=== PATIENT | male | born 1935 | race Caucasian/White ===

== ENCOUNTER → 2017-11-28 | Outpatient (CLI) | payer BC ==
[~2017-11-28] MED LIST: CYAN500T PO; GLC500 PO; ZFRODT4 SL
--- NOTE | 2017-11-28 10:01 | DIAGNOSTIC IMAGING REPORT ---
R HIP UNILATERAL 2 VIEWS CLINICAL HISTORY: 82 years-old Male presenting with PAIN IN R HIP. TECHNIQUE: Frontal and frog-leg lateral views of the right hip were obtained. COMPARISON: None. FINDINGS: Significant degenerative change of the right hip with severe joint space loss, subchondral sclerosis, and osteophytosis. Joint space loss is most pronounced superiorly. No acute fracture or acute malalignment. Brachytherapy seeds noted in the prostate. Osteopenia suspected. IMPRESSION: Advanced degenerative changes of the right hip. No acute osseous injury. Electronically signed by: Mark Merino M.D. 11/28/2017 10:00 AM Dictated Date/Time: 11/28/2017 9:59 AM
--- NOTE | 2017-11-28 10:03 | DIAGNOSTIC IMAGING REPORT ---
L HIP UNILATERAL 2 VIEWS CLINICAL HISTORY: 82 years-old Male presenting with PAIN IN R HIP. TECHNIQUE: Frontal and frog-leg lateral views of the left hip were obtained. COMPARISON: None. FINDINGS: Advanced degenerative changes with joint space loss most pronounced superiorly. Subchondral sclerosis and cystic change as well as osteophytosis evident. No acute fracture. Upper convexity of the superior aspect of the femoral neck could suggest chronic acetabular impingement. Osteopenia suspected. Brachytherapy seeds noted in the prostate. 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 Electronically signed by: Mark Merino M.D. 11/28/2017 10:01 AM Dictated Date/Time: 11/28/2017 10:00 AM
== END | disposition home or self-care (01) ==
LOC: C.RAD1850 09:40
PROVIDERS: ATTEND Family Medicine
DX: M25.551 Pain in right hip (principal); M16.0 Bilateral primary osteoarthritis of hip

== ENCOUNTER 2018-11-10 05:54 | Inpatient (IN) ==
--- NOTE | 2018-10-10 11:17 | Anesthesiology Consultation ---
Date of Service October 10, 2018 Assessment & Plan (1) Encounter for pre-operative examination: Plan: Patient had ROCKY 02/2018, tolerated well. General anesthesia per record, but no indication as to why a spinal was not done. Patient is unsure as well, but recalls good experience and was pleased with anesthetic care. Chart Review Chart Review: Acceptable Risk for Surgery and Patient seen in Pre Admission Testing Teaching & Discussion Instructed NPO after midnight before surgery, except medications with 15 cc of water. Medication instructions provided according to the PAT guidelines. History Surgery Operation Date: 11/10/18 07:00 Proposed Procedures p Right Total Hip Arthroplasty - Librado Soni MD Height/Weight Height: 6 ft 1 in Weight: 111.1 kg Allergies Allergy/AdvReac Type Severity Reaction Status Date / Time metformin Allergy Unknown MUSCLE Verified 10/04/18 10:08 ACHES Ajowyyx-Wki-Goh Reductase Allergy Unknown MUSCLE Verified 10/04/18 10:08 Inhibitor ACHES Unclassified Drugs Allergy Unknown RED YEAST Uncoded 03/23/18 11:17 RICE-MUSCLE ACHES Medications Home Medications Medication Instructions Recorded Confirmed Last Taken aspirin [Aspir-81] 81 mg PO HS 10/04/18 10/04/18 Unknown canagliflozin [Invokana] 100 mg PO QAM 10/04/18 10/04/18 Unknown cyanocobalamin (vitamin B-12) 1,000 mcg PO QAM 10/04/18 10/04/18 Unknown [Vitamin B-12] docusate sodium [Stool Softener] 50 mg PO BID 10/04/18 10/04/18 Unknown losartan 25 mg PO BID 10/04/18 10/04/18 Unknown sitagliptin [Januvia] 100 mg PO QAM 10/04/18 10/04/18 Unknown Past Medical History Medical History Bradycardia ASYMPTOMATIC Diabetes mellitus, type 2 History of cardiac arrhythmia PT HAD HOLTER SHOWING NSR WITH INTERMITTENT EPISODES OF ATRIAL TACHYCARDIA. History of prostate cancer S/P BRACHYTHERAPY Hypertension Osteoarthritis Past Surgical History Surgical History History of brachytherapy History of cataract extraction with lens replacement History of cystoscopy History of open reduction and internal fixation (ORIF) procedure ARM History of total hip arthroplasty LEFT Past Anesthesia History No Hx of Anesthesia Complications and No Family Hx of Anesthesia Complications PT HAD GENERAL ANESTHESIA FOR ROCKY 02/2018. RECORD DOES NOT INDICATE WHY GA WAS USED, AND DOES NOT APPEAR SPINAL WAS ATTEMPTED. PT WAS VERY PLEASED WITH ANESTHESIA LAST TIME AND WOULD NOT MIND HAVING GA AGAIN IF THE NEED ARISES. History of PONV No Motion Sickness Screening History of Motion Sickness: No Social History Smoking Status: Former smoker tobacco type: cigarettes Smoking cigarettes per day: H/O 1PPD x 20yrs Do You Dip or Chew Tobacco: No Smoking End Date: QUIT 35 YEARS AGO. Hx Alcohol Use: Yes alcohol intake frequency: holidays/special occasions only Alcohol Intake Frequency Comment: VERY RARE Hx Substance Use: No substance use type: does not use Exercise / Class Metabolic Activity II 4-5 Yardwork/Stairs/Walk up hill (Denies CP and SOB with 1 flight of stairs) Review of Systems Pt denies any recent chest pain, shortness of breath, palpitations, cough, fever or URI. Physical Exam Vital Signs BP: 115/68 P: 52bpm SPO2: 95% RA T: R: 16 ENMT Mouth: + dentures and + edentulous Thyromental Distance: > or= 3.5 Finger Breadths (4) Mallampati Class: I tonsils surgically absent Neck normal visual inspection; neck extension not limited Respiratory normal respiratory effort Auscultation: lungs clear to auscultation bilaterally Cardiovascular Rate/Rhythm: regular rate and regular rhythm Heart Sounds: no murmur Vessels: no carotid bruit Extremities: no edema Testing Electrocardiogram Date: 02/17/18 Sinus rhythm with 2nd degree AV block, likely Mobitz I. PVCs. Possible inferior infarct (cited on or before 08/11/04). Chest X-Ray Date: 02/17/18 Findings could suggest underlying chronic lung disease. No convincing evidence of acute cardiopulmonary disease. Echocardiogram Date: 03/06/18 EF: 60% Dilated right ventricle. Mild concentric LVH. Severely dilated left atrium. Grade 1 diastolic dysfunction. No regional wall motion abnormalities. No significant valvular disease. Other Testing Holter monitor 02/28/2018 Predominantly normal sinus rhythm with second-degree AV block type I. Rare 2:1 block, frequent PACs. Frequent episodes of atrial tachycardia up to 10 beats in duration, up to 128 bpm. Laboratory Results 10/10/18 11:40 10/10/18 11:40 Blood Type O Positive 10/10/18 11:40 Antibody Screen NEGATIVE 10/10/18 11:40 PT 10.8 Seconds (9.0-12.0) 10/10/18 11:40 INR 1.1 (0.9-1.1) 10/10/18 11:40 APTT 25.7 Seconds (21.0-31.0) 10/10/18 11:40 Hemoglobin A1c 6.6 % (4.5-5.6) H 10/10/18 11:40
--- NOTE | 2018-10-10 11:36 | PAT Medication Instructions ---
Medication Instructions Date of Service October 10, 2018 Home Medications aspirin [Aspir-81] 81 mg PO HS canagliflozin [Invokana] 100 mg PO QAM cyanocobalamin (vitamin B-12) 1,000 mcg PO QAM docusate sodium [Stool Softener] 50 mg PO BID losartan 25 mg PO BID sitagliptin [Januvia] 100 mg PO QAM DO NOT take the morning of surgery canagliflozin [Invokana] 100 mg PO QAM cyanocobalamin (vitamin B-12) 1,000 mcg PO QAM docusate sodium [Stool Softener] 50 mg PO BID losartan 25 mg PO BID sitagliptin [Januvia] 100 mg PO QAM Take evening before surgery aspirin [Aspir-81] 81 mg PO HS docusate sodium [Stool Softener] 50 mg PO BID losartan 25 mg PO BID Other Notes If you have any questions please call us at [phone] or [phone] or [phone] or [phone]
[2018-10-10 12:10] LABS: Basophils # (auto) 0.04 K/uL (0-0.2); Basophils % (auto) 0.6 %; Eosinophils # (auto) 0.13 K/uL (0-0.5); Eosinophils % (auto) 2.1 %; Hemoglobin 13.2 g/dL (14.0-18.0); Immature Granulocytes # (auto) 0.01 K/uL (0.00-0.02); Immature Granulocytes % (auto) 0.2 %; Lymphocytes % (auto) 29.1 %; Mean Corpuscular Hgb Conc 32.2 g/dL (32-36); Mean Corpuscular Volume 83.8 fL (80-100); Mean Platelet Volume 11.3 fL (7.4-10.4); Monocytes # (auto) 0.52 K/uL (0.11-0.59); Monocytes % (auto) 8.4 %; Neutrophils # (auto) 3.69 K/uL (1.4-6.5); Neutrophils % (auto) 59.6 %; Platelet Count 220 K/uL (130-400); RDW Coefficient of Variation 15.6 % (11.5-14.5); RDW Standard Deviation 47.9 fL (36.4-46.3); Red Blood Count 4.89 M/uL (4.7-6.1); White Blood Count 6.19 K/uL (4.8-10.8)
[2018-10-10 12:26] LABS: INR 1.1 (0.9-1.1); Partial Thromboplastin Time 25.7 Seconds (21.0-31.0); Prothrombin Time 10.8 Seconds (9.0-12.0)
[2018-10-10 12:52] LABS: Estimated Average Glucose 143 mg/dl
[2018-10-10 13:12] LABS: BUN Creatinine Ratio 18.1 (10-20); Calcium 9.2 mg/dl (8.5-10.1); Creatinine Clr Calc Pharmacy 64.7 ml/min; Est GFR (African American) 69.3; Est GFR (Non-African American) 59.8; Potassium 4.4 mmol/L (3.5-5.1)
[2018-10-10 13:13] LABS: C Reactive Protein 0.41 mg/dl (0-0.29)
--- NOTE | 2018-11-04 12:47 | History and Physical Report ---
DATE OF ADMISSION: 11/10/2018 CHIEF COMPLAINT: Persistent right hip pain and discomfort, stiffness. HISTORY OF PRESENT ILLNESS: An 83-year-old gentleman who is now about 8 months out from a left hip replacement who presents now for surgical treatment of his right hip. He has done great on his left side. He has got a long history of bilateral hip pain and discomfort. He has become more active since his hip surgery and actually been able to lose some weight. He continues to be bothered and limited by his right hip pain. He describes groin pain, thigh pain. It has gradually just gotten worse over the past 10 years. He continues to use a cane in order to get around due to his right hip. He would like to proceed with surgical treatment. PAST MEDICAL HISTORY: 1. Diabetes x8 years with an A1c of 6.6. 2. Hypertension. 3. Obesity with recent weight loss. 4. Prostate cancer. 5. Bradycardia. PAST SURGICAL HISTORY: Previous surgeries include: 1. Arm surgery for fracture. 2. Left hip replacement done on 03/23/2018. ALLERGIES: None. CURRENT MEDICINES: Include: 1. Januvia once a day for diabetes. 2. Invokana once a day for diabetes. 3. Vitamin B12. 4. Unspecified blood pressure medicine 25 mg twice a day. 5. Ibuprofen for arthritis. SOCIAL HISTORY: An 83-year-old male. He is . Lives by himself. Pretty good family support network locally. FAMILY HISTORY: Noncontributory. REVIEW OF SYSTEMS: Significant for well-controlled diabetes. Denies any chest pain or shortness of breath. No history of DVT or PE. PHYSICAL EXAMINATION: GENERAL: Shows a healthy-appearing elderly male. HEENT: Benign. NECK: Supple. No lymphadenopathy. LUNGS: Clear to auscultation. HEART: Regular rate and rhythm. ABDOMEN: Soft, nontender, nondistended. EXTREMITIES: Grossly neurovascularly intact except as follows: Examination of the right hip and leg reveals the patient walks using a cane. He limps on the right side. He is about 0.5 cm short on the right side compared to the left. Very stiff hip with minimal motion. Any type of motion causes pain. Examination of the left hip reveals well-healed incision. He has got pain with hip motion. He is neurologically intact. X-RAYS: X-rays of the right hip reveal advanced right hip DJD. He has got complete loss of his joint space. He has got osteophytes around his hip diffusely both from the acetabular and femoral head. Diffuse osteopenia. Left hip replacement looks to be in good position. ASSESSMENT: An 83-year-old gentleman now 6 months out from a left hip replacement with advanced right hip degenerative joint disease. He is now limited by his right hip arthritis. PLAN: We will take him to the operating room and do a right total hip replacement. The risks and benefits of this procedure were explained to the patient including but not limited to DVT, PE, , infection, neurological injury, vascular injury, bleeding problem, pain, limited range of motion, stiffness, failure to relieve symptoms, incomplete relief of symptoms, need for further surgery in future, fracture, leg length inequality, nerve palsy, dislocation, etc. The patient understands and desires to proceed. Informed consent was obtained. As far as discharge plans, he is planning to be discharged to home using the home health program. He has got family around which can help with his care.
[2018-11-10] MEDS ORDERED: GABAPENTIN 300 MG PO SCH (06:00)
[2018-11-10] MEDS ORDERED: TRANEXAMIC ACID 1,000 MG **IV Pre-op IV SCH (06:00)
[2018-11-10] MEDS ORDERED: ACETAMINOPHEN 500 MG TAB PO SCH (06:00)
[2018-11-10] MEDS ORDERED: LR 500ML BOLUS, THEN 15ML/HR IV SCH (06:00)
[2018-11-10] MEDS ORDERED: LR 60ML/HR IV SCH (06:00)
[2018-11-10] MEDS ORDERED: METOCLOPRAMIDE HCL 10 MG TABLET PO SCH (06:00)
[2018-11-10] MEDS ORDERED: CEFAZOLIN 2000MG 2,000 MG/15 ML SYR IV SCH (06:00)
[2018-11-10] MEDS ORDERED: FAMOTIDINE 20 MG TAB PO SCH (06:00)
[2018-11-10] MEDS ORDERED: BUPIVACAINE 0.5 % 5 MG/1 ML PF 10ML VIAL ONE (06:19)
[2018-11-10] MEDS ORDERED: TRANEXAMIC ACID 1,000 MG **IV Intra-op IV SCH (06:30)
--- NOTE | 2018-11-10 06:53 | History & Physical Bridge Note ---
Date of Service November 10, 2018 History & Physical Bridge Note I have examined the patient, reviewed the History & Physical and in the interval since the performance of the History & Physical I have noted the following changes of clinical significance: no changes noted
[2018-11-10] MEDS ORDERED: HYDROmorphone INJ 2 MG/ML SYR/VIAL ONE (08:15)
[2018-11-10] MEDS ORDERED: fentaNYL citrate 100 MCG/2 ML VIAL ONE ×2 (08:15→10:34)
[2018-11-10] MEDS ORDERED: PROMETHAZINE HCL 6.25 MG in SODIUM CHLORIDE 0.9% 50 ML IV PRN (08:18)
[2018-11-10] MEDS ORDERED: ePHEDrine sulfate 50 MG/ML AMP IV PRN (08:18)
[2018-11-10] MEDS ORDERED: fentaNYL citrate 100 MCG/2 ML VIAL IV PRN (08:18)
[2018-11-10] MEDS ORDERED: ATROPINE SULFATE 0.1 MG/ML 10ML SYR IV PRN (08:18)
[2018-11-10] MEDS ORDERED: ONDANSETRON INJ 2 MG/ML 2 ML VIAL IV PRN ×2 (08:18→11:57)
[2018-11-10] MEDS ORDERED: BACITRACIN INJ 50,000 UNIT VIAL ONE (08:36)
[2018-11-10] MEDS ORDERED: BUPIVACAINE/EPINEPHRINE 0.5% MPF 1:200,000 30 ML VIAL ONE (08:36)
[2018-11-10] MEDS ORDERED: NEOSTIGMINE METHYLSULFATE 5 MG/5 ML SYR ONE (09:21)
[2018-11-10] MEDS ORDERED: GLYCOPYRROLATE 0.2 MG/ML VIAL ONE (09:21)
[2018-11-10] MEDS ORDERED: ROCURONIUM BROMIDE 10 MG/ML 5 ML VIAL ONE (09:21)
[2018-11-10] MEDS ORDERED: LIDOCAINE HCL 2% 2 ML VIAL/AMP(20MG/ML) INFIL ONE (09:21)
[2018-11-10] MEDS ORDERED: PROPOFOL IV EMULSION 10 MG/ML 20 ML VIAL IV ONE (09:21)
[2018-11-10] MEDS ORDERED: ONDANSETRON INJ 2 MG/ML 2 ML VIAL ONE (09:21)
[2018-11-10] MEDS ORDERED: PHENYLEPHRINE 100MCG/ML 5ML SYR ONE (10:18)
--- NOTE | 2018-11-10 10:46 | Post Operative Brief Note ---
Immediate Post Op Note v1 Date of Surgery November 10, 2018 Pre & Post Diagnosis Operation Date: 11/10/18 08:50 Pre-Op Diagnosis: Right Hip Degenertive Joint Disease Post-Op Diagnosis: Right Hip Degenertive Joint Disease Procedure Operation Date: 11/10/18 08:50 Actual Procedures p Right Total Hip Arthroplasty, Uncemented(Right) - Librado Soni MD Surgeon Librado Soni MD Ribbon Cutter [place], PAC Estimated Blood Loss 300 Findings Consistent with Post-Op Diagnosis Fluids 600 cc Specimens Right Femoral Head Anesthesia Type Spinal MAC Complications none Disposition Accompanied Patient To Recovery: Yes Disposition: Recovery Room
[2018-11-10] MEDS: LR 500ML BOLUS, THEN 15ML/HR IV SCH ×2 (11:05→12:16)
--- NOTE | 2018-11-10 11:37 | Anesthesiology Progress Note ---
Date of Service November 10, 2018 Anesthesia Post Procedure Vital Signs Vital Signs: Temp Pulse Pulse Resp BP BP Pulse Ox 11/10/18 11:27 36.5 C 45 L 17 134/59 L 100 11/10/18 11:25 47 L 16 99 11/10/18 11:21 48 L 14 133/61 96 11/10/18 11:20 51 L 18 11/10/18 11:16 46 L 12 132/56 L 98 11/10/18 11:15 45 L 10 L 99 11/10/18 11:11 46 L 17 126/59 L 96 11/10/18 11:10 45 L 13 96 11/10/18 11:06 45 L 12 139/62 97 11/10/18 11:05 45 L 14 98 11/10/18 11:01 46 L 8 L 132/55 L 100 11/10/18 11:00 46 L 10 L 96 11/10/18 10:56 51 L 10 L 142/63 H 98 11/10/18 10:55 15 98 11/10/18 10:51 58 L 12 132/68 100 11/10/18 10:50 59 L 15 100 11/10/18 10:47 50 L 8 L 138/67 99 11/10/18 10:46 36.3 C L 51 L 16 138/67 98 11/10/18 07:31 36.5 C 62 20 121/67 99 Notes Mental Status: alert / awake / arousable Patient Amnestic to Procedure: Yes Nausea / Vomiting: adequately controlled Pain: adequately controlled Airway Patency, RR, SpO2: stable & adequate BP & HR: stable & adequate Hydration State: stable & adequate Anesthetic Complications: no major complications apparent
--- NOTE | 2018-11-10 11:43 | XRay Report ---
XR hip 1V RT w pelvis CLINICAL HISTORY: IN PACU - A/P PELVIS and LATERAL HIP COMPARISON: 03/23/2018 DISCUSSION: Interval total right hip arthroplasty. Good contact between prosthetic and underlying bon e. Pre-existing total left hip arthroplasty. Multiple radioactive prosthetic seeds are identified. Ex pected postoperative soft tissue change. IMPRESSION: Total right hip arthroplasty good position. The above report was generated using voice recognition software. It may contain grammatical, syntax or spelling errors. Electronically signed by: Oc Espinosa M.D. 11/10/2018 11:42 AM
[2018-11-10] MEDS ORDERED: NALOXONE HCL 0.4 MG/1 ML VIAL/CARP IV PRN (11:57)
[2018-11-10] MEDS ORDERED: METOCLOPRAMIDE HCL INJ 5 MG/ML 2 ML VIAL IV PRN (11:57)
[2018-11-10] MEDS ORDERED: TRAMADOL HCL 50 MG TABLET PO PRN (11:57)
[2018-11-10] MEDS ORDERED: BISACODYL 10 MG SUPP PR PRN (11:57)
[2018-11-10] MEDS ORDERED: MAGNESIUM HYDROXIDE SUSP 30 ML UDC PO PRN (11:57)
[2018-11-10] MEDS ORDERED: HYDROmorphone INJ 0.5 MG/0.5 ML SYR IV PRN (11:57)
[2018-11-10] MEDS ORDERED: ALUMINUM/MAGNESIUM SUSP 30 ML UDC PO PRN (11:57)
[2018-11-10] MEDS ORDERED: TAMSULOSIN HCL 0.4 MG CAP PO PRN (11:57)
[2018-11-10] MEDS: KETOROLAC TROMETHAMINE 15 MG/ML VIAL IV SCH ×3 (14:15→20:18)
[2018-11-10] MEDS: ACETAMINOPHEN 500 MG TAB PO SCH ×2 (14:15→18:18)
[2018-11-10] MEDS: SODIUM CHLORIDE 0.9% 1000ML 1,000 ML IV SCH ×2 (14:17→21:09)
[2018-11-10] MEDS: CEFAZOLIN 2000MG 2,000 MG/15 ML SYR IV SCH ×2 (15:42→23:40)
[2018-11-10] MEDS ORDERED: TRANEXAMIC ACID 1,000 MG in 0.9 % SODIUM CHLORIDE 100 ML IV SCH (16:47)
[2018-11-10] MEDS: ASCORBIC ACID 500 MG TAB PO SCH (18:17)
[2018-11-10] MEDS: FERROUS GLUCONATE 324 MG TAB PO SCH (18:17)
[2018-11-10] MEDS: SENNA 8.6 MG TAB PO SCH (20:09)
[2018-11-10] MEDS: ASPIRIN 81 MG ECTAB PO SCH (20:10)
[2018-11-10] MEDS: DOCUSATE SODIUM 100 MG CAP PO SCH (20:11)
[2018-11-10] MEDS: LOSARTAN POTASSIUM 25 MG TAB PO SCH (20:14)
[2018-11-10] MEDS ORDERED: NON-FORMULARY MEDICATION (Docusate Sodium [Stool Softener] 50 MG) PO SCH (21:00)
--- NOTE | 2018-11-10 22:28 | Operative Report ---
DATE OF OPERATION: 11/10/2018 SURGEON: Librado Soni MD RABBIT BREEDER: TATO Peres PREOPERATIVE DIAGNOSIS: Right hip degenerative joint disease. POSTOPERATIVE DIAGNOSIS: Same. PROCEDURE PERFORMED: Right uncemented ceramic on highly cross-linked polyethylene total hip arthroplasty. COMPLICATIONS: None. ESTIMATED BLOOD LOSS: 300 mL. FLUID REPLACEMENT: 600 mL crystalloid fluid replacement. ANESTHESIA: General. SPECIMENS: Right femoral head sent for pathology. OPERATIVE INDICATIONS: The patient is an 83-year-old fairly active gentleman who has had a long history of bilateral hip pain and discomfort. He describes it has gotten worse over the past 10 years. He underwent a left hip replacement 8 months ago and has done remarkably well. He continued to be limited by right hip pain. He elected to proceed with total hip arthroplasty. OPERATIVE FINDINGS: Operative findings were advanced right hip DJD. Extensive grade 4 changes of the femoral head and acetabulum. He had large osteophytes around the acetabulum and a very stiff hip. OPERATIVE IMPLANTS: Operative implants consisted of, 1. Biomet G7 size 60 mm acetabular shell. 2. A 6.5 cancellous acetabular screws, one at 35 mm length and one at 20 mm length. 3. An apex hole eliminator. 4. A highly cross-linked polyethylene liner with a 60 mm outer diameter and 36 mm inner diameter. 5. DePuy Corail size 18 standard femoral stem. 6. A +5/36 mm ceramic articular ball. OPERATIVE PROCEDURE: The patient was taken to the operating room, identified, and placed on the operative table in supine position. All contact areas were appropriately padded. IV antibiotics were provided by anesthesia team. A general anesthetic was implemented by anesthesia team due to the patient's request. The patient was then placed in the left lateral decubitus position. An axillary roll was placed. [facility] hip positioner was used for positioning. The right hip and leg were then prepped and draped in the usual sterile fashion. A posterolateral approach to the right hip was then performed through a curvilinear incision centered over the greater trochanter. Sharp dissection was carried through the subcutaneous tissue down to the level of the IT band and gluteal fascia. The IT band and gluteal fascia were incised longitudinally in line with the skin incision. The underlying greater trochanteric bursa was excised. The piriformis and external rotators were tagged and taken off the posterior aspect of the hip joint capsule. Great care was taken throughout the procedure to protect the sciatic nerve at all times. A posterior capsulotomy was then performed leaving a large flap for later repair. Hip was internally rotated and dislocated. Femoral neck osteotomy cut was made with final cut about 12 mm above the lesser trochanter. Femoral head was removed and sent for pathology. The femur was retracted anteriorly. The acetabulum labrum was mostly ossified, but was present was then removed. The pulvinar fat was excised. Attention was then drawn to the acetabulum. The acetabulum was then reamed beginning with a size 53 reamer and progressing up to 59. I did use the 60 reamer just to enter the acetabulum as it was narrower at the entrance. A 60 mm Biomet G7 acetabular shell was then placed in about 40 degrees of lateral opening and 20 degrees of anteversion. It was fixed with two 6.5 cancellous acetabular screws. The large anterior osteophytes and inferior osteophytes were removed. A trial liner was placed. Attention was then drawn to the femur. The proximal femur was entered with a cookie cutter followed by a canal finder. I then broached beginning with a size 8 and progressing up to a 16. This did countersink quite a bit, so we broached it to an 18 and it was quite a tight fit. We had to place it down several times to get it to the calcar cut. We did this very meticulously taking great care to protect his bone. A calcar reamer was used to smoothen off the calcar. I then trialed the hip and the +5 articular ball provided full stability, full extension and external rotation and flexion to 90 degrees, internal rotation to 60+ degrees. We elected to place these implants. All trial implants were removed. An apex hole eliminator was placed. Highly cross-linked polyethylene liner was placed. A Corail size 18 standard offset femoral stem was impacted in position. There was a little defect medially and we did put some bone graft around the collar in order to fill this defect. A +5/36 mm ceramic articular ball was placed and hip was located. Once again found to be stable. Attention was then drawn toward closing. The wound was irrigated with copious amounts of pulsatile lavage solution. I did inject locally with 60 mL of 0.5% Marcaine with epinephrine. The posterior capsule and external rotators were repaired through drill holes in the posterior trochanter with #2 Ti-Cron suture. The IT band and gluteal fascia were then closed with 1-0 PDS suture in running fashion. The subcutaneous tissue was then closed in 2 layers with the deep layer with #1 Vicryl suture and the subcutaneous tissue with 2-0 Dexon suture in a buried interrupted fashion. The skin was closed with skin xavi. Leg was then cleaned, dried and a sterile dressing of Xeroform, 4 x 4, sterile ABD pad, and foam tape was applied. The patient was then transferred to the recovery room in stable condition. The patient tolerated the procedure well with no complications. All needle and sponge counts were correct at the end of the operation. I attest to the content of the Intraoperative Record and any orders documented therein. Any exception s are noted below.
[2018-11-11] MEDS: LR 500ML BOLUS, THEN 15ML/HR IV SCH ×5 (01:34→01:38)
[2018-11-11] MEDS: KETOROLAC TROMETHAMINE 15 MG/ML VIAL IV SCH ×4 (02:00→20:35)
[2018-11-11] MEDS: SODIUM CHLORIDE 0.9% 1000ML 1,000 ML IV SCH (05:42)
[2018-11-11] MEDS: ACETAMINOPHEN 500 MG TAB PO SCH ×3 (05:42→21:15)
[2018-11-11 06:17] LABS: Basophils # (auto) 0.02 K/uL (0-0.2); Basophils % (auto) 0.3 %; Eosinophils # (auto) 0.01 K/uL (0-0.5); Eosinophils % (auto) 0.1 %; Hematocrit (blood only) 31.3 % (42-52); Hemoglobin 9.7 g/dL (14.0-18.0); Immature Granulocytes # (auto) 0.02 K/uL (0.00-0.02); Immature Granulocytes % (auto) 0.3 %; Lymphocytes # (auto) 1.43 K/uL (1.2-3.4); Lymphocytes % (auto) 19.2 %; Mean Platelet Volume 12.5 fL (7.4-10.4); Monocytes # (auto) 0.96 K/uL (0.11-0.59); Monocytes % (auto) 12.9 %; Neutrophils # (auto) 5.02 K/uL (1.4-6.5); Neutrophils % (auto) 67.2 %; Platelet Count 157 K/uL (130-400); RDW Coefficient of Variation 15.4 % (11.5-14.5); RDW Standard Deviation 46.5 fL (36.4-46.3); Red Blood Count 3.77 M/uL (4.7-6.1); White Blood Count 7.46 K/uL (4.8-10.8)
[2018-11-11 06:42] LABS: BUN Creatinine Ratio 22.2 (10-20); Calcium 7.5 mg/dl (8.5-10.1); Creatinine Clr Calc Pharmacy 52.3 ml/min; Est GFR (African American) 53.5; Est GFR (Non-African American) 46.1; Potassium 3.8 mmol/L (3.5-5.1)
--- NOTE | 2018-11-11 08:38 | Anesthesiology Progress Note ---
Date of Service November 11, 2018 Anesthesia Post Procedure Vital Signs Vital Signs: Temp Pulse Pulse Pulse Resp BP BP 11/11/18 07:42 37.0 C 69 16 107/49 L 11/11/18 02:58 37.3 C 81 16 92/58 L 11/10/18 23:09 37.2 C 71 16 114/62 11/10/18 20:13 63 103/66 11/10/18 19:08 37 C 66 18 120/76 11/10/18 15:29 36.4 C L 11/10/18 14:55 50 L 18 145/77 H 11/10/18 13:47 36.4 C L 47 L 18 143/72 H 11/10/18 12:48 36.3 C L 41 L 18 144/73 H 11/10/18 12:16 36.3 C L 43 L 18 136/61 11/10/18 11:45 36.6 C 48 L 18 176/83 H 11/10/18 11:27 36.5 C 45 L 17 134/59 L 11/10/18 11:25 47 L 16 11/10/18 11:21 48 L 14 133/61 11/10/18 11:20 51 L 18 11/10/18 11:16 46 L 12 132/56 L 11/10/18 11:15 45 L 10 L 11/10/18 11:11 46 L 17 126/59 L 11/10/18 11:10 45 L 13 11/10/18 11:06 45 L 12 139/62 11/10/18 11:05 45 L 14 11/10/18 11:01 46 L 8 L 132/55 L 11/10/18 11:00 46 L 10 L 11/10/18 10:56 51 L 10 L 142/63 H 11/10/18 10:55 15 11/10/18 10:51 58 L 12 132/68 11/10/18 10:50 59 L 15 11/10/18 10:47 50 L 8 L 138/67 11/10/18 10:46 36.3 C L 51 L 16 138/67 Pulse Ox 11/11/18 07:42 96 11/11/18 02:58 97 11/10/18 23:09 98 11/10/18 20:13 11/10/18 19:08 96 11/10/18 15:29 11/10/18 14:55 100 11/10/18 13:47 100 11/10/18 12:48 100 11/10/18 12:16 100 11/10/18 11:45 100 11/10/18 11:27 100 11/10/18 11:25 99 11/10/18 11:21 96 11/10/18 11:20 11/10/18 11:16 98 11/10/18 11:15 99 11/10/18 11:11 96 11/10/18 11:10 96 11/10/18 11:06 97 11/10/18 11:05 98 11/10/18 11:01 100 11/10/18 11:00 96 11/10/18 10:56 98 11/10/18 10:55 98 11/10/18 10:51 100 11/10/18 10:50 100 11/10/18 10:47 99 11/10/18 10:46 98 Notes Mental Status: alert / awake / arousable Nausea / Vomiting: adequately controlled Pain: adequately controlled Airway Patency, RR, SpO2: stable & adequate BP & HR: stable & adequate Hydration State: stable & adequate Neuraxial Anesthesia: was administered and sensory block resolved Anesthetic Complications: no major complications apparent and Pt Satisfied with anesthetic care
[2018-11-11] MEDS: DOCUSATE SODIUM 100 MG CAP PO SCH ×2 (08:43→20:41)
[2018-11-11] MEDS: CANAGLIFLOZIN SCH (08:43)
[2018-11-11] MEDS: MULTIVITAMIN TAB PO SCH (08:43)
[2018-11-11] MEDS: FERROUS GLUCONATE 324 MG TAB PO SCH ×2 (08:43→16:07)
[2018-11-11] MEDS: ASCORBIC ACID 500 MG TAB PO SCH ×2 (08:44→16:07)
[2018-11-11] MEDS: ASPIRIN 81 MG ECTAB PO SCH ×2 (08:44→20:40)
[2018-11-11] MEDS: SITAGLIPTIN PHOSPHATE 100 MG TAB PO SCH (08:44)
[2018-11-11] MEDS: CYANOCOBALAMIN 500 MCG TABLET (VITAMIN B-12) PO SCH (08:45)
[2018-11-11] MEDS: LOSARTAN POTASSIUM 25 MG TAB PO SCH ×2 (08:45→20:39)
--- NOTE | 2018-11-11 10:00 | Progress Note ---
DATE: 11/11/2018 SUBJECTIVE: An 83-year-old gentleman postop day 1 from right hip replacement. He is doing well. He does not report any pain. He just has a little bit of soreness. No chest pain or shortness of breath. Not feeling dizzy or lightheaded. OBJECTIVE: VITAL SIGNS: Temperature 37.0. Vital signs are stable. PHYSICAL EXAMINATION: GENERAL: Reveals a pleasant elderly male. He is sitting up in his bedside chair and looks quite comfortable. EXTREMITIES: Examination of the right hip reveals the dressing to be clean, dry and intact. Thigh is soft and supple. Hip is located. He is neurologically intact. LABORATORY DATA: Hemoglobin 9.7. Hematocrit 31.3. Electrolytes are stable. ASSESSMENT: An 83-year-old gentleman postoperative day 1 from right hip replacement, doing well. Pain is controlled. Hip is located. He is neurologically intact. PLAN: 1. DVT prophylaxis including thigh-high TEDs, SCDs, and aspirin twice a day. 2. PT/OT. Weight bear as tolerated. Right total hip protocol. 3. Pain control, doing well with current pain regimen. 4. Disposition: Plan to discharge to home with some home health once adequately recovered.
[2018-11-11] MEDS: SENNA 8.6 MG TAB PO SCH (20:41)
[2018-11-12] MEDS: KETOROLAC TROMETHAMINE 15 MG/ML VIAL IV SCH ×2 (02:54→07:54)
[2018-11-12] MEDS: ACETAMINOPHEN 500 MG TAB PO SCH (05:58)
[2018-11-12] MEDS: CANAGLIFLOZIN SCH (07:54)
[2018-11-12] MEDS: ASPIRIN 81 MG ECTAB PO SCH (07:54)
[2018-11-12] MEDS: CYANOCOBALAMIN 500 MCG TABLET (VITAMIN B-12) PO SCH (07:55)
[2018-11-12] MEDS: ASCORBIC ACID 500 MG TAB PO SCH (07:55)
[2018-11-12] MEDS: SITAGLIPTIN PHOSPHATE 100 MG TAB PO SCH (07:55)
[2018-11-12] MEDS: MULTIVITAMIN TAB PO SCH (07:56)
[2018-11-12] MEDS: DOCUSATE SODIUM 100 MG CAP PO SCH (07:56)
[2018-11-12] MEDS: FERROUS GLUCONATE 324 MG TAB PO SCH (07:56)
[2018-11-12] MEDS: LOSARTAN POTASSIUM 25 MG TAB PO SCH (07:56)
--- NOTE | 2018-11-12 08:37 | Progress Note ---
DATE: 11/12/2018 SUBJECTIVE: An 83-year-old gentleman postop day 2 from right hip replacement. He is doing well. Denies any pain. No chest pain or shortness of breath. Not feeling dizzy or lightheaded. Ready to go home. OBJECTIVE: VITAL SIGNS: Temperature 36.7. Vital signs stable. GENERAL: Reveals a pleasant elderly male. He is lying in bed and looks comfortable. He is awake, alert, and oriented. EXTREMITIES: Examination of the right hip reveals the dressing to be clean, dry and intact. Leg lengths were equal. Hip is located. He is neurologically intact. ASSESSMENT: An 83-year-old gentleman postop day 2 from right hip replacement, doing well. His pain is controlled. He has been a bit anemic, but asymptomatic. PLAN: 1. DVT prophylaxis including thigh-high TEDs, SCDs, and aspirin twice a day. 2. PT/OT. Weight bear as tolerated. Right total hip protocol. 3. Pain control. Doing well with current pain regimen. 4. Anemia. Currently asymptomatic. Continue iron supplementation. 5. Disposition: Plan to discharge to home with home health and family's assistance, later today.
--- NOTE | 2018-11-18 03:16 | Discharge Summary ---
ADMITTING PHYSICIAN AND SURGEON: Librado Soni MD ADMITTING DIAGNOSIS: Right hip degenerative joint disease. SURGERY PERFORMED: Right total hip arthroplasty. SECONDARY DIAGNOSES: Diabetes, hypertension, obesity, prostate cancer, bradycardia. CONSULTATIONS: None obtained. HISTORY AND PHYSICAL EXAMINATION: Well documented in the patient's chart. HOSPITAL COURSE: The patient was admitted on 11/10/2018 and underwent total hip arthroplasty. He tolerated the procedure well. There were no complications. He was transferred to the PACU postoperatively and later to the orthopedic floor for further care. He was given Ancef for antibiotic prophylaxis, CM stockings, SCDs and aspirin for DVT prophylaxis. Hemoglobin, hematocrit, and vital signs were monitored during his hospital stay and remained stable. He had some postoperative anemia. Did not require any blood transfusions. There were no complications. By postoperative day 2, he was tolerating a diabetic diet. Pain was controlled with oral pain medicine. He was participating in physical therapy. On postop day 2, he was discharged home, set up with home health services. He was given printed discharge instructions including new prescriptions for extra strength Tylenol, aspirin, iron supplement, and tramadol. He will continue his home medications with the exception of his home dose of aspirin which was changed. Continue physical therapy, weightbearing as tolerated, CM stockings, total hip precautions. Follow up in approximately 2 weeks postoperatively or sooner if there are any problems or concerns.
== END 2018-11-12 10:15 | disposition home health service (06) | DRG 470 ==
LOC: ASU 05:54 → 3E 10:51

== ENCOUNTER 2018-11-14 09:26 | Inpatient (IN) ==
[2018-11-14] MEDS ORDERED: SODIUM CHLORIDE 0.9% 1000ML 500 ML IV ONE (10:18)
[2018-11-14] MEDS ORDERED: PANTOprazole 40 MG in SYRINGE 0 ML IV ONE (10:23)
[2018-11-14 10:27] LABS: Hematocrit (blood only) 39.1 % (42-52); Hemoglobin 12.6 g/dL (14.0-18.0); Mean Corpuscular Hgb Conc 32.2 g/dL (32-36); Mean Corpuscular Volume 82.5 fL (80-100); Mean Platelet Volume 11.6 fL (7.4-10.4); Platelet Count 314 K/uL (130-400); RDW Standard Deviation 47.7 fL (36.4-46.3); Red Blood Count 4.74 M/uL (4.7-6.1); White Blood Count 8.55 K/uL (4.8-10.8)
[2018-11-14] MEDS ORDERED: SODIUM CHLORIDE 0.9% 1000ML 1,000 ML IV SCH (10:30)
[2018-11-14 10:40] LABS: Albumin Level 2.6 gm/dl (3.4-5.0); BUN Creatinine Ratio 32.5 (10-20); Calcium 8.7 mg/dl (8.5-10.1); Creatinine Clr Calc Pharmacy 36.4 ml/min; Est GFR (African American) 34.1; Est GFR (Non-African American) 29.4; Magnesium 2.5 mg/dl (1.8-2.4); Potassium 3.5 mmol/L (3.5-5.1)
[2018-11-14 10:44] LABS: Albumin Globulin Ratio 0.6 (0.9-2); Bilirubin,Total 0.8 mg/dl (0.2-1); Globulin 4.6 gm/dl (2.5-4.0); Total Protein 7.2 gm/dl (6.4-8.2); Troponin I 0.036 ng/ml (0-0.045)
[2018-11-14 10:52] LABS: Dohle Bodies 1+; Immature Granulocytes # (auto) 0.03 K/uL (0.00-0.02); Immature Granulocytes % (auto) 0.4 %; Lymphocytes # (auto) 0.53 K/uL (1.2-3.4); Lymphocytes % (auto) 6.2 %; Monocytes # (auto) 0.92 K/uL (0.11-0.59); Monocytes % (auto) 10.8 %; Neutrophils # (auto) 7.07 K/uL (1.4-6.5); Neutrophils % (auto) 82.6 %; Toxic Granulation 1+
[2018-11-14] MEDS ORDERED: VANCOMYCIN CONSULT ACTIVE ONE (11:47)
[2018-11-14] MEDS ORDERED: VANCOMYCIN CONSULT ACTIVE PRN (11:47)
[2018-11-14] MEDS ORDERED: VANCOMYCIN HCL 2,250 MG in SODIUM CHLORIDE 0.9% 500 ML IV ONE (11:47)
[2018-11-14] MEDS ORDERED: CEFEPIME 1,000 MG in SYRINGE 0 ML IV STA (11:47)
--- NOTE | 2018-11-14 13:00 | CT Scan Report ---
CT SCAN OF THE ABDOMEN AND PELVIS WITHOUT CONTRAST CLINICAL HISTORY: Nausea, vomiting, diarrhea. COMPARISON STUDY: No previous studies for comparison. TECHNIQUE: CT scan of the abdomen and pelvis was performed from the lung bases to the proximal femurs . Images are reviewed in the axial, sagittal, and coronal planes. IV contrast was not administered fo r this examination. A dose lowering technique was utilized adhering to the principles of ALARA. CT DOSE: 1738.06 mGy.cm FINDINGS: Lower chest: The heart is mildly enlarged. There are coronary artery calcifications. There is no edwina cardial effusion. There are no significant pleural effusions. There is basilar interstitial thickenin g with areas of calcification. There is lower lobe mucous plugging. Chronic aspiration cannot be excl uded. There is a small amount of fluid within the esophagus which appears mildly thick-walled. Liver: There is a to small to characterize 1 cm right lobe hepatic hypodensity. Gallbladder: The gallbladder surgically absent. There are rounded densities in the gallbladder bed, l ikely representing dropped gallstones adjacent droplets of gas possibly nitrogen Spleen: Normal in size and attenuation. Pancreas: Unremarkable. Adrenal glands: Unremarkable. Kidneys: The unenhanced kidneys are normal in size without hydronephrosis. There is no contour deform ing renal mass lesion. No renal calculi are identified. Bowel: There is a fluid-filled distended stomach. There are multiple distended fluid-filled colonic l oops. There are no transition zones to indicate a focal bowel obstruction. There is minor rectal sigm oid wall thickening. The findings are most suggestive of a gastroenteritis. Clinical follow-up is adv ocated. Peritoneum: There is no intraperitoneal free air or abdominal ascites. Vasculature: The abdominal aorta is normal in course and caliber. Adenopathy: None. Pelvic viscera: Prostate lesion therapy implant seeds are visualized. There is a partially visualized metallic density on the inferior most image which appears to lie within a small vein in the right in guinal region Skeletal structures: The bones are osteopenic. 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 There are gas droplets surrounding the right hip, likely secondary to recent surgery. IMPRESSION: 1. Distended fluid-filled stomach, and distended fluid-filled colonic bowel loops. No CT evidence of focal bowel obstruction. Given the clinical history of nausea vomiting and diarrhea, the findings are suggestive of a gastroenteritis. There is also evidence for a fluid-filled esophagus which is mildly thick-walled as well as mild bowel wall thickening involving the rectosigmoid 2. Surgically absent gallbladder. Rounded densities within the gallbladder fossa, likely represent dr opped stones. 3. Interstitial thickening lung bases with areas of mucous plugging. In addition there are scattered calcifications. Chronic aspiration cannot be excluded Electronically signed by: Emiliano Hull M.D. 11/14/2018 12:58 PM
--- NOTE | 2018-11-14 13:54 | History & Physical Report ---
Date of Service November 14, 2018 Assessment & Plan (1) Vomiting: Likely viral given CT AP findings Hx of same sx but less extensive s/p prior hip 03/2018--contributed to pain medication at the time but has avoided use with this surgery Monitor on IVF, full liquid Blood cx pending Vanco in the ED, will hold for now given CTAP findings Lactic acid elevated in the setting of post-op status (2) Diarrhea: Likely part of viral GE, however pt with recent hospitalization Cdiff pending collection (3) Acute kidney injury: Cr 1.4 on 11/11 Monitor with IVF (4) Hip joint replacement status: Doing well post-op Takes 81mg aspirin QD for CAD prevention at baseline, has been taking BID for post-op DVT proph Will continue No signs of cellulitis (5) HTN (hypertension): continue home meds (6) DM type 2 (diabetes mellitus, type 2): Holding PO for now Did take AM meds, although unclear how much absorbed prior to emesis SSI PRN A1c 6.6 09/2018, will not reorder (7) Iron deficiency: continue home meds (8) DVT prophylaxis: aspirin 81mg BID as at home SCDs History of Present Illness Primary Care Provider: Darryn Varela MD 83 y/o M c/o n/v/d. Pt was d/c'd on 11/12 s/p R hip with Dr. Soni. He was doing quite well upon d/c, however around 8p that night he developed n/v/d. This has continued without improvement. His last PO intake was Tuesday as he has not been able to hold anything down, including some of his meds. Pt states this happened last March after his L hip replacement and it was felt to be due to pain medications. Because of this, pt has only been using Tylenol post-op. Pt states everything related to his hip has been fine. His pain has been well controlled and doing quite well overall. Pt denies fever, SOB, chest pain, abd pain, LE pain or swelling. No one else at home is sick. He has been having about 4-6 bowel movements throughout the day. He has diarrhea every time he urinates, but no diarrhea outside of this. Pt was given IVF and vanco in the ED. He notes no change in how he feels. No emesis or diarrhea since arrival. Allergies Allergy/AdvReac Type Severity Reaction Status Date / Time metformin Allergy Unknown MUSCLE Verified 11/14/18 10:39 ACHES Oxtyyyu-Qig-Ggp Reductase Allergy Unknown MUSCLE Verified 11/14/18 10:39 Inhibitor ACHES Unclassified Drugs Allergy Unknown RED YEAST Uncoded 11/14/18 10:39 RICE-MUSCLE ACHES Home Medications Home Medications Medication Instructions Recorded Confirmed Type canagliflozin [Invokana] 100 mg PO QAM 10/04/18 11/14/18 History cyanocobalamin (vitamin B-12) 1,000 mcg PO QAM 10/04/18 11/14/18 History [Vitamin B-12] docusate sodium [Stool Softener] 50 mg PO BID 10/04/18 11/14/18 History losartan 25 mg PO BID 10/04/18 11/14/18 History sitagliptin [Januvia] 100 mg PO QAM 10/04/18 11/14/18 History acetaminophen [Pain Reliever] 1,000 mg PO Q8 30 Days #180 tab 11/11/18 11/14/18 Rx aspirin [Ecotrin Low Strength] 81 mg PO BID 45 Days #90 tab 11/11/18 11/14/18 Rx ferrous gluconate 324 mg PO BIDM 30 Days #60 tab 11/11/18 11/14/18 Rx tramadol 50 - 100 mg PO Q4H PRN 15 Days #40 11/11/18 11/14/18 Rx tab Past Med/Surg History Medical History Bradycardia ASYMPTOMATIC Diabetes mellitus, type 2 History of cardiac arrhythmia PT HAD HOLTER SHOWING NSR WITH INTERMITTENT EPISODES OF ATRIAL TACHYCARDIA. History of prostate cancer S/P BRACHYTHERAPY Hypertension Osteoarthritis Surgical History History of brachytherapy History of cataract extraction with lens replacement History of cystoscopy History of open reduction and internal fixation (ORIF) procedure ARM History of total hip arthroplasty LEFT Family History Mother Heart attack Father Heart attack Other Family history non-contributory Social History marital status: / Current Living Situation: Alone Feels Safe at Home: Yes Smoking Status: Former smoker Tobacco Type: cigarettes Cigarettes per Day: H/O 1PPD x 20yrs Number of Years Since Quit: 40 Hx Alcohol Use: Yes Alcohol Intake Frequency: holidays/special occasions only Hx Substance Use: No Beliefs That Will Affect Care: None Preferred Language: Lithuanian Review of Systems Pertinent positives and negatives reviewed in HPI--all others negative Physical Exam 2 Vital Signs (Past 24 Hours): Last Vital Signs Temp 36.6 C 11/14/18 09:41 Pulse 113 H 11/14/18 13:31 Resp 20 11/14/18 13:31 BP 124/68 11/14/18 13:30 Pulse Ox 96 11/14/18 13:31 Constitutional: WD/WN, vitals as above Eyes: normal visual perkins by confrontation and + anicteric sclerae Neck: normal visual inspection and trachea midline Respiratory: normal respiratory effort, lungs clear to auscultation Cardiovascular: Rate/Rhythm: regular rate and regular rhythm Gastrointestinal (Abdomen): Inspection/Auscultation: + abdomen distended Percussion/Palpation: abdomen soft; abdomen nontender Musculoskeletal: Head/Neck/Chest: normocephalic and head atraumatic negative for edema, peripheral pulses intact Skin: no rashes, warm and dry Neurologic: awake; not confused Speech / Cognition: normal speech Psychiatric: A+Ox3, euthymic affect Results & Data Diagnostic Findings CT AP: likely gastroenteritis ECG Additional Comments: Blocked PVCs Code Status & VTE Plan Code Status Full code, although pt states no prolonged mechanical life support, feeding tubes, etc. Family is present and agrees. States pt has AD at home. VTE Prophylaxis Plan VTE Prophylaxis will be ordered: Yes _ (1) Vomiting Nausea presence: unspecified Vomiting Intractability: non-intractable Vomiting type: unspecified Qualified Code(s): R11.10 - Vomiting, unspecified (2) Diarrhea Diarrhea type: unspecified type Qualified Code(s): R19.7 - Diarrhea, unspecified
[2018-11-14 15:10] LABS: iSTAT Creatinine 1.7 mg/dl (0.6-1.3); iSTAT Hemoglobin 11.6 g/dl (14.0-18.0); iSTAT Ionized Calcium 1.04 mmol/l (1.12-1.32); iSTAT Potassium 3.2 mEq/L (3.3-5.0)
[2018-11-14] MEDS ORDERED: GLUCOSE 10 TABS/TUBE PO PRN (16:18)
[2018-11-14] MEDS ORDERED: MAGNESIUM HYDROXIDE SUSP 30 ML UDC PO PRN (16:18)
[2018-11-14] MEDS ORDERED: DEXTROSE 50% 50 ML SYRINGE IV PRN (16:18)
[2018-11-14] MEDS ORDERED: GLUCOSE 40% GEL 15 GM TUBE PO PRN (16:18)
[2018-11-14] MEDS ORDERED: GLUCAGON FOR INJ 1 MG VIAL SQ PRN (16:18)
[2018-11-14] MEDS ORDERED: ACETAMINOPHEN 325 MG TAB PO PRN (16:18)
[2018-11-14] MEDS ORDERED: TRAMADOL HCL 50 MG TABLET PO PRN (16:18)
[2018-11-14] MEDS ORDERED: CARBOHYDRATES FOR HYPOGLYCEMIA PO PRN (16:18)
[2018-11-14] MEDS ORDERED: ONDANSETRON INJ 2 MG/ML 2 ML VIAL IV PRN (16:18)
[2018-11-14] MEDS: NSS + 20MEQ KCL 20 MEQ/1,000 ML BAG IV SCH (17:42)
[2018-11-14] MEDS: FERROUS GLUCONATE 324 MG TAB PO SCH (17:42)
[2018-11-14] MEDS: INSULIN ASPART 100 UNITS/ML 3 ML PEN SC SCH ×2 (17:50→20:26)
[2018-11-14] MEDS: ACETAMINOPHEN 500 MG TAB PO SCH (17:53)
[2018-11-14 18:36] LABS: Cdiff Antigen Positive; Cdiff Toxin A+B Positive (Negative)
--- NOTE | 2018-11-14 19:01 | Emergency Department Note ---
Entered by Anibal Ram acting as a scribe for Ayah Gramajo DO History of Present Illness General Chief complaint: Vomiting Stated complaint: VOMITING,DIARRHEA,DEHYDRATION Time Seen by Provider: 11/14/18 10:01 Source: patient and family History of Present Illness Onset (ago): day(s) 2 Pain Consistency: + intermittent Quality: + other (vomiting and diarrhea) Exacerbated By: + other (attempting to eat) Associated symptoms: + weakness and + other (dark stool) The patient is an 83 year old male who presents to the Emergency Room with complaints of intermittent vomiting beginning two days ago. Family reports that the patient had his hip replaced four days ago by Dr. Soni. He was felt to be stable for discharge and went home two days ago, and that night he started vomiting. She states that the patient has been having both vomiting and diarrhea since that time. He denies current nausea. The patient reports weakness also beginning two days ago and states that he was unable to stand from his chair without assistance today. He notes that he becomes diaphoretic and feels feverish when trying to walk around, but otherwise denies fevers or chills. Family notes that the patient has been drinking some water but has been unable to eat anything since the morning of two days ago. Family also states that the patients diarrhea has been very dark but denies blood in the stool or vomit. The patient denies abdominal pain but notes that he becomes gassy prior to the diarrhea. He states that his heart rate is between 55-60 bpm at baseline. The patient reports that his symptoms currently are very similar to those he experienced after another hip replacement six months ago. Family notes that at that time he was given Tramadol and other pain medication, but he has not received any for this recent surgery. The patient denies a history of any abdominal surgeries or endoscopy, but he notes a history of colonoscopy 6-8 years ago that was unremarkable. He reports a history of hemorrhoids and prostate cancer that was treated with radioactive seed implants. He notes that he takes baby aspirin twice daily. Home Medications Home Medications Medication Instructions Recorded Confirmed Type canagliflozin [Invokana] 100 mg PO QAM 10/04/18 11/14/18 History cyanocobalamin (vitamin B-12) 1,000 mcg PO QAM 10/04/18 11/14/18 History [Vitamin B-12] docusate sodium [Stool Softener] 50 mg PO BID 10/04/18 11/14/18 History losartan 25 mg PO BID 10/04/18 11/14/18 History sitagliptin [Januvia] 100 mg PO QAM 10/04/18 11/14/18 History acetaminophen [Pain Reliever] 1,000 mg PO Q8 30 Days #180 tab 11/11/18 11/14/18 Rx aspirin [Ecotrin Low Strength] 81 mg PO BID 45 Days #90 tab 11/11/18 11/14/18 Rx ferrous gluconate 324 mg PO BIDM 30 Days #60 tab 11/11/18 11/14/18 Rx tramadol 50 - 100 mg PO Q4H PRN 15 Days #40 11/11/18 11/14/18 Rx tab Allergies Allergy/AdvReac Type Severity Reaction Status Date / Time metformin Allergy Unknown MUSCLE Verified 11/14/18 10:39 ACHES Jrczxuv-Yfe-Uem Reductase Allergy Unknown MUSCLE Verified 11/14/18 10:39 Inhibitor ACHES Unclassified Drugs Allergy Unknown RED YEAST Uncoded 11/14/18 10:39 RICE-MUSCLE ACHES Past Med/Surg History Medical History Bradycardia ASYMPTOMATIC Diabetes mellitus, type 2 History of cardiac arrhythmia PT HAD HOLTER SHOWING NSR WITH INTERMITTENT EPISODES OF ATRIAL TACHYCARDIA. History of prostate cancer S/P BRACHYTHERAPY Hypertension Osteoarthritis Surgical History History of brachytherapy History of cataract extraction with lens replacement History of cystoscopy History of open reduction and internal fixation (ORIF) procedure ARM History of total hip arthroplasty LEFT Social History marital status: / Current Living Situation: Alone Feels Safe at Home: Yes Smoking Status: Former smoker Tobacco Type: cigarettes Cigarettes per Day: H/O 1PPD x 20yrs Number of Years Since Quit: 40 Hx Alcohol Use: Yes Alcohol Intake Frequency: holidays/special occasions only Hx Substance Use: No Beliefs That Will Affect Care: None Preferred Language: [place] Review of Systems See HPI for pertinent positives & negatives. and A total of 10 systems reviewed and were otherwise negative Physical Exam Vital Signs Vital Signs - 24 hr 11/14/18 09:41 11/14/18 11:06 11/14/18 12:28 Temperature 36.6 C Temperature Source Oral Sepsis Recent Fever Within 48 Hours No Sepsis Action Taken by Nursing No Action Required Pulse Rate 87 94 H Pulse Rate [Left] 82 Pulse Rate from SpO2 Sensor 96 H Respiratory Rate 18 24 23 Respiratory Effort / Characteristics Non-Labored Spontaneous Non-Labored Spontaneous Respiratory Depth Normal Normal Respiratory Pattern Regular Regular Blood Pressure 111/58 L 149/67 H Blood Pressure [Left Arm] Blood Pressure [Right Arm] Blood Pressure Mean 75 94 Blood Pressure Mean [Left Arm] Blood Pressure Mean [Right Arm] Blood Pressure Position Sitting Blood Pressure Position [Left Arm] Pulse Oximetry 97 95 96 Oxygen Delivery Method Room Air Room Air 11/14/18 12:29 11/14/18 13:28 11/14/18 13:30 Temperature Temperature Source Sepsis Recent Fever Within 48 Hours Sepsis Action Taken by Nursing Pulse Rate 126 H 108 H Pulse Rate [Left] 90 Pulse Rate from SpO2 Sensor 123 H 94 H Respiratory Rate 20 17 22 Respiratory Effort / Characteristics Non-Labored Spontaneous Respiratory Depth Normal Respiratory Pattern Regular Blood Pressure 143/84 H 124/68 Blood Pressure [Left Arm] Blood Pressure [Right Arm] 149/67 H Blood Pressure Mean 103 86 Blood Pressure Mean [Left Arm] Blood Pressure Mean [Right Arm] 94 Blood Pressure Position Blood Pressure Position [Left Arm] Pulse Oximetry 97 100 97 Oxygen Delivery Method Room Air 11/14/18 13:31 11/14/18 14:00 11/14/18 15:01 Temperature Temperature Source Sepsis Recent Fever Within 48 Hours Sepsis Action Taken by Nursing Pulse Rate 113 H 93 H 115 H Pulse Rate [Left] Pulse Rate from SpO2 Sensor 111 H 94 H 108 H Respiratory Rate 20 16 18 Respiratory Effort / Characteristics Respiratory Depth Respiratory Pattern Blood Pressure 142/90 H 168/85 H Blood Pressure [Left Arm] Blood Pressure [Right Arm] Blood Pressure Mean 107 112 Blood Pressure Mean [Left Arm] Blood Pressure Mean [Right Arm] Blood Pressure Position Blood Pressure Position [Left Arm] Pulse Oximetry 96 98 95 Oxygen Delivery Method 11/14/18 15:31 11/14/18 15:47 11/14/18 19:06 Temperature 36.6 C Temperature Source Oral Sepsis Recent Fever Within 48 Hours Sepsis Action Taken by Nursing Pulse Rate 89 108 H Pulse Rate [Left] 116 H Pulse Rate from SpO2 Sensor 90 Respiratory Rate 20 20 20 Respiratory Effort / Characteristics Respiratory Depth Respiratory Pattern Blood Pressure 118/52 L 118/52 L Blood Pressure [Left Arm] 115/64 Blood Pressure [Right Arm] Blood Pressure Mean 74 Blood Pressure Mean [Left Arm] 81 Blood Pressure Mean [Right Arm] Blood Pressure Position Blood Pressure Position [Left Arm] Lying Pulse Oximetry 97 95 95 Oxygen Delivery Method Room Air Room Air GENERAL: alert, well appearing, well nourished, no distress, non-toxic EYE EXAM: normal conjunctiva, PERRL and EOM's grossly intact OROPHARYNX: no exudate, no erythema, lips, buccal mucosa, and tongue normal and mucous membranes are dry. NECK: supple, no nuchal rigidity, no adenopathy, non-tender LUNGS: Clear to auscultation. Normal chest wall mechanics HEART: no murmurs, S1 normal and S2 normal ABDOMEN: abdomen mildly distended, tympanitic to percussion, non-tender, normo- active bowel sounds, no masses, no rebound or guarding. BACK: Back is symmetrical on inspection and there is no deformity, no midline tenderness, no CVA tenderness. SKIN: no rashes and no bruising UPPER EXTREMITIES: upper extremities are grossly normal. LOWER EXTREMITIES: No pitting edema. Incision over right lateral hip noted, xavi intact, no dehiscence, no drainage or bleeding, no surrounding erythema. Compression stockings in place on bilateral lower extremities. NEURO EXAM: Normal sensorium, cranial nerves II-XII grossly intact, normal speech, no gross weakness of arms, no gross weakness of legs. Gross sensation intact. Course 1003: Past medical records reviewed. The patient was evaluated in room B5, and a complete history and physical examination were performed. 1155: The patient states that he is feeling better. His lactic acid and procalcitonin are elevated. Patient tolerating p.o. 1314: I consulted Dr. Jack [facility] Hospitalist. She will reevaluate the patient for hospitalization. 1450: I checked on the patient, who states that he is doing well. 1545: Repeat lactate improved. Consultations Consultation #1: I consulted Dr. Jack [facility] Hospitalist. She will reevaluate the patient for hospitalization. Time: 13:14 Administered Medications Acetaminophen (Tylenol) 1,000 mg PO Q8 [facility] Stop: 12/14/18 17:59 Last Admin: 11/14/18 17:53 Dose: Not Given Ferrous Gluconate (Ferrous Gluconate) 324 mg PO BIDM [facility] Stop: 12/14/18 16:59 Last Admin: 11/14/18 17:42 Dose: 324 mg Potassium Chloride/Sodium Chloride (Normal Saline W/20 Meq Kcl) 20 meq in 1, 000 mls @ 80 mls/hr IV .[id number] [facility] Stop: 12/14/18 16:59 Last Admin: 11/14/18 17:42 Dose: 80 mls/hr Insulin Aspart (Novolog Flexpen) 0 units SC ACHS [facility] Stop: 12/14/18 16:29 Last Admin: 11/14/18 17:50 Dose: 2 units Discontinued Medications Sodium Chloride (Nss 1000ml) 1,000 mls @ 250 mls/hr IV .Q4H [facility] Stop: 11/14/18 14:29 Last Infusion: 11/14/18 14:33 Dose: 0 mls/hr Infusion: 11/14/18 12:56 Dose: 999 mls/hr Admin: 11/14/18 11:11 Dose: 250 mls/hr Sodium Chloride (Nss 1000ml) 500 mls @ 999 mls/hr IV .Q31M ONE Stop: 11/14/18 10:48 Last Infusion: 11/14/18 11:10 Dose: 0 mls/hr Admin: 11/14/18 10:42 Dose: 999 mls/hr Pantoprazole Sodium 40 mg/ (Syringe) 10 mls @ 5 mls/min IV NOW ONE Stop: 11/14/18 10:24 Last Admin: 11/14/18 11:11 Dose: 5 mls/min Cefepime HCl 1,000 mg/ Syringe 11.3 mls @ 5.5 mls/min IV NOW STA Stop: 11/14/18 11:49 Last Admin: 11/14/18 12:45 Dose: 5.5 mls/min Vancomycin HCl 2,250 mg/ (Sodium Chloride) 545 mls @ 200 mls/hr IV NOW ONE Stop: 11/14/18 14:30 Last Infusion: 11/14/18 16:15 Dose: 0 mls/hr Admin: 11/14/18 12:45 Dose: 200 mls/hr Miscellaneous Information (Consult) 1 ea N/A UD ONE Stop: 11/14/18 11:48 Last Admin: 11/14/18 12:56 Dose: 1 ea Medical Decision Making Differential Diagnosis Differential diagnosis: Etiologies such as gastroenteritis, food borne illness, infections, appendicitis , diverticulitis, inflammatory bowel disease, obstruction, GI bleed, biliary pathology, as well as others were entertained. Medical Records Attestation: I reviewed the patient's medical records. Home Medications Current Medication List: was personally reviewed by me Laboratory Data Attestation: I reviewed the patient's lab results. Result diagrams: 11/14/18 10:14 11/14/18 10:14 Lab Results 11/14/18 11/14/18 11/14/18 Range/Units 10:14 10:14 10:14 WBC 8.55 (4.8-10.8) K/uL RBC 4.74 (4.7-6.1) M/uL Hgb 12.6 L (14.0-18.0) g/dL POC Hgb (14.0-18.0) g/dl Hct 39.1 L (42-52) % POC Hct (42-52) % MCV 82.5 (80-100) fL MCH 26.6 (25-34) pg MCHC 32.2 (32-36) g/dL RDW Std Deviation 47.7 H (36.4-46.3) fL RDW Coeff of Akshat 16.0 H (11.5-14.5) % Plt Count 314 (130-400) K/uL MPV 11.6 H (7.4-10.4) fL Immature Gran % (Auto) 0.4 % Neut % (Auto) 82.6 % Lymph % (Auto) 6.2 % Mckinley % (Auto) 10.8 % Eos % (Auto) 0.0 % Baso % (Auto) 0.0 % Immature Gran # (Auto) 0.03 H (0.00-0.02) K/uL Neut # (Auto) 7.07 H (1.4-6.5) K/uL Lymph # (Auto) 0.53 L (1.2-3.4) K/uL Mckinley # (Auto) 0.92 H (0.11-0.59) K/uL Eos # (Auto) 0.00 (0-0.5) K/uL Baso # (Auto) 0.00 (0-0.2) K/uL Toxic Granulation 1+ Dohle Bodies 1+ POC Sodium (135-144) mEq/L Sodium 134 L (136-145) mmol/L POC Potassium (3.3-5.0) mEq/L Potassium 3.5 (3.5-5.1) mmol/L POC Chloride (101-112) mEq/L Chloride 98 (98-107) mmol/L Carbon Dioxide 20 L (21-32) mmol/L POC Total CO2 (24-31) mEq/l Anion Gap 16.0 H (3-11) POC Anion Gap (16-25) mmol/L POC BUN (7-18) mg/dl BUN 66 H (7-18) mg/dl Creatinine 2.03 H (0.6-1.4) mg/dl POC Creatinine (0.6-1.3) mg/dl Est Cr Clr Drug Dosing 36.4 ml/min Est GFR ( Amer) 34.1 Est GFR (Non-Af Amer) 29.4 BUN/Creatinine Ratio 32.5 H (10-20) Glucose 260 H (70-99) mg/dl POC Glucose (other) (70-99) mg/dl POC Lactic Acid Sander (0.90-1.70) mmol/L Calcium 8.7 (8.5-10.1) mg/dl POC Ioniz Calcium Erlin (1.12-1.32) mmol/l Magnesium 2.5 H (1.8-2.4) mg/dl Total Bilirubin 0.8 (0.2-1) mg/dl AST 21 (15-37) U/L ALT 14 (12-78) U/L Alkaline Phosphatase 91 (45-117) U/L Troponin I 0.036 (0-0.045) ng/ml Total Protein 7.2 (6.4-8.2) gm/dl Albumin 2.6 L (3.4-5.0) gm/dl Globulin 4.6 H (2.5-4.0) gm/dl Albumin/Globulin Ratio 0.6 L (0.9-2) Lipase 61 L (73-393) U/L Procalcitonin 2.32 H (0-0.5) ng/ml Stl C. diff Tox B Gene (Neg) Stl C.difficile Tox A&B (Negative) 11/14/18 11/14/18 11/14/18 Range/Units 10:35 14:53 14:57 WBC (4.8-10.8) K/uL RBC (4.7-6.1) M/uL Hgb (14.0-18.0) g/dL POC Hgb 11.6 L (14.0-18.0) g/dl Hct (42-52) % POC Hct 34 L (42-52) % MCV (80-100) fL MCH (25-34) pg MCHC (32-36) g/dL RDW Std Deviation (36.4-46.3) fL RDW Coeff of Akshat (11.5-14.5) % Plt Count (130-400) K/uL MPV (7.4-10.4) fL Immature Gran % (Auto) % Neut % (Auto) % Lymph % (Auto) % Mckinley % (Auto) % Eos % (Auto) % Baso % (Auto) % Immature Gran # (Auto) (0.00-0.02) K/uL Neut # (Auto) (1.4-6.5) K/uL Lymph # (Auto) (1.2-3.4) K/uL Mckinley # (Auto) (0.11-0.59) K/uL Eos # (Auto) (0-0.5) K/uL Baso # (Auto) (0-0.2) K/uL Toxic Granulation Dohle Bodies POC Sodium 137 (135-144) mEq/L Sodium (136-145) mmol/L POC Potassium 3.2 L (3.3-5.0) mEq/L Potassium (3.5-5.1) mmol/L POC Chloride 100 L (101-112) mEq/L Chloride (98-107) mmol/L Carbon Dioxide (21-32) mmol/L POC Total CO2 23 L (24-31) mEq/l Anion Gap (3-11) POC Anion Gap 18.0 (16-25) mmol/L POC BUN 55 H (7-18) mg/dl BUN (7-18) mg/dl Creatinine (0.6-1.4) mg/dl POC Creatinine 1.7 H (0.6-1.3) mg/dl Est Cr Clr Drug Dosing ml/min Est GFR ( Amer) Est GFR (Non-Af Amer) BUN/Creatinine Ratio (10-20) Glucose (70-99) mg/dl POC Glucose (other) 185 H (70-99) mg/dl POC Lactic Acid Sander 5.26 H 2.81 H (0.90-1.70) mmol/L Calcium (8.5-10.1) mg/dl POC Ioniz Calcium Erlin 1.04 L (1.12-1.32) mmol/l Magnesium (1.8-2.4) mg/dl Total Bilirubin (0.2-1) mg/dl AST (15-37) U/L ALT (12-78) U/L Alkaline Phosphatase (45-117) U/L Troponin I (0-0.045) ng/ml Total Protein (6.4-8.2) gm/dl Albumin (3.4-5.0) gm/dl Globulin (2.5-4.0) gm/dl Albumin/Globulin Ratio (0.9-2) Lipase (73-393) U/L Procalcitonin (0-0.5) ng/ml Stl C. diff Tox B Gene (Neg) Stl C.difficile Tox A&B (Negative) 11/14/18 Range/Units 16:45 WBC (4.8-10.8) K/uL RBC (4.7-6.1) M/uL Hgb (14.0-18.0) g/dL POC Hgb (14.0-18.0) g/dl Hct (42-52) % POC Hct (42-52) % MCV (80-100) fL MCH (25-34) pg MCHC (32-36) g/dL RDW Std Deviation (36.4-46.3) fL RDW Coeff of Akshat (11.5-14.5) % Plt Count (130-400) K/uL MPV (7.4-10.4) fL Immature Gran % (Auto) % Neut % (Auto) % Lymph % (Auto) % Mckinley % (Auto) % Eos % (Auto) % Baso % (Auto) % Immature Gran # (Auto) (0.00-0.02) K/uL Neut # (Auto) (1.4-6.5) K/uL Lymph # (Auto) (1.2-3.4) K/uL Mckinley # (Auto) (0.11-0.59) K/uL Eos # (Auto) (0-0.5) K/uL Baso # (Auto) (0-0.2) K/uL Toxic Granulation Dohle Bodies POC Sodium (135-144) mEq/L Sodium (136-145) mmol/L POC Potassium (3.3-5.0) mEq/L Potassium (3.5-5.1) mmol/L POC Chloride (101-112) mEq/L Chloride (98-107) mmol/L Carbon Dioxide (21-32) mmol/L POC Total CO2 (24-31) mEq/l Anion Gap (3-11) POC Anion Gap (16-25) mmol/L POC BUN (7-18) mg/dl BUN (7-18) mg/dl Creatinine (0.6-1.4) mg/dl POC Creatinine (0.6-1.3) mg/dl Est Cr Clr Drug Dosing ml/min Est GFR ( Amer) Est GFR (Non-Af Amer) BUN/Creatinine Ratio (10-20) Glucose (70-99) mg/dl POC Glucose (other) (70-99) mg/dl POC Lactic Acid Sander (0.90-1.70) mmol/L Calcium (8.5-10.1) mg/dl POC Ioniz Calcium Erlin (1.12-1.32) mmol/l Magnesium (1.8-2.4) mg/dl Total Bilirubin (0.2-1) mg/dl AST (15-37) U/L ALT (12-78) U/L Alkaline Phosphatase (45-117) U/L Troponin I (0-0.045) ng/ml Total Protein (6.4-8.2) gm/dl Albumin (3.4-5.0) gm/dl Globulin (2.5-4.0) gm/dl Albumin/Globulin Ratio (0.9-2) Lipase (73-393) U/L Procalcitonin (0-0.5) ng/ml Stl C. diff Tox B Gene Pos C.diff Toxin B A (Neg) Stl C.difficile Tox A&B Positive A* (Negative) Imaging Data Radiologist's Impression: Radiology results as stated below per my review and the radiologist's interpretation: CT SCAN OF THE ABDOMEN AND PELVIS WITHOUT CONTRAST CLINICAL HISTORY: Nausea, vomiting, diarrhea. COMPARISON STUDY: No previous studies for comparison. TECHNIQUE: CT scan of the abdomen and pelvis was performed from the lung bases to the proximal femurs. Images are reviewed in the axial, sagittal, and coronal planes. IV contrast was not administered for this examination. A dose lowering technique was utilized adhering to the principles of ALARA. CT DOSE: 1738.06 mGy.cm FINDINGS: Lower chest: The heart is mildly enlarged. There are coronary artery calcifications. There is no pericardial effusion. There are no significant pleural effusions. There is basilar interstitial thickening with areas of calcification. There is lower lobe mucous plugging. Chronic aspiration cannot be excluded. There is a small amount of fluid within the esophagus which appears mildly thick-walled. Liver: There is a to small to characterize 1 cm right lobe hepatic hypodensity. Gallbladder: The gallbladder surgically absent. There are rounded densities in the gallbladder bed, likely representing dropped gallstones adjacent droplets of gas possibly nitrogen Spleen: Normal in size and attenuation. Pancreas: Unremarkable. Adrenal glands: Unremarkable. Kidneys: The unenhanced kidneys are normal in size without hydronephrosis. There is no contour deforming renal mass lesion. No renal calculi are identified. Bowel: There is a fluid-filled distended stomach. There are multiple distended fluid-filled colonic loops. There are no transition zones to indicate a focal bowel obstruction. There is minor rectal sigmoid wall thickening. The findings are most suggestive of a gastroenteritis. Clinical follow-up is advocated. Peritoneum: There is no intraperitoneal free air or abdominal ascites. Vasculature: The abdominal aorta is normal in course and caliber. Adenopathy: None. Pelvic viscera: Prostate lesion therapy implant seeds are visualized. There is a partially visualized metallic density on the inferior most image which appears to lie within a small vein in the right inguinal region Skeletal structures: The bones are osteopenic. There is an L1 hemangioma. 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 There are gas droplets surrounding the right hip, likely secondary to recent surgery. IMPRESSION: 1. Distended fluid-filled stomach, and distended fluid-filled colonic bowel loops. No CT evidence of focal bowel obstruction. Given the clinical history of nausea vomiting and diarrhea, the findings are suggestive of a gastroenteritis. There is also evidence for a fluid-filled esophagus which is mildly thick- walled as well as mild bowel wall thickening involving the rectosigmoid 2. Surgically absent gallbladder. Rounded densities within the gallbladder fossa , likely represent dropped stones. 3. Interstitial thickening lung bases with areas of mucous plugging. In addition there are scattered calcifications. Chronic aspiration cannot be excluded Electronically signed by: Emiliano Hull M.D. 11/14/2018 12:58 PM ECG Data Attestation: I personally reviewed and interpreted this ECG as follows: Indication: vomiting Rate (beats per minute): 98 Rhythm: sinus rhythm Findings: + other (normal intervals), + PAC, + ST depression (slight in V4 and V5) and + left axis deviation Comparison ECG Date: from (02/07/18) Change: the following changes noted (slight ST depressions are new compared to prior) Blood Pressure Blood Pressure Findings: Elevated blood pressure Blood Pressure Disposition: further management by hospitalist REED Narrative Patient here presenting with concerns for dehydration after 2 days of vomiting and diarrhea. Patient was similar episode previously after surgery thought possibly due to medications or anesthesia. Patient found to have markedly elevated lactic acid and pro-calcitonin despite a normal white blood cell count. Concern for evolving sepsis. Given recent hospitalization and GI symptoms, patient started on antibiotics and sent for CAT scan. Blood cultures drawn and are pending. Patient was carefully hydrated, however was never hypotensive. Patient did have a tachycardia especially in light of his usual bradycardia as reported by both himself as well as family members. Patient was afebrile here, and CT did not have any additional acute pathology other than suspicion for gastroenteritis. After rehydration, patient's lactic acid did show improvement, as well as a repeat check of his renal function which was markedly elevated compared to his baseline. Given concern for recent admission , GI symptoms, abnormal labs, case discussed with hospitalist for additional evaluation and management. Patient had not had any diarrhea while in the emergency department, although at time of my discussion with the hospitalist he states he thought he might need to use the bathroom again. If patient does produce a stool we will send this for culture to rule out additional infectious pathology. Given improvement of lactic acid, I am less suspicious of evolving sepsis, mesenteric ischemia, perforation. Patient does report intermittent black stools, will test any stool specimen for blood also. Impression & Plan Vomiting, Diarrhea, Dehydration, Acute kidney injury Discharge Plan Visit Data *Final* Discharge Date/Time: 11/14/18 15:47 Chief Complaint: Vomiting Stated Complaint: VOMITING,DIARRHEA,DEHYDRATION ED Provider: Ayah Gramajo Discharge Problem: Vomiting, Diarrhea, Dehydration, Acute kidney injury Patient Disposition: Admitted As Inpatient Discharge Instructions Interventions: ED Discharge Assessment Last Done: 11/14/18 15:47 The scribe's documentation has been prepared under my direction and personally reviewed by me in its entirety. I confirm that the note above accurately reflects all work, treatment, procedures, and medical decision making performed by me.
[2018-11-14] MEDS: LOSARTAN POTASSIUM 25 MG TAB PO SCH (20:21)
[2018-11-14] MEDS: ASPIRIN 81 MG ECTAB PO SCH (20:21)
[2018-11-14] MEDS: metroNIDAZOLE 500 MG TAB PO SCH (20:50)
[2018-11-14 21:45] LABS: Appearance Urine Clear (Clear); Bacteria Urine Automated Negative (Negative); Bilirubin Urine Negative (Negative); Blood Urine Trace (Negative); Color Urine Yellow; Glucose Urine UA 3+ (Negative); Ketones Urine Trace (Negative); Leukocyte Esterase Urine Negative (Negative); Nitrite Urine Negative (Negative); Protein Urine Negative (Negative); RBC Urine Automated 0-4 /hpf (0-4); Specific Gravity Urine 1.033 (1.000-1.030); Urobilinogen Urine Negative (Negative)
[2018-11-14] MEDS ORDERED: COUGH DROP (SUGAR FREE) LOZ 24 LOZ/1 BOX BUCCAL PRN (22:30)
[2018-11-15] MEDS: NSS + 20MEQ KCL 20 MEQ/1,000 ML BAG IV SCH ×2 (05:44→18:39)
[2018-11-15] MEDS: ACETAMINOPHEN 500 MG TAB PO SCH ×3 (05:44→21:11)
[2018-11-15 06:07] LABS: Hematocrit (blood only) 30.7 % (42-52); Hemoglobin 9.9 g/dL (14.0-18.0); Mean Corpuscular Hgb Conc 32.2 g/dL (32-36); Mean Corpuscular Volume 81.4 fL (80-100); Platelet Count 220 K/uL (130-400); RDW Coefficient of Variation 15.8 % (11.5-14.5); RDW Standard Deviation 47.1 fL (36.4-46.3); Red Blood Count 3.77 M/uL (4.7-6.1); White Blood Count 7.05 K/uL (4.8-10.8)
[2018-11-15 06:35] LABS: BUN Creatinine Ratio 48.5 (10-20); Basophils # (auto) 0.01 K/uL (0-0.2); Basophils % (auto) 0.1 %; Calcium 7.5 mg/dl (8.5-10.1); Creatinine Clr Calc Pharmacy 61.5 ml/min; Dohle Bodies 1+; Echinocytes 1+; Est GFR (African American) 64.4; Est GFR (Non-African American) 55.6; Giant Platelets 1+; Immature Granulocytes # (auto) 0.06 K/uL (0.00-0.02); Immature Granulocytes % (auto) 0.9 %; Lymphocytes # (auto) 0.55 K/uL (1.2-3.4); Lymphocytes % (auto) 7.8 %; Magnesium 2.3 mg/dl (1.8-2.4); Monocytes # (auto) 0.63 K/uL (0.11-0.59); Monocytes % (auto) 8.9 %; Neutrophils % (auto) 82.3 %; Phosphorus 3.3 mg/dl (2.5-4.9); Polychromasia 1+; Potassium 3.4 mmol/L (3.5-5.1); Toxic Vacuolation 1+
[2018-11-15] MEDS ORDERED: VANCOMYCIN HCL 1,500 MG in SODIUM CHLORIDE 0.9% 500 ML IV SCH (08:00)
--- NOTE | 2018-11-15 08:21 | Hospitalist Progress Note ---
Date of Service November 15, 2018 Assessment & Plan (1) C. difficile colitis: Initially thought to be a gastroenteritis; however, C. diff testing was positive on 11/14. - Initially on Flagyl 500mg PO TID started on 11/14 - Switched to vanc 125 mg PO QID to follow guidelines - Continue IV fluids - Monitor diarrhea - RN noted black/dark brown stools; however, patient was on iron. Will monitor hgb and vitals. Hold on GI consult for now. (2) Vomiting: Possibly viral given CT AP findings, though possibly also due to the C. diff. - See above (3) Acute kidney injury: Baseline Cr is 1.0-1.2; up to 2.0 on admission. - Improved on 11/15 to 1.2 with IV fluids - Monitor (4) Hip joint replacement status: Doing well post-op. Takes 81mg aspirin QD for CAD prevention at baseline, has been taking BID for post-op DVT prophylaxis. - Will continue ASA 81mg BID while inpatient (5) HTN (hypertension): BP inpatient is 130/74. - Continued home losartan (6) DM type 2 (diabetes mellitus, type 2): A1c was 6.6% in 09/2018. Holding PO DM meds for now. - Sliding scale insulin (7) Iron deficiency: Will hold home iron as RN noted black stools, and I would like to monitor without the iron to ensure no GI bleeding. - Hold home iron (8) DVT prophylaxis: Aspirin 81mg BID as at home; SCDs Subjective 83yo F w/ hx of DM and HTN who presented diarrhea, found to have C. diff infection. Today, he is still having loose BMs. Less nausea. Reports no fevers/chills, chest pain, shortness of breath, abdominal pain, nausea, or vomiting. Physical Exam 2 Vital Signs (Past 24 Hours): Last Vital Signs Temp 36.7 C 11/15/18 07:00 Pulse 82 11/15/18 07:00 Resp 18 11/15/18 07:00 BP 129/66 11/15/18 07:00 Pulse Ox 96 11/15/18 07:00 Constitutional: WD/WN, vitals as above Eyes: normal visual perkins by confrontation and + anicteric sclerae Neck: normal visual inspection and trachea midline Respiratory: normal respiratory effort, lungs clear to auscultation Cardiovascular: Rate/Rhythm: regular rate and regular rhythm Gastrointestinal (Abdomen): Inspection/Auscultation: + abdomen distended Percussion/Palpation: abdomen soft; abdomen nontender Musculoskeletal: Head/Neck/Chest: normocephalic and head atraumatic Skin: no rashes, warm and dry Neurologic: awake; not confused Speech / Cognition: normal speech Psychiatric: A+Ox3, euthymic affect _ (1) Vomiting Nausea presence: unspecified Vomiting Intractability: non-intractable Vomiting type: unspecified Qualified Code(s): R11.10 - Vomiting, unspecified
[2018-11-15] MEDS: ASPIRIN 81 MG ECTAB PO SCH ×2 (09:02→21:11)
[2018-11-15] MEDS: CYANOCOBALAMIN 500 MCG TABLET (VITAMIN B-12) PO SCH (09:02)
[2018-11-15] MEDS: LOSARTAN POTASSIUM 25 MG TAB PO SCH ×2 (09:03→21:11)
[2018-11-15] MEDS: FERROUS GLUCONATE 324 MG TAB PO SCH (09:03)
[2018-11-15] MEDS: metroNIDAZOLE 500 MG TAB PO SCH (09:03)
[2018-11-15] MEDS: INSULIN ASPART 100 UNITS/ML 3 ML PEN SC SCH ×4 (09:05→21:11)
[2018-11-15] MEDS: RASPBERRY SYRUP 5 ML UDP PO SCH ×4 (13:34→21:11)
[2018-11-15] MEDS: VANCOMYCIN HCL 125 MG/2.5ML SOLN PO SCH ×4 (13:34→21:11)
[2018-11-15] MEDS ORDERED: CALCIUM GLUCONATE 10% 2,000 MG in SODIUM CHLORIDE 0.9% 50 ML IV STA (16:47)
[2018-11-16] MEDS: ACETAMINOPHEN 500 MG TAB PO SCH (06:10)
[2018-11-16 06:59] LABS: Hematocrit (blood only) 30.2 % (42-52); Hemoglobin 9.6 g/dL (14.0-18.0); Mean Corpuscular Hgb Conc 31.8 g/dL (32-36); Mean Corpuscular Volume 81.6 fL (80-100); Mean Platelet Volume 10.9 fL (7.4-10.4); Platelet Count 209 K/uL (130-400); RDW Coefficient of Variation 15.8 % (11.5-14.5); RDW Standard Deviation 47.2 fL (36.4-46.3); White Blood Count 8.03 K/uL (4.8-10.8)
[2018-11-16] MEDS: NSS + 20MEQ KCL 20 MEQ/1,000 ML BAG IV SCH ×2 (07:20→23:15)
[2018-11-16 07:38] LABS: BUN Creatinine Ratio 46.5 (10-20); Calcium 7.6 mg/dl (8.5-10.1); Creatinine Clr Calc Pharmacy 79.4 ml/min; Est GFR (African American) 87.7; Est GFR (Non-African American) 75.7; Magnesium 2.3 mg/dl (1.8-2.4); Potassium 3.5 mmol/L (3.5-5.1)
[2018-11-16] MEDS: VANCOMYCIN HCL 125 MG/2.5ML SOLN PO SCH ×4 (09:09→21:03)
[2018-11-16] MEDS: RASPBERRY SYRUP 5 ML UDP PO SCH ×4 (09:09→21:03)
[2018-11-16] MEDS: ASPIRIN 81 MG ECTAB PO SCH ×2 (09:10→21:02)
[2018-11-16] MEDS: LOSARTAN POTASSIUM 25 MG TAB PO SCH ×2 (09:10→21:02)
[2018-11-16] MEDS: CYANOCOBALAMIN 500 MCG TABLET (VITAMIN B-12) PO SCH (09:11)
[2018-11-16] MEDS: INSULIN ASPART 100 UNITS/ML 3 ML PEN SC SCH ×4 (09:15→20:32)
--- NOTE | 2018-11-16 13:44 | XRay Report ---
XR KUB CLINICAL HISTORY: Abdominal distention COMPARISON STUDY: CT scan dated 11/14/2018 FINDINGS: 2 supine views are provided for interpretation. There is gaseous distention of the colon wh ich measures 12 cm in maximal diameter. The level of the splenic flexure. No abnormal abdominal calci fications are visualized. No free air is identified on the supine study. Visualized portions of the c hest reveal interstitial thickening. IMPRESSION: Gaseous distention of the colon which measures up to 12 cm. Electronically signed by: Emiliano Hull M.D. 11/16/2018 1:42 PM
[2018-11-16] MEDS: PANTOprazole 40 MG TAB PO SCH (14:46)
--- NOTE | 2018-11-16 16:20 | Surgery Consultation ---
Date of Consultation November 16, 2018 Assessment & Plan (1) C. difficile colitis: 83-year-old male status post hip replacement readmitted with C. difficile colitis. He had some increasing colonic distention on a KUB was performed today. However he has a normal white count, stable vitals without fever, and a nontender abdomen. He is still moving his bowels, and he is asking for some to me. At this point there is no evidence for toxic megacolon, and no need for urgent surgical intervention. No surgical intervention indicated at this time Continue Flagyl, recommend infectious disease consult to consider different treatment select Consult gastroenterology to assist with management, may benefit from colonoscopy to confirm pseudomembranous colitis or other etiology Surgery will continue to follow, call with questions or concerns Plan of care discussed with the patient's family, all questions were answered, the patient expressed understanding agrees the plan of care as stated If no intervention therapies planned by gastroneurology, then may advance to clear liquids as long as the patient tolerates. Present on Admission?: Yes (2) HTN (hypertension): Present on Admission?: Yes (3) DM type 2 (diabetes mellitus, type 2): Present on Admission?: Yes History of Present Illness Reason for Consultation: Colon distention Attending Physician: Per Ambriz MD History of Present Illness 83-year-old male status post hip replacement on 12 November 2018, admitted with C. difficile colitis, surgery consulted for colon distention. The patient did well after surgery, however after being discharged he started having nausea and vomiting that night. He also had some diarrhea. He did have a small amount of abdominal pain. He had similar symptoms after his last hip replacement with nausea, vomiting, and diarrhea, and it went away after 2 days. This time* recommend some to come to the emergency department. He had gastric, small bowel , and colonic distention with no transition point on CT imaging. Stool was positive for C. difficile. He was admitted and started on IV Flagyl. He no longer has any nausea and vomiting. In fact he states that he would like to have something to eat. He is still having diarrhea. He denies any abdominal pain at this time. No fevers or chills. He does feel like his abdomen is slightly distended. Allergies Allergy/AdvReac Type Severity Reaction Status Date / Time metformin Allergy Unknown MUSCLE Verified 11/14/18 10:39 ACHES Jlgunba-Jvy-Qty Reductase Allergy Unknown MUSCLE Verified 11/14/18 10:39 Inhibitor ACHES Unclassified Drugs Allergy Unknown RED YEAST Uncoded 11/14/18 10:39 RICE-MUSCLE ACHES Home Medications Home Medications Medication Instructions Recorded Confirmed Type canagliflozin [Invokana] 100 mg PO QAM 10/04/18 11/14/18 History cyanocobalamin (vitamin B-12) 1,000 mcg PO QAM 10/04/18 11/14/18 History [Vitamin B-12] docusate sodium [Stool Softener] 50 mg PO BID 10/04/18 11/14/18 History losartan 25 mg PO BID 10/04/18 11/14/18 History sitagliptin [Januvia] 100 mg PO QAM 10/04/18 11/14/18 History acetaminophen [Pain Reliever] 1,000 mg PO Q8 30 Days #180 tab 11/11/18 11/14/18 Rx aspirin [Ecotrin Low Strength] 81 mg PO BID 45 Days #90 tab 11/11/18 11/14/18 Rx ferrous gluconate 324 mg PO BIDM 30 Days #60 tab 11/11/18 11/14/18 Rx tramadol 50 - 100 mg PO Q4H PRN 15 Days #40 11/11/18 11/14/18 Rx tab Patient History Medical History Bradycardia ASYMPTOMATIC Diabetes mellitus, type 2 History of cardiac arrhythmia PT HAD HOLTER SHOWING NSR WITH INTERMITTENT EPISODES OF ATRIAL TACHYCARDIA. History of prostate cancer S/P BRACHYTHERAPY Hypertension Osteoarthritis Surgical History History of brachytherapy History of cataract extraction with lens replacement History of cystoscopy History of open reduction and internal fixation (ORIF) procedure ARM History of total hip arthroplasty LEFT Social History marital status: / Current Living Situation: Alone Other Information That Helps Us Care for You: No Feels Safe at Home: Yes Safety Concerns: Feels Safe At This Time Smoking Status: Former smoker Do You Dip or Chew Tobacco: No Second Hand Exposure: No Hx Alcohol Use: Yes Alcohol type: beer Alcohol Intake Frequency: holidays/ special occasions only Hx Substance Use: No Beliefs That Will Affect Care: None Communication Ability: Effective Review of Systems 10 point review of systems negative except as above Physical Exam 2 Vital Signs (Past 24 Hours): Last Vital Signs Temp 36.8 C 11/16/18 08:06 Pulse 82 11/16/18 08:06 Resp 20 11/16/18 08:06 BP 127/75 11/16/18 08:06 Pulse Ox 94 11/16/18 08:06 Constitutional: WD/WN, vitals as above no acute distress and not ill appearing Eyes: PERRL, conjunctivae normal, anicteric sclerae ENMT: external ear and nose normal, oropharynx normal Neck: trachea midline, no thyromegaly Respiratory: normal respiratory effort, lungs clear to auscultation Cardiovascular: RRR, no murmur, no edema Gastrointestinal (Abdomen): Inspection/Auscultation: + abdomen distended and normal bowel sounds Percussion/Palpation: abdomen soft; abdomen nontender No peritonitis Musculoskeletal: no cyanosis or clubbing, extremities motor strength 5/5 Skin: no rashes, warm and dry Neurologic: PERRL, EOMI, accommodation nl, no face palsy, no dysarthria CN' s II-XI intact bilaterally Psychiatric: A+Ox3, euthymic affect Lymphatic: no cervical or axillary lymphadenopathy Results & Data Laboratory Results Laboratory Results - last 24 hr 11/15/18 11/15/18 11/16/18 16:58 20:34 05:55 WBC RBC Hgb Hct MCV MCH MCHC RDW Std Deviation RDW Coeff of Akshat Plt Count MPV Sodium Potassium Chloride Carbon Dioxide Anion Gap BUN Creatinine Est Cr Clr Drug Dosing Est GFR ( Amer) Est GFR (Non-Af Amer) BUN/Creatinine Ratio Glucose POC Glucose 161 H 121 H Calcium Magnesium Stool Occult Bld Scrn Positive H 11/16/18 11/16/18 11/16/18 06:44 06:44 08:04 WBC 8.03 RBC 3.70 L Hgb 9.6 L Hct 30.2 L MCV 81.6 MCH 25.9 MCHC 31.8 L RDW Std Deviation 47.2 H RDW Coeff of Akshat 15.8 H Plt Count 209 MPV 10.9 H Sodium 137 Potassium 3.5 Chloride 106 Carbon Dioxide 20 L Anion Gap 11.0 BUN 43 H Creatinine 0.93 Est Cr Clr Drug Dosing 79.4 Est GFR ( Amer) 87.7 Est GFR (Non-Af Amer) 75.7 BUN/Creatinine Ratio 46.5 H Glucose 138 H POC Glucose 150 H Calcium 7.6 L Magnesium 2.3 Stool Occult Bld Scrn 11/16/18 11:28 WBC RBC Hgb Hct MCV MCH MCHC RDW Std Deviation RDW Coeff of Akshat Plt Count MPV Sodium Potassium Chloride Carbon Dioxide Anion Gap BUN Creatinine Est Cr Clr Drug Dosing Est GFR ( Amer) Est GFR (Non-Af Amer) BUN/Creatinine Ratio Glucose POC Glucose 173 H Calcium Magnesium Stool Occult Bld Scrn Diagnostic Findings CT SCAN OF THE ABDOMEN AND PELVIS WITHOUT CONTRAST CLINICAL HISTORY: Nausea, vomiting, diarrhea. COMPARISON STUDY: No previous studies for comparison. TECHNIQUE: CT scan of the abdomen and pelvis was performed from the lung bases to the proximal femurs. Images are reviewed in the axial, sagittal, and coronal planes. IV contrast was not administered for this examination. A dose lowering technique was utilized adhering to the principles of ALARA. CT DOSE: 1738.06 mGy.cm FINDINGS: Lower chest: The heart is mildly enlarged. There are coronary artery calcifications. There is no pericardial effusion. There are no significant pleural effusions. There is basilar interstitial thickening with areas of calcification. There is lower lobe mucous plugging. Chronic aspiration cannot be excluded. There is a small amount of fluid within the esophagus which appears mildly thick-walled. Liver: There is a to small to characterize 1 cm right lobe hepatic hypodensity. Gallbladder: The gallbladder surgically absent. There are rounded densities in the gallbladder bed, likely representing dropped gallstones adjacent droplets of gas possibly nitrogen Spleen: Normal in size and attenuation. Pancreas: Unremarkable. Adrenal glands: Unremarkable. Kidneys: The unenhanced kidneys are normal in size without hydronephrosis. There is no contour deforming renal mass lesion. No renal calculi are identified. Bowel: There is a fluid-filled distended stomach. There are multiple distended fluid-filled colonic loops. There are no transition zones to indicate a focal bowel obstruction. There is minor rectal sigmoid wall thickening. The findings are most suggestive of a gastroenteritis. Clinical follow-up is advocated. Peritoneum: There is no intraperitoneal free air or abdominal ascites. Vasculature: The abdominal aorta is normal in course and caliber. Adenopathy: None. Pelvic viscera: Prostate lesion therapy implant seeds are visualized. There is a partially visualized metallic density on the inferior most image which appears to lie within a small vein in the right inguinal region Skeletal structures: The bones are osteopenic. There is an L1 hemangioma. 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 There are gas droplets surrounding the right hip, likely secondary to recent surgery. IMPRESSION: 1. Distended fluid-filled stomach, and distended fluid-filled colonic bowel loops. No CT evidence of focal bowel obstruction. Given the clinical history of nausea vomiting and diarrhea, the findings are suggestive of a gastroenteritis. There is also evidence for a fluid-filled esophagus which is mildly thick- walled as well as mild bowel wall thickening involving the rectosigmoid 2. Surgically absent gallbladder. Rounded densities within the gallbladder fossa , likely represent dropped stones. 3. Interstitial thickening lung bases with areas of mucous plugging. In addition there are scattered calcifications. Chronic aspiration cannot be excluded CLINICAL HISTORY: Abdominal distention COMPARISON STUDY: CT scan dated 11/14/2018 FINDINGS: 2 supine views are provided for interpretation. There is gaseous distention of the colon which measures 12 cm in maximal diameter. The level of the splenic flexure. No abnormal abdominal calcifications are visualized. No free air is identified on the supine study. Visualized portions of the chest reveal interstitial thickening. IMPRESSION: Gaseous distention of the colon which measures up to 12 cm.
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
[2018-11-16] MEDS: VANCOMYCIN HCL 500 MG/100 ML ENEMA PR SCH (19:44)
[2018-11-16] MEDS ORDERED: Nursing to Pharmacy Communication ONE (22:06)
[2018-11-17] MEDS: VANCOMYCIN HCL 500 MG/100 ML ENEMA PR SCH ×5 (00:45→23:55)
[2018-11-17] MEDS: INSULIN ASPART 100 UNITS/ML 3 ML PEN SC SCH ×4 (07:31→22:05)
[2018-11-17 07:33] LABS: Hematocrit (blood only) 28.1 % (42-52); Hemoglobin 9.1 g/dL (14.0-18.0); Mean Corpuscular Hgb Conc 32.4 g/dL (32-36); Mean Platelet Volume 10.6 fL (7.4-10.4); Platelet Count 172 K/uL (130-400); RDW Coefficient of Variation 15.5 % (11.5-14.5); RDW Standard Deviation 45.8 fL (36.4-46.3); Red Blood Count 3.47 M/uL (4.7-6.1)
[2018-11-17] MEDS: NSS + 20MEQ KCL 20 MEQ/1,000 ML BAG IV SCH (07:46)
[2018-11-17 08:02] LABS: BUN Creatinine Ratio 40.6 (10-20); Calcium 7.5 mg/dl (8.5-10.1); Creatinine Clr Calc Pharmacy 98.4 ml/min; Est GFR (African American) 98.3; Est GFR (Non-African American) 84.8; Potassium 3.3 mmol/L (3.5-5.1)
--- NOTE | 2018-11-17 08:12 | Progress Note ---
DATE: 11/17/2018 SUBJECTIVE: An 83-year-old gentleman now a week out from a right uncemented total hip replacement for arthritis. He is doing quite well and then was discharged home and then developed a lot of nausea and vomiting. He is readmitted with C. diff colitis. He is doing better since been admitted to hospital. He has not had any nausea or vomiting. He says his belly is feeling a bit better. Has not had much oral intake. Denies any chest pain or shortness of breath. Not having any pain at all in his hip. OBJECTIVE: VITAL SIGNS: Temperature 36.5. Vital signs stable. He is a bit tachycardic. GENERAL: Reveals a pleasant elderly male. He is lying in bed, looks pretty comfortable. EXTREMITIES: Examination of the right leg reveals the dressing to be in place. There is a decent amount of serous drainage on it. It is all serous. His wound incision looks benign. His thigh is mildly swollen. Hip is located. NEUROLOGICAL: He is neurologically intact. LABORATORY DATA: Labs are pending. ASSESSMENT: An 83-year-old gentleman a week out from a total hip replacement complicated by some C. diff colitis. Seems to be doing better. Very poor oral intake and probably low albumin, which accounts for the serous drainage. No signs of infection in his hip. He seems to be clinically improving. PLAN: 1. DVT prophylaxis including thigh-high TEDs, SCDs, and aspirin twice a day. 2. PT/OT. He can weightbear as tolerated to right lower extremity. 3. Medical management as per the Medicine Service. 4. Routine wound care. No treatment other than just dressing changes probably twice a day to the right hip until the serous drainage is gone. 5. Disposition: As per the primary care service. Any orthopedic questions can be directed to me at [phone]. MTDD
--- NOTE | 2018-11-17 08:33 | XRay Report ---
KUB HISTORY: Megacolon COMPARISON: KUB 11/16/2018. FINDINGS: No change in the distended gas-filled loops of large and small bowel. The transverse colon measures up to 12 cm in diameter. The stomach is also mildly distended and gas-filled. No gas within the rectum. Bilateral total hip arthroplasties. No renal calculi. No ureteral calculi. No pneumoperi toneum or pneumatosis. IMPRESSION: No change in the distended gas-filled loops of large and small bowel. The transverse colon continues to measure up to 12 cm in diameter. Electronically signed by: Brad Hensley M.D. 11/17/2018 8:32 AM
[2018-11-17] MEDS: ASPIRIN 81 MG ECTAB PO SCH ×2 (09:21→21:59)
[2018-11-17] MEDS: CYANOCOBALAMIN 500 MCG TABLET (VITAMIN B-12) PO SCH (09:21)
[2018-11-17] MEDS: LOSARTAN POTASSIUM 25 MG TAB PO SCH (09:22)
[2018-11-17] MEDS: RASPBERRY SYRUP 5 ML UDP PO SCH (09:22)
[2018-11-17] MEDS: PANTOprazole 40 MG TAB PO SCH (09:22)
[2018-11-17] MEDS: VANCOMYCIN HCL 125 MG/2.5ML SOLN PO SCH (09:28)
--- NOTE | 2018-11-17 11:00 | Infectious Disease Consult ---
Date of Consultation November 17, 2018 Assessment & Plan (1) C. difficile colitis: will change to dificid. wbc normal. afebrile otherwise clinically stable , surgery following, no plans for OR at this time. History of Present Illness Attending Physician: Per Ambriz MD pt admitted on 11/10 for elective right hip replacement, underwent without difficulty. d/c home on 11/12. had severe n/v/d at home, was re-admitted to hospital. ct abd on 11/14 showed fluid flilled levels c/w enteritis. vomiting resolved but remains with diarrhea. no f/c. no hip pain. states min seeping from wound now, no bleeding. orhto following. c diff + in ER, was initially on martinez, then changed to vanco yesterday. GI following. no plans for OR. no fever, wbc nml. not eating, not hungry. no cp, sob, cough, on IV fluids, states he feels dehydrated. family at bedside. UA negative, blood cultures from 11/14 negative to date. Allergies Allergy/AdvReac Type Severity Reaction Status Date / Time metformin Allergy Unknown MUSCLE Verified 11/14/18 10:39 ACHES Wxpxwrz-Ycf-Anv Reductase Allergy Unknown MUSCLE Verified 11/14/18 10:39 Inhibitor ACHES Unclassified Drugs Allergy Unknown RED YEAST Uncoded 11/14/18 10:39 RICE-MUSCLE ACHES Home Medications Home Medications Medication Instructions Recorded Confirmed Type canagliflozin [Invokana] 100 mg PO QAM 10/04/18 11/14/18 History cyanocobalamin (vitamin B-12) 1,000 mcg PO QAM 10/04/18 11/14/18 History [Vitamin B-12] docusate sodium [Stool Softener] 50 mg PO BID 10/04/18 11/14/18 History losartan 25 mg PO BID 10/04/18 11/14/18 History sitagliptin [Januvia] 100 mg PO QAM 10/04/18 11/14/18 History acetaminophen [Pain Reliever] 1,000 mg PO Q8 30 Days #180 tab 11/11/18 11/14/18 Rx aspirin [Ecotrin Low Strength] 81 mg PO BID 45 Days #90 tab 11/11/18 11/14/18 Rx ferrous gluconate 324 mg PO BIDM 30 Days #60 tab 11/11/18 11/14/18 Rx tramadol 50 - 100 mg PO Q4H PRN 15 Days #40 11/11/18 11/14/18 Rx tab Patient History Medical History Bradycardia ASYMPTOMATIC Diabetes mellitus, type 2 History of cardiac arrhythmia PT HAD HOLTER SHOWING NSR WITH INTERMITTENT EPISODES OF ATRIAL TACHYCARDIA. History of prostate cancer S/P BRACHYTHERAPY Hypertension Osteoarthritis Surgical History History of brachytherapy History of cataract extraction with lens replacement History of cystoscopy History of open reduction and internal fixation (ORIF) procedure ARM History of total hip arthroplasty LEFT Family History Mother Heart attack Father Heart attack Other Family history non-contributory Social History marital status: / Current Living Situation: Alone Other Information That Helps Us Care for You: No Feels Safe at Home: Yes Safety Concerns: Feels Safe At This Time Smoking Status: Former smoker Do You Dip or Chew Tobacco: No Second Hand Exposure: No Hx Alcohol Use: Yes Alcohol type: beer Alcohol Intake Frequency: holidays/ special occasions only Hx Substance Use: No Beliefs That Will Affect Care: None Communication Ability: Effective Review of Systems all remaining ros reviewed and are negative Physical Exam 2 Vital Signs (Past 24 Hours): Last Vital Signs Temp 36.5 C 11/17/18 06:55 Pulse 111 H 11/17/18 06:55 Resp 20 11/17/18 06:55 BP 106/65 11/17/18 06:55 Pulse Ox 97 11/17/18 06:55 Constitutional: WD/WN, vitals as above Eyes: PERRL, conjunctivae normal, anicteric sclerae ENMT: external ear and nose normal, oropharynx normal mmd Neck: normal visual inspection Respiratory: normal respiratory effort, lungs clear to auscultation Cardiovascular: RRR, no murmur, no edema Gastrointestinal (Abdomen): Inspection/Auscultation: + abdomen distended Percussion/Palpation: abdomen soft; abdomen nontender, no guarding and abdomen not rigid Skin: no rashes, warm and dry right hip incision c/d/i, no drainage no bleeding, xavi intact, wound closed. no surrounding warmth, erythema, tenderness Psychiatric: A+Ox3, euthymic affect Results & Data Laboratory Results Microbiology 11/14/18 11:37 Blood Blood Culture - Preliminary No growth to date. 11/14/18 10:57 Blood Blood Culture - Preliminary No growth to date.
--- NOTE | 2018-11-17 11:02 | Surgery Progress Note ---
Date of Service November 17, 2018 Assessment & Plan (1) C. difficile colitis: 83-year-old male status post hip replacement readmitted with C. difficile colitis and colonic distention. However he has a normal white count, stable vitals without fever, and a nontender abdomen. At this point there is no need for urgent surgical intervention. No surgical intervention indicated at this time Appreciate GI and infectious disease recommendations Creatinine from his original surgery will be covering over the weekend, please call with questions or concerns (2) HTN (hypertension): (3) DM type 2 (diabetes mellitus, type 2): Subjective 83-year-old male status post hip replacement, readmitted with C. difficile colitis, surgery consulted for colonic distention. Overall doing well, he had a bowel movement this morning that was liquid. He is now on vancomycin enemas. He denies any abdominal pain, would like something to eat. Seen at bedside with GI. Physical Exam 2 Vital Signs (Past 24 Hours): Last Vital Signs Temp 36.5 C 11/17/18 06:55 Pulse 111 H 11/17/18 06:55 Resp 20 11/17/18 06:55 BP 106/65 11/17/18 06:55 Pulse Ox 97 11/17/18 06:55 Constitutional: WD/WN, vitals as above Gastrointestinal (Abdomen): Inspection/Auscultation: + abdomen distended and normal bowel sounds Percussion/Palpation: abdomen soft; abdomen nontender and no guarding Results & Data Laboratory Results Laboratory Results - last 24 hr 11/16/18 11/16/18 11/16/18 08:04 11:28 17:10 WBC RBC Hgb Hct MCV MCH MCHC RDW Std Deviation RDW Coeff of Akshat Plt Count MPV Sodium Potassium Chloride Carbon Dioxide Anion Gap BUN Creatinine Est Cr Clr Drug Dosing Est GFR ( Amer) Est GFR (Non-Af Amer) BUN/Creatinine Ratio Glucose POC Glucose 150 H 173 H 150 H Calcium 11/16/18 11/17/18 11/17/18 20:04 06:18 07:13 WBC 8.10 RBC 3.47 L Hgb 9.1 L Hct 28.1 L MCV 81.0 MCH 26.2 MCHC 32.4 RDW Std Deviation 45.8 RDW Coeff of Akshat 15.5 H Plt Count 172 MPV 10.6 H Sodium Potassium Chloride Carbon Dioxide Anion Gap BUN Creatinine Est Cr Clr Drug Dosing Est GFR ( Amer) Est GFR (Non-Af Amer) BUN/Creatinine Ratio Glucose POC Glucose 135 H 125 H Calcium 11/17/18 07:13 WBC RBC Hgb Hct MCV MCH MCHC RDW Std Deviation RDW Coeff of Akshat Plt Count MPV Sodium 133 L Potassium 3.3 L Chloride 106 Carbon Dioxide 19 L Anion Gap 8.0 BUN 31 H Creatinine 0.75 Est Cr Clr Drug Dosing 98.4 Est GFR ( Amer) 98.3 Est GFR (Non-Af Amer) 84.8 BUN/Creatinine Ratio 40.6 H Glucose 108 H POC Glucose Calcium 7.5 L Diagnostic Findings HISTORY: Megacolon COMPARISON: KUB 11/16/2018. FINDINGS: No change in the distended gas-filled loops of large and small bowel. The transverse colon measures up to 12 cm in diameter. The stomach is also mildly distended and gas-filled. No gas within the rectum. Bilateral total hip arthroplasties. No renal calculi. No ureteral calculi. No pneumoperitoneum or pneumatosis. IMPRESSION: No change in the distended gas-filled loops of large and small bowel. The transverse colon continues to measure up to 12 cm in diameter.
[2018-11-17] MEDS: POTASSIUM CHLORIDE 40 MEQ in SODIUM CHLORIDE 0.9% 1000ML 1,000 ML IV SCH (11:32)
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
[2018-11-17] MEDS: FIDAXOMICIN 200 MG TAB PO SCH ×2 (12:51→21:59)
[2018-11-17] MEDS ORDERED: metroNIDAZOLE 500 MG TAB PO SCH (14:00)
--- NOTE | 2018-11-17 15:04 | Gastrointestinal Consultation ---
Date of Consultation November 17, 2018 Assessment & Plan (1) C. difficile colitis: Pt is a 83 y/o male w Cdiff diarrhea and suspected toxic megacolon. He doens't appear toxic on presentation and no guarding though abdomen is distended. No prior abd imaging available to compare his baseline colonic distension to see if he has chronic pseudoobstruction or not. - Keep NPO; IVF hydration - Recommend Flagyl 500mg IV TID, Vancomycin 500 mg PO QID, Vancomycin 500mg NV q6hr - Recommend transfer to higher level of care in ICU - KUB in AM - No plans for colonic decompression, this is contraindicated in C.diff. - Surgery following. Supervising Physician Co-Signing Physician Notes I performed a history and physical examination of the patient, including specifically on physical exam - soft, nontender but distended abdomen. I have discussed the patient's management with Cass. Please refer to the nurse practitioner's note for the documented findings and plan of care. 83 male patient admitted with diarrhea and abdominal pain, found to have C.diff , has low albumin, normal Creatining and WBC. Initial CT scan showed a picture of ileus in the entire GI tract. KUB now showed distended colon up to 12 cm. He seems comfortable on exam. Surgery folowing and not planning for resection. His colonic distention is multifactorial due to CDI, Tramadol, and hypokalemia. Recommend: Avoid Opioids. Correct electrolytes. IV Flagyl, PO and Rectal Vancomycin. Monitor Lactic acid, WBC and kidney function. Consider NG/rectal decompression if worsening. If any worsening in vital signs, labs or exam to suggest developing acute abdomen then needs transfer to tertiary care center. History of Present Illness Reason for Consultation: Cdiff colitis, colonic distension Requesting Physician: Dr. Per Ambriz Attending Physician: Dr. Marcela Sevilla History of Present Illness Pt is a 83 y/o M who was admitted 3 days ago for c/o N/V/D. Hx of R hip total arthroplasty 11/12/18. Denies any antibx recently. BM usually once a day w need of using stool softeners. Denies any constipation. BM now up to 4-6x a day, denies any rectal bleeding. Upon evaluation found to have Cdiff positive. Abdominal imaging w CT scan and KUB consistent w distended fluid filled stomach , distended small and large bowel loops. Transverse colon 12cm. On exam his abd is very distended but not tender. High pitched bowel sounds. He is not having any n/v and been on NPO status. He isn't passing much flatus. Is having BMs but small amt w Vancomcyin enema administration. Surgery team has been following pt. Allergies Allergy/AdvReac Type Severity Reaction Status Date / Time metformin Allergy Unknown MUSCLE Verified 11/14/18 10:39 ACHES Yoqpnsk-Zyb-Slm Reductase Allergy Unknown MUSCLE Verified 11/14/18 10:39 Inhibitor ACHES Unclassified Drugs Allergy Unknown RED YEAST Uncoded 11/14/18 10:39 RICE-MUSCLE ACHES Home Medications Home Medications Medication Instructions Recorded Confirmed Type canagliflozin [Invokana] 100 mg PO QAM 10/04/18 11/14/18 History cyanocobalamin (vitamin B-12) 1,000 mcg PO QAM 10/04/18 11/14/18 History [Vitamin B-12] docusate sodium [Stool Softener] 50 mg PO BID 10/04/18 11/14/18 History losartan 25 mg PO BID 10/04/18 11/14/18 History sitagliptin [Januvia] 100 mg PO QAM 10/04/18 11/14/18 History acetaminophen [Pain Reliever] 1,000 mg PO Q8 30 Days #180 tab 11/11/18 11/14/18 Rx aspirin [Ecotrin Low Strength] 81 mg PO BID 45 Days #90 tab 11/11/18 11/14/18 Rx ferrous gluconate 324 mg PO BIDM 30 Days #60 tab 11/11/18 11/14/18 Rx tramadol 50 - 100 mg PO Q4H PRN 15 Days #40 11/11/18 11/14/18 Rx tab Patient History Medical History Bradycardia ASYMPTOMATIC Diabetes mellitus, type 2 History of cardiac arrhythmia PT HAD HOLTER SHOWING NSR WITH INTERMITTENT EPISODES OF ATRIAL TACHYCARDIA. History of prostate cancer S/P BRACHYTHERAPY Hypertension Osteoarthritis Surgical History History of brachytherapy History of cataract extraction with lens replacement History of cystoscopy History of open reduction and internal fixation (ORIF) procedure ARM History of total hip arthroplasty LEFT Family History Mother Heart attack Father Heart attack Other Family history non-contributory Social History marital status: / Current Living Situation: Alone Other Information That Helps Us Care for You: No Feels Safe at Home: Yes Safety Concerns: Feels Safe At This Time Smoking Status: Former smoker Do You Dip or Chew Tobacco: No Second Hand Exposure: No Hx Alcohol Use: Yes Alcohol type: beer Alcohol Intake Frequency: holidays/ special occasions only Hx Substance Use: No Beliefs That Will Affect Care: None Communication Ability: Effective Review of Systems Constitutional: as per Subjective / HPI Respiratory: no cough and no dyspnea Cardiovascular: no chest pain, no lightheadedness and no edema Gastrointestinal: + bloating; no abdominal pain, no nausea and no vomiting Physical Exam 2 Vital Signs (Past 24 Hours): Last Vital Signs Temp 36.3 C L 11/17/18 14:31 Pulse 100 H 11/17/18 14:31 Resp 20 11/17/18 14:31 BP 98/66 L 11/17/18 14:31 Pulse Ox 95 11/17/18 14:31 Constitutional: WD/WN, vitals as above well groomed, cooperative and comfortable Eyes: PERRL, conjunctivae normal, anicteric sclerae ENMT: external ear and nose normal, oropharynx normal Respiratory: normal respiratory effort, lungs clear to auscultation Cardiovascular: RRR, no murmur, no edema Gastrointestinal (Abdomen): Abdomen distended, non tender, high pitched bowel sounds Skin: no rashes, warm and dry no jaundice Neurologic: Motor/Sensory: no asterixis Psychiatric: A+Ox3, euthymic affect Lymphatic: no lymphedema Results & Data Laboratory Results Laboratory Results - last 48 hr 11/15/18 11/15/18 11/16/18 16:58 20:34 05:55 WBC RBC Hgb Hct MCV MCH MCHC RDW Std Deviation RDW Coeff of Akshat Plt Count MPV Sodium Potassium Chloride Carbon Dioxide Anion Gap BUN Creatinine Est Cr Clr Drug Dosing Est GFR ( Amer) Est GFR (Non-Af Amer) BUN/Creatinine Ratio Glucose POC Glucose 161 H 121 H Calcium Magnesium Stool Occult Bld Scrn Positive H 11/16/18 11/16/18 11/16/18 06:44 06:44 08:04 WBC 8.03 RBC 3.70 L Hgb 9.6 L Hct 30.2 L MCV 81.6 MCH 25.9 MCHC 31.8 L RDW Std Deviation 47.2 H RDW Coeff of Akshat 15.8 H Plt Count 209 MPV 10.9 H Sodium 137 Potassium 3.5 Chloride 106 Carbon Dioxide 20 L Anion Gap 11.0 BUN 43 H Creatinine 0.93 Est Cr Clr Drug Dosing 79.4 Est GFR ( Amer) 87.7 Est GFR (Non-Af Amer) 75.7 BUN/Creatinine Ratio 46.5 H Glucose 138 H POC Glucose 150 H Calcium 7.6 L Magnesium 2.3 Stool Occult Bld Scrn 11/16/18 11/16/18 11/16/18 11:28 17:10 20:04 WBC RBC Hgb Hct MCV MCH MCHC RDW Std Deviation RDW Coeff of Akshat Plt Count MPV Sodium Potassium Chloride Carbon Dioxide Anion Gap BUN Creatinine Est Cr Clr Drug Dosing Est GFR ( Amer) Est GFR (Non-Af Amer) BUN/Creatinine Ratio Glucose POC Glucose 173 H 150 H 135 H Calcium Magnesium Stool Occult Bld Scrn 11/17/18 11/17/18 11/17/18 06:18 07:13 07:13 WBC 8.10 RBC 3.47 L Hgb 9.1 L Hct 28.1 L MCV 81.0 MCH 26.2 MCHC 32.4 RDW Std Deviation 45.8 RDW Coeff of Akshat 15.5 H Plt Count 172 MPV 10.6 H Sodium 133 L Potassium 3.3 L Chloride 106 Carbon Dioxide 19 L Anion Gap 8.0 BUN 31 H Creatinine 0.75 Est Cr Clr Drug Dosing 98.4 Est GFR ( Amer) 98.3 Est GFR (Non-Af Amer) 84.8 BUN/Creatinine Ratio 40.6 H Glucose 108 H POC Glucose 125 H Calcium 7.5 L Magnesium Stool Occult Bld Scrn 11/17/18 12:49 WBC RBC Hgb Hct MCV MCH MCHC RDW Std Deviation RDW Coeff of Akshat Plt Count MPV Sodium Potassium Chloride Carbon Dioxide Anion Gap BUN Creatinine Est Cr Clr Drug Dosing Est GFR ( Amer) Est GFR (Non-Af Amer) BUN/Creatinine Ratio Glucose POC Glucose 95 Calcium Magnesium Stool Occult Bld Scrn
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
[2018-11-18] MEDS: VANCOMYCIN HCL 500 MG/100 ML ENEMA PR SCH ×2 (06:06→18:57)
[2018-11-18] MEDS ORDERED: Nursing to Pharmacy Communication ONE ×2 (06:41→15:47)
[2018-11-18] MEDS: POTASSIUM CHLORIDE 40 MEQ in SODIUM CHLORIDE 0.9% 1000ML 1,000 ML IV SCH (07:01)
[2018-11-18 07:54] LABS: Hemoglobin 8.8 g/dL (14.0-18.0); Mean Corpuscular Hgb Conc 31.4 g/dL (32-36); Mean Corpuscular Volume 83.3 fL (80-100); Mean Platelet Volume 11.1 fL (7.4-10.4); Platelet Count 112 K/uL (130-400); RDW Coefficient of Variation 15.8 % (11.5-14.5); RDW Standard Deviation 48.1 fL (36.4-46.3); Red Blood Count 3.36 M/uL (4.7-6.1); White Blood Count 6.94 K/uL (4.8-10.8)
[2018-11-18 08:27] LABS: Albumin Level 1.5 gm/dl (3.4-5.0); BUN Creatinine Ratio 35.3 (10-20); Calcium 7.1 mg/dl (8.5-10.1); Creatinine Clr Calc Pharmacy 117.2 ml/min; Est GFR (African American) 105.6; Est GFR (Non-African American) 91.1; Magnesium 1.9 mg/dl (1.8-2.4); Potassium 3.3 mmol/L (3.5-5.1)
[2018-11-18 08:30] LABS: Albumin Globulin Ratio 0.5 (0.9-2); Bilirubin,Total 0.4 mg/dl (0.2-1); Globulin 3.1 gm/dl (2.5-4.0); Total Protein 4.6 gm/dl (6.4-8.2)
--- NOTE | 2018-11-18 08:35 | XRay Report ---
KUB HISTORY: Follow-up study in a patient with colonic distention Large colon COMPARISON: KUB 11/17/2018 FINDINGS: Persistent colonic distention measuring up to approximately 12.8 cm within the region of th e cecum, unchanged. Air-filled mildly dilated loops of small bowel are also seen measuring up to 3.6 cm transversely. No pneumatosis or pneumoperitoneum. No urolith. Degenerative changes of the spine. B ilateral hip arthroplasties. Brachytherapy seeds noted about the prostate. . IMPRESSION: Persistent colonic distention with mildly dilated air-filled loops of small bowel also noted suggesti ve of ileus. Continued follow-up recommended. Electronically signed by: Hector Hernandez M.D. 11/18/2018 8:33 AM
--- NOTE | 2018-11-18 08:58 | Gastroenterology Progress Note ---
Date of Service November 18, 2018 Supervising Physician Co-Signing Physician Notes Patient with C diff colitis and now colonic distension that could be mild [place]ilvies. No benefit of scoping a patient with active c diff as this increase the risk of perforation. Would opt for medical mgmt at this time, ID is also following the patient, surgery input if peritoneal signs. Subjective no acute complaint this morning no complaints of belly pain Physical Exam 2 Vital Signs (Past 24 Hours): Last Vital Signs Temp 36.7 C 11/18/18 08:02 Pulse 71 11/18/18 08:02 Resp 18 11/18/18 08:02 BP 104/62 11/18/18 08:02 Pulse Ox 94 11/18/18 08:02 Physical Exam: Obese male in nad Constitutional: well developed Respiratory: normal respiratory effort, lungs clear to auscultation Cardiovascular: RRR, no murmur, no edema Gastrointestinal (Abdomen): normal bowel sounds, soft, nontender, no hepatosplenomegaly Belly is soft Results & Data Laboratory Results No wbc count elevation persistent low K Diagnostic Findings KUb essentially unchanged
[2018-11-18] MEDS: ASPIRIN 81 MG ECTAB PO SCH ×2 (09:31→20:46)
[2018-11-18] MEDS: PANTOprazole 40 MG TAB PO SCH (09:44)
[2018-11-18] MEDS: CYANOCOBALAMIN 500 MCG TABLET (VITAMIN B-12) PO SCH (09:44)
[2018-11-18] MEDS: FIDAXOMICIN 200 MG TAB PO SCH ×2 (09:44→20:45)
[2018-11-18] MEDS ORDERED: INSULIN ASPART 100 UNITS/ML 3 ML PEN SC SCH (12:00)
--- NOTE | 2018-11-18 12:06 | Surgery Progress Note ---
Date of Service November 18, 2018 pt is doing better, no abdominal pain, no nausea, Assessment & Plan (1) C. difficile colitis: doing fine, continue treatment, will F/u Physical Exam 2 Vital Signs (Past 24 Hours): Last Vital Signs Temp 36.7 C 11/18/18 08:02 Pulse 71 11/18/18 08:02 Resp 18 11/18/18 08:02 BP 104/62 11/18/18 08:02 Pulse Ox 94 11/18/18 08:02 Constitutional: WD/WN, vitals as above Neck: trachea midline, no thyromegaly Respiratory: normal respiratory effort, lungs clear to auscultation Cardiovascular: RRR, no murmur, no edema Gastrointestinal (Abdomen): Percussion/Palpation: abdomen soft NT, ND Neurologic: awake Psychiatric: Orientation: alert and oriented x 3 Results & Data Laboratory Results Abnormal lab results 11/18/18 11/18/18 Range/Units 07:46 07:46 RBC 3.36 L (4.7-6.1) M/uL Hgb 8.8 L (14.0-18.0) g/dL Hct 28.0 L (42-52) % MCHC 31.4 L (32-36) g/dL RDW Std Deviation 48.1 H (36.4-46.3) fL RDW Coeff of Akshat 15.8 H (11.5-14.5) % Plt Count 112 L (130-400) K/uL MPV 11.1 H (7.4-10.4) fL Sodium 135 L (136-145) mmol/L Potassium 3.3 L (3.5-5.1) mmol/L Carbon Dioxide 17 L (21-32) mmol/L BUN 22 H (7-18) mg/dl BUN/Creatinine Ratio 35.3 H (10-20) Calcium 7.1 L (8.5-10.1) mg/dl Total Protein 4.6 L (6.4-8.2) gm/dl Albumin 1.5 L (3.4-5.0) gm/dl Albumin/Globulin Ratio 0.5 L (0.9-2)
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
[2018-11-18] MEDS: INSULIN ASPART 100 UNITS/ML 3 ML PEN SC SCH ×2 (18:36→20:47)
[2018-11-19] MEDS: POTASSIUM CHLORIDE 40 MEQ in SODIUM CHLORIDE 0.9% 1000ML 1,000 ML IV SCH ×2 (02:03→21:51)
[2018-11-19] MEDS: VANCOMYCIN HCL 500 MG/100 ML ENEMA PR SCH (06:18)
[2018-11-19 06:48] LABS: BUN Creatinine Ratio 23.5 (10-20); Creatinine Clr Calc Pharmacy 117.2 ml/min; Est GFR (African American) 105.6; Est GFR (Non-African American) 91.1; Magnesium 1.9 mg/dl (1.8-2.4); Potassium 3.7 mmol/L (3.5-5.1)
[2018-11-19 07:26] LABS: Hematocrit (blood only) 28.4 % (42-52); Hemoglobin 9.1 g/dL (14.0-18.0); Mean Corpuscular Volume 79.8 fL (80-100); Mean Platelet Volume 10.2 fL (7.4-10.4); Platelet Count 151 K/uL (130-400); RDW Coefficient of Variation 15.6 % (11.5-14.5); RDW Standard Deviation 45.7 fL (36.4-46.3); Red Blood Count 3.56 M/uL (4.7-6.1); White Blood Count 9.26 K/uL (4.8-10.8)
[2018-11-19] MEDS: CYANOCOBALAMIN 500 MCG TABLET (VITAMIN B-12) PO SCH (08:16)
[2018-11-19] MEDS: ASPIRIN 81 MG ECTAB PO SCH (08:16)
[2018-11-19] MEDS: PANTOprazole 40 MG TAB PO SCH (08:16)
[2018-11-19] MEDS: FIDAXOMICIN 200 MG TAB PO SCH ×2 (08:16→22:20)
[2018-11-19] MEDS: INSULIN ASPART 100 UNITS/ML 3 ML PEN SC SCH ×4 (08:48→21:52)
--- NOTE | 2018-11-19 09:46 | Gastroenterology Progress Note ---
Date of Service November 19, 2018 Supervising Physician Co-Signing Physician Notes 83 yo male with a history of htn, type 2 dm, c diff colitis with colonic distensions, on medical antibiotic therapy. Continue current antibiotic therapy. Continue current diet. Subjective No acute complaints Eating this am Still with loose stools but slowly improving Physical Exam 2 Vital Signs (Past 24 Hours): Last Vital Signs Temp 36.8 C 11/19/18 08:00 Pulse 94 H 11/19/18 08:00 Resp 18 11/19/18 08:00 BP 133/67 11/19/18 08:00 Pulse Ox 95 11/19/18 08:00 Physical Exam: No acute distress Respiratory: normal respiratory effort, lungs clear to auscultation Gastrointestinal (Abdomen): normal bowel sounds, soft, nontender, no hepatosplenomegaly Results & Data Laboratory Results Wbc count normal K has improved Diagnostic Findings No new kub
--- NOTE | 2018-11-19 13:15 | Surgery Progress Note ---
Date of Service November 19, 2018 pt is stable, pt passed gas, and 2 BM yesterday, pt denies abdominal pain, no nausea, no vomiting, pt's daughter is at bedside, Assessment & Plan (1) C. difficile colitis: doing fine, Dr. Yoo continue treatment, will F/u 11/19/2018 Dr. Yoo stable continue treatment Physical Exam 2 Vital Signs (Past 24 Hours): Last Vital Signs Temp 36.8 C 11/19/18 08:00 Pulse 94 H 11/19/18 08:00 Resp 18 11/19/18 08:00 BP 133/67 11/19/18 08:00 Pulse Ox 95 11/19/18 08:00 Constitutional: WD/WN, vitals as above Neck: trachea midline, no thyromegaly Respiratory: normal respiratory effort, lungs clear to auscultation Cardiovascular: RRR, no murmur, no edema Gastrointestinal (Abdomen): Percussion/Palpation: abdomen soft Neurologic: awake Psychiatric: Orientation: alert and oriented x 3 Results & Data Laboratory Results Abnormal lab results 11/18/18 11/18/18 11/19/18 Range/Units 17:10 20:43 05:57 RBC (4.7-6.1) M/uL Hgb (14.0-18.0) g/dL Hct (42-52) % MCV (80-100) fL RDW Coeff of Akshat (11.5-14.5) % Sodium 134 L (136-145) mmol/L Carbon Dioxide 16 L (21-32) mmol/L Anion Gap 12.0 H (3-11) BUN/Creatinine Ratio 23.5 H (10-20) Glucose 122 H (70-99) mg/dl POC Glucose 133 H 125 H (70-99) Calcium 7.0 L (8.5-10.1) mg/dl 11/19/18 11/19/18 11/19/18 Range/Units 07:13 07:53 11:51 RBC 3.56 L (4.7-6.1) M/uL Hgb 9.1 L (14.0-18.0) g/dL Hct 28.4 L (42-52) % MCV 79.8 L (80-100) fL RDW Coeff of Akshat 15.6 H (11.5-14.5) % Sodium (136-145) mmol/L Carbon Dioxide (21-32) mmol/L Anion Gap (3-11) BUN/Creatinine Ratio (10-20) Glucose (70-99) mg/dl POC Glucose 119 H 150 H (70-99) Calcium (8.5-10.1) mg/dl Diagnostic Findings KUB 11/18/2018 HISTORY: Follow-up study in a patient with colonic distention Large colon COMPARISON: KUB 11/17/2018 FINDINGS: Persistent colonic distention measuring up to approximately 12.8 cm within the region of the cecum, unchanged. Air-filled mildly dilated loops of small bowel are also seen measuring up to 3.6 cm transversely. No pneumatosis or pneumoperitoneum. No urolith. Degenerative changes of the spine. Bilateral hip arthroplasties. Brachytherapy seeds noted about the prostate. . IMPRESSION: Persistent colonic distention with mildly dilated air-filled loops of small bowel also noted suggestive of ileus. Continued follow-up recommended.
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
--- NOTE | 2018-11-19 21:20 | XRay Report ---
XR KUB CLINICAL HISTORY: 83 years-old Male presenting with Ileus monitoring. TECHNIQUE: Single supine view of the abdomen was obtained. COMPARISON: 11/18/2018. FINDINGS: Gaseous distention of small and large bowel. Apparent colonic diameter of over 12 cm as on prior exam , likely affected by magnification. No gross pneumoperitoneum allowing for supine technique. Brachytherapy seeds in the prostate. No abnormal abdominal pelvic calcifications allowing for body gaona bitus and portable technique. Degenerative changes of the spine. Bilateral total hip arthroplasties. Possible chronic anterior left lower rib fracture. Lung bases clear. IMPRESSION: 1. Persistent gaseous distention of small and large bowel compatible with ileus. Electronically signed by: Mark Merino M.D. 11/19/2018 9:19 PM
[2018-11-20] MEDS: CYANOCOBALAMIN 500 MCG TABLET (VITAMIN B-12) PO SCH (08:17)
[2018-11-20] MEDS: FIDAXOMICIN 200 MG TAB PO SCH ×2 (08:17→21:12)
[2018-11-20] MEDS: INSULIN ASPART 100 UNITS/ML 3 ML PEN SC SCH ×4 (08:33→21:14)
[2018-11-20 09:39] LABS: Albumin Level 1.5 gm/dl (3.4-5.0); Calcium 7.1 mg/dl (8.5-10.1); Creatinine Clr Calc Pharmacy 131.8 ml/min; Est GFR (African American) 110.9; Est GFR (Non-African American) 95.7; Potassium 3.5 mmol/L (3.5-5.1)
[2018-11-20 09:42] LABS: Albumin Globulin Ratio 0.4 (0.9-2); Bilirubin,Total 0.4 mg/dl (0.2-1); Globulin 3.5 gm/dl (2.5-4.0)
--- NOTE | 2018-11-20 10:14 | Infectious Disease Progress Nt ---
Date of Service November 20, 2018 Assessment & Plan (1) C. difficile colitis: continue dificid. wbc normal. afebrile otherwise clinically stable, surgery following, no plans for OR at this time. Subjective pt ambulating with pt. doing well. most recent imaging reveals continued ileus. Blood cultures negative. afebrile. wbc 9.2. tolerating dificid. surgery and GI following no plans for OR. Physical Exam 2 Vital Signs (Past 24 Hours): Last Vital Signs Temp 36.8 C 11/20/18 08:11 Pulse 101 H 11/20/18 08:11 Resp 16 11/20/18 08:11 BP 117/59 L 11/20/18 08:11 Pulse Ox 98 11/20/18 08:11 Results & Data Laboratory Results Microbiology 11/14/18 11:37 Blood Blood Culture - Final No growth 11/14/18 10:57 Blood Blood Culture - Final No growth
--- NOTE | 2018-11-20 14:05 | Surgery Progress Note ---
Date of Service November 20, 2018 Assessment & Plan (1) C. difficile colitis: 11/20/2018 Patient doing well from surgical perspective. Denies abdominal pain. Still having loose BMs, but not as frequently as when he first was admitted. No indication for surgical intervention. Appreciate GI and ID recommendations. General Surgery will sign off at this time. Please call with questions or concerns. 83-year-old male status post hip replacement readmitted with C. difficile colitis and colonic distention. However he has a normal white count, stable vitals without fever, and a nontender abdomen. At this point there is no need for urgent surgical intervention. No surgical intervention indicated at this time Appreciate GI and infectious disease recommendations Creatinine from his original surgery will be covering over the weekend, please call with questions or concerns (2) HTN (hypertension): (3) DM type 2 (diabetes mellitus, type 2): Supervising Physician Co-Signing Physician Notes cdiff colitis/ileus following hip replacement. less diarrhea, abd softer but still distended. no surgical intervention at this time. surgery will follow peripherally, call with questions or concerns. Subjective 83-year-old male status post hip replacement, readmitted with C. difficile colitis, surgery consulted for colonic distention. From surgical perspective doing well- he feels frustrated. Eager to get home He reports that the frequency of his bowel movements have slowed significantly. His BMs are still loose. He denies abdominal pain. Physical Exam 2 Vital Signs (Past 24 Hours): Last Vital Signs Temp 36.8 C 11/20/18 08:11 Pulse 101 H 11/20/18 08:11 Resp 16 11/20/18 08:11 BP 117/59 L 11/20/18 08:11 Pulse Ox 97 11/20/18 11:21 Gastrointestinal (Abdomen): Inspection/Auscultation: + abdomen distended Percussion/Palpation: abdomen soft; abdomen nontender
[2018-11-20] MEDS ORDERED: LACTATED RINGER'S 1,000 ML IV SCH (17:00)
--- NOTE | 2018-11-20 18:16 | Gastroenterology Progress Note ---
Date of Service November 20, 2018 I have seen and examined the patient - agree with plan of as per ASSURANCE SENIOR's A/P. Assessment & Plan (1) C. difficile colitis: Pt is a 83 y/o male w Cdiff diarrhea and dilated colon. Plan: Daily KUB Discussed need to ambulate, move from bed to chair etc, importance of going down to radiology for X-ray but pt and family said that it hurts too much to go to radiology, so X-ray needs to be portable - so ordered portable per pt/family request. Recommend liquid diet but pt said he had been on liquids for many days and needs food. KUB this afternoon. C-diff tx per ID. Will continue to follow. At this time, no plans for endoscopy. Subjective 83 yr old male post hip replacement with ileus, C-diff. Abdomen distended. Pt tells me "softer" than a few days ago, daughter states, "not any bigger, but not smaller than yesterday and still large." Regular consistency diet w/o any increased discomfort or nausea after meals. Constitutional: as per Subjective / HPI Gastrointestinal: + bloating; no abdominal pain, no nausea and no vomiting Physical Exam 2 Vital Signs (Past 24 Hours): Last Vital Signs Temp 36.7 C 11/20/18 16:20 Pulse 94 H 11/20/18 16:20 Resp 20 11/20/18 16:20 BP 101/57 L 11/20/18 16:20 Pulse Ox 97 11/20/18 16:20 Constitutional: WD/WN, vitals as above Eyes: PERRL, conjunctivae normal, anicteric sclerae ENMT: external ear and nose normal, oropharynx normal Neck: trachea midline, no thyromegaly Respiratory: normal respiratory effort, lungs clear to auscultation Cardiovascular: RRR, no murmur, no edema Gastrointestinal (Abdomen): normal active BS, distended but not taunt, no ascites, mild tenderness over entire abdomen. Skin: no rashes, warm and dry no jaundice Neurologic: PERRL, EOMI, accommodation nl, no face palsy, no dysarthria Psychiatric: A+Ox3, euthymic affect Lymphatic: no cervical or axillary lymphadenopathy Results & Data Laboratory Results Na 134, K 3.7, BUN 15, Cr 0.3. Diagnostic Findings KUB 11/20/18: Persistent gaseous distention of small and large bowel compatible with ileus.
--- NOTE | 2018-11-20 18:35 | XRay Report ---
KUB CLINICAL HISTORY: Ileus. FINDINGS: 4 AP supine abdominal radiographs are compared to study dated 11/19/2018 and correlated with abdominal CT dated 11/14/2018. There is unchanged gaseous distention of the small bowel loops and col on. No evidence of intraperitoneal free air is seen on these supine images. No abnormal abdominal kenneth cifications identified. Brachytherapy beads are noted in the pelvis. The skeletal structures are oste openic. Lumbosacral spondylosis is observed. Bilateral hip arthroplasties are in place. IMPRESSION: Gaseous distention of the small bowel loops and colon is similar to previous. Electronically signed by: Pk Verde M.D. 11/20/2018 6:33 PM
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
[2018-11-21] MEDS ORDERED: BENZONATATE 100 MG CAPSULE PO PRN (04:37)
[2018-11-21 07:52] LABS: Hematocrit (blood only) 28.5 % (42-52); Hemoglobin 9.2 g/dL (14.0-18.0); Mean Corpuscular Hgb Conc 32.3 g/dL (32-36); Mean Corpuscular Volume 78.9 fL (80-100); Mean Platelet Volume 11.2 fL (7.4-10.4); Platelet Count 159 K/uL (130-400); RDW Coefficient of Variation 15.6 % (11.5-14.5); RDW Standard Deviation 45.5 fL (36.4-46.3); Red Blood Count 3.61 M/uL (4.7-6.1); White Blood Count 12.08 K/uL (4.8-10.8)
[2018-11-21 08:24] LABS: BUN Creatinine Ratio 20.6 (10-20); Calcium 6.9 mg/dl (8.5-10.1); Creatinine Clr Calc Pharmacy 136.7 ml/min; Est GFR (African American) 112.5; Est GFR (Non-African American) 97.1; Potassium 3.2 mmol/L (3.5-5.1)
[2018-11-21 08:38] LABS: Basophils # (auto) 0.01 K/uL (0-0.2); Basophils % (auto) 0.1 %; Dohle Bodies 1+; Echinocytes 1+; Eosinophils # (auto) 0.17 K/uL (0-0.5); Eosinophils % (auto) 1.4 %; Giant Platelets 1+; Immature Granulocytes # (auto) 0.21 K/uL (0.00-0.02); Immature Granulocytes % (auto) 1.7 %; Lymphocytes # (auto) 0.69 K/uL (1.2-3.4); Lymphocytes % (auto) 5.7 %; Monocytes # (auto) 0.51 K/uL (0.11-0.59); Monocytes % (auto) 4.2 %; Neutrophils # (auto) 10.49 K/uL (1.4-6.5); Neutrophils % (auto) 86.9 %; Toxic Granulation 1+
[2018-11-21] MEDS: CYANOCOBALAMIN 500 MCG TABLET (VITAMIN B-12) PO SCH (08:49)
[2018-11-21] MEDS: INSULIN ASPART 100 UNITS/ML 3 ML PEN SC SCH ×4 (08:49→21:14)
[2018-11-21] MEDS: FIDAXOMICIN 200 MG TAB PO SCH ×2 (08:49→21:19)
--- NOTE | 2018-11-21 11:34 | XRay Report ---
XR KUB CLINICAL HISTORY: 83 years-old Male presenting with abd. distention/ c. diff colitis. TECHNIQUE: Single supine view of the abdomen was obtained. COMPARISON: 11/20/[address] from 11/14/2018. FINDINGS: Gaseous distention predominantly of large bowel. The degree of distention is grossly unchanged. Measu rement by radiograph is likely affected by magnification. No gross pneumoperitoneum allowing for supi ne technique. Allowing for bowel gas and stool, no calcifications to suggest nephrolithiasis. Brachytherapy seeds i n the prostate Degenerative changes of the spine. Bilateral total hip arthroplasties. Reticular opacities at the mele g bases unchanged, possibly atelectasis or scarring. IMPRESSION: 1. Unchanged degree of significant predominantly colonic gaseous distention. Toxic megacolon it is d ifficult to exclude though there is no overwhelming evidence of colonic wall thickening on the curren t radiograph. Electronically signed by: Mark Merino M.D. 11/21/2018 11:32 AM
--- NOTE | 2018-11-21 11:38 | XRay Report ---
XR chest 1V portable CLINICAL HISTORY: cough dyspnea COMPARISON STUDY: 05/26/2010 FINDINGS: Findings of diffuse bilateral parenchymal infiltrative change. Diaphragms are smooth. Sligh t blunting of the lateral costophrenic angles bilaterally. IMPRESSION: Diffuse bilateral parenchymal infiltrative change. The above report was generated using voice recognition software. It may contain grammatical, syntax or spelling errors. Electronically signed by: Oc Espinosa M.D. 11/21/2018 11:37 AM
[2018-11-21] MEDS: POTASSIUM CHLORIDE / WTR 10 MEQ/100 ML PLCT IV SCH ×2 (11:55→13:08)
[2018-11-21] MEDS: metroNIDAZOLE 500 MG/100 ML BAG IV SCH ×2 (14:07→21:43)
--- NOTE | 2018-11-21 15:16 | Infectious Disease Progress Nt ---
Date of Service November 21, 2018 Assessment & Plan (1) C. difficile colitis: continue dificid. afebrile otherwise clinically stable, surgery following , no plans for OR at this time. IV martinez added, will follow response. abd less distended today. incision with min erythema, will continue to follow, especially with increased wbc. will repeat blood cultures. Subjective pt sitting up in bed eating milkshake during my exam. family at bedside. asking for a new chair for patient to sit in. IV flagyl started today due to increased wbc to 12. ambulating in halls but states it is difficult due to lack of energy. no f/c. remains on dificid, tolerating well. ate some lunch today but not much, states appetite is poor, no n/v. states stool is loose but no diarrhea , abd remains distended, family states same today as yesterday. no pain in hip. less weeping from hip. dressing remains on hip. afebrile. no cp, sob, some dry cough, asking for cough suppressant. no gu symptoms. all remaining ros reviewed and are negative. Physical Exam 2 Vital Signs (Past 24 Hours): Last Vital Signs Temp 36.6 C 11/21/18 07:26 Pulse 114 H 11/21/18 07:26 Resp 20 11/21/18 07:26 BP 111/58 L 11/21/18 07:26 Pulse Ox 97 11/21/18 07:26 Constitutional: WD/WN, vitals as above Eyes: PERRL, conjunctivae normal, anicteric sclerae ENMT: external ear and nose normal, oropharynx normal Neck: normal visual inspection Respiratory: normal respiratory effort, lungs clear to auscultation Cardiovascular: RRR, no murmur, no edema Gastrointestinal (Abdomen): Inspection/Auscultation: + abdomen distended Percussion/Palpation: abdomen soft; abdomen nontender, no guarding and abdomen not rigid remains with distention but less today Skin: no rashes, warm and dry hip incision with min erythema, xavi intact, no warmth, non tender, no drainage or bleeding, incision closed. Psychiatric: A+Ox3, euthymic affect Results & Data Laboratory Results Microbiology 11/14/18 11:37 Blood Blood Culture - Final No growth 11/14/18 10:57 Blood Blood Culture - Final No growth
[2018-11-21] MEDS: ALBUTEROL 0.5% NEB SOLN 2.5 MG/0.5 ML VIAL NEB PRN (19:08)
--- NOTE | 2018-11-21 20:32 | Progress Note ---
DATE: 11/21/2018 SUBJECTIVE: An 83-year-old gentleman now about 11 days out from a right total hip replacement complicated by readmission for C. diff colitis. His symptoms have kind of waxed and waned since he has been in the hospital. It seems like it is getting better now. Seems a little bit worse. He denies any real significant pain. He has been nauseated. Still having a decent amount of diarrhea. He is passing gas. Denies any real abdominal pain, despite some distention. There is really no hip pain to speak of. His drainage in the hip is decreasing. OBJECTIVE: VITAL SIGNS: Temperature is 36.8. He is a little tachycardic at 113 beats. The rest of his vital signs are stable. PHYSICAL EXAMINATION: GENERAL: Reveals a pleasant elderly male. He is lying in bed and talking to his family. He looks reasonably comfortable. EXTREMITIES: Examination of the right hip reveals the wound to be well approximated. Still a little bit serous drainage, but decreased significantly from admission. His hip is located. He is neurologically intact. No redness around the xavi, but no signs of infection. Any drainage is just serous. LABORATORY DATA: Hemoglobin is 9.2. Hematocrit 28.5. White cell count is a little bit elevated today at 12.08. ASSESSMENT: An 83-year-old gentleman 11 days out from a right total hip replacement complicated by Clostridium difficile colitis. He is still struggling with this despite medical management. Hip is doing well. His drainage is decreasing and likely somewhat related to probably poor nutrition. PLAN: 1. DVT prophylaxis including thigh-high TEDs, SCDs, and will continue baby aspirin twice a day as long as it is okay from a GI standpoint. 2. PT and OT. Mobilization will be good for him as much as possible. He can weightbear as tolerated. He is to obey hip precautions. 3. Medical management per the medicine service. 4. Disposition: We will keep an eye on him in the hospital. His xavi are expected to be taken out on Tuesday. We will see what his wound looks like then to consider if he is still in the hospital and may be removed in there. He is going to heal this wound a bit slower due to his poor nutritional intake. We will need to take a look at it before we remove the xavi. Any orthopedic questions can be directed to me at [phone].
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
[2018-11-21] MEDS ORDERED: Nursing to Pharmacy Communication ONE (23:50)
[2018-11-22] MEDS: ALBUTEROL 0.5% NEB SOLN 2.5 MG/0.5 ML VIAL NEB PRN (00:45)
[2018-11-22] MEDS: ALBUTEROL 0.083% NEBU SOLN 3 ML VIAL NEB PRN ×2 (01:12→10:24)
[2018-11-22] MEDS: metroNIDAZOLE 500 MG/100 ML BAG IV SCH ×3 (06:17→21:01)
[2018-11-22 06:33] LABS: Basophils # (auto) 0.01 K/uL (0-0.2); Basophils % (auto) 0.1 %; Eosinophils # (auto) 0.18 K/uL (0-0.5); Eosinophils % (auto) 1.3 %; Hematocrit (blood only) 25.8 % (42-52); Hemoglobin 8.5 g/dL (14.0-18.0); Immature Granulocytes # (auto) 0.04 K/uL (0.00-0.02); Immature Granulocytes % (auto) 0.3 %; Lymphocytes # (auto) 0.72 K/uL (1.2-3.4); Lymphocytes % (auto) 5.4 %; Mean Corpuscular Hgb Conc 32.9 g/dL (32-36); Mean Corpuscular Volume 78.2 fL (80-100); Mean Platelet Volume 11.3 fL (7.4-10.4); Monocytes # (auto) 0.67 K/uL (0.11-0.59); Neutrophils # (auto) 11.72 K/uL (1.4-6.5); Neutrophils % (auto) 87.9 %; Platelet Count 167 K/uL (130-400); RDW Coefficient of Variation 15.7 % (11.5-14.5); RDW Standard Deviation 45.4 fL (36.4-46.3); White Blood Count 13.34 K/uL (4.8-10.8)
[2018-11-22 07:11] LABS: Albumin Level 1.4 gm/dl (3.4-5.0); BUN Creatinine Ratio 21.3 (10-20); Calcium 6.9 mg/dl (8.5-10.1); Creatinine Clr Calc Pharmacy 127.3 ml/min; Est GFR (African American) 109.3; Est GFR (Non-African American) 94.3; Potassium 3.2 mmol/L (3.5-5.1)
[2018-11-22 07:18] LABS: Echinocytes 1+; Toxic Vacuolation 3+
[2018-11-22 07:22] LABS: Albumin Globulin Ratio 0.4 (0.9-2); Bilirubin,Total 0.3 mg/dl (0.2-1); Globulin 3.1 gm/dl (2.5-4.0); Total Protein 4.5 gm/dl (6.4-8.2)
[2018-11-22] MEDS: CYANOCOBALAMIN 500 MCG TABLET (VITAMIN B-12) PO SCH (08:39)
[2018-11-22] MEDS: FIDAXOMICIN 200 MG TAB PO SCH ×2 (08:39→21:07)
[2018-11-22] MEDS: INSULIN ASPART 100 UNITS/ML 3 ML PEN SC SCH ×4 (08:40→20:57)
--- NOTE | 2018-11-22 09:44 | XRay Report ---
KUB HISTORY: Acute generalized abdominal pain with distention abdominal distention COMPARISON: KUB 11/21/2018. FINDINGS: Persistent gaseous distention of bowel throughout the abdomen and pelvis, predominately lar ge bowel distention redemonstrated measuring up to approximately 16.5 cm transversely, previously jason suring up to 14.0 cm. No significant wall thickening, pneumatosis or pneumoperitoneum identified. Ove rall pattern appears stable to slightly progressed from comparison. There is no organomegaly. No skip al calculi. No ureteral calculi. No pneumoperitoneum or pneumatosis. No fracture. Bilateral hip arthr oplasties. Degenerative changes of the spine. IMPRESSION: Persistent gaseous distention of the bowel, predominantly involving the colon has slightly progressed from comparison. Ileus is the primary differential consideration.. Continued follow-up recommended. Electronically signed by: Hector Hernandez M.D. 11/22/2018 9:42 AM
--- NOTE | 2018-11-22 09:51 | XRay Report ---
XR chest 2V routine CLINICAL HISTORY: cough dyspnea COMPARISON STUDY: 11/21/2018 FINDINGS: Unchanging diffuse bilateral parenchymal infiltrative versus pulmonary vascular congestive change. Diaphragms smooth. Calcific angles are sharp. There are findings of mild stable cardiomegaly. IMPRESSION: Unchanging diffuse bilateral parenchymal infiltrates versus atypical components of conge stive failure The above report was generated using voice recognition software. It may contain grammatical, syntax or spelling errors. Electronically signed by: Oc Espinosa M.D. 11/22/2018 9:50 AM
[2018-11-22] MEDS: guaiFENesin 600 MG TABCR PO SCH ×2 (09:56→21:01)
[2018-11-22] MEDS: BENZONATATE 100 MG CAPSULE PO SCH ×3 (09:57→21:02)
--- NOTE | 2018-11-22 12:14 | Gastroenterology Progress Note ---
Date of Service November 22, 2018 Assessment & Plan (1) C. difficile colitis: Pt is a 83 y/o male w Cdiff infection and dilated colon, ? underlying chronic pseduobstruction on colon in setting of Cdiff infection now and possibly post op ileus as well. Abd exam showed soft abd w hypoactive bowel sounds, non tender. He is tolerating diet and is passing little flatus, BM although KUB showed increased colonic distension. Colonic decompression and rectal tube placement deferred due to high risk of colonic perforation. Increased WBC and lactic acid yesterday. Flagyl IV added on top on Fidoxamicin. Lactic acid normalized now. + cough ? infiltrates vs congestive failure. - Daily KUB - Encouraged being mobile and ambulation. - Antibx management per Infectious Disease. - Surgery signed off - Continue to defer endoscopic intervention at this time. - Singing off today; please recall if new questions/concerns (2) Megacolon: (3) Ileus: Supervising Physician Co-Signing Physician Notes I have seen and examined the patient with JIMMIE Smith. 83 yo male post op from recent surgery, with c diff colitis and toxic megacolon. Now with imaging suggestive of a pneumonia. On Dificid + Flagyl that was added on 11/21/18 for a rise in wbc count. The family has expressed they wish to follow-up with [place]. Agree with further plan of care as per Cass's assessment and plan. GI will sign off. Subjective Pt c/o productive cough, no fever, chills. CXR showed bilateral infiltrates vs congestive failure. Denies abd pain, n/v, tolerating toast for breakfast. BM 2x yesterday, once today, denies any rectal bleeding. Passing little flatus. KUB showed increased distension of colon, transverse 16.5cm. Physical Exam Vital Signs (Past 24 Hours): Last Vital Signs Temp 36.4 C L 11/22/18 07:22 Pulse 85 11/22/18 10:24 Resp 16 11/22/18 10:24 BP 128/69 11/22/18 07:22 Pulse Ox 99 11/22/18 10:24 Constitutional: + ill appearing, well groomed and cooperative Eyes: PERRL, conjunctivae normal, anicteric sclerae ENMT: external ear and nose normal, oropharynx normal Respiratory: Auscultation: + diminished lung sounds mild wheezing Cardiovascular: RRR, no murmur, no edema Gastrointestinal (Abdomen): Inspection/Auscultation: + abdomen distended (mild ) and + hypoactive bowel sounds Percussion/Palpation: abdomen nontender Skin: no rashes, warm and dry no jaundice Neurologic: Motor/Sensory: no asterixis Psychiatric: A+Ox3, euthymic affect Lymphatic: no lymphedema Results & Data Laboratory Results Laboratory Results - last 72 hr 11/19/18 11/19/18 11/19/18 11:51 16:57 20:26 WBC RBC Hgb Hct MCV MCH MCHC RDW Std Deviation RDW Coeff of Akshat Plt Count MPV Immature Gran % (Auto) Neut % (Auto) Lymph % (Auto) Sierra % (Auto) Eos % (Auto) Baso % (Auto) Immature Gran # (Auto) Neut # (Auto) Lymph # (Auto) Sierra # (Auto) Eos # (Auto) Baso # (Auto) Toxic Granulation Toxic Vacuolation Dohle Bodies Giant Platelets Echinocytes Sodium Potassium Chloride Carbon Dioxide Anion Gap BUN Creatinine Est Cr Clr Drug Dosing Est GFR ( Amer) Est GFR (Non-Af Amer) BUN/Creatinine Ratio Glucose POC Glucose 150 H 165 H 149 H Lactate Calcium Total Bilirubin AST ALT Alkaline Phosphatase Total Protein Albumin Globulin Albumin/Globulin Ratio Procalcitonin 11/20/18 11/20/18 11/20/18 07:57 08:36 11:48 WBC RBC Hgb Hct MCV MCH MCHC RDW Std Deviation RDW Coeff of Akshat Plt Count MPV Immature Gran % (Auto) Neut % (Auto) Lymph % (Auto) Sierra % (Auto) Eos % (Auto) Baso % (Auto) Immature Gran # (Auto) Neut # (Auto) Lymph # (Auto) Sierra # (Auto) Eos # (Auto) Baso # (Auto) Toxic Granulation Toxic Vacuolation Dohle Bodies Giant Platelets Echinocytes Sodium 133 L Potassium 3.5 Chloride 106 Carbon Dioxide 20 L Anion Gap 7.0 BUN 11 Creatinine 0.56 L Est Cr Clr Drug Dosing 131.8 Est GFR ( Amer) 110.9 Est GFR (Non-Af Amer) 95.7 BUN/Creatinine Ratio 20.0 Glucose 133 H POC Glucose 148 H 179 H Lactate Calcium 7.1 L Total Bilirubin 0.4 AST 26 ALT 17 Alkaline Phosphatase 87 Total Protein 5.0 L Albumin 1.5 L Globulin 3.5 Albumin/Globulin Ratio 0.4 L Procalcitonin 11/20/18 11/20/18 11/21/18 17:03 20:12 07:29 WBC 12.08 H RBC 3.61 L Hgb 9.2 L Hct 28.5 L MCV 78.9 L MCH 25.5 MCHC 32.3 RDW Std Deviation 45.5 RDW Coeff of Akshat 15.6 H Plt Count 159 MPV 11.2 H Immature Gran % (Auto) 1.7 Neut % (Auto) 86.9 Lymph % (Auto) 5.7 Sierra % (Auto) 4.2 Eos % (Auto) 1.4 Baso % (Auto) 0.1 Immature Gran # (Auto) 0.21 H Neut # (Auto) 10.49 H Lymph # (Auto) 0.69 L Sierra # (Auto) 0.51 Eos # (Auto) 0.17 Baso # (Auto) 0.01 Toxic Granulation 1+ Toxic Vacuolation Dohle Bodies 1+ Giant Platelets 1+ Echinocytes 1+ Sodium Potassium Chloride Carbon Dioxide Anion Gap BUN Creatinine Est Cr Clr Drug Dosing Est GFR ( Amer) Est GFR (Non-Af Amer) BUN/Creatinine Ratio Glucose POC Glucose 264 H 151 H Lactate Calcium Total Bilirubin AST ALT Alkaline Phosphatase Total Protein Albumin Globulin Albumin/Globulin Ratio Procalcitonin 11/21/18 11/21/18 11/21/18 07:29 07:29 07:43 WBC RBC Hgb Hct MCV MCH MCHC RDW Std Deviation RDW Coeff of Akshat Plt Count MPV Immature Gran % (Auto) Neut % (Auto) Lymph % (Auto) Sierra % (Auto) Eos % (Auto) Baso % (Auto) Immature Gran # (Auto) Neut # (Auto) Lymph # (Auto) Sierra # (Auto) Eos # (Auto) Baso # (Auto) Toxic Granulation Toxic Vacuolation Dohle Bodies Giant Platelets Echinocytes Sodium 134 L Potassium 3.2 L Chloride 106 Carbon Dioxide 22 Anion Gap 6.0 BUN 11 Creatinine 0.54 L Est Cr Clr Drug Dosing 136.7 Est GFR ( Amer) 112.5 Est GFR (Non-Af Amer) 97.1 BUN/Creatinine Ratio 20.6 H Glucose 142 H POC Glucose 144 H Lactate Calcium 6.9 L Total Bilirubin AST ALT Alkaline Phosphatase Total Protein Albumin Globulin Albumin/Globulin Ratio Procalcitonin 0.56 H 11/21/18 11/21/18 11/21/18 11:52 12:21 17:07 WBC RBC Hgb Hct MCV MCH MCHC RDW Std Deviation RDW Coeff of Akshat Plt Count MPV Immature Gran % (Auto) Neut % (Auto) Lymph % (Auto) Sierra % (Auto) Eos % (Auto) Baso % (Auto) Immature Gran # (Auto) Neut # (Auto) Lymph # (Auto) Sierra # (Auto) Eos # (Auto) Baso # (Auto) Toxic Granulation Toxic Vacuolation Dohle Bodies Giant Platelets Echinocytes Sodium Potassium Chloride Carbon Dioxide Anion Gap BUN Creatinine Est Cr Clr Drug Dosing Est GFR ( Amer) Est GFR (Non-Af Amer) BUN/Creatinine Ratio Glucose POC Glucose 131 H 153 H Lactate 2.3 H* Calcium Total Bilirubin AST ALT Alkaline Phosphatase Total Protein Albumin Globulin Albumin/Globulin Ratio Procalcitonin 11/21/18 11/22/18 11/22/18 20:20 06:19 06:19 WBC 13.34 H RBC 3.30 L Hgb 8.5 L Hct 25.8 L MCV 78.2 L MCH 25.8 MCHC 32.9 RDW Std Deviation 45.4 RDW Coeff of Akshat 15.7 H Plt Count 167 MPV 11.3 H Immature Gran % (Auto) 0.3 Neut % (Auto) 87.9 Lymph % (Auto) 5.4 Sierra % (Auto) 5.0 Eos % (Auto) 1.3 Baso % (Auto) 0.1 Immature Gran # (Auto) 0.04 H Neut # (Auto) 11.72 H Lymph # (Auto) 0.72 L Sierra # (Auto) 0.67 H Eos # (Auto) 0.18 Baso # (Auto) 0.01 Toxic Granulation Toxic Vacuolation 3+ Dohle Bodies Giant Platelets Echinocytes 1+ Sodium 132 L Potassium 3.2 L Chloride 103 Carbon Dioxide 21 Anion Gap 8.0 BUN 12 Creatinine 0.58 L Est Cr Clr Drug Dosing 127.3 Est GFR ( Amer) 109.3 Est GFR (Non-Af Amer) 94.3 BUN/Creatinine Ratio 21.3 H Glucose 148 H POC Glucose 190 H Lactate Calcium 6.9 L Total Bilirubin 0.3 AST 19 ALT 12 Alkaline Phosphatase 82 Total Protein 4.5 L Albumin 1.4 L Globulin 3.1 Albumin/Globulin Ratio 0.4 L Procalcitonin 11/22/18 11/22/18 11/22/18 06:19 07:49 11:43 WBC RBC Hgb Hct MCV MCH MCHC RDW Std Deviation RDW Coeff of Akshat Plt Count MPV Immature Gran % (Auto) Neut % (Auto) Lymph % (Auto) Sierra % (Auto) Eos % (Auto) Baso % (Auto) Immature Gran # (Auto) Neut # (Auto) Lymph # (Auto) Sierra # (Auto) Eos # (Auto) Baso # (Auto) Toxic Granulation Toxic Vacuolation Dohle Bodies Giant Platelets Echinocytes Sodium Potassium Chloride Carbon Dioxide Anion Gap BUN Creatinine Est Cr Clr Drug Dosing Est GFR ( Amer) Est GFR (Non-Af Amer) BUN/Creatinine Ratio Glucose POC Glucose 172 H 140 H Lactate 1.4 Calcium Total Bilirubin AST ALT Alkaline Phosphatase Total Protein Albumin Globulin Albumin/Globulin Ratio Procalcitonin
--- NOTE | 2018-11-22 13:05 | Infectious Disease Progress Nt ---
Date of Service November 22, 2018 Assessment & Plan (1) C. difficile colitis: continue dificid. afebrile otherwise clinically stable, surgery following, no plans for OR at this time. IV martinez added, will follow response. follow repeat blood cultures, currently pending. Subjective pt now on po dificid and IV flagyl. tolerating well. for potential suture removal later this week. KUB done today, slight progression of distention and ileus. afebrile. blood cultures done yesterday due to slight increase in wbc, results pending. wbc 13 today. Physical Exam Vital Signs (Past 24 Hours): Last Vital Signs Temp 36.4 C L 11/22/18 07:22 Pulse 85 11/22/18 10:24 Resp 16 11/22/18 10:24 BP 128/69 11/22/18 07:22 Pulse Ox 99 11/22/18 10:24 Results & Data Laboratory Results Microbiology 11/14/18 11:37 Blood Blood Culture - Final No growth 11/14/18 10:57 Blood Blood Culture - Final No growth
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
[2018-11-23] MEDS: metroNIDAZOLE 500 MG/100 ML BAG IV SCH ×3 (05:55→21:58)
[2018-11-23] MEDS: FIDAXOMICIN 200 MG TAB PO SCH ×2 (08:28→21:48)
[2018-11-23] MEDS: CYANOCOBALAMIN 500 MCG TABLET (VITAMIN B-12) PO SCH (08:28)
[2018-11-23] MEDS: BENZONATATE 100 MG CAPSULE PO SCH ×3 (08:29→21:35)
[2018-11-23] MEDS: guaiFENesin 600 MG TABCR PO SCH ×2 (08:29→21:35)
[2018-11-23] MEDS: INSULIN ASPART 100 UNITS/ML 3 ML PEN SC SCH ×4 (08:29→21:36)
--- NOTE | 2018-11-23 09:48 | Infectious Disease Progress Nt ---
Date of Service November 23, 2018 Assessment & Plan (1) C. difficile colitis: continue dificid. afebrile otherwise clinically stable, surgery following, no plans for OR at this time. IV martinez added, will follow response. follow repeat blood cultures, currently negative Subjective pt now on po dificid and IV flagyl. tolerating well. for potential suture removal later this week. No new imaging or labs done today. Patient remains afebrile. Tolerating antibiotics Physical Exam Vital Signs (Past 24 Hours): Last Vital Signs Temp 36.7 C 11/23/18 07:31 Pulse 73 11/23/18 07:31 Resp 20 11/23/18 07:31 BP 114/64 11/23/18 07:31 Pulse Ox 98 11/23/18 07:31 Results & Data Laboratory Results Microbiology 11/21/18 12:21 Blood Blood Culture - Preliminary No growth to date. 11/21/18 12:07 Blood Blood Culture - Preliminary No growth to date. 11/14/18 11:37 Blood Blood Culture - Final No growth 11/14/18 10:57 Blood Blood Culture - Final No growth
--- NOTE | 2018-11-23 20:52 | XRay Report ---
XR KUB CLINICAL HISTORY: abdominal distention COMPARISON STUDY: 11/22/2017 FINDINGS: Slight improvement in colonic distention. The appearance continues to be consistent with th at of a nonobstructive generalized ileus. Bilateral hip arthroplasties. IMPRESSION: Generalized colonic ileus with a mild decrease in colonic distention compared to the mitch or study. The above report was generated using voice recognition software. It may contain grammatical, syntax or spelling errors. Electronically signed by: Oc Espinosa M.D. 11/23/2018 8:50 PM
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
[2018-11-24] MEDS ORDERED: DEXTROMETHORPHAN POLYMR COMPLX 30 MG/5 ML UDP PO PRN (05:03)
[2018-11-24] MEDS: metroNIDAZOLE 500 MG/100 ML BAG IV SCH ×3 (05:55→21:29)
[2018-11-24 07:13] LABS: Basophils # (auto) 0.01 K/uL (0-0.2); Basophils % (auto) 0.1 %; Eosinophils # (auto) 0.08 K/uL (0-0.5); Eosinophils % (auto) 0.8 %; Hematocrit (blood only) 26.6 % (42-52); Hemoglobin 8.6 g/dL (14.0-18.0); Immature Granulocytes # (auto) 0.06 K/uL (0.00-0.02); Immature Granulocytes % (auto) 0.6 %; Lymphocytes # (auto) 0.87 K/uL (1.2-3.4); Lymphocytes % (auto) 8.5 %; Mean Corpuscular Hgb Conc 32.3 g/dL (32-36); Mean Platelet Volume 10.6 fL (7.4-10.4); Monocytes # (auto) 0.67 K/uL (0.11-0.59); Monocytes % (auto) 6.6 %; Neutrophils # (auto) 8.53 K/uL (1.4-6.5); Neutrophils % (auto) 83.4 %; Platelet Count 203 K/uL (130-400); RDW Coefficient of Variation 15.9 % (11.5-14.5); RDW Standard Deviation 45.5 fL (36.4-46.3); Red Blood Count 3.41 M/uL (4.7-6.1); White Blood Count 10.22 K/uL (4.8-10.8)
[2018-11-24 07:37] LABS: Echinocytes 1+
[2018-11-24 07:46] LABS: Albumin Level 1.4 gm/dl (3.4-5.0); Calcium 6.8 mg/dl (8.5-10.1); Est GFR (African American) 107.8; Magnesium 1.8 mg/dl (1.8-2.4); Potassium 3.3 mmol/L (3.5-5.1)
[2018-11-24 07:49] LABS: Albumin Globulin Ratio 0.4 (0.9-2); Bilirubin,Total 0.4 mg/dl (0.2-1); Globulin 3.2 gm/dl (2.5-4.0); Phosphorus 2.2 mg/dl (2.5-4.9); Total Protein 4.6 gm/dl (6.4-8.2)
[2018-11-24] MEDS: FIDAXOMICIN 200 MG TAB PO SCH ×2 (08:49→21:38)
[2018-11-24] MEDS: guaiFENesin 600 MG TABCR PO SCH ×2 (08:50→21:32)
[2018-11-24] MEDS: INSULIN ASPART 100 UNITS/ML 3 ML PEN SC SCH ×4 (08:50→21:30)
[2018-11-24] MEDS: BENZONATATE 100 MG CAPSULE PO SCH ×3 (08:50→21:32)
[2018-11-24] MEDS: CYANOCOBALAMIN 500 MCG TABLET (VITAMIN B-12) PO SCH (08:50)
[2018-11-24] MEDS ORDERED: COUGH DROP (SUGAR FREE) LOZ 24 LOZ/1 BOX BUCCAL PRN (09:20)
[2018-11-24] MEDS ORDERED: POTASSIUM PHOS 3 MMOL/1 ML INFUSION IV STA (09:25)
[2018-11-24] MEDS ORDERED: POTASSIUM PHOSPHATE 9 MMOL in SODIUM CHLORIDE 0.9% 250 ML IV ONE (10:00)
[2018-11-24] MEDS: PANTOprazole 40 MG TAB PO SCH ×2 (10:07→21:31)
[2018-11-24 10:27] LABS: Ferritin 70.4 ng/ml (8-388); Prealbumin 3.9 mg/dl (20-40)
--- NOTE | 2018-11-24 10:48 | XRay Report ---
XR chest 1V portable CLINICAL HISTORY: cough COMPARISON STUDY: Febrile 14/04/2019 FINDINGS: The cardiac and mediastinal contours remain stable. There is radiographic evidence of inter stitial point fibrotic change with subtle increase in airspace opacities the right lung base. There a re no cystic or pleural effusions. There is no failure. There is ankylosis of the spine.[ IMPRESSION: 1. Emphysema with suspected interstitial pulmonary fibrosis 2. Slight increase in right basilar airspace opacities Electronically signed by: Emiliano Hull M.D. 11/24/2018 10:46 AM
[2018-11-24 10:51] LABS: Vitamin B12 > 2000 pg/ml (211-911)
[2018-11-24 10:52] LABS: Folate (Folic Acid) 4.27 ng/ml (>5.38)
--- NOTE | 2018-11-24 16:57 | Gastrointestinal Consultation ---
Date of Consultation November 24, 2018 Assessment & Plan (1) C. difficile colitis: Diarrhea seems less. When Dificid is completed on 11/27 would continue vancomycin abd distension---doubt toxic megacolon as lactic acid and wbc improved. Suspect ileus versus colonic pseudoobstruction. Discussed one treatment neostigmine for colonic pseudoobstruction may not be good ideal with cdiff. Avoid narcotics and recommend patient be out of bed as much as possible and ambulatory as much as possible. Rectal tube would inhibit ability to move around and patient does not want to try overnight. Would like to avoid colonic decompression in setting of Cdiff as I fear increased risk of perforation. Check CT a/p to check status of bowel dilatation and if signifcant thickening seen. thickened esophagus---PPI for GERD Fe def anemia--outpt EGD and colonoscopy. N/V resolved History of Present Illness Reason for Consultation: cdiff Requesting Physician: Dr Lino Trammell Attending Physician: Lino Trammell MD, PhD, [facility] History of Present Illness CC abdominal distension HPI Reviewed [facility] E[facility] and this EMR for GI pertinent data. Sam Smith and nephew present for H and P. Saw colonoscoy 2011 AC polyp 4 mm removed path neg. Pts daughter states had hip replaced about 6 months ago and had 6 days of n/v and diarrhea after that. Pt with second hip done 11/12 and he was admitted 11/14 with diarrhea up to 6 a day liquid incontinent vs one formed daily, abd distension, and gas. He had elevated WBC and lactic acid and procalcitonin elevated all now subsequently resolved. KUB has showed diffuse bowel dilatation but with colon markedly distended up to 12.8 cm but yesterday colon slightly improved. He was diagnosed with Cdiff and was treated intially with po flagyl then po vanco and currently on dificid and IV flagyl. No abd pain throughout any of this. Stools dark on Fe at home but no [place] gross blood. He was diagnosed with Fe deficiency (low Fe sat) and also has low folate but normal B12 and ferritin. CT a/p on admit thickened esophagus with fluid and distended fluid filled stomach and colon. Allergies Allergy/AdvReac Type Severity Reaction Status Date / Time metformin Allergy Unknown MUSCLE Verified 11/14/18 10:39 ACHES Yzhjdfr-[id number]-Qeb Reductase Allergy Unknown MUSCLE Verified 11/14/18 10:39 Inhibitor ACHES Unclassified Drugs Allergy Unknown RED YEAST Uncoded 11/14/18 10:39 RICE-MUSCLE ACHES Home Medications Home Medications Medication Instructions Recorded Confirmed Type canagliflozin [Invokana] 100 mg PO QAM 10/04/18 11/14/18 History cyanocobalamin (vitamin B-12) 1,000 mcg PO QAM 10/04/18 11/14/18 History [Vitamin B-12] docusate sodium [Stool Softener] 50 mg PO BID 10/04/18 11/14/18 History losartan 25 mg PO BID 10/04/18 11/14/18 History sitagliptin [Januvia] 100 mg PO QAM 10/04/18 11/14/18 History acetaminophen [Pain Reliever] 1,000 mg PO Q8 30 Days #180 tab 11/11/18 11/14/18 Rx aspirin [Ecotrin Low Strength] 81 mg PO BID 45 Days #90 tab 11/11/18 11/14/18 Rx ferrous gluconate 324 mg PO BIDM 30 Days #60 tab 11/11/18 11/14/18 Rx tramadol 50 - 100 mg PO Q4H PRN 15 Days #40 11/11/18 11/14/18 Rx tab Patient History Medical History C. difficile colitis Bradycardia ASYMPTOMATIC Diabetes mellitus, type 2 History of cardiac arrhythmia PT HAD HOLTER SHOWING NSR WITH INTERMITTENT EPISODES OF ATRIAL TACHYCARDIA. History of prostate cancer S/P BRACHYTHERAPY Hypertension Osteoarthritis Surgical History History of brachytherapy History of cataract extraction with lens replacement History of cystoscopy History of open reduction and internal fixation (ORIF) procedure ARM History of total hip arthroplasty LEFT Family History Mother Heart attack Father Heart attack Other Family history non-contributory Social History Communication Ability: Effective Beliefs That Will Affect Care: None marital status: / Current Living Situation: Alone Other Information That Helps Us Care for You: No Feels Safe at Home: Yes Safety Concerns: Feels Safe At This Time Smoking Status: Former smoker Hx Alcohol Use: Yes Hx Substance Use: No Review of Systems See HPI. Otherwise 10 ROS neg Physical Exam Vital Signs (Past 24 Hours): Last Vital Signs Temp 36.6 C 11/24/18 15:14 Pulse 74 11/24/18 15:14 Resp 20 11/24/18 15:14 BP 124/68 11/24/18 15:14 Pulse Ox 98 11/24/18 15:14 Constitutional: WD/WN, vitals as above Eyes: PERRL, conjunctivae normal, anicteric sclerae ENMT: external ear and nose normal, oropharynx normal Neck: normal visual inspection and trachea midline Respiratory: normal respiratory effort, lungs clear to auscultation Cardiovascular: RRR, no murmur, no edema Gastrointestinal (Abdomen): high pitched bowel sounds, abdomen distended and tympanitic but not tense, no guarding nor rebound Psychiatric: A+Ox3, euthymic affect
--- NOTE | 2018-11-24 18:00 | Hospitalist Progress Note ---
Date of Service November 24, 2018 Assessment & Plan (1) C. difficile colitis: (2) Vomiting: (3) Acute kidney injury: (4) Hip joint replacement status: (5) HTN (hypertension): (6) Thrombocytopenia: (7) DM type 2 (diabetes mellitus, type 2): (8) Iron deficiency: (9) Cough: (10) DVT prophylaxis: 83-year-old male admitted on November 14 2018 because of nausea vomiting abdominal pain and diarrhea diarrhea up to 6 a day liquid incontinent after recetn hip surgery C. difficile colitis: seems improving after Fidaxomicin started by ID Patient does not look toxic, white count has improved and resolving, is passing gas, I did told patient 2-3 times soft stool should be reasonable in the recovery of C. difficile diarrhea Generalized weakness, possible because several reasons such as anemia, hypokalemia, and recent hip surgery and multiple hospital stay Infectious disease input appreciated, Will request second opinion from GI, has requested [facility] to see patient Hoarse voice, and goes, getting worse in recent 2-3 days, Remote history of smoking, Possible from acid reflux because patient report acid reflux denies postnasal drip Start Protonix p.o. Acute kidney injury admission, improved and resolved Mild anemia, likely because of iron deficiency and chronic disease, we will follow-up hip joint replacement status: Continue current care Hypertension, well controlled diabetic, continue current medicine DVT prophylaxis: Was on aspirin 81mg BID as at home, Currently doing only SCDs for concern for mild GI bleed (with his slowly downtrending hgb), Restart heparin or ASA as able if hgb remains stable Spent 40 minutes discussed with patient and with nephew in bedside and patient's daughter over the phone Subjective Report still have diarrhea however about 2-3 times soft stool Denies abdominal pain denies fever and chill,, report no appetite Report hoarse voice is a chronic, but in recent 2-3 days is getting worse, associated with dry cough, patient reported has frequent acid reflux Reports a lot of gas passing, Review of Systems Constitutional: Positive weakness, or fatigue Respiratory: Dry cough , no sputum, no wheezing, Cardiac: No chest pain, No orthopnea, No PND, Abdomen: No pain, No nausea, No vomiting, Musculoskeletal: No joint pain, No muscle pain, No swelling, No calf pain, No problem reported : No dysuria, No urinary frequency, No incontinence, No hematuria Neurologic: No paralysis, No weakness, No numbness/tingling, No vertigo, No balance problems Psychiatric: No depression symptoms, No anhedonism, No anxiety, No insomnia, No substance abuse Heme: No abnormal bleeding/bruising, No clotting problems, No swollen lymph nodes, No night sweats Skin: No rash, No itch, No new/changing skin lesions, No color change, No bleeding Physical Exam Vital Signs (Past 24 Hours): Last Vital Signs Temp 36.6 C 11/24/18 15:14 Pulse 74 11/24/18 15:14 Resp 20 11/24/18 15:14 BP 124/68 11/24/18 15:14 Pulse Ox 98 11/24/18 15:14 Physical Exam: Physical Exam: Frail, chronically ill looking, look tired, WD/WN, vitals as above Eyes: normal visual perkins by confrontation and + anicteric sclerae Neck: normal visual inspection and trachea midline Respiratory: Decreased breathing sounds bilaterally, normal respiratory effort, lungs clear to auscultation Cardiovascular: Rate/Rhythm: regular rate and regular rhythm Gastrointestinal (Abdomen): Soft and no obvious distended, abdomen nontender, Musculoskeletal: Head/Neck/Chest: normocephalic and head atraumatic Skin: no rashes, warm and dry Neurologic: awake; not confused Speech / Cognition: normal speech Results & Data Laboratory Results Laboratory Results - last 24 hr 11/23/18 11/24/18 11/24/18 19:50 07:03 07:03 WBC 10.22 RBC 3.41 L Hgb 8.6 L Hct 26.6 L MCV 78.0 L MCH 25.2 MCHC 32.3 RDW Std Deviation 45.5 RDW Coeff of Akshat 15.9 H Plt Count 203 MPV 10.6 H Immature Gran % (Auto) 0.6 Neut % (Auto) 83.4 Lymph % (Auto) 8.5 [place] % (Auto) 6.6 Eos % (Auto) 0.8 Baso % (Auto) 0.1 Immature Gran # (Auto) 0.06 H Neut # (Auto) 8.53 H Lymph # (Auto) 0.87 L [place] # (Auto) 0.67 H Eos # (Auto) 0.08 Baso # (Auto) 0.01 Echinocytes 1+ Sodium 134 L Potassium 3.3 L Chloride 106 Carbon Dioxide 21 Anion Gap 7.0 BUN 14 Creatinine 0.60 Est Cr Clr Drug Dosing 123.0 Est GFR ( Amer) 107.8 Est GFR (Non-Af Amer) 93.0 BUN/Creatinine Ratio 23.0 H Glucose 152 H POC Glucose 177 H Lactate Calcium 6.8 L Phosphorus 2.2 L Magnesium 1.8 Iron TIBC Ferritin Total Bilirubin 0.4 AST 16 ALT 12 Alkaline Phosphatase 79 Total Protein 4.6 L Albumin 1.4 L Globulin 3.2 Albumin/Globulin Ratio 0.4 L Prealbumin Vitamin B12 Folate Procalcitonin 11/24/18 11/24/18 11/24/18 07:03 07:03 08:03 WBC RBC Hgb Hct MCV MCH MCHC RDW Std Deviation RDW Coeff of Akshat Plt Count MPV Immature Gran % (Auto) Neut % (Auto) Lymph % (Auto) [place] % (Auto) Eos % (Auto) Baso % (Auto) Immature Gran # (Auto) Neut # (Auto) Lymph # (Auto) [place] # (Auto) Eos # (Auto) Baso # (Auto) Echinocytes Sodium Potassium Chloride Carbon Dioxide Anion Gap BUN Creatinine Est Cr Clr Drug Dosing Est GFR ( Amer) Est GFR (Non-Af Amer) BUN/Creatinine Ratio Glucose POC Glucose 169 H Lactate 1.1 Calcium Phosphorus Magnesium Iron TIBC Ferritin Total Bilirubin AST ALT Alkaline Phosphatase Total Protein Albumin Globulin Albumin/Globulin Ratio Prealbumin Vitamin B12 Folate Procalcitonin 0.48 11/24/18 11/24/18 11/24/18 09:54 09:54 09:54 WBC RBC Hgb Hct MCV MCH MCHC RDW Std Deviation RDW Coeff of Akshat Plt Count MPV Immature Gran % (Auto) Neut % (Auto) Lymph % (Auto) [place] % (Auto) Eos % (Auto) Baso % (Auto) Immature Gran # (Auto) Neut # (Auto) Lymph # (Auto) [place] # (Auto) Eos # (Auto) Baso # (Auto) Echinocytes Sodium Potassium Chloride Carbon Dioxide Anion Gap BUN Creatinine Est Cr Clr Drug Dosing Est GFR ( Amer) Est GFR (Non-Af Amer) BUN/Creatinine Ratio Glucose POC Glucose Lactate Calcium Phosphorus Magnesium Iron 16 L TIBC 181 L Ferritin 70.4 Total Bilirubin AST ALT Alkaline Phosphatase Total Protein Albumin Globulin Albumin/Globulin Ratio Prealbumin 3.9 L Cancelled Vitamin B12 > 2000 H Folate 4.27 L Procalcitonin 11/24/18 11/24/18 12:05 17:07 WBC RBC Hgb Hct MCV MCH MCHC RDW Std Deviation RDW Coeff of Akshat Plt Count MPV Immature Gran % (Auto) Neut % (Auto) Lymph % (Auto) [place] % (Auto) Eos % (Auto) Baso % (Auto) Immature Gran # (Auto) Neut # (Auto) Lymph # (Auto) [place] # (Auto) Eos # (Auto) Baso # (Auto) Echinocytes Sodium Potassium Chloride Carbon Dioxide Anion Gap BUN Creatinine Est Cr Clr Drug Dosing Est GFR ( Amer) Est GFR (Non-Af Amer) BUN/Creatinine Ratio Glucose POC Glucose 207 H 180 H Lactate Calcium Phosphorus Magnesium Iron TIBC Ferritin Total Bilirubin AST ALT Alkaline Phosphatase Total Protein Albumin Globulin Albumin/Globulin Ratio Prealbumin Vitamin B12 Folate Procalcitonin (1) Vomiting Nausea presence: unspecified Vomiting Intractability: non-intractable Vomi ting type: unspecified Qualified Code(s): R11.10 - Vomiting, unspecified
--- NOTE | 2018-11-24 22:56 | CT Scan Report ---
ABDOMEN AND PELVIS CT WITH ORAL CONTRAST CT DOSE: 1731.55 mGy.cm HISTORY: Acute generalized abdominal pain. Follow-up study in a patient with acute colitis f/u bowel distension, Cdiff TECHNIQUE: Multiaxial CT images of the abdomen and pelvis were performed following the use of oral co ntrast. A dose lowering technique was utilized adhering to the principles of ALARA. COMPARISON STUDY: CT abdomen pelvis 11/14/2018 FINDINGS: Small left and trace right pleural effusions, new from comparison. Bibasilar bronchial wall thickenin g with areas of mucous plugging chronic appearing articulation. No pneumatosis or pneumoperitoneum. S tudy is mildly motion degraded. Streak artifact from bilateral hip arthroplasties limits evaluation o f the pelvic structures. Coronary arterial calcifications are noted. Imaged inferior cardiac chambers are mildly enlarged. Peripherally calcified round densities about the juaquin hepatis distribution redemonstrated suggestive of retained gallstones with suggestion of a least a partial cholecystectomy. Indeterminate 10 mm hyp odense lesion of the inferior right hepatic lobe, unchanged. Liver is otherwise unremarkable. Spleen, pancreas and adrenal glands are unremarkable. Kidneys and ureters are unremarkable. The urinary blad michael is not well visualized secondary to aforementioned streak artifact. Brachytherapy seeds noted abo ut the prostate. No aortic aneurysm or adenopathy. Mild wall thickening of the esophagus redemonstrated. Contrast-filled moderately distended stomach. E nteric contrast progresses through the duodenum into the distal jejunum. No evidence of small bowel o bstruction. Resolution of the previously noted nondilated multiple fluid-filled loops of small bowel. Mild persistent yet decreased distal sigmoid and rectal wall thickening. There is gaseous distention involving the majority of the large bowel. Decreased fluid noted about the colon. There is mild wall thickening noted throughout portions of the transverse colon. Appendix not definitively seen. Mild m esenteric with moderate body wall edema. Demineralized appearance of the bones. Degenerative changes of the spine, pelvis and hips. Multiple remote appearing left-sided rib fractures. IMPRESSION: 1. No evidence of bowel obstruction. 2. Moderate gaseous distention of the large bowel with areas of mild colonic wall thickening, specifi kary about the transverse, distal sigmoid and rectum suggestive of ongoing nonspecific colitis. 3. Persistent distention of the stomach which contains the majority of the enteric contrast. No evide nce of gastric outlet obstruction. 4. Interval development of small left and trace right pleural effusions. Bibasilar bronchial wall thi ckening with mucous plugging. 5. Additional findings as above. Electronically signed by: Hector Hernandez M.D. 11/24/2018 10:55 PM
[2018-11-25] MEDS: metroNIDAZOLE 500 MG/100 ML BAG IV SCH ×3 (06:25→22:25)
[2018-11-25 07:37] LABS: Eosinophils # (auto) 0.31 K/uL (0-0.5); Eosinophils % (auto) 3.5 %; Hematocrit (blood only) 26.2 % (42-52); Hemoglobin 8.4 g/dL (14.0-18.0); Immature Granulocytes # (auto) 0.05 K/uL (0.00-0.02); Immature Granulocytes % (auto) 0.6 %; Lymphocytes # (auto) 0.72 K/uL (1.2-3.4); Lymphocytes % (auto) 8.2 %; Mean Corpuscular Hgb Conc 32.1 g/dL (32-36); Mean Corpuscular Volume 78.2 fL (80-100); Mean Platelet Volume 10.3 fL (7.4-10.4); Monocytes # (auto) 0.64 K/uL (0.11-0.59); Monocytes % (auto) 7.3 %; Neutrophils # (auto) 7.08 K/uL (1.4-6.5); Neutrophils % (auto) 80.4 %; Platelet Count 199 K/uL (130-400); RDW Coefficient of Variation 16.1 % (11.5-14.5); RDW Standard Deviation 46.2 fL (36.4-46.3); Red Blood Count 3.35 M/uL (4.7-6.1)
[2018-11-25 08:03] LABS: Echinocytes 1+
[2018-11-25 08:24] LABS: Albumin Level 1.4 gm/dl (3.4-5.0); BUN Creatinine Ratio 24.9 (10-20); Creatinine Clr Calc Pharmacy 111.8 ml/min; Est GFR (African American) 103.6; Est GFR (Non-African American) 89.4; Magnesium 1.7 mg/dl (1.8-2.4); Potassium 3.1 mmol/L (3.5-5.1)
[2018-11-25 08:27] LABS: Albumin Globulin Ratio 0.4 (0.9-2); Bilirubin,Total 0.4 mg/dl (0.2-1); Globulin 3.1 gm/dl (2.5-4.0); Phosphorus 2.9 mg/dl (2.5-4.9); Total Protein 4.5 gm/dl (6.4-8.2)
[2018-11-25] MEDS ORDERED: MAGNESIUM SULFATE / D5W 1 GM/100 ML BAG IV ONE (09:45)
[2018-11-25] MEDS ORDERED: POTASSIUM CHLORIDE 20 MEQ TABCR PO ONE (09:45)
[2018-11-25] MEDS: FIDAXOMICIN 200 MG TAB PO SCH ×2 (10:02→20:43)
[2018-11-25] MEDS ORDERED: ALBUT/IPRATROP 3MG/0.5MG NEB 3 ML VIAL NEB PRN (10:03)
[2018-11-25] MEDS: INSULIN ASPART 100 UNITS/ML 3 ML PEN SC SCH ×4 (10:03→20:44)
[2018-11-25] MEDS: BENZONATATE 100 MG CAPSULE PO SCH ×3 (10:06→20:44)
[2018-11-25] MEDS: guaiFENesin 600 MG TABCR PO SCH ×2 (10:06→20:43)
[2018-11-25] MEDS: PANTOprazole 40 MG TAB PO SCH ×2 (10:06→20:44)
[2018-11-25] MEDS: CYANOCOBALAMIN 500 MCG TABLET (VITAMIN B-12) PO SCH (10:07)
[2018-11-25] MEDS: MAGNESIUM OXIDE 400 MG TAB PO SCH ×2 (10:07→20:43)
[2018-11-25] MEDS: ALBUT/IPRATROP 3MG/0.5MG NEB 3 ML VIAL NEB SCH ×3 (11:03→19:19)
--- NOTE | 2018-11-25 12:55 | Hospitalist Progress Note ---
Date of Service November 25, 2018 Assessment & Plan (1) C. difficile colitis: (2) Vomiting: (3) Acute kidney injury: (4) Hip joint replacement status: (5) HTN (hypertension): BP inpatient is has been 110/60 to 150/80. - BP mildly lower on 11/17 at ~100/60. - Held losartan on 11/17 BP stable on 11/18 & 11/19 and 11/22. HR has improved after Flagyl IV. (6) Thrombocytopenia: (7) DM type 2 (diabetes mellitus, type 2): (8) Iron deficiency: (9) Cough: (10) DVT prophylaxis: 83-year-old male admitted on November 14 2018 because of nausea vomiting abdominal pain and diarrhea diarrhea up to 6 a day liquid incontinent after recent hip surgery, however for recent several days diarrhea is about 2-3 times a day, patient denies fever chills, C. difficile colitis: seems improving after stable and fidaxomicin started by ID Patient does not look toxic, white count has improved and resolving, is passing gas, Generalized weakness, possible because several reasons such as anemia, hypokalemia, and recent hip surgery and multiple hospital stay Infectious disease input appreciated, Will request second opinion from GI, has requested [facility] to see patient Hoarse voice, and goes, getting worse in recent 2-3 days, Remote history of smoking, Possible from acid reflux because patient report acid reflux denies postnasal drip Start Protonix p.o. Acute kidney injury admission, improved and resolved Mild anemia, likely because of iron deficiency and chronic disease, we will follow-up hip joint replacement status: Continue current care Hypertension, well controlled diabetic, continue current medicine DVT prophylaxis: Was on aspirin 81mg BID as at home, Currently doing only SCDs for concern for mild GI bleed (with his slowly downtrending hgb), Restart heparin or ASA as able if hgb remains stable Spent 40 minutes discussed with patient and with nephew in bedside and patient's daughter over the phone Subjective Report doing the same, having diarrhea 2-3 times a day with soft stool, associated with distended abdomen, patient and family feel frustrated because for couple days not improving Denies abdominal pain denies fever and chill,, report decreased appetite last night and had good meal, and this morning has good meal too, report was having bilateral hands swelling yesterday, however now is resolved Still report hoarse voice is a chronic Has 1 time bowel movement this morning, nephrew reported was kind of liquid stool Review of Systems Constitutional: Positive weakness, or fatigue Respiratory: Dry cough , no sputum, no wheezing, Cardiac: No chest pain, No orthopnea, No PND, Abdomen: No pain, No nausea, No vomiting, Musculoskeletal: No joint pain, No muscle pain, No swelling, No calf pain, No problem reported : No dysuria, No urinary frequency, No incontinence, No hematuria Neurologic: No paralysis, No weakness, No numbness/tingling, No vertigo, No balance problems Psychiatric: No depression symptoms, No anhedonism, No anxiety, No insomnia, No substance abuse Heme: No abnormal bleeding/bruising, No clotting problems, No swollen lymph nodes, No night sweats Skin: No rash, No itch, No new/changing skin lesions, No color change, No bleeding Physical Exam Vital Signs (Past 24 Hours): Last Vital Signs Temp 36.5 C 11/25/18 07:03 Pulse 77 11/25/18 11:03 Resp 18 11/25/18 11:03 BP 124/65 11/25/18 07:03 Pulse Ox 93 11/25/18 11:03 Physical Exam: Physical Exam: Frail, chronically ill looking, look tired, WD/WN, vitals as above Eyes: normal visual perkins by confrontation and + anicteric sclerae Neck: normal visual inspection and trachea midline Respiratory: Decreased breathing sounds bilaterally, normal respiratory effort, lungs clear to auscultation Cardiovascular: Rate/Rhythm: s1, s2, regular rate and regular rhythm Gastrointestinal (Abdomen): Soft and obvious distended, abdomen nontender, Musculoskeletal: Head/Neck/Chest: normocephalic and head atraumatic, minimal active bowel sounds Skin: no rashes, warm and dry Neurologic: awake; not confused Speech / Cognition: normal speech Results & Data Laboratory Results Laboratory Results - last 24 hr 11/24/18 11/24/18 11/24/18 17:07 18:40 20:33 WBC RBC Hgb Hct MCV MCH MCHC RDW Std Deviation RDW Coeff of Akshat Plt Count MPV Immature Gran % (Auto) Neut % (Auto) Lymph % (Auto) [place] % (Auto) Eos % (Auto) Baso % (Auto) Immature Gran # (Auto) Neut # (Auto) Lymph # (Auto) [place] # (Auto) Eos # (Auto) Baso # (Auto) Echinocytes Sodium Potassium Chloride Carbon Dioxide Anion Gap BUN Creatinine Est Cr Clr Drug Dosing Est GFR ( Amer) Est GFR (Non-Af Amer) BUN/Creatinine Ratio Glucose POC Glucose 180 H 210 H Calcium Phosphorus 2.4 L Magnesium Total Bilirubin AST ALT Alkaline Phosphatase Total Protein Albumin Globulin Albumin/Globulin Ratio 11/25/18 11/25/18 11/25/18 07:15 07:15 07:24 WBC 8.80 RBC 3.35 L Hgb 8.4 L Hct 26.2 L MCV 78.2 L MCH 25.1 MCHC 32.1 RDW Std Deviation 46.2 RDW Coeff of Akshat 16.1 H Plt Count 199 MPV 10.3 Immature Gran % (Auto) 0.6 Neut % (Auto) 80.4 Lymph % (Auto) 8.2 [place] % (Auto) 7.3 Eos % (Auto) 3.5 Baso % (Auto) 0.0 Immature Gran # (Auto) 0.05 H Neut # (Auto) 7.08 H Lymph # (Auto) 0.72 L [place] # (Auto) 0.64 H Eos # (Auto) 0.31 Baso # (Auto) 0.00 Echinocytes 1+ Sodium 133 L Potassium 3.1 L Chloride 104 Carbon Dioxide 22 Anion Gap 7.0 BUN 16 Creatinine 0.66 Est Cr Clr Drug Dosing 111.8 Est GFR ( Amer) 103.6 Est GFR (Non-Af Amer) 89.4 BUN/Creatinine Ratio 24.9 H Glucose 156 H POC Glucose 171 H Calcium 7.0 L Phosphorus 2.9 Magnesium 1.7 L Total Bilirubin 0.4 AST 15 ALT 13 Alkaline Phosphatase 81 Total Protein 4.5 L Albumin 1.4 L Globulin 3.1 Albumin/Globulin Ratio 0.4 L 11/25/18 11:43 WBC RBC Hgb Hct MCV MCH MCHC RDW Std Deviation RDW Coeff of Akshat Plt Count MPV Immature Gran % (Auto) Neut % (Auto) Lymph % (Auto) [place] % (Auto) Eos % (Auto) Baso % (Auto) Immature Gran # (Auto) Neut # (Auto) Lymph # (Auto) [place] # (Auto) Eos # (Auto) Baso # (Auto) Echinocytes Sodium Potassium Chloride Carbon Dioxide Anion Gap BUN Creatinine Est Cr Clr Drug Dosing Est GFR ( Amer) Est GFR (Non-Af Amer) BUN/Creatinine Ratio Glucose POC Glucose 172 H Calcium Phosphorus Magnesium Total Bilirubin AST ALT Alkaline Phosphatase Total Protein Albumin Globulin Albumin/Globulin Ratio (1) Vomiting Nausea presence: unspecified Vomiting Intractability: non-intractable Vomiting type: unspecified Qualified Code(s): R11.10 - Vomiting, unspecified
[2018-11-25] MEDS ORDERED: POTASSIUM CHLORIDE 20 MEQ TABCR PO STA (14:43)
[2018-11-25] MEDS ORDERED: FUROSEMIDE 20 MG in SYRINGE 0 ML IV ONE (15:15)
--- NOTE | 2018-11-25 15:26 | Gastroenterology Progress Note ---
Date of Service November 25, 2018 Assessment & Plan (1) C. difficile colitis: Diarrhea seems less. When Dificid is completed on 11/27 would continue vancomycin abd distension---Looking back at his first hip surgery and clinical course in this case it seems acute colonic pseudoobstruction post op fits the best with CDiff associated but not the major factor. Discussed with patient, nephew and daughter Sarah regarding I feel erythromycin is not effective. Neostigmine can be effective but risks include but not limited to bradycardia and cardiac arrythmias ---will order consult from DR Sanchez (disucussed with Dr Ramirez who is covering for him who states he will see patient tomorrow am but preliminarily thinks because he had stress test of orthopedic surgery he ought to be ok for its use) for risk assessment using that drug. Colonic decompression has been used in these cases but has risk of gas perforating the colon and per general guideline is used after neostigmine unless contraindicated. . Cecostomy has been used but not a top choice unless obvious decompensation. Also discussed transfer to [place] but patient does not want that. Cdiff--as above. thickened esophagus---PPI for GERD discussed with nephew, patient, and another daughter 1 cm liver lesion--too small to biopsy--outpt EGD and colo and if no obvious malignancy then follow with imaging in 3 months to start--discussed with patient, nephew and another daughter who arrived when I went to bedside a second time. Fe def anemia//heme positive-----outpt EGD and colonoscopy--no gross bleeding--discussed with patient, nephew and another daughter N/V resolved Subjective cc f/u abdominal distension HPI Discussed with patient and nephew in room and daughter Sarah by phone. Pt has couple loose stools daily. He has ongoing abd distension but no abd pain. CT a/p done last night reviewed report which includes colon distension, colon thickening, trace pleural effusions, bronchial wall thickening, calculus around previous GB site (first CT said stones in gb bed), intederminate right liver lesion 1 cm, wall thickening of esophagus. Called Dr Espinosa today of radiology who looked at this CT, CT 11/14 and KUB 11/23. He states current size of colon 9 cm HF to TC and cecum 8 cm about same as KUB 11/23. He states CT a/p 11/14 max TC 7 cm and cecum [address] Espinosa sees no wall thickening on current CT scan and does not think CT 11/14 had much if any, either. Nurse reports brown stool but is heme positive. Respiratory: no dyspnea Cardiovascular: no chest pain Physical Exam Vital Signs (Past 24 Hours): Last Vital Signs Temp 36.5 C 11/25/18 07:03 Pulse 77 11/25/18 14:56 Resp 18 11/25/18 14:56 BP 124/65 11/25/18 07:03 Pulse Ox 94 11/25/18 14:56 Constitutional: WD/WN, vitals as above Respiratory: normal respiratory effort, lungs clear to auscultation Cardiovascular: RRR, no murmur, no edema Gastrointestinal (Abdomen): abdomen, pos bs, distended but not tense, tympanitic, no guarding nor rebound Psychiatric: A+Ox3, euthymic affect
[2018-11-25] MEDS: TAMSULOSIN HCL 0.4 MG CAP PO SCH (15:43)
--- NOTE | 2018-11-25 16:11 | Ultrasound Report ---
Study: Bladder ultrasound HISTORY: Urinary retention FINDINGS: Bladder is midline. Prevoid volume was 200 cc. The patient could not void for the examinati on. IMPRESSION: 1. Prevoid volume 200 cc. 2. The patient could not void for a postvoid volume. Electronically signed by: Oc Espinosa M.D. 11/25/2018 4:10 PM
[2018-11-26] MEDS: metroNIDAZOLE 500 MG/100 ML BAG IV SCH ×3 (05:00→21:38)
[2018-11-26] MEDS: ALBUT/IPRATROP 3MG/0.5MG NEB 3 ML VIAL NEB SCH ×3 (07:07→15:04)
[2018-11-26 07:14] LABS: Basophils # (auto) 0.01 K/uL (0-0.2); Basophils % (auto) 0.2 %; Eosinophils # (auto) 0.02 K/uL (0-0.5); Eosinophils % (auto) 0.3 %; Hematocrit (blood only) 24.4 % (42-52); Immature Granulocytes # (auto) 0.02 K/uL (0.00-0.02); Immature Granulocytes % (auto) 0.3 %; Lymphocytes # (auto) 0.63 K/uL (1.2-3.4); Lymphocytes % (auto) 10.6 %; Mean Corpuscular Hgb Conc 32.8 g/dL (32-36); Mean Corpuscular Volume 77.7 fL (80-100); Mean Platelet Volume 9.6 fL (7.4-10.4); Monocytes # (auto) 0.56 K/uL (0.11-0.59); Monocytes % (auto) 9.4 %; Neutrophils # (auto) 4.69 K/uL (1.4-6.5); Neutrophils % (auto) 79.2 %; Platelet Count 176 K/uL (130-400); RDW Coefficient of Variation 16.2 % (11.5-14.5); RDW Standard Deviation 45.4 fL (36.4-46.3); Red Blood Count 3.14 M/uL (4.7-6.1); White Blood Count 5.93 K/uL (4.8-10.8)
[2018-11-26 07:32] LABS: Albumin Level 1.4 gm/dl (3.4-5.0); BUN Creatinine Ratio 26.6 (10-20); Calcium 6.9 mg/dl (8.5-10.1); Creatinine Clr Calc Pharmacy 111.8 ml/min; Est GFR (African American) 103.6; Est GFR (Non-African American) 89.4; Potassium 3.5 mmol/L (3.5-5.1)
[2018-11-26 07:42] LABS: Albumin Globulin Ratio 0.5 (0.9-2); Bilirubin,Total 0.4 mg/dl (0.2-1); Echinocytes 1+; Globulin 3.1 gm/dl (2.5-4.0); T4 Free Thyroxine 1.11 ng/dl (0.8-1.6); Total Protein 4.5 gm/dl (6.4-8.2)
[2018-11-26] MEDS: FIDAXOMICIN 200 MG TAB PO SCH ×2 (09:05→21:25)
[2018-11-26] MEDS: INSULIN ASPART 100 UNITS/ML 3 ML PEN SC SCH ×4 (09:05→21:28)
[2018-11-26] MEDS: MAGNESIUM OXIDE 400 MG TAB PO SCH ×2 (09:07→21:27)
[2018-11-26] MEDS: guaiFENesin 600 MG TABCR PO SCH ×2 (09:07→21:28)
[2018-11-26] MEDS: BENZONATATE 100 MG CAPSULE PO SCH ×3 (09:08→21:30)
[2018-11-26] MEDS: CYANOCOBALAMIN 500 MCG TABLET (VITAMIN B-12) PO SCH (09:08)
[2018-11-26] MEDS: PANTOprazole 40 MG TAB PO SCH ×2 (09:09→21:29)
--- NOTE | 2018-11-26 13:03 | Gastroenterology Progress Note ---
Date of Service November 26, 2018 Assessment & Plan (1) C. difficile colitis: Diarrhea seems less. 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 Offered neostigmine to patient and he declines today but is thinking about in next couple days here or at [facility] if not improved. He states he wants to try and be more active. Cdiff--as above. thickened esophagus---PPI for GERD 1 cm liver lesion--too small to biopsy--outpt EGD and colo and if no obvious malignancy then follow with imaging in 3 months to start-- Fe def anemia//heme positive-----drop today----outpt EGD and colonoscopy--no gross bleeding has been reported--per nursing has large brown stool today. N/V resolved I am going off service tomorrow 11/[address] Deins is assuming GI care then. Subjective cc f/u abdominal distension HPI Discussed with patient and nephew and 2 daughters in room. Pt same as yesterday with distended abdomen, no abd pain. Tolerating diet. Respiratory: no dyspnea Cardiovascular: no chest pain Physical Exam Vital Signs (Past 24 Hours): Last Vital Signs Temp 36.7 C 11/26/18 08:00 Pulse 75 11/26/18 11:07 Resp 18 11/26/18 11:07 BP 115/69 11/26/18 08:00 Pulse Ox 95 11/26/18 11:07 Constitutional: WD/WN, vitals as above Respiratory: normal respiratory effort, lungs clear to auscultation Cardiovascular: RRR, no murmur, no edema Gastrointestinal (Abdomen): pos bs, soft, distended and tympanitic but not tense. No guarding nor rebound Psychiatric: A+Ox3, euthymic affect
--- NOTE | 2018-11-26 14:41 | Cardiology Consultation ---
Date of Consultation November 26, 2018 Assessment & Plan (1) Cardiac risk counseling: The patient is felt to be an acceptable risk to undergo treatment with physostigmine. He carries no cardiac history and has undergone 2 hip replacement surgeries since February 2018 without cardiac event. Cardiac risk of intravenous physostigmine includes bradycardia, asystole, and palpitations. This would be best monitored in the intensive care unit. (2) HTN (hypertension): Adequate control on current medical regimen. (3) Abnormal ECG: EKG notes PACs and nonspecific ST and T-wave abnormality. No further cardiac evaluation indicated at this time. History of Present Illness Attending Physician: Lino Trammell MD, PhD, [facility] History of Present Illness Mr. Alex is an 83-year-old male who was admitted on November 14 with abdominal complaints now felt secondary to a colonic pseudo-obstruction. The GI team is considering use of physostigmine, and has requested a Cardiology open you in. The patient's recent history began on November 10 when he underwent a right total hip replacement. The patient was discharged home, however, developed significant nausea, vomiting, diarrhea, and abdominal distention. His C diff asks a was positive, however, he has not improved with antibiotic treatment. His CT scan suggests the possibility of a colonic pseudo-obstruction. The patient has no prior cardiac history. He has never experienced an MN nor exertional chest pain. He has never had a cardiac catheterization. The patient underwent hip replacement surgery on 2 occasions since February 2018. He has recovered from those procedures without cardiac event. Currently, patient resting comfortably bed without complaints. Past medical and surgical history 1. Hypertension 2. Diabetes mellitus 3. Emphysema 4. Prostate carcinoma-August 2004 5. Left THR-February 2018 6. Right THR-October 2018 Social history The patient is a and lives alone No tobacco or alcohol Family history Noncontributory Review of systems A 10 point review of systems was undertaken and negative except for that described above. Allergies Allergy/AdvReac Type Severity Reaction Status Date / Time metformin Allergy Unknown MUSCLE Verified 11/14/18 10:39 ACHES Ranystc-Kmc-Efg Reductase Allergy Unknown MUSCLE Verified 11/14/18 10:39 Inhibitor ACHES Unclassified Drugs Allergy Unknown RED YEAST Uncoded 11/14/18 10:39 RICE-MUSCLE ACHES Home Medications Home Medications Medication Instructions Recorded Confirmed Type canagliflozin [Invokana] 100 mg PO QAM 10/04/18 11/14/18 History cyanocobalamin (vitamin B-12) 1,000 mcg PO QAM 10/04/18 11/14/18 History [Vitamin B-12] docusate sodium [Stool Softener] 50 mg PO BID 10/04/18 11/14/18 History losartan 25 mg PO BID 10/04/18 11/14/18 History sitagliptin [Januvia] 100 mg PO QAM 10/04/18 11/14/18 History acetaminophen [Pain Reliever] 1,000 mg PO Q8 30 Days #180 tab 11/11/18 11/14/18 Rx aspirin [Ecotrin Low Strength] 81 mg PO BID 45 Days #90 tab 11/11/18 11/14/18 Rx ferrous gluconate 324 mg PO BIDM 30 Days #60 tab 11/11/18 11/14/18 Rx Patient History Medical History C. difficile colitis Bradycardia ASYMPTOMATIC Diabetes mellitus, type 2 History of cardiac arrhythmia PT HAD HOLTER SHOWING NSR WITH INTERMITTENT EPISODES OF ATRIAL TACHYCARDIA. History of prostate cancer S/P BRACHYTHERAPY Hypertension Osteoarthritis Surgical History History of brachytherapy History of cataract extraction with lens replacement History of cystoscopy History of open reduction and internal fixation (ORIF) procedure ARM History of total hip arthroplasty LEFT Family History Mother Heart attack Father Heart attack Other Family history non-contributory Social History Communication Ability: Effective Beliefs That Will Affect Care: None marital status: / Current Living Situation: Alone Other Information That Helps Us Care for You: No Feels Safe at Home: Yes Safety Concerns: Feels Safe At This Time Smoking Status: Former smoker Hx Alcohol Use: Yes Hx Substance Use: No Physical Exam Vital Signs (Past 24 Hours): Last Vital Signs Temp 36.7 C 11/26/18 08:00 Pulse 75 11/26/18 11:07 Resp 18 11/26/18 11:07 BP 115/69 11/26/18 08:00 Pulse Ox 95 11/26/18 11:07 Physical Exam: In general this is an obese white male lying supine in bed without complaints. HEENT exam is negative. Neck is supple with full carotid upstrokes. There are no carotid bruits. Jugular venous pressure is flat at 90 degrees. There is no thyromegaly. Cardiovascular exam reveals a regular rhythm with a normal S1 and S2. Heart sounds are distant. No obvious murmurs. Lungs are clear without rales, rhonchi or wheezes. Abdomen is protuberant. Extremities reveal intact radial artery pulses bilaterally. Trace pedal edema is noted. Results & Data Laboratory Results CBC notes a hemoglobin 8.0, Medical crit 24.4, white count 5.9, and platelet count [id number]. Electrolytes notice sodium of 134, potassium 3.5, chloride 105, bicarb 20, BUN 17, creatinine 0.66, glucose of 142. Diagnostic Findings EKG notes sinus tachycardia with PACs and nonspecific ST and T-wave abnormality. Chest x-ray notes emphysematous changes.
--- NOTE | 2018-11-26 18:44 | Hospitalist Progress Note ---
Date of Service November 26, 2018 Assessment & Plan (1) C. difficile colitis: (2) Vomiting: (3) Acute kidney injury: (4) Hip joint replacement status: (5) HTN (hypertension): (6) Thrombocytopenia: (7) DM type 2 (diabetes mellitus, type 2): (8) Iron deficiency: (9) Cough: (10) DVT prophylaxis: 83-year-old male admitted on November 14 2018 because of nausea vomiting abdominal pain and diarrhea C. difficile diarrhea, diarrhea up to 6 a day liquid incontinent after recent hip surgery, however for recent several days diarrhea is about 2-3 times a day, Today only had one-time bowel movement , patient denies fever chills, C. difficile colitis: seems improving/ stable after fidaxomicin started by ID Patient does not look toxic, white count has improved and resolving, is passing gas, Generalized weakness, worse today , possible because several reasons such as anemia, hypokalemia, and moderate malnutrition , recent hip surgery and multiple hospital stay Hoarse voice, and goes, getting worse in recent 2-3 days, Remote history of smoking, Possible from acid reflux because patient report acid reflux denies postnasal drip Start Protonix p.o. 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 have further evaluation and treatment, including neostigmine injection Patient, and family include her nephew and daughter fully understand and agreed, now is thinking about what will be the choice and will let us know DVT prophylaxis: Was on aspirin 81mg BID as at home, Currently doing only SCDs for concern for mild GI bleed (with his slowly downtrending hgb), Restart heparin or ASA as able if hgb remains stable Spent 40 minutes discussed with patient and with nephew in bedside and patient's daughter over the phone Subjective Saw patient 2 times a day, every time above 35 minutes, Second time come over to see patient was per patient and family request because they feel patient is feeling more tired today Generally only one time bowel movement, he has been eating meals 3 time a day, today has been up 3 time and walk with assistant professor of psychology after encourage from the, Nursing staff reported patient has urinary retention, bladder scan done around 500ml , straight cath was done, has more than 400 urine came out Still has hoarse voice, generalized weakness, no appetite, abdominal distention, passing gas, and lower extremity swelling 1-2+ Was having shaky possible from the side effect of nebulizer treatment Denies fever and chills, dry cough is better Review of Systems Constitutional: Positive weakness, or fatigue Respiratory: Dry cough , no sputum, no wheezing, Cardiac: No chest pain, No orthopnea, No PND, Abdomen: No pain, No nausea, No vomiting, Musculoskeletal: No joint pain, No muscle pain, No swelling, No calf pain, No problem reported : No dysuria, No urinary frequency, No incontinence, No hematuria Neurologic: No paralysis, No weakness, No numbness/tingling, No vertigo, No balance problems Psychiatric: No depression symptoms, No anhedonism, No anxiety, Heme: No abnormal bleeding/bruising, No clotting problems, Skin: No rash, No itch, No new/changing skin lesions, No color change, No bleeding Physical Exam Vital Signs (Past 24 Hours): Last Vital Signs Temp 36.5 C 11/26/18 16:00 Pulse 94 H 11/26/18 16:00 Resp 20 11/26/18 16:00 BP 113/66 11/26/18 16:00 Pulse Ox 91 11/26/18 16:00 Physical Exam: Gene: Frail, chronically ill looking, look tired, looks weak , WD/WN, vitals as above Eyes: normal visual perkins by confrontation and + anicteric sclerae Neck: normal visual inspection and trachea midline Respiratory: Decreased breathing sounds bilaterally, normal respiratory effort, lungs clear to auscultation Cardiovascular: s1, s2, regular rate and regular rhythm Gastrointestinal (Abdomen): Soft and obvious distended, abdomen nontender, decreased bowel sounds Musculoskeletal: 1+ edema bilateral lower extremity, Skin: no rashes, warm and dry Neurologic: awake; not confused Speech / Cognition: normal speech Results & Data Laboratory Results Laboratory Results - last 24 hr 11/25/18 11/26/18 11/26/18 19:52 07:06 07:06 WBC 5.93 RBC 3.14 L Hgb 8.0 L Hct 24.4 L MCV 77.7 L MCH 25.5 MCHC 32.8 RDW Std Deviation 45.4 RDW Coeff of Akshat 16.2 H Plt Count 176 MPV 9.6 Immature Gran % (Auto) 0.3 Neut % (Auto) 79.2 Lymph % (Auto) 10.6 [place] % (Auto) 9.4 Eos % (Auto) 0.3 Baso % (Auto) 0.2 Immature Gran # (Auto) 0.02 Neut # (Auto) 4.69 Lymph # (Auto) 0.63 L [place] # (Auto) 0.56 Eos # (Auto) 0.02 Baso # (Auto) 0.01 Echinocytes 1+ Sodium 134 L Potassium 3.5 Chloride 105 Carbon Dioxide 20 L Anion Gap 9.0 BUN 17 Creatinine 0.66 Est Cr Clr Drug Dosing 111.8 Est GFR ( Amer) 103.6 Est GFR (Non-Af Amer) 89.4 BUN/Creatinine Ratio 26.6 H Glucose 142 H POC Glucose 207 H Lactate Calcium 6.9 L Total Bilirubin 0.4 AST 13 L ALT 11 L Alkaline Phosphatase 67 Total Protein 4.5 L Albumin 1.4 L Globulin 3.1 Albumin/Globulin Ratio 0.5 L TSH 1.080 Free T4 1.11 Cortisol AM Sample 11/26/18 11/26/18 11/26/18 07:06 07:06 08:14 WBC RBC Hgb Hct MCV MCH MCHC RDW Std Deviation RDW Coeff of Akshat Plt Count MPV Immature Gran % (Auto) Neut % (Auto) Lymph % (Auto) [place] % (Auto) Eos % (Auto) Baso % (Auto) Immature Gran # (Auto) Neut # (Auto) Lymph # (Auto) [place] # (Auto) Eos # (Auto) Baso # (Auto) Echinocytes Sodium Potassium Chloride Carbon Dioxide Anion Gap BUN Creatinine Est Cr Clr Drug Dosing Est GFR ( Amer) Est GFR (Non-Af Amer) BUN/Creatinine Ratio Glucose POC Glucose 156 H Lactate 0.9 Calcium Total Bilirubin AST ALT Alkaline Phosphatase Total Protein Albumin Globulin Albumin/Globulin Ratio TSH Free T4 Cortisol AM Sample 20.30 11/26/18 11/26/18 11:54 16:28 WBC RBC Hgb Hct MCV MCH MCHC RDW Std Deviation RDW Coeff of Akshat Plt Count MPV Immature Gran % (Auto) Neut % (Auto) Lymph % (Auto) [place] % (Auto) Eos % (Auto) Baso % (Auto) Immature Gran # (Auto) Neut # (Auto) Lymph # (Auto) [place] # (Auto) Eos # (Auto) Baso # (Auto) Echinocytes Sodium Potassium Chloride Carbon Dioxide Anion Gap BUN Creatinine Est Cr Clr Drug Dosing Est GFR ( Amer) Est GFR (Non-Af Amer) BUN/Creatinine Ratio Glucose POC Glucose 215 H 195 H Lactate Calcium Total Bilirubin AST ALT Alkaline Phosphatase Total Protein Albumin Globulin Albumin/Globulin Ratio TSH Free T4 Cortisol AM Sample (1) Vomiting Nausea presence: unspecified Vomiting Intractability: non-intractable Vomiting type: unspecified Qualified Code(s): R11.10 - Vomiting, unspecified
[2018-11-26 19:13] LABS: BUN Creatinine Ratio 19.4 (10-20); Blood Urea Nitrogen 16 mg/dl (7-18); Calcium 6.6 mg/dl (8.5-10.1); Carbon Dioxide 20 mmol/L (21-32); Chloride 105 mmol/L (98-107); Creatinine Clr Calc Pharmacy 92.3 ml/min; Est GFR (African American) 95.7; Est GFR (Non-African American) 82.6; Glucose 181 mg/dl (70-99); Magnesium 1.7 mg/dl (1.8-2.4); Potassium 3.7 mmol/L (3.5-5.1); Sodium 135 mmol/L (136-145)
[2018-11-26 19:18] LABS: Prostate Specific Antigen < 0.010 ng/ml (0-4)
[2018-11-26 19:55] LABS: Basophils # (auto) 0.02 K/uL (0-0.2); Basophils % (auto) 0.4 %; Eosinophils # (auto) 0.02 K/uL (0-0.5); Eosinophils % (auto) 0.4 %; Hematocrit (blood only) 23.3 % (42-52); Hemoglobin 7.4 g/dL (14.0-18.0); Immature Granulocytes # (auto) 0.05 K/uL (0.00-0.02); Immature Granulocytes % (auto) 1.1 %; Lymphocytes % (auto) 19.8 %; Mean Corpuscular Volume 76.6 fL (80-100); Mean Platelet Volume 9.9 fL (7.4-10.4); Monocytes # (auto) 0.47 K/uL (0.11-0.59); Monocytes % (auto) 10.3 %; Neutrophils # (auto) 3.09 K/uL (1.4-6.5); Platelet Count 148 K/uL (130-400); RDW Coefficient of Variation 16.2 % (11.5-14.5); RDW Standard Deviation 45.4 fL (36.4-46.3); Red Blood Count 3.04 M/uL (4.7-6.1); White Blood Count 4.55 K/uL (4.8-10.8)
[2018-11-26 19:59] LABS: Mean Corpuscular Hgb Conc 31.8 g/dL (32-36)
[2018-11-26 20:42] LABS: Schistocytes Occasional; Spherocytes Occasional
[2018-11-26] MEDS ORDERED: SODIUM CHLORIDE 0.9% 250 ML IV PRN (20:52)
[2018-11-26] MEDS: TAMSULOSIN HCL 0.4 MG CAP PO SCH (21:26)
[2018-11-27] MEDS ORDERED: NURSING DECISION MEDICATION ONE (05:00)
[2018-11-27] MEDS ORDERED: MICONAZOLE NITRATE POWDER 43 GM EXT PRN (05:07)
[2018-11-27] MEDS: metroNIDAZOLE 500 MG/100 ML BAG IV SCH ×2 (05:38→13:48)
[2018-11-27 06:05] LABS: Toxic Vacuolation 2+
[2018-11-27 07:29] LABS: Basophils # (auto) 0.01 K/uL (0-0.2); Basophils % (auto) 0.2 %; Eosinophils # (auto) 0.03 K/uL (0-0.5); Eosinophils % (auto) 0.5 %; Hematocrit (blood only) 25.2 % (42-52); Hemoglobin 8.3 g/dL (14.0-18.0); Immature Granulocytes # (auto) 0.02 K/uL (0.00-0.02); Immature Granulocytes % (auto) 0.3 %; Lymphocytes % (auto) 12.1 %; Mean Corpuscular Hgb Conc 32.9 g/dL (32-36); Mean Platelet Volume 9.2 fL (7.4-10.4); Monocytes # (auto) 0.55 K/uL (0.11-0.59); Monocytes % (auto) 9.5 %; Neutrophils # (auto) 4.46 K/uL (1.4-6.5); Neutrophils % (auto) 77.4 %; Platelet Count 140 K/uL (130-400); RDW Coefficient of Variation 16.1 % (11.5-14.5); RDW Standard Deviation 46.8 fL (36.4-46.3); Red Blood Count 3.19 M/uL (4.7-6.1); White Blood Count 5.77 K/uL (4.8-10.8)
[2018-11-27 07:50] LABS: Albumin Level 1.3 gm/dl (3.4-5.0); BUN Creatinine Ratio 24.9 (10-20); Calcium 6.7 mg/dl (8.5-10.1); Creatinine Clr Calc Pharmacy 110.2 ml/min; Est GFR (Non-African American) 88.9; Magnesium 1.8 mg/dl (1.8-2.4); Potassium 3.4 mmol/L (3.5-5.1)
[2018-11-27 07:59] LABS: Albumin Globulin Ratio 0.4 (0.9-2); Bilirubin,Total 0.4 mg/dl (0.2-1); Globulin 3.2 gm/dl (2.5-4.0); Phosphorus 2.5 mg/dl (2.5-4.9); Prealbumin 5.2 mg/dl (20-40); Total Protein 4.5 gm/dl (6.4-8.2)
[2018-11-27 08:25] LABS: Echinocytes 1+; Toxic Vacuolation 1+
[2018-11-27] MEDS: INSULIN ASPART 100 UNITS/ML 3 ML PEN SC SCH ×4 (08:43→22:07)
[2018-11-27] MEDS: PANTOprazole 40 MG TAB PO SCH ×2 (08:44→22:05)
[2018-11-27] MEDS: MAGNESIUM OXIDE 400 MG TAB PO SCH ×2 (08:44→22:05)
[2018-11-27] MEDS: CYANOCOBALAMIN 500 MCG TABLET (VITAMIN B-12) PO SCH (08:45)
[2018-11-27] MEDS: BENZONATATE 100 MG CAPSULE PO SCH ×3 (08:45→22:05)
[2018-11-27] MEDS: guaiFENesin 600 MG TABCR PO SCH ×2 (08:45→22:05)
[2018-11-27] MEDS: FIDAXOMICIN 200 MG TAB PO SCH (08:53)
[2018-11-27] MEDS ORDERED: POTASSIUM CHLORIDE 10 MEQ TABCR PO SCH (09:00)
[2018-11-27] MEDS ORDERED: FUROSEMIDE 20 MG TAB PO ONE (10:45)
[2018-11-27] MEDS ORDERED: SACCHAROMYCES BOULARDII 250 MG CAP PO SCH (12:45)
--- NOTE | 2018-11-27 15:13 | Hospitalist Progress Note ---
Date of Service November 27, 2018 Assessment & Plan (1) Acute on chronic anemia: (2) GI bleeding: (3) Megacolon: (4) C. difficile colitis: (5) Iron deficiency: (6) DM type 2 (diabetes mellitus, type 2): (7) Hip joint replacement status: (8) Ileus: (9) Thrombocytopenia: 83-year-old male admitted on November 14 2018 because of nausea vomiting abdominal pain and diarrhea, Was found to have C. difficile diarrhea C. difficile diarrhea, In the beginningdiarrhea up to 6 a day liquid incontinent after recent hip surgery, however for recent several days diarrhea is about 2-3 times a day, Today only had one-time bowel movement , patient denies fever chills, C. difficile colitis: seems improving/ stable after fidaxomicin started by ID Patient does not look toxic, white count has improved and resolving, is passing gas, Patient still on IV Flagyl, will contact infectious disease to see if we can discontinue IV Flagyl Acute on chronic anemia, with history of iron deficiency, currently is Hemoccult positive Differential diagnosis include lower GI bleeding and hemarrhoid Patient got 1 unit blood transfusion,Will continue follow-up H&H, GI on the case Urinary retention, straight caths as needed, checking PSA, has started Flomax, Urology consultation, PSA<0.01 Moderate to severe protein malnutrition, dietitian talk to patient, increased protein intake Generalized weakness, worse today , possible because several reasons such as anemia, hypokalemia, and moderate malnutrition , recent hip surgery and multiple hospital stay Hoarse voice, and goes, getting worse in recent 2-3 days, Remote history of smoking, Possible from acid reflux because patient report acid reflux denies postnasal drip Start Protonix p.o. hip joint replacement status: Continue current care, Local incision looks mild wet and red, nontender, orthopedist service is follow-up, Dr. 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 Option 1 conservative treatment with increase activity up and walk Option 2 is transferred to ICU with the risks included but not limited to bowel perforation, cardiac arrest, arrhythmia by giving neostigmine injection with backup of cardiology and a r specialist try to treat the medical condition of pseudoobstruction Options 3 is transferred to [facility] have further evaluation and treatment, including neostigmine injection Patient, and family include her nephew and daughters fully understand and agreed, now is thinking about what will be the choice and will let us know, Patient and family will need to talk to GI service small DVT prophylaxis: Was on aspirin 81mg BID as at home, Currently doing only SCDs for concern for mild GI bleed (with his slowly downtrending hgb), Restart heparin or ASA as able if hgb remains stable Subjective Was found Hemoccult positive the day before yesterday and hemoglobin was dropped at 7. 4 in the evening 1 unit of blood transfusion was started saw patient 2 times a day, every time above 25 minutes, Second time was 37 minutes per family requestTo come for discussion Report not feeling better, however no bowel movement yet until noontime, Yesterday only had one-time bowel movement Patient has been up and walk,With dietetic assistant However Was found has urinary retention required a Straight caths, Still has hoarse voice, Report not feeling any better and feeling worse In generalized weakness, He was eating breakfast when I seen him this more Denies fever and chills, dry cough is better Review of Systems Constitutional: Positive weakness, or fatigue Respiratory: Dry cough , no sputum, no wheezing, Cardiac: No chest pain, No orthopnea, No PND, Abdomen: No pain, No nausea, No vomiting, Musculoskeletal: No joint pain, No muscle pain, No swelling, No calf pain, No problem reported : Denies dysuria urgency and frequency, however had urinary retention Neurologic: No paralysis, No weakness, No numbness/tingling, No vertigo, No balance problems Psychiatric: No depression symptoms, No anhedonism, No anxiety, Heme: No abnormal bleeding/bruising, No clotting problems, Skin: No rash, No itch, No new/changing skin lesions, No color change, No bleeding Physical Exam Vital Signs (Past 24 Hours): Last Vital Signs Temp 36.6 C 11/27/18 07:58 Pulse 90 11/27/18 07:58 Resp 19 11/27/18 07:58 BP 101/56 L 11/27/18 07:58 Pulse Ox 93 03/04/19 07:58 Physical Exam: Physical Exam: Frail, chronically ill looking, look tired, However looking the same to me,WD/WN, vitals as above Eyes: normal visual perkins by confrontation and + anicteric sclerae Neck: normal visual inspection and trachea midline Respiratory: Decreased breathing sounds bilaterally, normal respiratory effort, lungs clear to auscultation Cardiovascular: Rate/Rhythm: s1, s2, regular rate and regular rhythm Gastrointestinal (Abdomen): Soft and distention Has been improving, abdomen nontender, Bowel sounds decreased Musculoskeletal: Right hip local incision with xavi with mild wet and red, no hot or Obvious erythema, Head/Neck/Chest: normocephalic and head atraumatic, minimal active bowel sounds Skin: no rashes, warm and dry Neurologic: awake; not confused Speech / Cognition: normal speech Results & Data Laboratory Results Laboratory Results - last 24 hr 11/26/18 11/26/18 11/26/18 07:06 16:28 18:11 WBC RBC Hgb Hct MCV MCH MCHC RDW Std Deviation RDW Coeff of Akshat Plt Count MPV Immature Gran % (Auto) Neut % (Auto) Lymph % (Auto) [place] % (Auto) Eos % (Auto) Baso % (Auto) Immature Gran # (Auto) Neut # (Auto) Lymph # (Auto) [place] # (Auto) Eos # (Auto) Baso # (Auto) Toxic Vacuolation 2+ Spherocytes Echinocytes Schistocytes Sodium Potassium Chloride Carbon Dioxide Anion Gap BUN Creatinine Est Cr Clr Drug Dosing Est GFR ( Amer) Est GFR (Non-Af Amer) BUN/Creatinine Ratio Glucose POC Glucose 195 H Calcium Phosphorus Magnesium Total Bilirubin AST ALT Alkaline Phosphatase Total Protein Albumin Globulin Albumin/Globulin Ratio Prealbumin Prostate Specific Ag TSH Blood Type Antibody Screen Crossmatch 11/26/18 11/26/18 11/26/18 18:11 19:33 20:24 WBC 4.55 L RBC 3.04 L Hgb 7.4 L Hct 23.3 L MCV 76.6 L MCH 24.3 L MCHC 31.8 L RDW Std Deviation 45.4 RDW Coeff of Akshat 16.2 H Plt Count 148 MPV 9.9 Immature Gran % (Auto) 1.1 Neut % (Auto) 68.0 Lymph % (Auto) 19.8 [place] % (Auto) 10.3 Eos % (Auto) 0.4 Baso % (Auto) 0.4 Immature Gran # (Auto) 0.05 H Neut # (Auto) 3.09 Lymph # (Auto) 0.90 L [place] # (Auto) 0.47 Eos # (Auto) 0.02 Baso # (Auto) 0.02 Toxic Vacuolation Spherocytes Occasional Echinocytes Schistocytes Occasional Sodium 135 L Potassium 3.7 Chloride 105 Carbon Dioxide 20 L Anion Gap 10.0 BUN 16 Creatinine 0.80 Est Cr Clr Drug Dosing 92.3 Est GFR ( Amer) 95.7 Est GFR (Non-Af Amer) 82.6 BUN/Creatinine Ratio 19.4 Glucose 181 H POC Glucose 197 H Calcium 6.6 L Phosphorus Magnesium 1.7 L Total Bilirubin AST ALT Alkaline Phosphatase Total Protein Albumin Globulin Albumin/Globulin Ratio Prealbumin Prostate Specific Ag < 0.010 TSH Blood Type Antibody Screen Crossmatch 11/26/18 11/27/18 11/27/18 21:20 07:15 07:15 WBC 5.77 RBC 3.19 L Hgb 8.3 L Hct 25.2 L MCV 79.0 L MCH 26.0 MCHC 32.9 RDW Std Deviation 46.8 H RDW Coeff of Akshat 16.1 H Plt Count 140 MPV 9.2 Immature Gran % (Auto) 0.3 Neut % (Auto) 77.4 Lymph % (Auto) 12.1 [place] % (Auto) 9.5 Eos % (Auto) 0.5 Baso % (Auto) 0.2 Immature Gran # (Auto) 0.02 Neut # (Auto) 4.46 Lymph # (Auto) 0.70 L [place] # (Auto) 0.55 Eos # (Auto) 0.03 Baso # (Auto) 0.01 Toxic Vacuolation 1+ Spherocytes Echinocytes 1+ Schistocytes Sodium 135 L Potassium 3.4 L Chloride 106 Carbon Dioxide 21 Anion Gap 9.0 BUN 17 Creatinine 0.67 Est Cr Clr Drug Dosing 110.2 Est GFR ( Amer) 103.0 Est GFR (Non-Af Amer) 88.9 BUN/Creatinine Ratio 24.9 H Glucose 152 H POC Glucose Calcium 6.7 L Phosphorus 2.5 Magnesium 1.8 Total Bilirubin 0.4 AST 12 L ALT 9 L Alkaline Phosphatase 66 Total Protein 4.5 L Albumin 1.3 L Globulin 3.2 Albumin/Globulin Ratio 0.4 L Prealbumin 5.2 L Prostate Specific Ag TSH 1.150 Blood Type O Positive Antibody Screen NEGATIVE Crossmatch See Detail 11/27/18 11/27/18 08:19 11:30 WBC RBC Hgb Hct MCV MCH MCHC RDW Std Deviation RDW Coeff of Akshat Plt Count MPV Immature Gran % (Auto) Neut % (Auto) Lymph % (Auto) [place] % (Auto) Eos % (Auto) Baso % (Auto) Immature Gran # (Auto) Neut # (Auto) Lymph # (Auto) [place] # (Auto) Eos # (Auto) Baso # (Auto) Toxic Vacuolation Spherocytes Echinocytes Schistocytes Sodium Potassium Chloride Carbon Dioxide Anion Gap BUN Creatinine Est Cr Clr Drug Dosing Est GFR ( Amer) Est GFR (Non-Af Amer) BUN/Creatinine Ratio Glucose POC Glucose 163 H 177 H Calcium Phosphorus Magnesium Total Bilirubin AST ALT Alkaline Phosphatase Total Protein Albumin Globulin Albumin/Globulin Ratio Prealbumin Prostate Specific Ag TSH Blood Type Antibody Screen Crossmatch Microbiology 11/26/18 22:15 Hip,Right Gram Stain - Final 11/21/18 12:21 Blood Blood Culture - Final No growth 11/21/18 12:07 Blood Blood Culture - Final No growth
--- NOTE | 2018-11-27 15:57 | Infectious Disease Progress Nt ---
Date of Service November 27, 2018 Assessment & Plan (1) C. difficile colitis: Patient with C. difficile colitis, responding to current treatment. Would continue patient on fidaxomicin, metronidazole discontinued. Would agree with surgery about continuing vancomycin for prolonged tapering course once fidaxomicin completed. Will follow. Subjective Patient seen in follow-up for C. difficile colitis. Diarrhea has been improving, less abdominal pain. No fever. White count normal. Review of Systems All systems reviewed & are unremarkable except as noted in HPI & below Physical Exam Vital Signs (Past 24 Hours): Last Vital Signs Temp 36.6 C 11/27/18 15:19 Pulse 77 11/27/18 15:19 Resp 17 11/27/18 15:19 BP 105/63 11/27/18 15:19 Pulse Ox 96 11/27/18 15:19 Constitutional: WD/WN, vitals as above comfortable; no acute distress Eyes: PERRL, conjunctivae normal, anicteric sclerae ENMT: external ear and nose normal, oropharynx normal Neck: trachea midline, no thyromegaly neck nontender Respiratory: normal respiratory effort, lungs clear to auscultation normal percussion; no respiratory distress Cardiovascular: Rate/Rhythm: regular rate and regular rhythm Heart Sounds: normal S1 and normal S2; no gallop, no murmur and no cardiac rub Gastrointestinal (Abdomen): normal bowel sounds, soft, nontender, no hepatosplenomegaly Inspection/Auscultation: + abdomen distended (Mildly) Musculoskeletal: no cyanosis or clubbing, extremities motor strength 5/5 No spinal tenderness, no joint swelling or erythema Skin: no rashes, warm and dry no lesions Neurologic: moves all extremities and awake; no focal motor deficits Motor/Sensory: no sensory deficit Psychiatric: A+Ox3, euthymic affect Lymphatic: no cervical or axillary lymphadenopathy no inguinal lymphadenopathy Results & Data Laboratory Results Short CBC 11/26/18 11/26/18 11/27/18 Range/Units 18:11 19:33 07:15 WBC 4.55 L 5.77 (4.8-10.8) K/uL Hgb 7.4 L 8.3 L (14.0-18.0) g/dL Hct 23.3 L 25.2 L (42-52) % Plt Count 148 140 (130-400) K/uL BMP 11/26/18 11/27/18 18:11 07:15 Sodium 135 L 135 L Potassium 3.7 3.4 L Chloride 105 106 Carbon Dioxide 20 L 21 BUN 16 17 Creatinine 0.80 0.67 Glucose 181 H 152 H Calcium 6.6 L 6.7 L Liver Function 11/27/18 Range/Units 07:15 Total Bilirubin 0.4 (0.2-1) mg/dl AST 12 L (15-37) U/L ALT 9 L (12-78) U/L Alkaline Phosphatase 66 (45-117) U/L Albumin 1.3 L (3.4-5.0) gm/dl Diagnostic Findings Microbiology 11/26/18 22:15 Hip,Right Gram Stain - Final 11/21/18 12:21 Blood Blood Culture - Final No growth 11/21/18 12:07 Blood Blood Culture - Final No growth 11/14/18 11:37 Blood Blood Culture - Final No growth 11/14/18 10:57 Blood Blood Culture - Final No growth cc: ~ ABDOMEN AND PELVIS CT WITH ORAL CONTRAST CT DOSE: 1731.55 mGy.cm HISTORY: Acute generalized abdominal pain. Follow-up study in a patient with acute colitis f/u bowel distension, Cdiff TECHNIQUE: Multiaxial CT images of the abdomen and pelvis were performed following the use of oral contrast. A dose lowering technique was utilized adhering to the principles of ALARA. COMPARISON STUDY: CT abdomen pelvis 11/14/2018 FINDINGS: Small left and trace right pleural effusions, new from comparison. Bibasilar bronchial wall thickening with areas of mucous plugging chronic appearing articulation. No pneumatosis or pneumoperitoneum. Study is mildly motion degraded. Streak artifact from bilateral hip arthroplasties limits evaluation of the pelvic structures. Coronary arterial calcifications are noted. Imaged inferior cardiac chambers are mildly enlarged. Peripherally calcified round densities about the juaquin hepatis distribution redemonstrated suggestive of retained gallstones with suggestion of a least a partial cholecystectomy. Indeterminate 10 mm hypodense lesion of the inferior right hepatic lobe, unchanged. Liver is otherwise unremarkable. Spleen, pancreas and adrenal glands are unremarkable. Kidneys and ureters are unremarkable. The urinary bladder is not well visualized secondary to aforementioned streak artifact. Brachytherapy seeds noted about the prostate. No aortic aneurysm or adenopathy. Mild wall thickening of the esophagus redemonstrated. Contrast-filled moderately distended stomach. Enteric contrast progresses through the duodenum into the d istal jejunum. No evidence of small bowel obstruction. Resolution of the previously noted nondilated multiple fluid-filled loops of small bowel. Mild persistent yet decreased distal sigmoid and rectal wall thickening. There is gaseous distention involving the majority of the large bowel. Decreased fluid noted about the colon. There is mild wall thickening noted throughout portions of the transverse colon. Appendix not definitively seen. Mild mesenteric with moderate body wall edema. Demineralized appearance of the bones. Degenerative changes of the spine, pelvis and hips. Multiple remote appearing left-sided rib fractures. IMPRESSION: 1. No evidence of bowel obstruction. 2. Moderate gaseous distention of the large bowel with areas of mild colonic wall thickening, specifically about the transverse, distal sigmoid and rectum suggestive of ongoing nonspecific colitis. 3. Persistent distention of the stomach which contains the majority of the enteric contrast. No evidence of gastric outlet obstruction. 4. Interval development of small left and trace right pleural effusions. Bibasilar bronchial wall thickening with mucous plugging. 5. Additional findings as above. Electronically signed by: Hector Hernandez M.D. 11/24/2018 10:55 PM Dictated: 11/24/18 2243 Transcribed: 11/24/18 [id number]
--- NOTE | 2018-11-27 18:00 | Progress Note ---
DATE: 11/27/2018 HISTORY OF PRESENT ILLNESS: The patient continues to report abdominal distention, but no abdominal pain. He is passing some gas and about 1 bowel movement a day. He is getting a nutritional supplement 3 times a day but his nutritional parameters are poor and he is starting to develop some edema as well. Vital signs are normal. He is afebrile. Laboratory showed normal white count, hemoglobin 8.3, platelets are normal at 140, BUN is 17 and creatinine is 0.67, albumin is low at 1.3. Prealbumin is low at 5.2, normal being 20-40. PHYSICAL EXAMINATION ABDOMEN: Markedly distended and tympanitic, but not painful. EXTREMITIES: He has a little bit of edema in his lower extremities as well. Today is his last day of Dificid completing a 10-day course for C. diff. His Flagyl also ended today. IMPRESSION: The patient has marked abdominal distention, clostridium difficile, hip replacement and malnutrition. What I plan on doing today is starting him on vancomycin 125 mg 4 times a day to hopefully reduce the risk for relapse. Plan on stopping his probiotic as it may be contributing to his distention. I have asked him to increase his mobility within the room to help contain the clostridium difficile. He is also getting 3 nutritional supplements a day as his nutritional status is quite poor at this time, which I think is delaying his recovery and contributing to his edema as well. There have been discussions about giving him neostigmine to improve his ____ colonic contractility. I do have some concerns about giving him this given that this degree of distention and his age and cardiovascular state. I plan on checking abdominal film tomorrow to see how distended his bowel is, I did have a discussion with the patient and his extended family about his status and if he does not seem to be improving in the next 24-48 hours. He is willing to consider going to [facility] for further evaluation and possible neostigmine.
--- NOTE | 2018-11-27 18:07 | Discharge Summary ---
Date of Service November 27, 2018 Admission HPI Per Admitting Provider 83 y/o M c/o n/v/d. Pt was d/c'd on 11/12 s/p R hip with Dr. Soni. He was doing quite well upon d/c, however around 8p that night he developed n/v/d. This has continued without improvement. His last PO intake was Tuesday as he has not been able to hold anything down, including some of his meds. Pt states this happened last March after his L hip replacement and it was felt to be due to pain medications. Because of this, pt has only been using Tylenol post-op. Pt states everything related to his hip has been fine. His pain has been well controlled and doing quite well overall. Pt denies fever, SOB, chest pain, abd pain, LE pain or swelling. No one else at home is sick. He has been having about 4-6 bowel movements throughout the day. He has diarrhea every time he urinates, but no diarrhea outside of this. Pt was given IVF and vanco in the ED. He notes no change in how he feels. No emesis or diarrhea since arrival. Discharge Data Allergies Allergy/AdvReac Type Severity Reaction Status Date / Time metformin Allergy Unknown MUSCLE Verified 11/14/18 10:39 ACHES Olmuucr-Rtk-Jor Reductase Allergy Unknown MUSCLE Verified 11/14/18 10:39 Inhibitor ACHES Unclassified Drugs Allergy Unknown RED YEAST Uncoded 11/14/18 10:39 RICE-MUSCLE ACHES Consultations 11/14/18 13:13 ED Decision to Admit Stat 11/14/18 16:18 Consult Case Management - Discharge Planning Routine 11/16/18 12:40 Consult Orthopedic Surgery Routine 11/16/18 14:54 Consult General Surgery Routine 11/16/18 16:02 Consult Gastroenterology Routine Consult Infectious Diseases Routine 11/24/18 09:24 Consult Gastroenterology Routine 11/25/18 15:12 Consult Cardiology Routine 11/27/18 15:18 Consult Urology Routine Ordered Studies 11/14/18 12:00 CT abd pelvis wo con Stat 11/24/18 16:47 CT abd pelvis oral con only Routine 11/25/18 14:45 US retro bladder ltd Stat Hospital Course (1) Acute on chronic anemia: (2) GI bleeding: (3) Megacolon: (4) C. difficile colitis: (5) Iron deficiency: (6) DM type 2 (diabetes mellitus, type 2): A1c was 6.6% in 09/2018. Holding PO DM meds for now. - Sliding scale insulin (7) Hip joint replacement status: (8) Ileus: (9) Thrombocytopenia: 83-year-old male admitted on November 14 2018 because of nausea vomiting abdominal pain and diarrhea, Was found to have C. difficile diarrhea C. difficile diarrhea, In the beginningdiarrhea up to 6 a day liquid incontinent after recent hip surgery, however for recent several days diarrhea is about 2-3 times a day, Today only had one-time bowel movement , patient denies fever chills, C. difficile colitis: seems improving/ stable after fidaxomicin started by ID Patient does not look toxic, white count has improved and resolving, is passing gas, Patient still on IV Flagyl, will contact infectious disease to see if we can discontinue IV Flagyl ID saw pt toay, Would continue patient on fidaxomicin, metronidazole discontinued. Would agree with surgery about continuing vancomycin for prolonged tapering course once fidaxomicin completed. Diarrhea seems less. When Dificid is completed on 11/27 would continue vancomycin abd distension---Looking back at his first hip surgery and clinical course in this case it seems acute colonic pseudoobstruction post op fits the best with CDiff associated but not the major factor. Discussed with patient, nephew and daughter Sarah regarding I feel erythromycin is not effective. Neostigmine can be effective but risks include but not limited to bradycardia and cardiac arrythmias ---will order consult from DR Sanchez (disucussed with Dr Ramirez who is covering for him who states he will see patient tomorrow am but preliminarily thinks because he had stress test of orthopedic surgery he ought to be ok for its use) for risk assessment using that drug. Colonic decompression has been used in these cases but has risk of gas perforating the colon and per general guideline is used after neostigmine unless contraindicated. . Cecostomy has been used but not a top choice unless obvious decompensation. Also discussed transfer to [facility] but patient does not want that. Cdiff--as above. thickened esophagus---PPI for GERD discussed with nephew, patient, and another daughter 1 cm liver lesion--too small to biopsy--outpt EGD and colo and if no obvious malignancy then follow with imaging in 3 months to start--discussed with patient, nephew and another daughter who arrived when I went to bedside a second time. Fe def anemia//heme positive-----outpt EGD and colonoscopy--no gross bleeding--discussed with patient, nephew and another daughter N/V resolved Subjective cc f/u abdominal distension HPI Discussed with patient and nephew in room and daughter Sarah by phone. Pt has couple loose stools daily. He has ongoing abd distension but no abd pain. CT a/p done last night reviewed report which includes colon distension, colon thickening, trace pleural effusions, bronchial wall thickening, calculus around previous GB site (first CT said stones in gb bed), intederminate right liver lesion 1 cm, wall thickening of esophagus. Called Dr Espinosa today of radiology who looked at this CT, CT 11/14 and KUB 11/23. He states current size of colon 9 cm HF to TC and cecum 8 cm about same as KUB 11/23. He states CT a/p 11/14 max TC 7 cm and cecum [address] Espinosa sees no wall thickening on current CT scan and does not think CT 11/14 had much if any, either. Nurse reports brown stool but is heme positive. Respiratory: no dyspnea Cardiovascular: no chest pain Acute on chronic anemia, with history of iron deficiency, currently is Hemoccult positive Differential diagnosis include lower GI bleeding and hemarrhoid Patient got 1 unit blood transfusion,Will continue follow-up H&H, GI on the case Urinary retention, straight caths as needed, checking PSA, has started Flomax, Urology consultation, PSA<0.01 Moderate to severe protein malnutrition, dietitian talk to patient, increased protein intake Generalized weakness, worse today , possible because several reasons such as anemia, hypokalemia, and moderate malnutrition , recent hip surgery and multiple hospital stay Hoarse voice, and goes, getting worse in recent 2-3 days, Remote history of smoking, Possible from acid reflux because patient report acid reflux denies postnasal drip Start Protonix p.o. hip joint replacement status: Continue current care, Local incision looks mild wet and red, nontender, orthopedist service is follow-up, Dr. 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 Option 1 conservative treatment with increase activity up and walk Option 2 is transferred to ICU with the risks included but not limited to bowel perforation, cardiac arrest, arrhythmia by giving neostigmine injection with backup of cardiology and safekeeping clerk try to treat the medical condition of pseudoobstruction Options 3 is transferred to [facility] have further evaluation and treatment, including neostigmine injection Patient, and family include her nephew and daughters fully understand and agreed, now is thinking about what will be the choice and will let us know, Patient and family will need to talk to GI service small DVT prophylaxis: Was on aspirin 81mg BID as at home, Currently doing only SCDs for concern for mild GI bleed (with his slowly downtrending hgb), Restart heparin or ASA as able if hgb remains stable Discharge Plan Discharge Items Patient Disposition: Transfer Acute Care Hospital Reason For Visit: GASTROENTERITIS Discharge Diagnosis: cdiff colitis, 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 Varela' office with his associate, Dr. Self, on TuesdayNovember 22 at 12:50 pm. 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 I am transferring you to [facility] Please follow-up PCP after discharge from [facility] Prescriptions: New vancomycin 1,000 mg Recon Soln 125 mg PO Q6 1 Days Qty: 1 RF: 0 magnesium oxide 400 mg (241.3 mg magnesium) Tablet 400 mg PO BID 1 Days Qty: 2 RF: 0 tamsulosin 0.4 mg Capsule 0.4 mg PO HS 1 Days Qty: 1 RF: 0 pantoprazole 40 mg Tablet,Delayed Release (Dr/Ec) 40 mg PO BID 1 Days Qty: 2 RF: 0 Discontinued cyanocobalamin (vitamin B-12) [Vitamin B-12] 1,000 mcg Tablet 1,000 mcg PO QAM RF: 0 docusate sodium [Stool Softener] 50 mg Capsule 50 mg PO BID RF: 0 losartan 25 mg Tablet 25 mg PO BID RF: 0 sitagliptin [Januvia] 100 mg Tablet 100 mg PO QAM RF: 0 canagliflozin [Invokana] 100 mg Tablet 100 mg PO QAM RF: 0 ferrous gluconate 324 mg (38 mg iron) Tablet 324 mg PO BIDM 30 Days Qty: 60 RF: 0 acetaminophen [Pain Reliever] 500 mg Tablet 1,000 mg PO Q8 30 Days Qty: 180 RF: 0 aspirin [Ecotrin Low Strength] 81 mg Tablet,Delayed Release (Dr/Ec) 81 mg PO BID 45 Days Qty: 90 RF: 0 Stand-Alone Forms: [facility] Discharge Orders: Discharge Order (Routine); Ordered 11/27/18 Ordered By: Lino Trammell Admission Data Admit Date/Time: 11/14/18 13:52 Attending Provider: Lino Trammell Admit Provider: Mirella Jack Primary Care Provider: Darryn Varela Other Providers: Per Ambriz ; Librado Soni ; Anibal Tovar ; Suzi Montez ; Berry Phan ; Stephen Lynne ; Shane Denis ; Akil Sanchez ; Geovanny Arredondo Service: Medical
--- NOTE | 2018-11-27 18:49 | Hospitalist Progress Note ---
Date of Service November 27, 2018 Assessment & Plan (1) C. difficile colitis: I was paged to bedside by nursing staff, and patient and family states now ready to be transferred to [facility] The reason for patient and family want to be transferred is they are feeling no anyhow getting better in general And abdomen still distended, although patient is bowel movement has decreased, I talked to Dr. Denis,Also talked to [facility] and GI service, They recommend to repeat abdominal CT with oral contrast and measuring the size of colon To see the size of distention is enlarged or stay in the same , or is improved, Talk to Dr. Denis he agreed Talk to family they understand and agreed Abdominal CT ordered with oral contrast,Will continue follow-up Physical Exam Vital Signs (Past 24 Hours): Last Vital Signs Temp 36.6 C 11/27/18 15:19 Pulse 77 11/27/18 15:19 Resp 17 11/27/18 15:19 BP 105/63 11/27/18 15:19 Pulse Ox 96 11/27/18 15:19
[2018-11-27] MEDS: VANCOMYCIN HCL 125 MG/2.5ML SOLN PO SCH (18:56)
[2018-11-27] MEDS: RASPBERRY SYRUP 5 ML UDP PO SCH (18:56)
--- NOTE | 2018-11-27 19:07 | XRay Report ---
XR abdomen 2V w PA chest CLINICAL HISTORY: 83 years-old Male presenting with Assess bowel distension. TECHNIQUE: PA view of the chest and supine and left lateral decubitus views of the abdomen were reque sted. Left lateral decubitus view of the patient was obtained prior to the ordering physician canceli ng the examination. As such, PA view of the chest and supine view of the abdomen were not obtained. COMPARISON: 11/24/2018. FINDINGS/IMPRESSION: Limited examination secondary to incomplete study due to cancellation by the ordering physician after initiation of the exam. Gaseous distention of bowel. Obstruction not excluded. Free air not excluded. Electronically signed by: Mark Merino M.D. 11/27/2018 7:06 PM
--- NOTE | 2018-11-27 21:20 | CT Scan Report ---
CT abd pelvis oral con only CLINICAL HISTORY: 83 years-old Male presenting with pseudomegacolon, please measure the size of colon . TECHNIQUE: Multidetector CT of the abdomen and pelvis was performed after the administration of oral contrast only. IV contrast: None. One or more dose lowering techniques were used consistent with the principles of ALARA (as low as reasonably achievable), including automatic exposure control, mA or kV adjustment to individual patient size, and/or use of iterative reconstruction. COMPARISON: 11/24/2018. CT DOSE (mGy.cm): The estimated cumulative dose is 1670.12 mGy.cm. FINDINGS: [employer] topogram: Diffuse gaseous distention of the colon. Bilateral total hip arthroplasties. Brachyth erapy seeds in the prostate. Lung bases: Normal heart size. Coronary artery calcification. Trace right and small left pleural effu sions. Fat-containing left Bochdalek hernia. Extensive reticular opacities with bronchial wall thicke paco and punctate calcification primarily in a subpleural distribution at the lung bases. Interlobula r septal thickening. Trace bronchiectasis suggested. Liver: Normal morphology. Density consistent with hepatic steatosis. Biliary: No gross biliary ductal dilatation allowing for noncontrast technique. And the gallbladder a ppears decompressed around several gallstones. Pancreas: Mild parenchymal atrophy. Spleen: Normal noncontrast appearance. Adrenal glands: Normal noncontrast appearance. Kidneys and ureters: Normal noncontrast appearance. No nephrolithiasis. No hydronephrosis. Normal ure ters. Bladder: Normal. Pelvic organs: Brachytherapy seeds in the prostate. The prostate is suboptimally evaluated given exte nsive streak artifact arising from the hip prostheses. Bowel: Diffuse gaseous distention of large bowel. The large bowel is distended to the greatest degree in the transverse and sigmoid colon. These segments measure up to 8.1 and 7.3 cm, respectively. Ther e is mild wall thickening of the ascending colon with trace surrounding pericolonic inflammatory gr ge similar to prior exam. The appendix is normal. The stomach is also distended. No evidence of an ou tlet obstruction. Peritoneal cavity: Trace free fluid in the abdomen and pelvis. No free intraperitoneal gas. Lymph nodes: No gross lymphadenopathy allowing for noncontrast technique. Vasculature: Atherosclerosis of the normal caliber abdominal aorta. Abdominal wall: Significant body wall edema similar to prior exam. Musculoskeletal: Degenerative changes of the spine. Osteopenia. Osteoporotic compression deformities of the endplates suggested. Benign hemangioma noted in T12. Bilateral total hip arthroplasties with s ignificant streak artifact in the pelvis degrading evaluation regionally. IMPRESSION: 1. Colonic distention greatest in the transverse and sigmoid colon as on prior exam. These segments measure up to 8.1 and 7.3 cm respectively. No evidence of bowel obstruction. This may represent colon ic ileus. 2. Wall thickening of the ascending colon with trace pericolonic inflammatory change consistent with colitis, likely infectious. This is similar to prior. 3. Additional chronic findings as above including chronic fibrotic lung disease. Electronically signed by: Mark Merino M.D. 11/27/2018 9:19 PM
[2018-11-27] MEDS: TAMSULOSIN HCL 0.4 MG CAP PO SCH (22:05)
[2018-11-28] MEDS: VANCOMYCIN HCL 125 MG/2.5ML SOLN PO SCH ×3 (00:06→12:23)
[2018-11-28] MEDS: RASPBERRY SYRUP 5 ML UDP PO SCH ×3 (00:06→12:23)
[2018-11-28 07:03] LABS: Basophils # (auto) 0.01 K/uL (0-0.2); Basophils % (auto) 0.2 %; Eosinophils # (auto) 0.01 K/uL (0-0.5); Eosinophils % (auto) 0.2 %; Hematocrit (blood only) 25.6 % (42-52); Hemoglobin 8.4 g/dL (14.0-18.0); Immature Granulocytes # (auto) 0.01 K/uL (0.00-0.02); Immature Granulocytes % (auto) 0.2 %; Lymphocytes # (auto) 0.82 K/uL (1.2-3.4); Lymphocytes % (auto) 14.6 %; Mean Corpuscular Hgb Conc 32.8 g/dL (32-36); Mean Corpuscular Volume 78.8 fL (80-100); Mean Platelet Volume 9.4 fL (7.4-10.4); Monocytes # (auto) 0.47 K/uL (0.11-0.59); Monocytes % (auto) 8.3 %; Neutrophils # (auto) 4.31 K/uL (1.4-6.5); Neutrophils % (auto) 76.5 %; Platelet Count 128 K/uL (130-400); RDW Coefficient of Variation 16.2 % (11.5-14.5); RDW Standard Deviation 46.9 fL (36.4-46.3); Red Blood Count 3.25 M/uL (4.7-6.1); White Blood Count 5.63 K/uL (4.8-10.8)
[2018-11-28 07:37] LABS: Albumin Level 1.4 gm/dl (3.4-5.0); BUN Creatinine Ratio 30.1 (10-20); Calcium 6.7 mg/dl (8.5-10.1); Creatinine Clr Calc Pharmacy 105.4 ml/min; Est GFR (African American) 101.2; Est GFR (Non-African American) 87.3; Potassium 3.3 mmol/L (3.5-5.1)
[2018-11-28 07:40] LABS: Albumin Globulin Ratio 0.4 (0.9-2); Bilirubin,Total 0.4 mg/dl (0.2-1); Globulin 3.4 gm/dl (2.5-4.0); Total Protein 4.8 gm/dl (6.4-8.2)
[2018-11-28] MEDS ORDERED: POTASSIUM CHLORIDE 10 MEQ TABCR PO STA (07:57)
[2018-11-28 08:06] LABS: Echinocytes 1+; Microcytosis Present; Polychromasia 1+
--- NOTE | 2018-11-28 08:09 | Urology Consultation ---
Date of Consultation November 28, 2018 Assessment & Plan (1) C. difficile colitis: (2) Urinary retention: 83yo M s/p R hip replacement, c.diff colitis/ileus and urinary retention CT imaging without concerning features from standpoint - no hydronephrosis, no stones. Cr stable. Continue tamsulosin. Encourage ambulation. Continue bladder scans q6h, straight cath q6h for >300cc. We recommend avoiding indwelling catheter at this time. Hopeful his urination patterns will improve as his overall status improves. Disposition unclear, patient under the impression he may transfer to [facility] [place]. Will allow hospitalist/GI to direct care. Pt will benefit from [facility] teaching moving forward. Thank you for the consultation. We will continue to monitor closely with primary service. If patient does transfer to [facility] [place], please make our service aware so we can arrange hospital follow-up. Please see additional comments per my attending, if indicated. History of Present Illness Reason for Consultation: Urinary Retention Attending Physician: Lino Trammell MD, PhD, [facility] Dr. Trammell History of Present Illness 83yo M presented to [facility] on 11/14 with n/v/d - diagnosed with c.diff colitis and ileus. S/p R hip replacement with Dr. Soni on 11/12. We were consulted for concurrent urinary retention. Pt is established with Dr. Arredondo with significant PMHx for prostate cancer s/p neoadjuvant hormone therapy and brachy in 2003. Hx phimosis, s/p dorsal slit in 2016. CT 11/27/18 images reviewed. Reveals no stones, no hydronephrosis. bladder with mild distention, no abnormal bladder wall thickening, stones or trabeculation. Labs stable, Cr 0.67. Most recent PSA 11/2017 <0.05 Pt does not take any medications for BPH on regular basis. States no major trouble with LUTS prior to admission. Consistently requiring straight cath q 4-6h, pt denies significant discomfort with this. Voided approx 100cc spontaneously last evening. Flomax initiated on 11/25 by hospitalist team. Denies dysuria, hematuria. Denies urgency/frequency. Denies suprapubic or flank pain. Denies bladder pain or spasms. Denies n/v/f/c. Allergies Allergy/AdvReac Type Severity Reaction Status Date / Time metformin Allergy Unknown MUSCLE Verified 11/14/18 10:39 ACHES Mtofitu-Qft-Ing Reductase Allergy Unknown MUSCLE Verified 11/14/18 10:39 Inhibitor ACHES Unclassified Drugs Allergy Unknown RED YEAST Uncoded 11/14/18 10:39 RICE-MUSCLE ACHES Home Medications Home Medications Medication Instructions Recorded Confirmed Type canagliflozin [Invokana] 100 mg PO QAM 10/04/18 11/14/18 History cyanocobalamin (vitamin B-12) 1,000 mcg PO QAM 10/04/18 11/14/18 History [Vitamin B-12] docusate sodium [Stool Softener] 50 mg PO BID 10/04/18 11/14/18 History losartan 25 mg PO BID 10/04/18 11/14/18 History sitagliptin [Januvia] 100 mg PO QAM 10/04/18 11/14/18 History acetaminophen [Pain Reliever] 1,000 mg PO Q8 30 Days #180 tab 11/11/18 11/14/18 Rx aspirin [Ecotrin Low Strength] 81 mg PO BID 45 Days #90 tab 11/11/18 11/14/18 Rx ferrous gluconate 324 mg PO BIDM 30 Days #60 tab 11/11/18 11/14/18 Rx Patient History Medical History C. difficile colitis Bradycardia ASYMPTOMATIC Diabetes mellitus, type 2 History of cardiac arrhythmia PT HAD HOLTER SHOWING NSR WITH INTERMITTENT EPISODES OF ATRIAL TACHYCARDIA. History of prostate cancer S/P BRACHYTHERAPY Hypertension Osteoarthritis Surgical History History of brachytherapy History of cataract extraction with lens replacement History of cystoscopy History of open reduction and internal fixation (ORIF) procedure ARM History of total hip arthroplasty LEFT Family History Mother Heart attack Father Heart attack Other Family history non-contributory Social History Communication Ability: Effective Beliefs That Will Affect Care: None marital status: / Current Living Situation: Alone Other Information That Helps Us Care for You: No Feels Safe at Home: Yes Safety Concerns: Feels Safe At This Time Smoking Status: Former smoker Hx Alcohol Use: Yes Hx Substance Use: No Review of Systems Constitutional: no fever and no chills Eyes: no problem reported Ear, Nose, Mouth, Throat: no ear pain Respiratory: + cough; no dyspnea and no hemoptysis Cardiovascular: no chest pain Gastrointestinal: + diarrhea/loose stools (slowing down, 2 episodes yesterday per patient); no nausea, no vomiting and no constipation Genitourinary (Male): + decreased urination; no dysuria, no urinary frequency, no urinary hesitancy, no urinary incontinence, no hematuria, no flank pain and no scrotal swelling Musculoskeletal: no back pain Integumentary: no acne and no rash Neurologic: no numbness and no paresthesia Psychiatric: no behavioral changes Endocrine: no fatigue Hematologic / Lymphatic: no easy bleeding Allergy / Immunological: no itchy eyes and no lip swelling Physical Exam Vital Signs (Past 24 Hours): Last Vital Signs Temp 36.6 C 11/28/18 07:28 Pulse 79 11/28/18 07:28 Resp 20 11/28/18 07:28 BP 127/72 11/28/18 07:28 Pulse Ox 91 11/28/18 07:28 Constitutional: no acute distress Eyes: no nystagmus ENMT: Ears: + hearing impairment; no external ear abnormality Nose: nasal mucous membranes not dry Neck: trachea midline Respiratory: + cough; no respiratory distress, no labored breathing and does not use accessory muscles Cardiovascular: Vessels: no JVD Gastrointestinal (Abdomen): Inspection/Auscultation: abdomen not distended and no abdominal edema Musculoskeletal: Head/Neck/Chest: normocephalic and head atraumatic Skin: no rashes Psychiatric: Orientation: alert and oriented x 3 Genitourinary: no edematous penis, no phimosis (s/p dorsal slit), no meatus abnormal and no testicular swelling Lymphatic: no lymphadenopathy Results & Data Laboratory Results Laboratory Results - last 48 hr 11/26/18 11/26/18 11/26/18 07:06 07:06 11:54 WBC RBC Hgb Hct MCV MCH MCHC RDW Std Deviation RDW Coeff of Akshat Plt Count MPV Immature Gran % (Auto) Neut % (Auto) Lymph % (Auto) [place] % (Auto) Eos % (Auto) Baso % (Auto) Immature Gran # (Auto) Neut # (Auto) Lymph # (Auto) [place] # (Auto) Eos # (Auto) Baso # (Auto) Toxic Vacuolation 2+ Polychromasia Microcytosis Spherocytes Echinocytes Schistocytes Sodium Potassium Chloride Carbon Dioxide Anion Gap BUN Creatinine Est Cr Clr Drug Dosing Est GFR ( Amer) Est GFR (Non-Af Amer) BUN/Creatinine Ratio Glucose POC Glucose 215 H Calcium Phosphorus Magnesium Total Bilirubin AST ALT Alkaline Phosphatase Total Protein Albumin Globulin Albumin/Globulin Ratio Prealbumin Prostate Specific Ag TSH Cortisol AM Sample 20.30 Blood Type Antibody Screen Crossmatch 11/26/18 11/26/18 11/26/18 16:28 18:11 18:11 WBC RBC Hgb Hct MCV MCH MCHC RDW Std Deviation RDW Coeff of [place] Plt Count MPV Immature Gran % (Auto) Neut % (Auto) Lymph % (Auto) [place] % (Auto) Eos % (Auto) Baso % (Auto) Immature Gran # (Auto) Neut # (Auto) Lymph # (Auto) [place] # (Auto) Eos # (Auto) Baso # (Auto) Toxic Vacuolation Polychromasia Microcytosis Spherocytes Echinocytes Schistocytes Sodium 135 L Potassium 3.7 Chloride 105 Carbon Dioxide 20 L Anion Gap 10.0 BUN 16 Creatinine 0.80 Est Cr Clr Drug Dosing 92.3 Est GFR ( Amer) 95.7 Est GFR (Non-Af Amer) 82.6 BUN/Creatinine Ratio 19.4 Glucose 181 H POC Glucose 195 H Calcium 6.6 L Phosphorus Magnesium 1.7 L Total Bilirubin AST ALT Alkaline Phosphatase Total Protein Albumin Globulin Albumin/Globulin Ratio Prealbumin Prostate Specific Ag < 0.010 TSH Cortisol AM Sample Blood Type Antibody Screen Crossmatch 11/26/18 11/26/18 11/26/18 19:33 20:24 21:20 WBC 4.55 L RBC 3.04 L Hgb 7.4 L Hct 23.3 L MCV 76.6 L MCH 24.3 L MCHC 31.8 L RDW Std Deviation 45.4 RDW Coeff of Akshat 16.2 H Plt Count 148 MPV 9.9 Immature Gran % (Auto) 1.1 Neut % (Auto) 68.0 Lymph % (Auto) 19.8 [place] % (Auto) 10.3 Eos % (Auto) 0.4 Baso % (Auto) 0.4 Immature Gran # (Auto) 0.05 H Neut # (Auto) 3.09 Lymph # (Auto) 0.90 L [place] # (Auto) 0.47 Eos # (Auto) 0.02 Baso # (Auto) 0.02 Toxic Vacuolation Polychromasia Microcytosis Spherocytes Occasional Echinocytes Schistocytes Occasional Sodium Potassium Chloride Carbon Dioxide Anion Gap BUN Creatinine Est Cr Clr Drug Dosing Est GFR ( Amer) Est GFR (Non-Af Amer) BUN/Creatinine Ratio Glucose POC Glucose 197 H Calcium Phosphorus Magnesium Total Bilirubin AST ALT Alkaline Phosphatase Total Protein Albumin Globulin Albumin/Globulin Ratio Prealbumin Prostate Specific Ag TSH Cortisol AM Sample Blood Type O Positive Antibody Screen NEGATIVE Crossmatch See Detail 11/27/18 11/27/18 11/27/18 07:15 07:15 08:19 WBC 5.77 RBC 3.19 L Hgb 8.3 L Hct 25.2 L MCV 79.0 L MCH 26.0 MCHC 32.9 RDW Std Deviation 46.8 H RDW Coeff of Akshat 16.1 H Plt Count 140 MPV 9.2 Immature Gran % (Auto) 0.3 Neut % (Auto) 77.4 Lymph % (Auto) 12.1 [place] % (Auto) 9.5 Eos % (Auto) 0.5 Baso % (Auto) 0.2 Immature Gran # (Auto) 0.02 Neut # (Auto) 4.46 Lymph # (Auto) 0.70 L [place] # (Auto) 0.55 Eos # (Auto) 0.03 Baso # (Auto) 0.01 Toxic Vacuolation 1+ Polychromasia Microcytosis Spherocytes Echinocytes 1+ Schistocytes Sodium 135 L Potassium 3.4 L Chloride 106 Carbon Dioxide 21 Anion Gap 9.0 BUN 17 Creatinine 0.67 Est Cr Clr Drug Dosing 110.2 Est GFR ( Amer) 103.0 Est GFR (Non-Af Amer) 88.9 BUN/Creatinine Ratio 24.9 H Glucose 152 H POC Glucose 163 H Calcium 6.7 L Phosphorus 2.5 Magnesium 1.8 Total Bilirubin 0.4 AST 12 L ALT 9 L Alkaline Phosphatase 66 Total Protein 4.5 L Albumin 1.3 L Globulin 3.2 Albumin/Globulin Ratio 0.4 L Prealbumin 5.2 L Prostate Specific Ag TSH 1.150 Cortisol AM Sample Blood Type Antibody Screen Crossmatch 11/27/18 11/27/18 11/27/18 11:30 16:31 19:48 WBC RBC Hgb Hct MCV MCH MCHC RDW Std Deviation RDW Coeff of Akshat Plt Count MPV Immature Gran % (Auto) Neut % (Auto) Lymph % (Auto) [place] % (Auto) Eos % (Auto) Baso % (Auto) Immature Gran # (Auto) Neut # (Auto) Lymph # (Auto) [place] # (Auto) Eos # (Auto) Baso # (Auto) Toxic Vacuolation Polychromasia Microcytosis Spherocytes Echinocytes Schistocytes Sodium Potassium Chloride Carbon Dioxide Anion Gap BUN Creatinine Est Cr Clr Drug Dosing Est GFR ( Amer) Est GFR (Non-Af Amer) BUN/Creatinine Ratio Glucose POC Glucose 177 H 181 H 186 H Calcium Phosphorus Magnesium Total Bilirubin AST ALT Alkaline Phosphatase Total Protein Albumin Globulin Albumin/Globulin Ratio Prealbumin Prostate Specific Ag TSH Cortisol AM Sample Blood Type Antibody Screen Crossmatch 11/28/18 11/28/18 11/28/18 06:48 06:48 07:49 WBC 5.63 RBC 3.25 L Hgb 8.4 L Hct 25.6 L MCV 78.8 L MCH 25.8 MCHC 32.8 RDW Std Deviation 46.9 H RDW Coeff of Akshat 16.2 H Plt Count 128 L MPV 9.4 Immature Gran % (Auto) 0.2 Neut % (Auto) 76.5 Lymph % (Auto) 14.6 [place] % (Auto) 8.3 Eos % (Auto) 0.2 Baso % (Auto) 0.2 Immature Gran # (Auto) 0.01 Neut # (Auto) 4.31 Lymph # (Auto) 0.82 L [place] # (Auto) 0.47 Eos # (Auto) 0.01 Baso # (Auto) 0.01 Toxic Vacuolation Polychromasia 1+ Microcytosis Present Spherocytes Echinocytes 1+ Schistocytes Sodium 134 L Potassium 3.3 L Chloride 105 Carbon Dioxide 22 Anion Gap 7.0 BUN 21 H Creatinine 0.70 Est Cr Clr Drug Dosing 105.4 Est GFR ( Amer) 101.2 Est GFR (Non-Af Amer) 87.3 BUN/Creatinine Ratio 30.1 H Glucose 145 H POC Glucose 151 H Calcium 6.7 L Phosphorus Magnesium Total Bilirubin 0.4 AST 12 L ALT 9 L Alkaline Phosphatase 67 Total Protein 4.8 L Albumin 1.4 L Globulin 3.4 Albumin/Globulin Ratio 0.4 L Prealbumin Prostate Specific Ag TSH Cortisol AM Sample Blood Type Antibody Screen Crossmatch
[2018-11-28] MEDS ORDERED: POTASSIUM CHLORIDE 10 MEQ TABCR PO SCH (09:00)
[2018-11-28] MEDS: PANTOprazole 40 MG TAB PO SCH (09:11)
[2018-11-28] MEDS: CYANOCOBALAMIN 500 MCG TABLET (VITAMIN B-12) PO SCH (09:11)
[2018-11-28] MEDS: guaiFENesin 600 MG TABCR PO SCH (09:11)
[2018-11-28] MEDS: MAGNESIUM OXIDE 400 MG TAB PO SCH (09:11)
[2018-11-28] MEDS: INSULIN ASPART 100 UNITS/ML 3 ML PEN SC SCH (09:13)
[2018-11-28] MEDS: BENZONATATE 100 MG CAPSULE PO SCH ×2 (09:14→12:24)
--- NOTE | 2018-11-28 09:51 | Hospitalist Progress Note ---
Date of Service November 28, 2018 Assessment & Plan (1) C. difficile colitis: 83-year-old male admitted on November 14 2018 because of nausea vomiting abdominal pain and diarrhea, Was found to have C. difficile diarrhea, later developed pseudoobstruction with abd distention, right hip previous procedure area close pseudomonal possible, and had urinary retention required a straight caths as needed C. difficile diarrhea, In the beginning diarrhea up to 6 a day liquid incontinent after recent hip surgery, associated with nausea and vomiting however for recent several days diarrhea is about 2-3 times a day, yesterday was once today has no bowel movement yet However patient reported significant abdominal distention, no appetite to eat, no nausea vomiting , denies fever chills, C. difficile colitis: The diarrhea seems to seems improving/ stable after fidaxomicin , IV Flagyl started by ID, IV Flagyl was discontinued by infectious disease yesterday , fidaxomicin was changed to oral Vanco by GI yesterday Acute on chronic anemia, with history of iron deficiency, currently is Hemoccult positive Differential diagnosis include lower GI bleeding and hemarrhoid Patient got 1 unit blood transfusion on November 26, 2018,Will continue follow-up H&H, GI on the case Urinary retention, straight caths as needed, checking PSA which was normal, has started Flomax, Urology consulted, PSA<0.01 Moderate to severe protein malnutrition, dietitian talk to patient, increased protein intake Generalized weakness, worse today , possible because several reasons such as anemia, hypokalemia, and moderate malnutrition , recent hip surgery and multiple hospital stay Hoarse voice, and goes, getting worse in recent 2-3 days, Remote history of smoking, Possible from acid reflux because patient report acid reflux denies postnasal drip Start Protonix p.o. hip joint replacement status: Local incision looks mild wet and red, nontender, orthopedist service is follow-up, Dr. Soni saw the patient he feels xavi can be continued and can be removed in 1-2-week in the follow-up visit with him, lab report has clubbing of pseudomonal today, talked to infectious disease service and will make the decision of antibiotics such as cefepime or not Hypertension, well controlled diabetic, continue current medicine Again With present of registered nurse, with patient, nephew, and 2 daughters in bedside Discussed about the options for the treatment of pseudo-obstruction in the bowel Option 1 conservative treatment with increase activity up and walk Option 2 is transferred to ICU with the risks included but not limited to bowel perforation, cardiac arrest, arrhythmia by giving neostigmine injection with backup of cardiology and thermoscrew operator try to treat the medical condition of pseudoobstruction Options 3 is transferred to [facility] have further evaluation and treatment, including neostigmine injection Patient, and family include her nephew and daughters fully understand and agreed, now is thinking about what will be the choice and will let us know, Patient and family will need to talk to GI service small Patient was decided to be transferred to [facility], especially in a request to [facility] for further evaluation and treatment, especially they would like to have the possible neostigmine injection to be done in the [facility], I personally feel it is reasonable to transfer to higher level care to have the procedure done. On november . I talkd to [facility] [place]. Brooks, and Dr. Freeman, about the transferring, after going through the case and they recommended to repeat abdominal CT to see the distention of colon by Comparing to previous CT studies on November 24, 2018. The imaging study was done, and I called to radiologist service, the transverse colon was distended at 8.1 cm, and the sigmoid colon was distended at 7.3 cm. Per the radiologist by comparing the previous CT studies there was no changes. Patient complains significant uncomfortable of distention and not anyhow getting better for several days. This morning I called to [facility], transferring service, talk to Dr. Gonsalves, and Dr. Bishop, after going through all the case, they recommend nothing by mouth, IV fluid, NG tube, and vancomycin enema, and okay to accepting him if have bed available. I talked to lining caser, talked to patient and family about the recommendation of Yanni, the family include the patient, daughter Luís over the phone and nephew Trey in bedside, with registered nurse Abram in bedside 2, they declined NG tube for now , and no vanco enema before talking to GI but okay nothing by mouth and IV fluid, Jannette will talk to Dr. Denis and then go from there Subjective Patient report doing the same, abdominal distention the same and uncomfortable , generalized weakness, no bowel movement yet Was up to restroom, has urination Still has hoarse voice Denies fever and chills, dry cough is better Review of Systems Constitutional: Positive weakness, or fatigue Respiratory: Dry cough , no sputum, no wheezing, Cardiac: No chest pain, No orthopnea, No PND, Abdomen: No pain, No nausea, No vomiting, Musculoskeletal: No joint pain, No muscle pain, No swelling, No calf pain, No problem reported : Denies dysuria urgency and frequency, however had urinary retention Neurologic: No paralysis, No weakness, No numbness/tingling, No vertigo, No balance problems Psychiatric: No depression symptoms, No anhedonism, No anxiety, Heme: No abnormal bleeding/bruising, No clotting problems, Skin: right lateral hip xavi in place, No new/changing skin lesions, No color change, No bleeding Physical Exam Vital Signs (Past 24 Hours): Last Vital Signs Temp 36.6 C 11/28/18 07:28 Pulse 79 11/28/18 07:28 Resp 20 11/28/18 07:28 BP 127/72 11/28/18 07:28 Pulse Ox 91 11/28/18 07:28
[2018-11-28] MEDS ORDERED: POTASSIUM CHLORIDE 10 MEQ in SODIUM CHLORIDE 0.9% 1000ML 1,000 ML IV SCH (11:15)
[2018-11-28] MEDS ORDERED: Nursing to Pharmacy Communication ONE (11:31)
[2018-11-28] MEDS ORDERED: INSULIN ASPART 100 UNITS/ML 3 ML PEN SC SCH (12:00)
--- NOTE | 2018-11-28 18:44 | Discharge Summary ---
Date of Service November 28, 2018 Principal Diagnosis no Discharge Data Allergies Allergy/AdvReac Type Severity Reaction Status Date / Time metformin Allergy Unknown MUSCLE Verified 11/14/18 10:39 ACHES Hdqlwkz-Lyz-Gge Reductase Allergy Unknown MUSCLE Verified 11/14/18 10:39 Inhibitor ACHES Unclassified Drugs Allergy Unknown RED YEAST Uncoded 11/14/18 10:39 RICE-MUSCLE ACHES Consultations 11/14/18 13:13 ED Decision to Admit Stat 11/14/18 16:18 Consult Case Management - Discharge Planning Routine 11/16/18 12:40 Consult Orthopedic Surgery Routine 11/16/18 14:54 Consult General Surgery Routine 11/16/18 16:02 Consult Gastroenterology Routine Consult Infectious Diseases Routine 11/24/18 09:24 Consult Gastroenterology Routine 11/25/18 15:12 Consult Cardiology Routine 11/27/18 15:18 Consult Urology Routine 11/27/18 18:09 Burn CD for patient Stat Ordered Studies 11/14/18 12:00 CT abd pelvis wo con Stat 11/24/18 16:47 CT abd pelvis oral con only Routine 11/25/18 14:45 US retro bladder ltd Stat 11/27/18 18:35 CT abd pelvis oral con only Stat Hospital Course (1) C. difficile colitis: 83-year-old male admitted on November 14 2018 because of nausea vomiting abdominal pain and diarrhea, Was found to have C. difficile diarrhea, later developed pseudoobstruction with abd distention, right hip previous procedure area close pseudomonal possible, and had urinary retention required a straight caths as needed C. difficile diarrhea, In the beginning diarrhea up to 6 a day liquid incontinent after recent hip surgery, associated with nausea and vomiting however for recent several days diarrhea is about 2-3 times a day, yesterday was once today has no bowel movement yet However patient reported significant abdominal distention, no appetite to eat, no nausea vomiting , denies fever chills, C. difficile colitis: The diarrhea seems to seems improving/ stable after fidaxomicin , IV Flagyl started by ID, IV Flagyl was discontinued by infectious disease yesterday , fidaxomicin was changed to oral Vanco by GI yesterday Acute on chronic anemia, with history of iron deficiency, currently is Hemoccult positive Differential diagnosis include lower GI bleeding and hemarrhoid Patient got 1 unit blood transfusion on November 26, 2018,Will continue follow-up H&H, GI on the case Urinary retention, straight caths as needed, checking PSA which was normal, has started Flomax, Urology consulted, PSA<0.01 Moderate to severe protein malnutrition, dietitian talk to patient, increased protein intake Generalized weakness, worse today , possible because several reasons such as anemia, hypokalemia, and moderate malnutrition , recent hip surgery and multiple hospital stay Hoarse voice, and goes, getting worse in recent 2-3 days, Remote history of smoking, Possible from acid reflux because patient report acid reflux denies postnasal drip Start Protonix p.o. hip joint replacement status: Local incision looks mild wet and red, nontender, orthopedist service is follow-up, Dr. Soni saw the patient he feels xavi can be continued and can be removed in 1-2-week in the follow-up visit with him, lab report has clubbing of pseudomonal today, talked to infectious disease service and will make the decision of antibiotics such as cefepime or not Hypertension, well controlled diabetic, continue current medicine Again With present of registered nurse, with patient, nephew, and 2 daughters in bedside Discussed about the options for the treatment of pseudo-obstruction in the bowel Option 1 conservative treatment with increase activity up and walk Option 2 is transferred to ICU with the risks included but not limited to bowel perforation, cardiac arrest, arrhythmia by giving neostigmine injection with backup of cardiology and electrical high tension tester try to treat the medical condition of pseudoobstruction Options 3 is transferred to [facility] have further evaluation and treatment, including neostigmine injection Patient, and family include her nephew and daughters fully understand and agreed, now is thinking about what will be the choice and will let us know, Patient and family will need to talk to GI service small Patient was decided to be transferred to [facility], especially in a request to [facility] for further evaluation and treatment, especially they would like to have the possible neostigmine injection to be done in the [facility], I personally feel it is reasonable to transfer to higher level care to have the procedure done. On november . I talkd to [facility] Dr. Brooks, and Dr. Freeman, about the transferring, after going through the case and they recommended to repeat abdominal CT to see the distention of colon by Comparing to previous CT studies on November 24, 2018. The imaging study was done, and I called to radiologist service, the transverse colon was distended at 8.1 cm, and the sigmoid colon was distended at 7.3 cm. Per the radiologist by comparing the previous CT studies there was no changes. Patient complains significant uncomfortable of distention and not anyhow getting better for several days. This morning I called to [facility], transferring service, talk to Dr. Gonsalves, and Dr. Bishop, after going through all the case, they recommend nothing by mouth, IV fluid, NG tube, and vancomycin enema, and okay to accepting him if have bed available. I talked to caser in, talked to patient and family about the recommendation of Yanni, the family include the patient, daughter Luís over the phone and nephew Trey in bedside, with registered nurse Abram in bedside 2, they declined NG tube for now , and no vanco enema before talking to GI but okay nothing by mouth and IV fluid, Jannette will talk to Dr. Denis and then go from there Physical exam and lab data please see today's progress note Total Time Total Time Spent Total Time Spent (In Minutes): 70min Total Time Includes: Examination of the Patient, Discharge Planning, Medication Reconciliation and Communication With Other Providers Discharge Plan Discharge Items Patient Disposition: Transfer Acute Care Hospital Reason For Visit: GASTROENTERITIS Discharge Diagnosis: cdiff colitis, possible pseudoobstruction Condition: Fair Discharge Goals: Decrease discomfort and Diagnostic testing Activity: As commented below Non-emergency contact: Primary Care Provider Call non-emergency contact if: you have any medication questions Follow-up/Referrals: Darryn Varela MD [Primary Care Provider] - 11/22/18 12:50 pm (Please, follow up at Dr. Varela' office with his associate, Dr. Self, on TuesdayNovember 22 at 12:50 pm. *If you need to change this appointment, call the office at [phone].) Diet: Regular Addtl Provider Instructions: you have cdiff colitis, possible pseudoobstruction I am transferring you to [facility] Please follow-up PCP after discharge from [facility] Prescriptions: Discontinued cyanocobalamin (vitamin B-12) [Vitamin B-12] 1,000 mcg Tablet 1,000 mcg PO QAM RF: 0 Stool Softener 50 mg Capsule 50 mg PO BID RF: 0 losartan 25 mg Tablet 25 mg PO BID RF: 0 Januvia 100 mg Tablet 100 mg PO QAM RF: 0 Invokana 100 mg Tablet 100 mg PO QAM RF: 0 ferrous gluconate 324 mg (38 mg iron) Tablet 324 mg PO BIDM 30 Days Qty: 60 RF: 0 acetaminophen [Pain Reliever] 500 mg Tablet 1,000 mg PO Q8 30 Days Qty: 180 RF: 0 aspirin [Ecotrin Low Strength] 81 mg Tablet,Delayed Release (Dr/Ec) 81 mg PO BID 45 Days Qty: 90 RF: 0 Stand-Alone Forms: [facility] Discharge Orders: Discharge Order (Routine); Ordered 11/28/18 Ordered By: Lino Trammell Admission Data Admit Date/Time: 11/14/18 13:52 Attending Provider: Lino Trammell Admit Provider: Mirella Jack Primary Care Provider: Darryn Varela Other Providers: Per Ambriz ; Librado Soni ; Anibal Tovar ; Suzi Montez Evan T. ; Stephen Lynne ; Shane Denis ; Akil Sanchez ; Geovanny Arredondo Service: Medical Other Interventions: Discharge Summary Assessment (RN) Last Done: 11/28/18 14:32 DC Date/Time DO NOT enter until pt leaves facility: 11/28/18 17:40
--- NOTE | 2018-12-19 08:06 | Coding Query ---
MALNUTRITION To promote full compliance with coding requirements relating to patient care, physician participation is requested in all cases of secretary of state uncertainty. Please assist us with the question(s) below: Please place an X within the parenthesis (x). If other, please document: Moderate to Severe Protein Calorie Malnutrition was documented Please clarify this diagnosis below: ( ) Moderate malnutrition that has progressed to severe ( x) possible Malnutrition that is moderate but hasn't yet reached severe ( ) Other: Please specify Was this diagnosis present on admission? Please place an X within the parenthesis (x). ( ) Present on admission ( ) Not present on admission ( ) Unable to be clinically determined Thank you Genia HORN
== END 2018-11-28 17:40 | disposition short-term general hospital (02) | DRG 372 ==
LOC: EDACCT# → ED 09:26 → SUATTDRO 13:52 → 4W 13:52

== ENCOUNTER 2019-07-27 16:59 | Inpatient (IN) ==
[2019-07-27 17:45] LABS: Eosinophils # (auto) 0.01 K/uL (0-0.5); Eosinophils % (auto) 0.6 %; Hematocrit (blood only) 27.9 % (42-52); Hemoglobin 8.7 g/dL (14.0-18.0); Immature Granulocytes # (auto) 0.01 K/uL (0.00-0.02); Immature Granulocytes % (auto) 0.6 %; Lymphocytes # (auto) 0.09 K/uL (1.2-3.4); Mean Corpuscular Hgb Conc 31.2 g/dL (32-36); Mean Corpuscular Volume 80.2 fL (80-100); Mean Platelet Volume 9.3 fL (7.4-10.4); Monocytes # (auto) 0.03 K/uL (0.11-0.59); Monocytes % (auto) 1.7 %; Neutrophils # (auto) 1.65 K/uL (1.4-6.5); Neutrophils % (auto) 92.1 %; Platelet Count 126 K/uL (130-400); RDW Coefficient of Variation 20.3 % (11.5-14.5); Red Blood Count 3.48 M/uL (4.7-6.1); White Blood Count 1.79 K/uL (4.8-10.8)
[2019-07-27] MEDS ORDERED: Heparin IV Standard *NO* Bolus IV ONE (17:50)
[2019-07-27] MEDS ORDERED: ENOXAPARIN 1 MG/KG SC ONE (17:54)
--- NOTE | 2019-07-27 17:58 | Emergency Department Note ---
Entered by Tanisha Salcedo acting as a scribe for History of Present Illness General Chief complaint: Abnormal Labs/Diagnostic Testing Stated complaint: DVT, RT LLE Source: patient Limitations: no limitations History of Present Illness Onset (ago): hour(s) 1 Location: upper extremity (right) Pain Consistency: + constant Quality: + other (swelling) Associated symptoms: no chest pain and no shortness of breath The patient is an 84 year old male who presents to the Emergency Room with complaints of constant right upper extremity swelling that began about an hour ago. He states that he had chemotherapy 3 days ago and radiation earlier today for his esophageal and colon cancer. The patient states that he was at the cancer center receiving fluids through the port in his RUE, and he was sent here for the swelling in his arm that occurred after the fluids were administered. He states that he had a Doppler of the arm done. The patient denies any SOB and chest pain. He denies taking any blood thinners. Home Medications Home Medications Medication Instructions Recorded Confirmed Type cyanocobalamin (vitamin B-12) 1,000 mcg PO QAM 05/16/19 07/27/19 History [Vitamin B-12] docusate sodium [Stool Softener] 100 mg PO BID 05/16/19 07/27/19 History ferrous sulfate 325 mg PO QAM 05/16/19 07/27/19 History midodrine 2.5 mg tablet 2.5 - 5 mg PO BID tab 06/21/19 07/27/19 History ondansetron HCl 8 mg tablet 8 mg PO QID tab 07/23/19 07/27/19 History ranitidine HCl [Zantac] 150 mg PO TID 07/27/19 07/27/19 History Allergies Allergy/AdvReac Type Severity Reaction Status Date / Time metformin AdvReac Intermediate MUSCLE Verified 07/27/19 19:22 ACHES Ykkzxhs-Fqt-Aqr Reductase AdvReac Intermediate MUSCLE Verified 07/27/19 19:22 Inhibitor ACHES Unclassified Drugs Allergy Intermediate RED YEAST Uncoded 07/27/19 19:22 RICE-MUSCLE ACHES Past Med/Surg History Medical History C. difficile colitis Colon cancer (Acute) Diagnosed 06/13/19 Esophageal cancer (Acute) Diagnosed 05/18/19 Hip replacement planned (Acute) right Acid reflux Bradycardia ASYMPTOMATIC Diabetes mellitus, type 2 DIET CONTROLLED (MOST RECENT A1C 5.3 PER PT REPORT) History of cardiac arrhythmia PT HAD HOLTER SHOWING NSR WITH INTERMITTENT EPISODES OF ATRIAL TACHYCARDIA. History of prostate cancer 1999's S/P BRACHYTHERAPY Hypotension Iron deficiency Osteoarthritis Poor appetite Port-A-Cath in place (07/02/19) Access port placement. Dr. Vidales 07/02/19 SOB (shortness of breath) on exertion Weight loss REPORTS 45 LB WT LOSS SINCE Surgical History History of brachytherapy 1999's for Prostate Cancer History of cataract extraction with lens replacement 06/2018, 07/2018 History of colonoscopy 2018 History of cystoscopy History of esophagogastroduodenoscopy (EGD) History of open reduction and internal fixation (ORIF) procedure 1997 - LT ARM History of prostate biopsy History of total hip arthroplasty 02/2018 - Left Hip, 10/2018 - Right Hip Family History Grandmother (Maternal) , Passed age 82 of unknown cancer No problems noted. Mother , Passed age 62 of [place] Heart disease Father , Passed age 56 of [place] Heart disease Brother , Passed age 68 of metastatic Lung Cancer No problems noted. Brother , Passed age 38 of suicide No problems noted. Sister , Passed age 62 Ovarian Cancer (also history of Breast CA 20 yrs prior) No problems noted. Sister , Passed age 71 of Lung Cancer (Heavy Smoker) No problems noted. Daughter No problems noted. Daughter No problems noted. Other Cancer Family history non-contributory Social History Preferred Language: Lithuanian Communication Ability: Effective Visual Impairment: No Limitations Hearing Ability: Normal Senior C Web Developer Required: No Beliefs That Will Affect Care: None marital status: / Current Living Situation: Alone current occupational status: retired current occupation: Retired at [employer] Other Information That Helps Us Care for You: No Feels Safe at Home: Yes Safety Concerns: Feels Safe At This Time Smoking Status: Former smoker Tobacco Type: cigarettes ; Cigarettes Per Day: H/O 1PPD x 20yrs ; Do You Dip or Chew Tobacco: No ; Second Hand Exposure: No ; Hx Alcohol Use: Yes Alcohol type: beer Alcohol Intake Frequency: Holidays/Special Occasions Hx Substance Use: No Childhood Exposure to Second-Hand Smoke: Yes caffeine: No Dental Care, Regularly: No Review of Systems See HPI for pertinent positives & negatives. and A total of 10 systems reviewed and were otherwise negative Physical Exam Vital Signs Vital Signs - 24 hr 07/27/19 17:02 07/27/19 18:13 07/27/19 18:18 Temperature 36.3 C L Temperature Source Oral Sepsis Recent Fever Within 48 Hours No Sepsis New/Unexplained Change in Mental Status No Sepsis Action Taken by Nursing No Action Required Pulse Rate 71 63 Pulse Rate from SpO2 Sensor 61 Respiratory Rate 20 17 Respiratory Effort / Characteristics Non-Labored Spontaneous Respiratory Depth Normal Respiratory Pattern Regular Blood Pressure 122/77 Blood Pressure Mean 92 Blood Pressure Position Sitting Pulse Oximetry 99 98 97 Oxygen Delivery Method Room Air Room Air 07/27/19 18:30 Temperature Temperature Source Sepsis Recent Fever Within 48 Hours Sepsis New/Unexplained Change in Mental Status Sepsis Action Taken by Nursing Pulse Rate 72 Pulse Rate from SpO2 Sensor 65 Respiratory Rate 18 Respiratory Effort / Characteristics Respiratory Depth Respiratory Pattern Blood Pressure Blood Pressure Mean Blood Pressure Position Pulse Oximetry 100 Oxygen Delivery Method GENERAL: Patient is awake, alert, and in no acute distress.Patient is resting comfortably and showing no signs of anxiety EYES: The conjunctivae are clear. The pupils are round and reactive. EARS, NOSE, MOUTH AND THROAT: The nose is without any evidence of any deformity. Mucous membranes are moist.Tongue is midline NECK: The neck is nontender and supple. RESPIRATORY: Diminished breath sounds are noted throughout. CARDIOVASCULAR: Regular rate and rhythm noted. There no murmurs rubs or gallops normal S1 normal S2 GASTROINTESTINAL: The abdomen is soft. Bowel sounds are present in all quadrants. Abdomen is nontender. MUSCULOSKELETAL/EXTREMITIES: There is no evidence of gross deformity. Full range of motion is noted in the hips and shoulders. SKIN: There is no obvious evidence of any rash. Pedal edema was noted bilaterally in the lower extremities. There was also edema in the right upper extremity. Right upper extremity was warm but signs of venous stasis were noted. NEUROLOGIC: Patient is awake alert and oriented x3. Course 1714: The patient was evaluated in room C03. A complete history and physical exam was performed. 1745: I spoke with Dr. Godoy, [facility] oncology, about the patients case. 1755: I spoke with Dr. Martino, [facility] hospitalist, about the patients case. Dr. Martino will further evaluate the patient 1802: I updated the patient on the plan. He was in agreement. Administered Medications Insulin Aspart (Novolog Flexpen) 0 units SC ACHS OMAR Stop: 08/26/19 20:59 Last Admin: 07/27/19 20:49 Dose: Not Given Documented by: [id number] Cosigned by: [id number] Ioversol (Optiray 320 125ml) 118 ml IV ONCE PRN PRN Reason: Interaction Checking Stop: 07/31/19 19:46 Last Admin: 07/27/19 19:47 Dose: 118 ml Documented by: [id number] Discontinued Medications Enoxaparin Sodium (Lovenox 1 Mg/Kg Providers Use Dosing Set) 90 mg 1 mg/kg (90 mg) SC ONE ONE Stop: 07/27/19 17:55 Last Admin: 07/27/19 18:26 Dose: 90 mg Documented by: [id number] Enoxaparin Sodium (Lovenox) 90 mg SQ ONE ONE Stop: 07/27/19 18:16 Last Admin: 07/27/19 18:26 Dose: 90 mg Documented by: [id number] Heparin Sodium/Dextrose () 1 ea IV ONE ONE; Protocol Stop: 07/27/19 17:51 Last Admin: 07/27/19 18:26 Dose: Not Given Documented by: [id number] Heparin Sodium/Dextrose (Heparin Sodium/Dextrose) 25,000 units in 500 mls @ 0.02 mls/hr IV .Q24H OMAR; Protocol Stop: 08/26/19 17:59 Last Admin: 07/27/19 18:26 Dose: Not Given Documented by: [id number] Medical Decision Making Differential Diagnosis Etiologies such as DVT, vascular ischemia, radiculopathy, fracture, hematoma/contusion, myositis, abscess, septic arthritis cellulitis, joint effusion, trauma, lymphedema, idiopathic, CHF, as well as others were entertained. Medical Records Attestation: I reviewed the patient's medical records. Home Medications Current Medication List: was personally reviewed by me Laboratory Data Attestation: I reviewed the patient's lab results. Result diagrams: 07/27/19 17:25 07/27/19 17:25 Lab Results 07/27/19 07/27/19 07/27/19 Range/Units 17:25 17:25 17:25 WBC 1.79 L (4.8-10.8) K/uL RBC 3.48 L (4.7-6.1) M/uL Hgb 8.7 L (14.0-18.0) g/dL Hct 27.9 L (42-52) % MCV 80.2 (80-100) fL MCH 25.0 (25-34) pg MCHC 31.2 L (32-36) g/dL RDW Std Deviation 58.0 H (36.4-46.3) fL RDW Coeff of Akshat 20.3 H (11.5-14.5) % Plt Count 126 L (130-400) K/uL MPV 9.3 (7.4-10.4) fL Immature Gran % (Auto) 0.6 % Neut % (Auto) 92.1 % Lymph % (Auto) 5.0 % [place] % (Auto) 1.7 % Eos % (Auto) 0.6 % Baso % (Auto) 0.0 % Immature Gran # (Auto) 0.01 (0.00-0.02) K/uL Neut # (Auto) 1.65 (1.4-6.5) K/uL Lymph # (Auto) 0.09 L (1.2-3.4) K/uL [place] # (Auto) 0.03 L (0.11-0.59) K/uL Eos # (Auto) 0.01 (0-0.5) K/uL Baso # (Auto) 0.00 (0-0.2) K/uL Giant Platelets 1+ Hypochromasia Present Anisocytosis Present PT Cancelled INR Cancelled APTT Cancelled PTT Ratio Cancelled Sodium 136 (136-145) mmol/L Potassium 3.8 (3.5-5.1) mmol/L Chloride 105 (98-107) mmol/L Carbon Dioxide 24 (21-32) mmol/L Anion Gap 7.0 (3-11) BUN 17 (7-18) mg/dl Creatinine 0.81 (0.6-1.4) mg/dl Est Cr Clr Drug Dosing 76.7 ml/min Est GFR ( Amer) 94.6 Est GFR (Non-Af Amer) 81.6 BUN/Creatinine Ratio 20.6 H (10-20) Glucose 125 H (70-99) mg/dl Calcium 7.6 L (8.5-10.1) mg/dl Total Bilirubin 0.3 (0.2-1) mg/dl AST 5 L (15-37) U/L ALT 6 L (12-78) U/L Alkaline Phosphatase 91 (45-117) U/L Troponin I < 0.015 (0-0.045) ng/ml Total Protein 5.5 L (6.4-8.2) gm/dl Albumin 2.2 L (3.4-5.0) gm/dl Globulin 3.3 (2.5-4.0) gm/dl Albumin/Globulin Ratio 0.7 L (0.9-2) Lipase 74 (73-393) U/L 07/27/19 Range/Units 18:13 WBC (4.8-10.8) K/uL RBC (4.7-6.1) M/uL Hgb (14.0-18.0) g/dL Hct (42-52) % MCV (80-100) fL MCH (25-34) pg MCHC (32-36) g/dL RDW Std Deviation (36.4-46.3) fL RDW Coeff of Akshat (11.5-14.5) % Plt Count (130-400) K/uL MPV (7.4-10.4) fL Immature Gran % (Auto) % Neut % (Auto) % Lymph % (Auto) % [place] % (Auto) % Eos % (Auto) % Baso % (Auto) % Immature Gran # (Auto) (0.00-0.02) K/uL Neut # (Auto) (1.4-6.5) K/uL Lymph # (Auto) (1.2-3.4) K/uL [place] # (Auto) (0.11-0.59) K/uL Eos # (Auto) (0-0.5) K/uL Baso # (Auto) (0-0.2) K/uL Giant Platelets Hypochromasia Anisocytosis PT 11.4 INR 1.1 APTT 24.7 PTT Ratio 0.9 Sodium (136-145) mmol/L Potassium (3.5-5.1) mmol/L Chloride (98-107) mmol/L Carbon Dioxide (21-32) mmol/L Anion Gap (3-11) BUN (7-18) mg/dl Creatinine (0.6-1.4) mg/dl Est Cr Clr Drug Dosing ml/min Est GFR ( Amer) Est GFR (Non-Af Amer) BUN/Creatinine Ratio (10-20) Glucose (70-99) mg/dl Calcium (8.5-10.1) mg/dl Total Bilirubin (0.2-1) mg/dl AST (15-37) U/L ALT (12-78) U/L Alkaline Phosphatase (45-117) U/L Troponin I (0-0.045) ng/ml Total Protein (6.4-8.2) gm/dl Albumin (3.4-5.0) gm/dl Globulin (2.5-4.0) gm/dl Albumin/Globulin Ratio (0.9-2) Lipase (73-393) U/L Imaging Data Radiologist's Impression: Radiology results as stated below per my review and the radiologist's interpretation: XR chest 1V portable CLINICAL HISTORY: Chest pain. Esophageal cancer. COMPARISON STUDY: PET/CT June 06, 2019. Chest radiograph July 02, 2019. FINDINGS: Right subclavian [id number] is in place. Note is made of moderate cardiomegaly. Interstitial thickening is likely chronic. There may be left basilar opacity with this was not evident on exam of July 02, 2019. No pneumothorax or pleural effusion is identified. IMPRESSION: 1. Possible left basilar airspace opacity. This may reflect atelectasis or consolidation. 2. Interstitial thickening which is chronic. Electronically signed by: Rod Servin M.D. 07/27/2019 6:42 PM ECG Data Attestation: I personally reviewed and interpreted this ECG as follows: Indication: + other (suspected DVT) Rate (beats per minute): 67 Rhythm: + sinus rhythm ECG Findings: + PACs, + PVCs and + Other (no acute ST segments) Comparison ECG Date: from (07/02/19) Change: no significant change Blood Pressure Blood Pressure Findings: Elevated blood pressure Blood Pressure Disposition: further management by hospitalist REED Walker The patient is an 84-year-old male who presented to the emergency department with swelling in his right upper extremity. The patient was found to have a DVT in his right upper extremity. He does have a port in his right chest for chemotherapy. The patient has an extensive DVT which includes his subclavian as well as his axillary vein on the right. There is some venous stasis changes to the right upper extremity and I was concerned that he may require inpatient therapy. He was started on Lovenox in the emergency department. I discussed the patient's laboratory and radiographic studies with the on-call [facility] hospitalist. They have agreed to evaluate the patient in the emergency department for further management disposition. I discussed the patient's la boratory and radiographic studies with him and his family member. Impression & Plan Acute deep vein thrombosis (DVT) of right upper extremity Critical Care Time Critical Care Time: Yes Total Critical Care Time: 45 I have personally spent greater than 45 minutes of critical care time in the direct management of this patient. This includes bedside care, interpretation of diagnostic studies, and testing, discussion with consultants, patient, and f amily members, and other required patient management activities. This 45 minutes is in excess of all separately billable procedures. Discharge Plan Visit Data *Final* Discharge Date/Time: 07/27/19 19:10 Chief Complaint: Abnormal Labs/Diagnostic Testing Stated Complaint: DVT, RT LLE ED Provider: Sandeep Frost Discharge Problem: Acute deep vein thrombosis (DVT) of right upper extremity Patient Disposition: Admitted As Inpatient Discharge Instructions Interventions: ED Discharge Assessment Last Done: 07/27/19 19:10 Discharge Problem: Acute deep vein thrombosis (DVT) of right upper extremity Qualifiers: Affected thrombotic vein of extremity: unspecified vein of extremity Qualified Code(s): I82.621 - Acute embolism and thrombosis of deep veins of right upper extremity The scribe's documentation has been prepared under my direction and personally reviewed by me in its entirety. I confirm that the note above accurately reflects all work, treatment, procedures, and medical decision making performed by me.
[2019-07-27] MEDS ORDERED: HEPARIN SODIUM/DEXTROSE 25,000 UNITS/500 ML BAG IV SCH (18:00)
[2019-07-27 18:05] LABS: Alanine Aminotransferase 6 U/L (12-78); Albumin Level 2.2 gm/dl (3.4-5.0); BUN Creatinine Ratio 20.6 (10-20); Blood Urea Nitrogen 17 mg/dl (7-18); Calcium 7.6 mg/dl (8.5-10.1); Carbon Dioxide 24 mmol/L (21-32); Chloride 105 mmol/L (98-107); Creatinine Clr Calc Pharmacy 76.7 ml/min; Est GFR (African American) 94.6; Est GFR (Non-African American) 81.6; Glucose 125 mg/dl (70-99); Lipase 74 U/L (73-393); Potassium 3.8 mmol/L (3.5-5.1); Sodium 136 mmol/L (136-145)
[2019-07-27 18:07] LABS: Anisocytosis Present; Giant Platelets 1+; Hypochromasia Present
[2019-07-27 18:10] LABS: Albumin Globulin Ratio 0.7 (0.9-2); Alkaline Phosphatase 91 U/L (45-117); Aspartate Aminotransferase 5 U/L (15-37); Bilirubin,Total 0.3 mg/dl (0.2-1); Globulin 3.3 gm/dl (2.5-4.0); Total Protein 5.5 gm/dl (6.4-8.2); Troponin I < 0.015 ng/ml (0-0.045)
[2019-07-27] MEDS ORDERED: ENOXAPARIN 100 MG/1ML SYR SQ ONE (18:15)
--- NOTE | 2019-07-27 18:30 | History & Physical Report ---
Date of Service July 27, 2019 Assessment & Plan (1) Acute deep vein thrombosis (DVT) of right upper extremity: Patient started on Lovenox in the ER. Continue the same. Consult hematology. We will check Doppler of the legs to evaluate lower extremity DVT. Check CT scan of the chest to rule out PE. (2) Acute deep vein thrombosis (DVT) of axillary vein of right upper extremity: (3) DM type 2 (diabetes mellitus, type 2): We will add sliding-scale insulin per protocol. (4) Esophagus cancer: Patient currently undergoing chemotherapy and radiation. (5) Colon cancer, ascending: Being followed with oncology. (6) Pancytopenia: Probably secondary to chemotherapy and radiation therapy. Repeat labs in a.m. History of Present Illness Chief Complaint: Right arm pain and swelling Primary Care Provider: Darryn Varela MD The patient is 84-year-old male who was recently diagnosed with esophageal cancer and colon cancer. He is being followed up by oncologist, and is undergoing chemotherapy and radiation therapy in anticipation of surgery. Today he was at infusion center receiving chemotherapy infusion through his right chest port and after that he noticed increasing pain and swelling in the right upper extremity. He was referred to the hospital. Venous Doppler showed extensive occlusive DVT of the right upper extremity. He was started on Lovenox and will be admitted for further evaluation and management. He has also noted swelling of the legs for last few days. Allergies Allergy/AdvReac Type Severity Reaction Status Date / Time metformin AdvReac Intermediate MUSCLE Verified 07/27/19 19:22 ACHES Fzlnsjq-Oiy-Aup Reductase AdvReac Intermediate MUSCLE Verified 07/27/19 19:22 Inhibitor ACHES Unclassified Drugs Allergy Intermediate RED YEAST Uncoded 07/27/19 19:22 RICE-MUSCLE ACHES Home Medications Home Medications Medication Instructions Recorded Confirmed Type cyanocobalamin (vitamin B-12) 1,000 mcg PO QAM 05/16/19 07/23/19 History [Vitamin B-12] docusate sodium [Stool Softener] 100 mg PO BID 05/16/19 07/23/19 History ferrous sulfate 325 mg PO QAM 05/16/19 07/23/19 History midodrine 2.5 mg tablet 2.5 - 5 mg PO BID tab 06/21/19 07/23/19 History ondansetron HCl 8 mg tablet 8 mg PO QID tab 07/23/19 07/23/19 History ranitidine HCl [Zantac] 150 mg PO TID 07/27/19 07/27/19 History Past Med/Surg History Medical History C. difficile colitis Colon cancer (Acute) Diagnosed 06/13/19 Esophageal cancer (Acute) Diagnosed 05/18/19 Hip replacement planned (Acute) right Acid reflux Bradycardia ASYMPTOMATIC Diabetes mellitus, type 2 DIET CONTROLLED (MOST RECENT A1C 5.3 PER PT REPORT) History of cardiac arrhythmia PT HAD HOLTER SHOWING NSR WITH INTERMITTENT EPISODES OF ATRIAL TACHYCARDIA. History of prostate cancer 1999's S/P BRACHYTHERAPY Hypotension Iron deficiency Osteoarthritis Poor appetite Port-A-Cath in place (07/02/19) Access port placement. Dr. Vidales 07/02/19 SOB (shortness of breath) on exertion Weight loss REPORTS 45 LB WT LOSS SINCE Surgical History History of brachytherapy 1999' for Prostate Cancer History of cataract extraction with lens replacement 06/2018, 07/2018 History of colonoscopy 2018 History of cystoscopy 1999' History of esophagogastroduodenoscopy (EGD) History of open reduction and internal fixation (ORIF) procedure 1997 - LT ARM History of prostate biopsy 1999' History of total hip arthroplasty 02/2018 - Left Hip, 10/2018 - Right Hip Family History Grandmother (Maternal) , Passed age 82 of unknown cancer No problems noted. Mother , Passed age 62 of [place] Heart disease Father , Passed age 56 of [place] Heart disease Brother , Passed age 68 of metastatic Lung Cancer No problems noted. Brother , Passed age 38 of suicide No problems noted. Sister , Passed age 62 Ovarian Cancer (also history of Breast CA 20 yrs prior) No problems noted. Sister , Passed age 71 of Lung Cancer (Heavy Smoker) No problems noted. Daughter No problems noted. Daughter No problems noted. 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 Beliefs That Will Affect Care: None marital status: / Current Living Situation: Alone current occupational status: retired current occupation: Retired at [employer] Feels Safe at Home: Yes Smoking Status: Former smoker Tobacco Type: cigarettes ; Cigarettes Per Day: H/O 1PPD x 20yrs ; Second Hand Exposure: Yes (PREVIOUS EXPOSURE) ; Hx Alcohol Use: Yes Alcohol type: beer Alcohol Intake Frequency: Holidays/Special Occasions Hx Substance Use: No Childhood Exposure to Second-Hand Smoke: Yes caffeine: No Dental Care, Regularly: No Review of Systems Review of Systems: All systems reviewed & are unremarkable except as noted in HPI & below Physical Exam Physical Exam: GENERAL : No acute distress EYES: No icterus, gaze conjugate NOSE: No evidence of epistaxis MOUTH: No lesions or candidiasis, mucosa moist NECK: Supple LUNGS: CTA B/L, no wheezes, rales or rhonchi HEART: Regular, rate controlled ABDOMEN: Soft, NT, ND, BS Present EXTREMITIES: No LE edema, pedal pulses intact NEURO: A&OX3 Results & Data Vital Signs (Past 12 Hours) Vital Signs Temp Pulse Resp BP Pulse Ox 07/27/19 18:18 97 07/27/19 17:02 97.3 F L 71 20 122/77 99 Laboratory Results 07/27/19 17:25 07/27/19 17:25 Diagnostic Findings US venous doppler UE RT HISTORY: 84 years-old Male ESOPHAGEAL CA, SWELLING RT UPPER EXT acute pain and swelling of the right upper extremity with right subclavian Eagcve-y-Ouyd catheter COMPARISON: Chest radiograph 07/02/2019 TECHNIQUE: Multiple real-time sonographic images of the right upper extremity deep venous structures were obtained assessing grayscale appearance, color and spectral flow FINDINGS: Thrombus of the right subclavian, axillary and proximal to mid basilic veins is noted which appears to be occlusive. Subclavian central venous catheter is noted. There is adjacent deep tissue edema. The remainder of the study is unremarkable. IMPRESSION: Occlusive deep venous thrombosis of the right upper extremity as above. The above report was generated using voice recognition software. It may contain grammatical, syntax or spelling errors. Electronically signed by: Hector Hernandez M.D. PG Care Time/CCT Total # of Minutes Spent Total Time Spent with Patient: Total time spent is greater than 50% in coordination of care (as documented) at patient's floor/unit and/or counseling patient: 60 min (1) Esophagus cancer Malignant neoplasm of esophagus location: overlapping locations Qualified Code(s): C15.8 - Malignant neoplasm of overlapping sites of esophagus (2) Acute deep vein thrombosis (DVT) of right upper extremity Affected thrombotic vein of extremity: unspecified vein of extremity Qualified Code(s): I82.621 - Acute embolism and thrombosis of deep veins of right upper extremity
[2019-07-27] MEDS ORDERED: ALUMINUM/MAGNESIUM SUSP 30 ML UDC PO PRN (18:31)
[2019-07-27] MEDS ORDERED: ONDANSETRON INJ 2 MG/ML 2 ML VIAL IV PRN (18:31)
[2019-07-27] MEDS ORDERED: POLYETHYLENE (MIRALAX) 17 GM PACK PO PRN (18:31)
[2019-07-27] MEDS ORDERED: MoRPHine SULFATE 2 MG/ML CARP IV PRN (18:31)
[2019-07-27] MEDS ORDERED: MAGNESIUM HYDROXIDE SUSP 30 ML UDC PO PRN (18:31)
[2019-07-27] MEDS ORDERED: ZOLPIDEM TARTRATE 5 MG TAB PO PRN (18:31)
[2019-07-27] MEDS ORDERED: ACETAMINOPHEN 325 MG TAB PO PRN (18:31)
[2019-07-27 18:33] LABS: INR 1.1 (0.9-1.1); Partial Thromboplastin Ratio 0.9; Partial Thromboplastin Time 24.7 Seconds (21.0-31.0); Prothrombin Time 11.4 Seconds (9.0-12.0)
--- NOTE | 2019-07-27 18:43 | XRay Report ---
XR chest 1V portable CLINICAL HISTORY: Chest pain. Esophageal cancer. COMPARISON STUDY: PET/CT June 06, 2019. Chest radiograph July 02, 2019. FINDINGS: Right subclavian Tgxphq-z-Rwbk is in place. Note is made of moderate cardiomegaly. Intersti tial thickening is likely chronic. There may be left basilar opacity with this was not evident on exa m of July 02, 2019. No pneumothorax or pleural effusion is identified. IMPRESSION: 1. Possible left basilar airspace opacity. This may reflect atelectasis or consolidation. 2. Interstitial thickening which is chronic. Electronically signed by: Rod Servin M.D. 07/27/2019 6:42 PM
[2019-07-27] MEDS ORDERED: OPTIRAY 320 125ml IV PRN (19:47)
--- NOTE | 2019-07-27 20:06 | CT Scan Report ---
CT ANGIOGRAPHY OF THE CHEST, PULMONARY EMBOLUS PROTOCOL CLINICAL HISTORY: Shortness of breath. History of esophageal cancer. COMPARISON STUDY: Chest CT May 23, 2019. PET/CT June 06, 2019. Chest radiograph performed ea iam today. TECHNIQUE: Following IV administration of 92 mL of Optiray-320, helical axial images of the chest wer e obtained utilizing the pulmonary embolus protocol. Maximal intensity projections and sagittal and coronal reformats were viewed on an independent 3D workstation. IV contrast was administered without complication. Automated exposure control was utilized for the study. A dose lowering technique was utilized adhering to the principles of ALARA. CT DOSE: 398.75 mGy.cm FINDINGS: No pulmonary emboli are identified. The heart is moderately enlarged. No pericardial effus ion is noted. Wall thickening of the mid to distal esophagus with trace adjacent fluid/infiltration i s noted. Trace bilateral pleural effusions, right larger left, are noted. There is no pneumothorax. S ome pleural reticulation and cystic change is again noted. This reflects interstitial lung disease. M ild interlobular septal thickening and groundglass opacity may reflect superimposed pulmonary edema. There is no consolidation to suggest pneumonia. Central airways are patent. No enlarged thoracic lymp h nodes are present. A right subclavian Mcxdre-k-Kowg is in place. Slight increased density with jazmín cent infiltration of the right subclavian vein corresponds the thrombus shown on upper extremity veno us Doppler performed earlier today. Upper abdomen is unremarkable. IMPRESSION: 1. No pulmonary emboli identified. 2. Deep venous thrombus within the right subclavian vein, as shown on upper extremity ultrasound perf ormed earlier today. 3. Trace bilateral pleural effusions. 4. Suspected mild pulmonary edema superimposed upon interstitial lung disease. 5. Wall thickening of the mid to distal esophagus which may reflect the primary tumor. Trace adjacent infiltration and fluid may reflect postradiation change. Electronically signed by: Rod Servin M.D. 07/27/2019 8:03 PM
[2019-07-27] MEDS ORDERED: ENOXAPARIN 1 MG/KG SQ SCH (20:15)
[2019-07-27] MEDS: INSULIN ASPART 100 UNITS/ML 3 ML PEN SC SCH (20:49)
[2019-07-27] MEDS: MIDODRINE HCL 2.5 MG TAB PO SCH (21:48)
[2019-07-28] MEDS ORDERED: HEPARIN 100 UNIT/ML 5ML FLUSH FLUSH PRN (00:18)
[2019-07-28] MEDS: ENOXAPARIN 100 MG/1ML SYR SQ SCH ×2 (06:14→18:04)
[2019-07-28 07:07] LABS: Hematocrit (blood only) 27.3 % (42-52); Hemoglobin 8.5 g/dL (14.0-18.0); Mean Corpuscular Hemoglobin 24.9 pg (25-34); Mean Corpuscular Hgb Conc 31.1 g/dL (32-36); Mean Corpuscular Volume 80.1 fL (80-100); Mean Platelet Volume 9.9 fL (7.4-10.4); Platelet Count 117 K/uL (130-400); RDW Coefficient of Variation 20.4 % (11.5-14.5); RDW Standard Deviation 58.4 fL (36.4-46.3); Red Blood Count 3.41 M/uL (4.7-6.1); White Blood Count 1.44 K/uL (4.8-10.8)
[2019-07-28 07:42] LABS: Alanine Aminotransferase < 6 U/L (12-78); Albumin Level 2.1 gm/dl (3.4-5.0); Aspartate Aminotransferase 7 U/L (15-37); BUN Creatinine Ratio 19.9 (10-20); Bilirubin Direct < 0.1 mg/dl (0-0.2); Blood Urea Nitrogen 14 mg/dl (7-18); Calcium 7.6 mg/dl (8.5-10.1); Carbon Dioxide 24 mmol/L (21-32); Chloride 105 mmol/L (98-107); Creatinine Clr Calc Pharmacy 86.4 ml/min; Est GFR (African American) 98.7; Est GFR (Non-African American) 85.2; Glucose 101 mg/dl (70-99); Potassium 3.9 mmol/L (3.5-5.1); Sodium 136 mmol/L (136-145)
[2019-07-28 07:45] LABS: Albumin Globulin Ratio 0.7 (0.9-2); Alkaline Phosphatase 83 U/L (45-117); Bilirubin,Total 0.3 mg/dl (0.2-1); Globulin 3.1 gm/dl (2.5-4.0); Total Protein 5.2 gm/dl (6.4-8.2)
[2019-07-28] MEDS ORDERED: ENOXAPARIN 100 MG/1ML SYR SQ SCH (09:00)
[2019-07-28] MEDS: MIDODRINE HCL 2.5 MG TAB PO SCH ×2 (09:04→20:21)
[2019-07-28] MEDS: INSULIN ASPART 100 UNITS/ML 3 ML PEN SC SCH ×4 (09:29→20:11)
--- NOTE | 2019-07-28 11:43 | Ultrasound Report ---
BILATERAL LOWER EXTREMITY VENOUS DOPPLER HISTORY: Acute pain and swelling of the bilateral lower extremities swelling, h/o cancer COMPARISON STUDY: None. FINDINGS: Normal flow, compressibility, phasicity and augmentation of the left lower extremity deep venous stru ctures. Patent right common femoral vein. Echogenic partially occlusive thrombus of the superficial femoral v ein is noted within the proximal mid portions. Occlusive deep venous thrombosis of the distal superfi cial femoral vein with partially occlusive thrombus of the popliteal vein. Intermittent flow within t he bilateral posterior tibial veins is suggestive of additional partially occlusive thrombus. IMPRESSION: 1. Multifocal mostly partially occlusive thrombi of the right lower extremity, possibly subacute or c hronic with likely acute occlusive deep venous thrombosis about the distal aspect of the superficial femoral vein. 2. No sonographic evidence of left lower extremity deep venous thrombosis. Electronically signed by: Hector Hernandez M.D. 07/28/2019 11:42 AM
--- NOTE | 2019-07-28 12:37 | Hospitalist Progress Note ---
Date of Service July 28, 2019 Assessment & Plan (1) Acute deep vein thrombosis (DVT) of right upper extremity: treat with Lovenox q12, weight is too high for once a day dosing patient and family okay with using Lovenox chronically d/w Dr. Sanders, keep port in place as long as it is functioning well CT chest negative for PE (2) Acute deep vein thrombosis (DVT) of axillary vein of right upper extremity: same as above (3) Acute deep vein thrombosis (DVT) of femoral vein of right lower extremity: on venous doppler today clot in the superficial femoral vein, some chronic appearing but other clot more acute will use Lovenox as above (4) Esophagus cancer: on chemotherapy and radiation under direction of Dr. Sanders he will visit the patient today to discuss whether he should continue with the schedule this week (5) DM type 2 (diabetes mellitus, type 2): Novolog monitor for hypoglycemia (6) Colon cancer, ascending: continue chemotherapy, no plans for surgical intervention (7) Pancytopenia: secondary to chemotherapy and radiation therapy. Repeat labs in a.m. Subjective patient doing well, only complaint is his right arm swelling says that the swelling started suddenly yesterday port is flushing, working well, no issues per RN eating okay his daughter is here at the bedside, treatments have been difficult for him discussed with Dr. José over the phone he says that the chemo and radiation has really taken a toll on the patient he is unsure of how much longer the patient and family will want to continue he agrees with the Lovenox, would not recommend any other treatment discussed with patient, likely go home tomorrow, he agrees Review of Systems Review of Systems: All systems reviewed & are unremarkable except as noted in HPI & below Hematologic / Lymphatic: + problem reported (right arm swelling, right leg swe lling (chronic)) Physical Exam Constitutional: WD/WN, vitals as above Eyes: PERRL, conjunctivae normal, anicteric sclerae ENMT: external ear and nose normal, oropharynx normal Neck: trachea midline, no thyromegaly Respiratory: normal respiratory effort, lungs clear to auscultation Cardiovascular: RRR, no murmur, no edema Gastrointestinal (Abdomen): normal bowel sounds, soft, nontender, no hepatosplenomegaly Musculoskeletal: no cyanosis or clubbing, extremities motor strength 5/5 Skin: no rashes, warm and dry Neurologic: patellar DTR's 2+ bilat, sensation intact and PERRL, EOMI, accommodation nl, no face palsy, no dysarthria Psychiatric: A+Ox3, euthymic affect Lymphatic: + lymphedema (right leg, right arm) Results & Data Vital Signs (Past 12 Hours) Vital Signs Temp Pulse Pulse Resp BP Pulse Ox 07/28/19 11:47 36.6 C 66 18 138/75 98 07/28/19 11:30 36.3 C L 105 H 21 145/73 H 93 07/28/19 07:39 72 07/28/19 07:14 37.3 C 94 H 18 135/59 L 94 07/28/19 03:42 36.9 C 86 20 120/55 L 95 Laboratory Results Laboratory Results - last 24 hr 07/27/19 07/27/19 07/27/19 17:25 17:25 17:25 WBC 1.79 L RBC 3.48 L Hgb 8.7 L Hct 27.9 L MCV 80.2 MCH 25.0 MCHC 31.2 L RDW Std Deviation 58.0 H RDW Coeff of Akshat 20.3 H Plt Count 126 L MPV 9.3 Immature Gran % (Auto) 0.6 Neut % (Auto) 92.1 Lymph % (Auto) 5.0 [place] % (Auto) 1.7 Eos % (Auto) 0.6 Baso % (Auto) 0.0 Immature Gran # (Auto) 0.01 Neut # (Auto) 1.65 Lymph # (Auto) 0.09 L [place] # (Auto) 0.03 L Eos # (Auto) 0.01 Baso # (Auto) 0.00 Giant Platelets 1+ Hypochromasia Present Anisocytosis Present PT Cancelled INR Cancelled APTT Cancelled PTT Ratio Cancelled Sodium 136 Potassium 3.8 Chloride 105 Carbon Dioxide 24 Anion Gap 7.0 BUN 17 Creatinine 0.81 Est Cr Clr Drug Dosing 76.7 Est GFR ( Amer) 94.6 Est GFR (Non-Af Amer) 81.6 BUN/Creatinine Ratio 20.6 H Glucose 125 H POC Glucose Calcium 7.6 L Magnesium Total Bilirubin 0.3 Direct Bilirubin AST 5 L ALT 6 L Alkaline Phosphatase 91 Troponin I < 0.015 Total Protein 5.5 L Albumin 2.2 L Globulin 3.3 Albumin/Globulin Ratio 0.7 L Lipase 74 07/27/19 07/27/19 07/28/19 18:13 20:46 06:12 WBC 1.44 L RBC 3.41 L Hgb 8.5 L Hct 27.3 L MCV 80.1 MCH 24.9 L MCHC 31.1 L RDW Std Deviation 58.4 H RDW Coeff of Akshat 20.4 H Plt Count 117 L MPV 9.9 Immature Gran % (Auto) Neut % (Auto) Lymph % (Auto) [place] % (Auto) Eos % (Auto) Baso % (Auto) Immature Gran # (Auto) Neut # (Auto) Lymph # (Auto) [place] # (Auto) Eos # (Auto) Baso # (Auto) Giant Platelets Hypochromasia Anisocytosis PT 11.4 INR 1.1 APTT 24.7 PTT Ratio 0.9 Sodium Potassium Chloride Carbon Dioxide Anion Gap BUN Creatinine Est Cr Clr Drug Dosing Est GFR ( Amer) Est GFR (Non-Af Amer) BUN/Creatinine Ratio Glucose POC Glucose 104 H Calcium Magnesium Total Bilirubin Direct Bilirubin AST ALT Alkaline Phosphatase Troponin I Total Protein Albumin Globulin Albumin/Globulin Ratio Lipase 07/28/19 07/28/19 07/28/19 06:12 07:06 11:45 WBC RBC Hgb Hct MCV MCH MCHC RDW Std Deviation RDW Coeff of Akshat Plt Count MPV Immature Gran % (Auto) Neut % (Auto) Lymph % (Auto) [place] % (Auto) Eos % (Auto) Baso % (Auto) Immature Gran # (Auto) Neut # (Auto) Lymph # (Auto) [place] # (Auto) Eos # (Auto) Baso # (Auto) Giant Platelets Hypochromasia Anisocytosis PT INR APTT PTT Ratio Sodium 136 Potassium 3.9 Chloride 105 Carbon Dioxide 24 Anion Gap 6.0 BUN 14 Creatinine 0.73 Est Cr Clr Drug Dosing 86.4 Est GFR ( Amer) 98.7 Est GFR (Non-Af Amer) 85.2 BUN/Creatinine Ratio 19.9 Glucose 101 H POC Glucose 117 H 131 H Calcium 7.6 L Magnesium 2.0 Total Bilirubin 0.3 Direct Bilirubin < 0.1 AST 7 L ALT < 6 L Alkaline Phosphatase 83 Troponin I Total Protein 5.2 L Albumin 2.1 L Globulin 3.1 Albumin/Globulin Ratio 0.7 L Lipase Diagnostic Findings BILATERAL LOWER EXTREMITY VENOUS DOPPLER HISTORY: Acute pain and swelling of the bilateral lower extremities swelling, h/o cancer COMPARISON STUDY: None. FINDINGS: Normal flow, compressibility, phasicity and augmentation of the left lower extremity deep venous structures. Patent right common femoral vein. Echogenic partially occlusive thrombus of the superficial femoral vein is noted within the proximal mid portions. Occlusive deep venous thrombosis of the distal superficial femoral vein with partially occlusive thrombus of the popliteal vein. Intermittent flow within the bilateral posterior tibial veins is suggestive of additional partially occlusive thrombus. IMPRESSION: 1. Multifocal mostly partially occlusive thrombi of the right lower extremity, possibly subacute or chronic with likely acute occlusive deep venous thrombosis about the distal aspect of the superficial femoral vein. 2. No sonographic evidence of left lower extremity deep venous thrombosis. Medications Administered Current Inpatient Medications Acetaminophen (Tylenol) 650 mg PO Q4H PRN PRN Reason: Pain or Fever Stop: 08/26/19 18:30 Al Hydrox/Mg Hydrox/Simethicone (Maalox) 15 ml PO Q4H PRN PRN Reason: Dyspepsia Stop: 08/26/19 18:30 Enoxaparin Sodium (Lovenox) 90 mg SQ Q12H OMAR Stop: 08/27/19 05:59 Last Admin: 07/28/19 06:14 Dose: 90 mg Documented by: Heparin Sodium (Porcine) (Heparin Sod 100 Unit/Ml Flush) 5 ml FLUSH PRN PRN PRN Reason: Flush Stop: 08/27/19 00:29 Insulin Aspart (Novolog Flexpen) 0 units SC ACHS OMAR Stop: 08/26/19 20:59 Last Admin: 07/28/19 09:29 Dose: Not Given Documented by: Ioversol (Optiray 320 125ml) 118 ml IV ONCE PRN PRN Reason: Interaction Checking Stop: 07/31/19 19:46 Last Admin: 07/27/19 19:47 Dose: 118 ml Documented by: Magnesium Hydroxide (Milk Of Magnesia) 30 ml PO Q12H PRN PRN Reason: Constipation Stop: 08/26/19 18:30 Midodrine (Proamatine) 2.5 mg PO HS OMAR Stop: 08/26/19 20:59 Last Admin: 07/27/19 21:48 Dose: Not Given Documented by: Midodrine (Proamatine) 5 mg PO QAM OMAR Stop: 08/27/19 08:59 Last Admin: 07/28/19 09:04 Dose: 5 mg Documented by: Morphine Sulfate (Morphine Sulfate) 2 mg IV Q30M PRN PRN Reason: Chest Pain Stop: 08/10/19 18:30 Ondansetron HCl (Zofran) 4 mg IV Q6H PRN PRN Reason: Nausea Stop: 08/26/19 18:30 Polyethylene Glycol (Miralax Powder Packet) 17 gm PO DAILY PRN PRN Reason: Constipation Stop: 08/26/19 18:30 Zolpidem Tartrate (Ambien) 5 mg PO HS PRN PRN Reason: Sleep Stop: 08/26/19 18:30 PG Care Time/CCT Total # of Minutes Spent Total Time Spent with Patient: Total time spent is greater than 50% in co ordination of care (as documented) at patient's floor/unit and/or counseling patient: (1) Acute deep vein thrombosis (DVT) of right upper extremity Affected thrombotic vein of extremity: unspecified vein of extremity Qualified Code(s): I82.621 - Acute embolism and thrombosis of deep veins of right upper extremity (2) Esophagus cancer Malignant neoplasm of esophagus location: overlapping locations Qualified Code(s): C15.8 - Malignant neoplasm of overlapping sites of esophagus
[2019-07-29] MEDS: ENOXAPARIN 100 MG/1ML SYR SQ SCH (05:49)
[2019-07-29] MEDS: INSULIN ASPART 100 UNITS/ML 3 ML PEN SC SCH (07:59)
[2019-07-29] MEDS: MIDODRINE HCL 2.5 MG TAB PO SCH (08:00)
[2019-07-29] MEDS ORDERED: Nursing to Pharmacy Communication ONE (10:21)
[2019-07-29] MEDS ORDERED: ENOXAPARIN 100 MG/1ML SYR SQ SCH (11:00)
--- NOTE | 2019-07-29 13:15 | Discharge Summary ---
Date of Service July 29, 2019 Admission HPI Per Admitting Provider The patient is 84-year-old male who was recently diagnosed with esophageal cancer and colon cancer. He is being followed up by oncologist, and is undergoing chemotherapy and radiation therapy in anticipation of surgery. Today he was at [facility] [place] [facility] receiving chemotherapy infusion through his right chest port and after that he noticed increasing pain and swelling in the right upper extremity. He was referred to the hospital. Venous Doppler showed extensive occlusive DVT of the right upper extremity. He was started on Lovenox and will be admitted for further evaluation and management. He has also noted swelling of the legs for last few days. Principal Diagnosis Acute DVT of right subclavian vein associated with indwelling A port Discharge Exam Constitutional WD/WN, vitals as above Eyes PERRL, conjunctivae normal, anicteric sclerae ENMT external ear and nose normal, oropharynx normal Neck trachea midline, no thyromegaly Respiratory normal respiratory effort, lungs clear to auscultation Cardiovascular Rate/Rhythm: regular rate and regular rhythm Heart Sounds: normal S1 and normal S2; no murmur Vessels: no JVD Extremities: + edema (mild swelling in right arm, mild swelling right leg) Gastrointestinal (Abdomen) normal bowel sounds, soft, nontender, no hepatosplenomegaly Musculoskeletal no cyanosis or clubbing, extremities motor strength 5/5 Skin no rashes, warm and dry Neurologic patellar DTR's 2+ bilat, sensation intact and PERRL, EOMI, accommodation nl, no face palsy, no dysarthria Psychiatric A+Ox3, euthymic affect Lymphatic + lymphedema (right leg, right arm) Discharge Data Allergies Allergy/AdvReac Type Severity Reaction Status Date / Time metformin AdvReac Intermediate MUSCLE Verified 07/27/19 19:22 ACHES Jncpmyh-Tuc-Dur Reductase AdvReac Intermediate MUSCLE Verified 07/27/19 19:22 Inhibitor ACHES Unclassified Drugs Allergy Intermediate RED YEAST Uncoded 07/27/19 19:22 RICE-MUSCLE ACHES Consultations 07/27/19 17:52 ED Decision to Admit Stat 07/27/19 20:57 Consult Case Management - Discharge Planning Routine Ordered Studies 07/27/19 18:22 CT angio chest PE protocol Stat 07/28/19 10:17 US venous doppler LE ANTONIO Routine Hospital Course (1) Acute deep vein thrombosis (DVT) of right upper extremity: treat with Lovenox q12, weight is too high for once a day dosing patient and family okay with using Lovenox chronically d/w Dr. Sanders, keep port in place as long as it is functioning well, which it is CT chest negative for PE d/c to home on Lovenox 90mg q12 follow up with Dr. Sanders (2) Acute deep vein thrombosis (DVT) of axillary vein of right upper extremity: same as above (3) Acute deep vein thrombosis (DVT) of femoral vein of right lower extremity: on venous doppler 07/28 clot in the superficial femoral vein, some chronic appearing but other clot more acute will use Lovenox as above (4) Esophagus cancer: on chemotherapy and radiation under direction of Dr. Sanders patient unsure how much longer he wants to continue treatment told him to discuss with Dr. Sanders (5) DM type 2 (diabetes mellitus, type 2): Novolog monitor for hypoglycemia (6) Colon cancer, ascending: continue chemotherapy, no plans for surgical intervention (7) Pancytopenia: secondary to chemotherapy and radiation therapy. counts low but stable Total Time Total Time Spent Total Time Spent (In Minutes): 33 minutes Total Time Includes: Examination of the Patient, Discharge Planning, Medication Reconciliation, Communication With Other Providers (Dr. Sanders) and Other (long discussion with family about Lovenox, ongoing chemo/radiation) Discharge Plan Discharge Items Patient Disposition: Home - Self-Care Reason For Visit: DVT Discharge Diagnosis: DVT of the right subclavian vein associated with A port DVT of the right superficial femoral vein Esophageal cancer Condition on Discharge: Good Goals: follow up with oncology, determine duration of treatment continue on Lovenox to treat the DVT Activity: Resume your previous activity Non-emergency contact: Primary Care Provider Call non-emergency contact if: you have any medication questions, your symptoms worsen and you have a fever Follow-up/Referrals: Darryn Varela MD [Primary Care Provider] - Diet: Regular Addtl Attending Provider Instructions: Medications: - LOVENOX: 90mg subcutaneous every 12 hours for anticoagulation DVT associated with right A-port in the subclavian vein DVT in right superficial femoral vein will be treated with Lovenox, duration will be at least three months, likely longer given your cancer adverse effect of Lovenox is easy bruising and bleeding if you would cut yourself follow up with Dr. Sanders as previously scheduled Pending Studies at Discharge: No Stand-Alone Forms: My [facility], Smoking Cessation Medications and DC Order Prescriptions: New enoxaparin 100 mg/mL Syringe 90 mg subcut Q12H 30 Days Qty: 60 RF: 2 Continued ondansetron HCl [Zofran] 8 mg tablet 8 mg PO QID RF: 0 cyanocobalamin (vitamin B-12) [Vitamin B-12] 1,000 mcg Tablet 1,000 mcg PO QAM RF: 0 ferrous sulfate 325 mg (65 mg iron) Tablet 325 mg PO QAM RF: 0 docusate sodium [Stool Softener] 100 mg Tablet 100 mg PO BID RF: 0 midodrine 2.5 mg tablet 2.5 - 5 mg PO BID RF: 0 ranitidine HCl [Zantac] 150 mg tablet 150 mg PO TID RF: 0 Discharge Orders: Discharge Order (Routine); Ordered 07/29/19 Ordered By: Haja Chacon/Other Patient Handouts: Enoxaparin Sodium Porcine Solution for injection, DVT, DVT Dc Admission Data Admit Date/Time: 07/27/19 18:41 Attending Provider: Haja Fuller Admit Provider: Abdi Martino Primary Care Provider: Darryn Varela Other Providers: Abdi Martino ; [facility] Other Interventions: Discharge Summary Assessment (RN) Last Done: 07/29/19 11:42 DC Date/Time DO NOT enter until pt leaves facility: 07/29/19 12:18
== END 2019-07-29 12:18 | disposition home health service (06) | DRG 299 ==
LOC: ED 16:59 → SUATTDRO 18:41 → 2E 18:41

== ENCOUNTER 2019-08-08 14:58 | Inpatient (IN) ==
[2019-08-08] MEDS ORDERED: POLYETHYLENE (MIRALAX) 17 GM PACK PO PRN (17:27)
[2019-08-08] MEDS ORDERED: ACETAMINOPHEN 325 MG TAB PO PRN (17:27)
[2019-08-08] MEDS ORDERED: ALUMINUM/MAGNESIUM SUSP 30 ML UDC PO PRN (17:27)
[2019-08-08] MEDS ORDERED: MAGNESIUM HYDROXIDE SUSP 30 ML UDC PO PRN (17:27)
[2019-08-08] MEDS ORDERED: MIDODRINE HCL 2.5 MG TAB PO PRN (17:46)
--- NOTE | 2019-08-08 18:27 | History & Physical Report ---
Date of Service August 08, 2019 Assessment & Plan (1) Syncope and collapse: 84 y/o M with PMH of esophageal and colon cancer, DVT, HTN, T2DM; presented after recurrent falls for the last week from seated position, additionally has non-healing wound over sacrum. Syncope: - pt describes similar to orthostatic episodes as always at transition from seated to standing; patient frequently not eating meals, and having cyclical nausea/vomiting, and sporadic diarrhea - Echo ordered - fall precautions - started NSS @ 80mL/hr for gentle re-hydration - consulted Cardiology, as patient is known to Dr. Sanchez, who had previously requested patient seek further work-up of these episodes Sacral decubitus ulcer: - family states that ulcer appeared over the last three to four days, and that patient had some form of cyst there his entire life; questionable stage 3 vs 4 ulcer - CT scan ordered to determine depth of spread - will hold of on antibiotics until determination of extent - wound care consulted; air mattress ordered Diarrhea: - 3-4 episodes a day, patient has had previous C. diff; if we start antibiotics for sacral wound, then will add vancomycin for mitigation of recurrence risk Hypotension: - continue home midodrine 2.5mg BID; 2.5mg midodrine PRN available for systolics <80 Dehydration: - started on NSS @ 80mL/hr - continue to monitor PO intake for determination of need to further bolus Hypokalemia: - on admission K = 2.4 - ordered 40mg of IV, with 40mg PO; scheduled 40mg PO daily DVT: lovenox 90mg Q12 Code Status: DNI, POLST on chart Diet: Carb consistent T2DM (2) Sacral decubitus ulcer: (3) Diarrhea: (4) Hypotension: (5) Dehydration: (6) Hypokalemia: History of Present Illness Chief Complaint: recurrent falls Primary Care Provider: Darryn Varela MD 84 y/o male with PMH of esophageal and colon cancer undergoing chemotherapy and radiation was admitted for increasing episodes of daily lightheadedness, and passing out when standing from a seated position or moving quickly from laying down to standing. Family has noticed that this has increased over the last two weeks; over this time he has had 3-4 episodes of loose stools a day. Noticed that these symptoms increased most over the last two weeks since completing his second and final round of chemotherapy. Describes bowel movements as loose with chunks and then watery at the end of the bowel movement, has 5-6 bowel movements total a day. Since finishing his chemotherapy has had intense nausea and vomiting with meals, and has been taking Zofran and Reglan in order to mitigate the nausea but had for up to a week had been trying to avoid eating most meals in order to limit these symptoms. However, has noticed that over this time he has had increasing weakness and feels like he just can't do as much as he used to on a daily basis without being worn out. Allergies Allergy/AdvReac Type Severity Reaction Status Date / Time metformin AdvReac Intermediate MUSCLE Verified 07/27/19 19:22 ACHES Belohaj-Ogg-Ffo Reductase AdvReac Intermediate MUSCLE Verified 07/27/19 19:22 Inhibitor ACHES Unclassified Drugs Allergy Intermediate RED YEAST Uncoded 07/27/19 19:22 RICE-MUSCLE ACHES Home Medications Home Medications Medication Instructions Recorded Confirmed Type cyanocobalamin (vitamin B-12) 1,000 mcg PO QAM 05/16/19 08/08/19 History [Vitamin B-12] ferrous sulfate 325 mg PO QAM 05/16/19 08/08/19 History midodrine 2.5 mg tablet 2.5 - 5 mg PO BID tab 06/21/19 08/08/19 History ondansetron HCl 8 mg tablet 8 mg PO QID tab 07/23/19 08/08/19 History enoxaparin 90 mg SUBCUT Q12H 30 Days #60 ml 07/29/19 08/08/19 Rx metoclopramide HCl 10 mg PO Q6H PRN 08/08/19 08/08/19 History pantoprazole 40 mg PO DAILY 08/08/19 08/08/19 History Past Med/Surg History Social History Preferred Language: Persian Communication Ability: Effective Visual Impairment: No Limitations Hearing Ability: Normal 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 Required: No Beliefs That Will Affect Care: None marital status: / Current Living Situation: Alone current occupational status: retired current occupation: Retired at [employer] Other Information That Helps Us Care for You: Yes (home nursing 2x/wk to check B/Ps and "ask questions") Feels Safe at Home: Yes Smoking Status: Former smoker Tobacco Type: cigarettes ; Cigarettes Per Day: H/O 1PPD x 20yrs ; Second Hand Exposure: No ; Hx Alcohol Use: Yes Alcohol type: beer Alcohol Intake Frequency: Holidays/S pecial Occasions Hx Substance Use: No Childhood Exposure to Second-Hand Smoke: Yes caffeine: No Dental Care, Regularly: No Review of Systems Constitutional: + fatigue and + weakness; no fever, no chills and no sweats Eyes: + spots in vision; no blind spots, no discharge and no worsening vision Respiratory: no cough, no dyspnea, no sputum production and no wheezing Cardiovascular: + lightheadedness; no chest pain, no palpitations and no edema Gastrointestinal: + diarrhea/loose stools (3 times a day); no nausea and no vomiting Musculoskeletal: no swelling, no stiffness and no limited range of motion Neurologic: no seizure-like activity, no headache(s), no confusion and no memory loss Physical Exam Constitutional: WD/WN, vitals as above Eyes: PERRL, conjunctivae normal, anicteric sclerae Respiratory: normal respiratory effort, lungs clear to auscultation Cardiovascular: Rate/Rhythm: regular rate and regular rhythm Heart Sounds: normal S1 and normal S2; no gallop, no murmur and no cardiac rub Gastrointestinal (Abdomen): normal bowel sounds, soft, nontender, no hepatosplenomegaly Musculoskeletal: Extremities: strength 5/5 throughout Skin: + ulcer (sacral decubitus ulcer stage 3/4?) Neurologic: CN's II-XI intact bilaterally, deep tendon reflexes 2+ bilaterally and moves all extremities; no focal motor deficits Results & Data Vital Signs (Past 12 Hours) Vital Signs Temp Pulse Pulse Resp BP Pulse Ox 08/08/19 15:40 94 H 08/08/19 15:30 36.6 C 79 18 118/79 100 Laboratory Results 08/08/19 08/08/19 Range/Units 18:02 18:02 WBC 2.09 L (4.8-10.8) K/uL RBC 3.43 L (4.7-6.1) M/uL Hgb 8.8 L (14.0-18.0) g/dL Hct 27.2 L (42-52) % MCV 79.3 L (80-100) fL MCH 25.7 (25-34) pg MCHC 32.4 (32-36) g/dL RDW Std Deviation 57.6 H (36.4-46.3) fL RDW Coeff of Akshat 20.8 H (11.5-14.5) % Plt Count 85 L (130-400) K/uL Immature Gran % (Auto) 1.0 % Neut % (Auto) 61.7 % Lymph % (Auto) 17.7 % [place] % (Auto) 19.6 % Eos % (Auto) 0.0 % Baso % (Auto) 0.0 % Immature Gran # (Auto) 0.02 (0.00-0.02) K/uL Neut # (Auto) 1.29 L (1.4-6.5) K/uL Lymph # (Auto) 0.37 L (1.2-3.4) K/uL [place] # (Auto) 0.41 (0.11-0.59) K/uL Eos # (Auto) 0.00 (0-0.5) K/uL Baso # (Auto) 0.00 (0-0.2) K/uL Platelet Estimate Decreased L (Normal) Anisocytosis Present Ovalocytes 1+ Echinocytes 1+ Sodium 139 (136-145) mmol/L Potassium 2.4 L* (3.5-5.1) mmol/L Chloride 106 (98-107) mmol/L Carbon Dioxide 23 (21-32) mmol/L Anion Gap 10.0 (3-11) BUN 17 (7-18) mg/dl Creatinine 0.70 (0.6-1.4) mg/dl Est Cr Clr Drug Dosing 88.8 ml/min Est GFR ( Amer) 100.4 Est GFR (Non-Af Amer) 86.7 BUN/Creatinine Ratio 23.9 H (10-20) Glucose 112 H (70-99) mg/dl Calcium 7.8 L (8.5-10.1) mg/dl Magnesium 1.7 L (1.8-2.4) mg/dl Total Bilirubin 0.3 (0.2-1) mg/dl AST 13 L (15-37) U/L ALT 7 L (12-78) U/L Alkaline Phosphatase 86 (45-117) U/L Total Protein 4.9 L (6.4-8.2) gm/dl Albumin 1.8 L (3.4-5.0) gm/dl Globulin 3.1 (2.5-4.0) gm/dl Albumin/Globulin Ratio 0.6 L (0.9-2) Medications Administered Current Inpatient Medications Acetaminophen (Tylenol) 650 mg PO Q4H PRN PRN Reason: pain/fever Stop: 09/07/19 17:26 Al Hydrox/Mg Hydrox/Simethicone (Maalox) 30 ml PO Q6H PRN PRN Reason: Dyspepsia Stop: 09/07/19 17:26 Enoxaparin Sodium (Lovenox) 90 mg SQ Q12H OMAR Stop: 09/07/19 17:59 Ferrous Sulfate (Feosol) 325 mg PO QAM [facility] Stop: 09/08/19 08:59 Sodium Chloride (Nss 1000ml) 1,000 mls @ 80 mls/hr IV .[id number] [facility] Stop: 09/07/19 18:14 Last Admin: 08/08/19 18:43 Dose: 80 mls/hr Documented by: Magnesium Sulfate/Dextrose (Magnesium Sulfate / D5w) 1 gm in 100 mls @ 100 mls/hr IV ONE ONE Stop: 08/08/19 19:59 Potassium Chloride (K Neftaly / Wtr) 20 meq in 100 mls @ 50 mls/hr IV Q2H [facility] Stop: 08/08/19 23:59 Magnesium Hydroxide (Milk Of Magnesia) 30 ml PO Q6H PRN PRN Reason: Constipation Stop: 09/07/19 17:26 Metoclopramide HCl (Reglan) 10 mg PO TIDM [facility] Stop: 09/07/19 18:59 Midodrine (Proamatine) 2.5 mg PO BID [facility] Stop: 09/07/19 20:59 Midodrine (Proamatine) 2.5 mg PO Q12H PRN PRN Reason: Hypotension Stop: 09/07/19 17:59 Ondansetron HCl (Zofran) 4 mg IV Q6H PRN PRN Reason: Nausea Stop: 09/07/19 17:26 Ondansetron HCl (Zofran Tab) 8 mg PO QID [facility] Stop: 09/07/19 20:59 Polyethylene Glycol (Miralax Powder Packet) 17 gm PO DAILY PRN PRN Reason: Constipation Stop: 09/07/19 17:26 Potassium Chloride (Klor-Con M20) 40 meq PO QAM [facility] Stop: 09/08/19 08:59 Code Status & VTE Plan Code Status Do not Intubate; copy of POLST form on patient's chart VTE Prophylaxis Plan VTE Prophylaxis will be ordered: Yes Supervising Physician Co-Signing Physician Notes I personally examined the patient and verified all green points of history and exam, discussed case, and agree with decision making with Dr Huerta. Sacral ulcer worsening. Persistent orthostasis. Loose stools. Recent poor oral intake now slowly improving. Vitals noted, in general he is awake and alert fatigued appearing but otherwise in no distress. HEENT normocephalic atraumatic mucous members are moist. Breathing unlabored no accessory muscle use good effort. Abdomen soft nondistended nontender no masses organomegaly. Skin shows no rashes no pallor or icterus. Sacral ulcer appears to be relatively tunneled it is hard to gauge depth on bedside exam. No surrounding erythema or exudate. Persistent orthostasismost likely volume depletion versus volume depletion plus autonomic insufficiency, check echo to ensure there is no cardiac structural or valvular disease especially given how difficult to chemo seems to have been for him. Otherwise IV fluids, follow orthostatics, continue midodrine and titrate as needed. Sacral ulcerno sepsis, no overt infection, may need antibiotics but will want to assess first. Wound care eval and treat, CT to assess depth and look at sacral bone Loose stoolsdoes not fit a pattern of C. difficile, and he does not have abdominal tenderness fever or leukocytosisappears most likely to be chemo related. Otherwise as above. Resident Activity Tracking Resident Involvement: Resident Care Provided Care Provided: Adult Hospital Medicine
[2019-08-08 18:40] LABS: Albumin Globulin Ratio 0.6 (0.9-2); Albumin Level 1.8 gm/dl (3.4-5.0); BUN Creatinine Ratio 23.9 (10-20); Bilirubin,Total 0.3 mg/dl (0.2-1); Calcium 7.8 mg/dl (8.5-10.1); Creatinine Clr Calc Pharmacy 88.8 ml/min; Est GFR (African American) 100.4; Est GFR (Non-African American) 86.7; Globulin 3.1 gm/dl (2.5-4.0); Magnesium 1.7 mg/dl (1.8-2.4); Potassium 2.4 mmol/L (3.5-5.1); Total Protein 4.9 gm/dl (6.4-8.2)
[2019-08-08 18:41] LABS: Anisocytosis Present; Echinocytes 1+; Hematocrit (blood only) 27.2 % (42-52); Hemoglobin 8.8 g/dL (14.0-18.0); Immature Granulocytes # (auto) 0.02 K/uL (0.00-0.02); Lymphocytes # (auto) 0.37 K/uL (1.2-3.4); Lymphocytes % (auto) 17.7 %; Mean Corpuscular Hemoglobin 25.7 pg (25-34); Mean Corpuscular Hgb Conc 32.4 g/dL (32-36); Mean Corpuscular Volume 79.3 fL (80-100); Monocytes # (auto) 0.41 K/uL (0.11-0.59); Monocytes % (auto) 19.6 %; Neutrophils # (auto) 1.29 K/uL (1.4-6.5); Neutrophils % (auto) 61.7 %; Ovalocytes 1+; Platelet Count 85 K/uL (130-400); Platelet Estimate Decreased (Normal); RDW Coefficient of Variation 20.8 % (11.5-14.5); RDW Standard Deviation 57.6 fL (36.4-46.3); Red Blood Count 3.43 M/uL (4.7-6.1); White Blood Count 2.09 K/uL (4.8-10.8)
[2019-08-08] MEDS: SODIUM CHLORIDE 0.9% 1000ML 1,000 ML IV SCH (18:43)
[2019-08-08] MEDS ORDERED: POTASSIUM CHLORIDE 20 MEQ TABCR PO STA ×2 (18:46→20:03)
[2019-08-08] MEDS ORDERED: POTASSIUM CHLORIDE 40 MEQ in D5W AND NSS 1,000 ML IV SCH (19:00)
[2019-08-08] MEDS ORDERED: MAGNESIUM SULFATE / D5W 1 GM/100 ML BAG IV ONE (19:00)
[2019-08-08] MEDS: METOCLOPRAMIDE HCL 10 MG TABLET PO SCH (19:27)
[2019-08-08] MEDS: ENOXAPARIN 100 MG/1ML SYR SQ SCH (19:30)
[2019-08-08] MEDS: POTASSIUM CHLORIDE / WTR 20 MEQ/100 ML PLCT IV SCH ×4 (19:30→23:40)
--- NOTE | 2019-08-08 20:04 | Billing Data ---
Coding Level of Care Code 82749 Initial Inpt Care Lvl 3
[2019-08-08] MEDS: ONDANSETRON 8 MG TABLET PO SCH (21:31)
[2019-08-08] MEDS: MIDODRINE HCL 2.5 MG TAB PO SCH (21:32)
--- NOTE | 2019-08-08 21:36 | CT Scan Report ---
CT bony pelvis wo con HISTORY: 84 years-old Male sacral ulcer access depth chronic sacral ulcer. History of esophageal can cer. COMPARISON: CT abdomen and pelvis 05/23/2019, PET CT 06/06/2019 TECHNIQUE: Multiple axial CT images of the pelvis were obtained without the use of IV contrast. A dos e lowering technique was used consistent with the principals of SANTHOSH. 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 Satisfactory alignment of the arthroplasties without acute fracture, dislocation or evidence of hardware loosening. Deminerali zed appearance of the bones. Partial bony fusion of the SI joints. No acute fracture or dislocation i dentified. The imaged sacrum appears intact. No bony erosion to suggest osteomyelitis. There is diffuse moderate subcutaneous edema. Small foci of subcutaneous emphysema about the anterior left lower abdominal wall suggest medicinal injection site. Brachytherapy seeds noted within the enl arged prostate. Mild circumferential urinary bladder wall thickening. There is no bowel obstruction o r bowel wall thickening. Calcified plaque the abdominal aorta and iliac arteries. Decubitus sacral ul cer of the superior gluteal cleft extends for a depth of approximately 1.4 cm within approximately to the inferior coccyx. No drainable fluid collection. Soft tissues are otherwise unremarkable. IMPRESSION: 1. No acute intrapelvic abnormality. 2. Sacral decubitus ulcer of the superior gluteal cleft extends for a depth of approximately 1.4 cm a djacent to the inferior coccyx. No drainable fluid collection or bony erosive changes to suggest acut e osteomyelitis at this time. 3. Demineralized appearance of the bones without acute fracture or dislocation. 4. Additional findings as above. The above report was generated using voice recognition software. It may contain grammatical, syntax o r spelling errors. Electronically signed by: Hector Hernandez M.D. 08/08/2019 9:34 PM
[2019-08-09 06:34] LABS: Hematocrit (blood only) 25.6 % (42-52); Hemoglobin 8.2 g/dL (14.0-18.0); Mean Corpuscular Hemoglobin 25.6 pg (25-34); RDW Coefficient of Variation 20.9 % (11.5-14.5); RDW Standard Deviation 59.4 fL (36.4-46.3); White Blood Count 1.92 K/uL (4.8-10.8)
[2019-08-09 06:35] LABS: Mean Platelet Volume 10.1 fL (7.4-10.4); Platelet Count 85 K/uL (130-400)
[2019-08-09 06:59] LABS: Anisocytosis Present; Dohle Bodies 1+; Eosinophils # (auto) 0.02 K/uL (0-0.5); Immature Granulocytes # (auto) 0.02 K/uL (0.00-0.02); Lymphocytes # (auto) 0.27 K/uL (1.2-3.4); Lymphocytes % (auto) 14.1 %; Monocytes # (auto) 0.33 K/uL (0.11-0.59); Monocytes % (auto) 17.2 %; Neutrophils # (auto) 1.28 K/uL (1.4-6.5); Neutrophils % (auto) 66.7 %
[2019-08-09 07:09] LABS: BUN Creatinine Ratio 24.1 (10-20); Calcium 7.3 mg/dl (8.5-10.1); Creatinine Clr Calc Pharmacy 86.3 ml/min; Est GFR (African American) 99.3; Est GFR (Non-African American) 85.7; Magnesium 1.9 mg/dl (1.8-2.4); Potassium 2.9 mmol/L (3.5-5.1)
[2019-08-09] MEDS: METOCLOPRAMIDE HCL 10 MG TABLET PO SCH ×3 (07:50→17:15)
[2019-08-09] MEDS: FERROUS SULFATE 325 MG TAB PO SCH (07:50)
[2019-08-09] MEDS: ENOXAPARIN 100 MG/1ML SYR SQ SCH ×2 (07:51→21:02)
[2019-08-09] MEDS: MIDODRINE HCL 2.5 MG TAB PO SCH ×3 (07:51→17:15)
[2019-08-09] MEDS: POTASSIUM CHLORIDE 20 MEQ TABCR PO SCH (07:51)
[2019-08-09] MEDS: ONDANSETRON 8 MG TABLET PO SCH ×4 (07:51→21:02)
[2019-08-09] MEDS: SODIUM CHLORIDE 0.9% 1000ML 1,000 ML IV SCH (07:52)
[2019-08-09] MEDS: POTASSIUM CHLORIDE / WTR 20 MEQ/100 ML PLCT IV SCH ×3 (08:19→12:29)
[2019-08-09] MEDS ORDERED: MIDODRINE HCL 2.5 MG TAB PO STA (08:20)
[2019-08-09] MEDS ORDERED: SODIUM CHLORIDE 0.9% 1000ML 500 ML IV ONE (08:48)
[2019-08-09] MEDS: NSS + 20MEQ KCL 20 MEQ/1,000 ML BAG IV SCH ×2 (09:41→21:02)
--- NOTE | 2019-08-09 09:53 | Cardiology Consultation ---
Date of Consultation August 09, 2019 History of Present Illness Attending Physician: Luis Victoria DO Patient is an 84-year-old male with a past medical history significant for esophageal cancer, history of orthostasis, history of bradycardia, history of diabetes mellitus type 2 who presented to [facility] complaining of lightheadedness and dizziness with noted syncopal episode. Patient has been undergoing chemotherapy but has not had a treatment in approxim ately 2 weeks but has noted that he has been feeling nauseous with diarrhea noting he is had loose bowel movements approximately 5 to 6/day. Patient denied any fevers or chills cough night sweats but does note weight loss. He denied any chest pain or shortness of breath. He denied any palpitations or any other complaints other than feeling lightheaded particularly with changing position. He notes this seems to have been worse than his prior episodes. He also notes that he has had a decrease in p.o. intake lately. He denied any other complaints Allergies Allergy/AdvReac Type Severity Reaction Status Date / Time metformin AdvReac Intermediate MUSCLE Verified 07/27/19 19:22 ACHES Ybjxzax-Nhd-Pds Reductase AdvReac Intermediate MUSCLE Verified 07/27/19 19:22 Inhibitor ACHES Unclassified Drugs Allergy Intermediate RED YEAST Uncoded 07/27/19 19:22 RICE-MUSCLE ACHES Home Medications Home Medications Medication Instructions Recorded Confirmed Type cyanocobalamin (vitamin B-12) 1,000 mcg PO QAM 05/16/19 08/08/19 History [Vitamin B-12] ferrous sulfate 325 mg PO QAM 05/16/19 08/08/19 History midodrine 2.5 mg tablet 2.5 - 5 mg PO BID tab 06/21/19 08/08/19 History ondansetron HCl 8 mg tablet 8 mg PO QID tab 07/23/19 08/08/19 History enoxaparin 90 mg SUBCUT Q12H 30 Days #60 ml 07/29/19 08/08/19 Rx metoclopramide HCl 10 mg PO Q6H PRN 08/08/19 08/08/19 History pantoprazole 40 mg PO DAILY 08/08/19 08/08/19 History Patient History Medical History Acid reflux Bradycardia ASYMPTOMATIC C. difficile colitis Colon cancer (Acute) Diagnosed 06/13/19 Diabetes mellitus, type 2 DIET CONTROLLED (MOST RECENT A1C 5.3 PER PT REPORT) Esophageal cancer (Acute) Diagnosed 05/18/19 Hip replacement planned (Acute) right History of cardiac arrhythmia PT HAD HOLTER SHOWING NSR WITH INTERMITTENT EPISODES OF ATRIAL TACHYCARDIA. History of prostate cancer 1999' S/P BRACHYTHERAPY Hypotension Iron deficiency Osteoarthritis Poor appetite Port-A-Cath in place (07/02/19) Access port placement. Dr. Vidales 07/02/19 SOB (shortness of breath) on exertion Weight loss REPORTS 45 LB WT LOSS SINCE Surgical History History of brachytherapy for Prostate Cancer History of cataract extraction with lens replacement 06/2018, 07/2018 History of colonoscopy 2018 History of cystoscopy History of esophagogastroduodenoscopy (EGD) History of open reduction and internal fixation (ORIF) procedure 1997 - LT ARM History of prostate biopsy History of total hip arthroplasty 02/2018 - Left Hip, 10/2018 - Right Hip Family History Grandmother (Maternal) , Passed age 82 of unknown cancer No problems noted. Mother , Passed age 62 of [place] Heart disease Father , Passed age 56 of [place] Heart disease Brother , Passed age 68 of metastatic Lung Cancer No problems noted. Brother , Passed age 38 of suicide No problems noted. Sister , Passed age 62 Ovarian Cancer (also history of Breast CA 20 y rs prior) No problems noted. Sister , Passed age 71 of Lung Cancer (Heavy Smoker) No problems noted. Daughter No problems noted. Daughter No problems noted. Other Cancer Family history non-contributory Social History Preferred Language: Lao Communication Ability: Effective Visual Impairment: No Limitations Hearing Ability: Normal Lab Rn Required: No Beliefs That Will Affect Care: None marital status: / Current Living Situation: Alone current occupational status: retired current occupation: Retired at [employer] Other Information That Helps Us Care for You: Yes (home nursing 2x/wk to check B/Ps and "ask questions") Feels Safe at Home: Yes Smoking Status: Former smoker Tobacco Type: cigarettes ; Cigarettes Per Day: H/O 1PPD x 20yrs ; Second Hand Exposure: No ; Hx Alcohol Use: Yes Alcohol type: beer Alcohol Intake Frequency: Holidays/Special Occasions Hx Substance Use: No Childhood Exposure to Second-Hand Smoke: Yes caffeine: No Dental Care, Regularly: No Results & Data Vital Signs (Past 12 Hours) Vital Signs Temp Pulse Pulse Pulse Resp BP Pulse Ox 08/09/19 08:00 74 08/09/19 07:52 36.8 C 83 20 85/53 L 97 08/09/19 04:16 36.3 C L 79 19 98/59 L 100 08/09/19 00:01 74 08/08/19 23:31 36.6 C 76 16 95/60 L 98 Review of systems: 14 point review of systems all systems were answered negatively except were noted in the HPI Physical exam: Vital signs today show a temperature of 36.8 Celsius pulse 74 blood pressure was 85/53 with a pulse ox of 97% General appearance: Patient appears to be awake alert and oriented in no apparent distress stable but frail HEENT: Normocephalic atraumatic sclera were nonicteric mucous membranes were dry Neck was supple no JVD bruits or adenopathy Cardiovascular: Distant heart sounds rhythm appeared to be irregularly irregular with a normal rate with no appreciable murmurs rubs or gallops Lungs: Diminished but clear Abdomen: Nontender nondistended positive bowel sounds Extremities: No significant edema clubbing or cyanosis Neuro: Mostly nonfocal Impression and plan: 1. Orthostatic hypotension 2. Hypokalemia 3. Newly diagnosed atrial fibrillation with a controlled ventricular response 4. Syncope 5. History of esophageal carcinoma Given the patient's history and current clinical presentation I recommend continuing with IV fluids as well as repletion of his potassium noting it climbed from 2.4 yesterday to 2.9 today I recommend checking a magnesium level which may be low secondary to his hypo-albuminemia. Encourage increased p.o. intake as well and we will also increase his midodrine to 5 mg 3 times daily. If we need to we may consider at some point in the future once his potassium is more stable we could consider adding Florinef starting with 0.1 mg daily but hold off on this at this point. Patient does not have a history of atrial fibrillation but was noted on his EKG upon admission that he was in atrial fibrillation with a controlled ventricular response. The patient at this point is not a good oral anticoagulation patient given his history of orthostasis and syncope as well as falls. We will continue to monitor him from the standpoint and make no change at this point again noting his ventricular response is stable. In terms of his syncope this appears to be related to his orthostasis therefore we will continue with the current management as noted above. He should have out of bed with assistance and fall precautions. He is otherwise feeling better today compared to yesterday. Therefore we will continue with the management as noted above. If you have any questions please feel free to contact me and thank you for allowing me to participate the care of this patient
[2019-08-09] MEDS ORDERED: MAGNESIUM SULFATE / D5W 1 GM/100 ML BAG IV STA (12:59)
[2019-08-09] MEDS ORDERED: MIDODRINE HCL 2.5 MG TAB PO SCH ×2 (14:00→18:00)
--- NOTE | 2019-08-09 17:50 | Hospitalist Progress Note ---
Date of Service August 09, 2019 Assessment & Plan (1) Syncope and collapse: 84 y/o M with PMH of esophageal and colon cancer, DVT, HTN, T2DM; presented after recurrent falls for the last week from seated position, additionally has non-healing wound over sacrum. Syncope: - likely 2/2 orthostatic hypotension - pt describes similar to orthostatic episodes as always at transition from seated to standing; patient frequently not eating meals, and having cyclical jessica sea/vomiting, and sporadic diarrhea - fall precautions - given 1L NSS bolus - consulted Cardiology, appreciate recs Sacral decubitus ulcer: - family states that ulcer appeared over the last three to four days, and that patient had some form of cyst there his entire life; questionable stage 3 - CT scan demonstrated no spread to sacral spine - will hold of on antibiotics until determination of extent - wound care consulted; air mattress ordered Diarrhea: - 3-4 episodes a day, patient has had previous C. diff; if we start antibiotics for sacral wound, then will add vancomycin for mitigation of recurrence risk Hypotension: - started home midodrine 5mg TID Dehydration: - started on NSS @ 80mL/hr; given 1L NSS bolus - continue to monitor PO intake for determination of need to further bolus Hypokalemia: - on admission K = 2.4; improved to 2.9 - given 60mg of IV; will recheck in AM DVT: lovenox 90mg Q12 Code Status: DNI, POLST on chart Diet: Carb consistent T2DM (2) Sacral decubitus ulcer: (3) Diarrhea: (4) Hypotension: (5) Dehydration: (6) Hypokalemia: Supervising Physician Co-Signing Physician Notes I personally examined the patient and verified all green points of history and exam, discussed case, and agree with decision making with Dr Huerta. Feels a little better. Has not really been up yet. Did eat better than before, reviewing his trailer unfortunately appears he is only eating about half. No nausea or vomiting. Feels pleased with his progress. Vitals noted, in general he is awake and alert fatigued appearing but otherwise in no distress. HEENT normocephalic atraumatic mucous members are moist. Breathing unlabored no accessory muscle use good effort. No rashes no pallor or icterus. No focal neuro deficits. Persistent orthostasismost likely volume depletion versus volume depletion plus autonomic insufficiency, echo without concerning findings on discussion with cardiology. Midodrine increased, but I suspect giving him more volume is going to be the bigger part of improvement. Sacral ulcerno sepsis, no overt infection, fortunately appearing to be predominantly local wound care issue. Culture, consult, may need antibiotics depending on culture and wound physician findings with debridement, but hopefully with offloading and nutrition it will improve. Loose stoolsdoes not fit a pattern of C. difficile, and he does not have abdominal tenderness fever or leukocytosisappears most likely to be chemo related. Hypokalemiaintake and diarrhea related. Continue to replace, replace magnesium. Antineoplastic chemotherapy induced pancytopeniafortunately not neutropenic to the point of requiring isolation. I hope this will rebound shortly. Otherwise as above. Subjective Feels a little better after having some food, and being able to keep fluids down last night. Feels like he is doing better with his strength but is still not up to his normal. Review of Systems Constitutional: + fatigue and + weakness; no fever, no chills and no sweats Cardiovascular: no chest pain, no palpitations, no lightheadedness, no syncope and no edema Physical Exam Constitutional: WD/WN, vitals as above Eyes: PERRL, conjunctivae normal, anicteric sclerae Respiratory: normal respiratory effort, lungs clear to auscultation Cardiovascular: Rate/Rhythm: regular rate and regular rhythm Heart Sounds: normal S1 and normal S2; no gallop, no murmur and no cardiac rub Gastrointestinal (Abdomen): normal bowel sounds, soft, nontender, no hepatosplenomegaly Musculoskeletal: Extremities: strength 5/5 throughout Skin: + ulcer (sacral decubitus ulcer stage 3/4?) Results & Data Vital Signs (Past 12 Hours) Vital Signs Temp Pulse Pulse Resp BP Pulse Ox 08/09/19 15:56 36.9 C 65 18 115/71 95 08/09/19 10:58 36.5 C 69 20 102/64 99 08/09/19 08:00 74 08/09/19 07:52 36.8 C 83 20 85/53 L 97 Laboratory Results 08/09/19 08/09/19 08/08/19 Range/Units 06:22 06:22 18:02 WBC 1.92 L (4.8-10.8) K/uL RBC 3.20 L (4.7-6.1) M/uL Hgb 8.2 L (14.0-18.0) g/dL Hct 25.6 L (42-52) % MCV 80.0 (80-100) fL MCH 25.6 (25-34) pg MCHC 32.0 (32-36) g/dL RDW Std Deviation 59.4 H (36.4-46.3) fL RDW Coeff of Akshat 20.9 H (11.5-14.5) % Plt Count 85 L (130-400) K/uL MPV 10.1 (7.4-10.4) fL Immature Gran % (Auto) 1.0 % Neut % (Auto) 66.7 % Lymph % (Auto) 14.1 % [place] % (Auto) 17.2 % Eos % (Auto) 1.0 % Baso % (Auto) 0.0 % Immature Gran # (Auto) 0.02 (0.00-0.02) K/uL Neut # (Auto) 1.28 L (1.4-6.5) K/uL Lymph # (Auto) 0.27 L (1.2-3.4) K/uL [place] # (Auto) 0.33 (0.11-0.59) K/uL Eos # (Auto) 0.02 (0-0.5) K/uL Baso # (Auto) 0.00 (0-0.2) K/uL Dohle Bodies 1+ Platelet Estimate (Normal) Anisocytosis Present Ovalocytes Echinocytes Sodium 141 139 (136-145) mmol/L Potassium 2.9 L D 2.4 L* (3.5-5.1) mmol/L Chloride 110 H 106 (98-107) mmol/L Carbon Dioxide 22 23 (21-32) mmol/L Anion Gap 9.0 10.0 (3-11) BUN 17 17 (7-18) mg/dl Creatinine 0.72 0.70 (0.6-1.4) mg/dl Est Cr Clr Drug Dosing 86.3 88.8 ml/min Est GFR ( Amer) 99.3 100.4 Est GFR (Non-Af Amer) 85.7 86.7 BUN/Creatinine Ratio 24.1 H 23.9 H (10-20) Glucose 111 H 112 H (70-99) mg/dl Calcium 7.3 L 7.8 L (8.5-10.1) mg/dl Magnesium 1.9 1.7 L (1.8-2.4) mg/dl Total Bilirubin 0.3 (0.2-1) mg/dl AST 13 L (15-37) U/L ALT 7 L (12-78) U/L Alkaline Phosphatase 86 (45-117) U/L Total Protein 4.9 L (6.4-8.2) gm/dl Albumin 1.8 L (3.4-5.0) gm/dl Globulin 3.1 (2.5-4.0) gm/dl Albumin/Globulin Ratio 0.6 L (0.9-2) 08/08/19 Range/Units 18:02 WBC 2.09 L (4.8-10.8) K/uL RBC 3.43 L (4.7-6.1) M/uL Hgb 8.8 L (14.0-18.0) g/dL Hct 27.2 L (42-52) % MCV 79.3 L (80-100) fL MCH 25.7 (25-34) pg MCHC 32.4 (32-36) g/dL RDW Std Deviation 57.6 H (36.4-46.3) fL RDW Coeff of Akshat 20.8 H (11.5-14.5) % Plt Count 85 L (130-400) K/uL MPV (7.4-10.4) fL Immature Gran % (Auto) 1.0 % Neut % (Auto) 61.7 % Lymph % (Auto) 17.7 % [place] % (Auto) 19.6 % Eos % (Auto) 0.0 % Baso % (Auto) 0.0 % Immature Gran # (Auto) 0.02 (0.00-0.02) K/uL Neut # (Auto) 1.29 L (1.4-6.5) K/uL Lymph # (Auto) 0.37 L (1.2-3.4) K/uL [place] # (Auto) 0.41 (0.11-0.59) K/uL Eos # (Auto) 0.00 (0-0.5) K/uL Baso # (Auto) 0.00 (0-0.2) K/uL Dohle Bodies Platelet Estimate Decreased L (Normal) Anisocytosis Present Ovalocytes 1+ Echinocytes 1+ Sodium (136-145) mmol/L Potassium (3.5-5.1) mmol/L Chloride (98-107) mmol/L Carbon Dioxide (21-32) mmol/L Anion Gap (3-11) BUN (7-18) mg/dl Creatinine (0.6-1.4) mg/dl Est Cr Clr Drug Dosing ml/min Est GFR ( Amer) Est GFR (Non-Af Amer) BUN/Creatinine Ratio (10-20) Glucose (70-99) mg/dl Calcium (8.5-10.1) mg/dl Magnesium (1.8-2.4) mg/dl Total Bilirubin (0.2-1) mg/dl AST (15-37) U/L ALT (12-78) U/L Alkaline Phosphatase (45-117) U/L Total Protein (6.4-8.2) gm/dl Albumin (3.4-5.0) gm/dl Globulin (2.5-4.0) gm/dl Albumin/Globulin Ratio (0.9-2) Medications Administered Current Inpatient Medications Acetaminophen (Tylenol) 650 mg PO Q4H PRN PRN Reason: pain/fever Stop: 09/07/19 17:26 Al Hydrox/Mg Hydrox/Simethicone (Maalox) 30 ml PO Q6H PRN PRN Reason: Dyspepsia Stop: 09/07/19 17:26 Enoxaparin Sodium (Lovenox) 90 mg SQ Q12H OMAR Stop: 09/07/19 17:59 Last Admin: 08/09/19 07:51 Dose: 90 mg Documented by: Ferrous Sulfate (Feosol) 325 mg PO QAM OMAR Stop: 09/08/19 08:59 Last Admin: 08/09/19 07:50 Dose: 325 mg Documented by: Potassium Chloride/Sodium Chloride (Normal Saline W/20 Meq Kcl) 20 meq in 1,000 mls @ 80 mls/hr IV .[id number] OMAR Stop: 09/08/19 08:59 Last Admin: 08/09/19 09:41 Dose: 80 mls/hr Documented by: Magnesium Hydroxide (Milk Of Magnesia) 30 ml PO Q6H PRN PRN Reason: Constipation Stop: 09/07/19 17:26 Metoclopramide HCl (Reglan) 10 mg PO TIDM [facility] Stop: 09/07/19 18:59 Last Admin: 08/09/19 17:15 Dose: 10 mg Documented by: Midodrine (Proamatine) 5 mg PO TID@0800,1200,1700 [facility] Stop: 09/08/19 11:59 Last Admin: 08/09/19 17:15 Dose: 5 mg Documented by: Ondansetron HCl (Zofran) 4 mg IV Q6H PRN PRN Reason: Nausea Stop: 09/07/19 17:26 Ondansetron HCl (Zofran Tab) 8 mg PO QID [facility] Stop: 09/07/19 20:59 Last Admin: 08/09/19 17:15 Dose: 8 mg Documented by: Polyethylene Glycol (Miralax Powder Packet) 17 gm PO DAILY PRN PRN Reason: Constipation Stop: 09/07/19 17:26 Potassium Chloride (Klor-Con M20) 40 meq PO QAM [facility] Stop: 09/08/19 08:59 Last Admin: 08/09/19 07:51 Dose: 40 meq Documented by: Resident Activity Tracking Resident Involvement: Resident Care Provided Care Provided: Adult Hospital Medicine
--- NOTE | 2019-08-09 19:20 | Billing Data ---
Coding Level of Care Code 25642 Subseq Hosp Care Lvl 3
[2019-08-10 07:56] LABS: Eosinophils # (auto) 0.01 K/uL (0-0.5); Eosinophils % (auto) 0.6 %; Hematocrit (blood only) 25.8 % (42-52); Hemoglobin 8.1 g/dL (14.0-18.0); Immature Granulocytes # (auto) 0.03 K/uL (0.00-0.02); Immature Granulocytes % (auto) 1.7 %; Lymphocytes # (auto) 0.39 K/uL (1.2-3.4); Lymphocytes % (auto) 22.4 %; Mean Corpuscular Hemoglobin 25.4 pg (25-34); Mean Corpuscular Hgb Conc 31.4 g/dL (32-36); Mean Corpuscular Volume 80.9 fL (80-100); Mean Platelet Volume 9.5 fL (7.4-10.4); Monocytes # (auto) 0.31 K/uL (0.11-0.59); Monocytes % (auto) 17.8 %; Neutrophils % (auto) 57.5 %; Platelet Count 105 K/uL (130-400); RDW Coefficient of Variation 21.6 % (11.5-14.5); RDW Standard Deviation 62.5 fL (36.4-46.3); Red Blood Count 3.19 M/uL (4.7-6.1); White Blood Count 1.74 K/uL (4.8-10.8)
[2019-08-10 08:18] LABS: Anisocytosis Present; Echinocytes 1+
[2019-08-10 08:27] LABS: Albumin Level 1.7 gm/dl (3.4-5.0); BUN Creatinine Ratio 27.5 (10-20); Calcium 7.4 mg/dl (8.5-10.1); Creatinine Clr Calc Pharmacy 91.4 ml/min; Est GFR (African American) 101.6; Est GFR (Non-African American) 87.7; Magnesium 1.9 mg/dl (1.8-2.4); Potassium 3.7 mmol/L (3.5-5.1)
--- NOTE | 2019-08-10 08:37 | Cardiology Progress Note ---
Date of Service August 10, 2019 Subjective The patient was seen and examined today and notes he is feeling better and is getting stronger every day. He denied any chest pain shortness of breath palpitations, lightheadedness fevers chills or any other complaints to me this a.m. Results & Data Vital Signs (Past 12 Hours) Vital Signs Temp Pulse Resp BP Pulse Ox 08/10/19 07:16 36.6 C 67 17 99/61 L 100 08/10/19 03:27 36.7 C 71 19 95/56 L 97 08/09/19 23:19 36.7 C 63 19 103/66 100 Physical exam: Vital signs today show a temperature of 36.8 Celsius pulse 74 blood pressure was 85/53 with a pulse ox of 97% General appearance: Patient appears to be awake alert and oriented in no apparent distress stable but frail HEENT: Normocephalic atraumatic sclera were nonicteric mucous membranes were dry Neck was supple no JVD bruits or adenopathy Cardiovascular: Distant heart sounds rhythm appeared to be irregularly irregular with a normal rate with no appreciable murmurs rubs or gallops Lungs: Diminished but clear Abdomen: Nontender nondistended positive bowel sounds Extremities: No significant edema clubbing or cyanosis Neuro: Grossly nonfocal Impression and plan: 1. Orthostatic hypotension 2. Hypokalemia 3. Newly diagnosed atrial fibrillation with a controlled ventricular response 4. Syncope 5. History of esophageal carcinoma 6. Anemia Patient is slowly improving therefore we will continue current management with continued fluid resuscitation. His potassium is repleted and I recommend continuing to monitor with daily BMP and magnesium. Encourage increased p.o. intake. He had his midodrine increased to 5 mg p.o. 3 times daily and his blood pressures has improved slightly.. If we need to we may consider at some point in the future once his potassium is more stable we could consider adding John rinef starting with 0.1 mg daily but hold off on this at this point. Patient does not have a history of atrial fibrillation but was noted on his EKG, As either atrial flutter with variable block versus coarse atrial fibrillation upon admissionBut his heart rate was controlled. The patient at this point is not a good oral anticoagulation patient given his history of orthostasis and syncope as well as falls. We will continue to monitor him from the standpoint and make no change at this point again noting his ventricular response is stable. In terms of his syncope this appears to be related to his orthostasis therefore we will continue with the current management as noted above. He should have out of bed with assistance and fall precautions. He is otherwise feeling better today compared to yesterday. It is of note the patient's hemoglobin is 8.1 and if needed may benefit from red blood cell transfusion which will also help with oncotic pressure as well as volume status. I will defer to the medicine team on this issue. Therefore we will continue with the management as noted above. If you have any questions please feel free to contact me and thank you for allowing me to participate the care of this patient
[2019-08-10 08:41] LABS: Albumin Globulin Ratio 0.6 (0.9-2); Bilirubin,Total 0.3 mg/dl (0.2-1); Phosphorus 1.3 mg/dl (2.5-4.9); Total Protein 4.7 gm/dl (6.4-8.2)
[2019-08-10] MEDS ORDERED: MIDODRINE HCL 2.5 MG TAB PO SCH (09:00)
[2019-08-10] MEDS: METOCLOPRAMIDE HCL 10 MG TABLET PO SCH ×3 (09:03→17:14)
[2019-08-10] MEDS: ENOXAPARIN 100 MG/1ML SYR SQ SCH ×2 (09:03→21:01)
[2019-08-10] MEDS: POTASSIUM CHLORIDE 20 MEQ TABCR PO SCH (09:04)
[2019-08-10] MEDS: ONDANSETRON 8 MG TABLET PO SCH ×4 (09:04→21:01)
[2019-08-10] MEDS: FERROUS SULFATE 325 MG TAB PO SCH (09:04)
[2019-08-10] MEDS: MIDODRINE HCL 2.5 MG TAB PO SCH ×3 (09:05→17:14)
[2019-08-10] MEDS: NSS + 20MEQ KCL 20 MEQ/1,000 ML BAG IV SCH ×2 (09:06→20:21)
[2019-08-10] MEDS ORDERED: POTASSIUM PHOS 3 MMOL/1 ML INFUSION IV STA (09:47)
[2019-08-10] MEDS ORDERED: POTASSIUM PHOSPHATE 15 MMOL in SODIUM CHLORIDE 0.9% 250 ML IV ONE (10:00)
[2019-08-10] MEDS ORDERED: TAMSULOSIN HCL 0.4 MG CAP PO PRN ×2 (10:42→19:06)
[2019-08-10] MEDS: ONDANSETRON INJ 2 MG/ML 2 ML VIAL IV PRN (10:54)
--- NOTE | 2019-08-10 13:58 | Cardiology Consultation ---
Date of Consultation August 10, 2019 History of Present Illness Attending Physician: Luis Victoria DO Allergies Allergy/AdvReac Type Severity Reaction Status Date / Time metformin AdvReac Intermediate MUSCLE Verified 07/27/19 19:22 ACHES red yeast rice AdvReac Intermediate Muscle Pain Verified 08/09/19 13:00 Wjbusdq-Xir-Fzq Reductase AdvReac Intermediate MUSCLE Verified 07/27/19 19:22 Inhibitor ACHES Home Medications Home Medications Medication Instructions Recorded Confirmed Type cyanocobalamin (vitamin B-12) 1,000 mcg PO QAM 05/16/19 08/08/19 History [Vitamin B-12] ferrous sulfate 325 mg PO QAM 05/16/19 08/08/19 History midodrine 2.5 mg tablet 2.5 - 5 mg PO BID tab 06/21/19 08/08/19 History ondansetron HCl 8 mg tablet 8 mg PO QID tab 07/23/19 08/08/19 History enoxaparin 90 mg SUBCUT Q12H 30 Days #60 ml 07/29/19 08/08/19 Rx metoclopramide HCl 10 mg PO Q6H PRN 08/08/19 08/08/19 History pantoprazole 40 mg PO DAILY 08/08/19 08/08/19 History Patient History Medical History Acid reflux Bradycardia ASYMPTOMATIC C. difficile colitis Colon cancer (Acute) Diagnosed 06/13/19 Diabetes mellitus, type 2 DIET CONTROLLED (MOST RECENT A1C 5.3 PER PT REPORT) Esophageal cancer (Acute) Diagnosed 05/18/19 Hip replacement planned (Acute) right History of cardiac arrhythmia PT HAD HOLTER SHOWING NSR WITH INTERMITTENT EPISODES OF ATRIAL TACHYCARDIA. History of prostate cancer 1999's S/P BRACHYTHERAPY Hypotension Iron deficiency Osteoarthritis Poor appetite Port-A-Cath in place (07/02/19) Access port placement. Dr. Vidales 07/02/19 SOB (shortness of breath) on exertion Weight loss REPORTS 45 LB WT LOSS SINCE Surgical History History of brachytherapy for Prostate Cancer History of cataract extraction with lens replacement 06/2018, 07/2018 History of colonoscopy 2018 History of cystoscopy History of esophagogastroduodenoscopy (EGD) History of open reduction and internal fixation (ORIF) procedure 1997 - LT ARM History of prostate biopsy 1999' History of total hip arthroplasty 02/2018 - Left Hip, 10/2018 - Right Hip Family History Grandmother (Maternal) , Passed age 82 of unknown cancer No problems noted. Mother , Passed age 62 of [place] Heart disease Father , Passed age 56 of [place] Heart disease Brother , Passed age 68 of metastatic Lung Cancer No problems noted. Brother , Passed age 38 of suicide No problems noted. Sister , Passed age 62 Ovarian Cancer (also history of Breast CA 20 yrs prior) No problems noted. Sister , Passed age 71 of Lung Cancer (Heavy Smoker) No problems noted. Daughter No problems noted. Daughter No problems noted. 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 Beliefs That Will Affect Care: None marital status: / Current Living Situation: Alone current occupational status: retired current occupation: Retired at [employer] Other Information That Helps Us Care for You: Yes (home nursing 2x/wk to check B/Ps and "ask questions") Feels Safe at Home: Yes Smoking Status: Former smoker Tobacco Type: cigarettes ; Cigarettes Per Day: H/O 1PPD x 20yrs ; Second Hand Exposure: No ; Hx Alcohol Use: Yes Alcohol type: beer Alcohol Intake Frequency: Holidays/ Special Occasions Hx Substance Use: No Childhood Exposure to Second-Hand Smoke: Yes caffeine: No Dental Care, Regularly: No Physical Exam Physical Exam: General : stable in NAD HEENT: 2+ carotid upstrokes, no evidence of carotid bruits, jugular venous pressure was normal. Sclera was anicteric. Hearing was normal .Lungs: Clear to auscultation bilaterally no rales rhonchi wheezing Heart: regular rate and rhythm no appreciable murmurs rubs or gallops Abdomen: soft nontender nondistended positive bowel sounds Extremities: no clubbing cyanosis or edema Neuro : Grossly non-focal Results & Data Vital Signs (Past 12 Hours) Vital Signs Temp Pulse Pulse Resp BP Pulse Ox 08/10/19 11:38 36.5 C 78 22 127/79 97 08/10/19 10:22 74 08/10/19 07:16 36.6 C 67 17 99/61 L 100 08/10/19 03:27 36.7 C 71 19 95/56 L 97
--- NOTE | 2019-08-10 14:37 | Wound Consultation ---
Date of Consultation August 10, 2019 Assessment & Plan (1) Pressure ulcer of coccygeal region, stage 3: No debridement was required. Patient likely would not be a good candidate to go to the OR for surgical debridement. We will place a choice cleanse irrigating wound VAC on the patient. This will stay on for 4 days and will reevaluate. Thank you for allowing to participate in the care of this interesting patient. We will continue to follow. Please not hesitate to call with any questions. (2) Stage II pressure ulcer of left buttock: Dressed with alginate (3) Pressure injury of deep tissue of right buttock: Wound dressed with alginate History of Present Illness Reason for Consultation: Sacral pressure ulcer Attending Physician: Luis Victoria DO History of Present Illness This is an 84-year-old male with a history of esophageal and colon cancer, DVT, hypertension, type 2 diabetes mellitus who was admitted with syncope. On admission patient was found to have a pressure ulcer of his sacrum. Patient's daughter states that this has developed in the last couple weeks. She states that prior to this admission patient was living on his own and functioning independently. Wound cultures growing gram-negative bacilli. Patient is a poor historian and most is obtained from his daughter. Allergies Allergy/AdvReac Type Severity Reaction Status Date / Time metformin AdvReac Intermediate MUSCLE Verified 07/27/19 19:22 ACHES red yeast rice AdvReac Intermediate Muscle Pain Verified 08/09/19 13:00 Mudbnxs-Ahl-Wwl Reductase AdvReac Intermediate MUSCLE Verified 07/27/19 19:22 Inhibitor ACHES Home Medications Home Medications Medication Instructions Recorded Confirmed Type cyanocobalamin (vitamin B-12) 1,000 mcg PO QAM 05/16/19 08/08/19 History [Vitamin B-12] ferrous sulfate 325 mg PO QAM 05/16/19 08/08/19 History midodrine 2.5 mg tablet 2.5 - 5 mg PO BID tab 06/21/19 08/08/19 History ondansetron HCl 8 mg tablet 8 mg PO QID tab 07/23/19 08/08/19 History enoxaparin 90 mg SUBCUT Q12H 30 Days #60 ml 07/29/19 08/08/19 Rx metoclopramide HCl 10 mg PO Q6H PRN 08/08/19 08/08/19 History pantoprazole 40 mg PO DAILY 08/08/19 08/08/19 History Patient History Medical History Acid reflux Bradycardia ASYMPTOMATIC C. difficile colitis Colon cancer (Acute) Diagnosed 06/13/19 Diabetes mellitus, type 2 DIET CONTROLLED (MOST RECENT A1C 5.3 PER PT REPORT) Esophageal cancer (Acute) Diagnosed 05/18/19 Hip replacement planned (Acute) right History of cardiac arrhythmia PT HAD HOLTER SHOWING NSR WITH INTERMITTENT EPISODES OF ATRIAL TACHYCARDIA. History of prostate cancer 1999's S/P BRACHYTHERAPY Hypotension Iron deficiency Osteoarthritis Poor appetite Port-A-Cath in place (07/02/19) Access port placement. Dr. Vidales 07/02/19 SOB (shortness of breath) on exertion Weight loss REPORTS 45 LB WT LOSS SINCE Surgical History History of brachytherapy 1999' for Prostate Cancer History of cataract extraction with lens replacement 06/2018, 07/2018 History of colonoscopy 2000, 2018 History of cystoscopy 1999' History of esophagogastroduodenoscopy (EGD) History of open reduction and internal fixation (ORIF) procedure 1997 - LT ARM History of prostate biopsy 1999' History of total hip arthroplasty 02/2018 - Left Hip, 10/2018 - Right Hip Family History Grandmother (Maternal) , Passed age 82 of unknown cancer No problems noted. Mother , Passed age 62 of [place] Heart disease Father , Passed age 56 of [place] Heart disease Brother , Passed age 68 of metastatic Lung Cancer No problems noted. Brother , Passed age 38 of suicide No problems noted. Sister , Passed age 62 Ovarian Cancer (also history of Breast CA 20 yrs prior) No problems noted. Sister , Passed age 71 of Lung Cancer (Heavy Smoker) No problems noted. Daughter No problems noted. Daughter No problems noted. Other Cancer Family history non-contributory Social History Preferred Language: Uzbek Communication Ability: Effective Visual Impairment: No Limitations Hearing Ability: Normal Cryptologic Technician Technical Required: No Beliefs That Will Affect Care: None marital status: / Current Living Situation: Alone current occupational status: retired current occupation: Retired at [employer] Other Information That Helps Us Care for You: Yes (home nursing 2x/wk to check B/Ps and "ask questions") Feels Safe at Home: Yes Smoking Status: Former smoker Tobacco Type: cigarettes ; Cigarettes Per Day: H/O 1PPD x 20yrs ; Second Hand Exposure: No ; Hx Alcohol Use: Yes Alcohol type: beer Alcohol Intake Frequency: Holidays/Special Occasions Hx Substance Use: No Childhood Exposure to Second-Hand Smoke: Yes caffeine: No Dental Care, Regularly: No Review of Systems Review of Systems: All systems reviewed & are unremarkable except as noted in HPI & below Physical Exam Skin: Wound #1 coccyx measuring 5.5 x 3.1 x 0.9 cm. Wound is covered with thick fibrous slough. Periwound is intact and erythematous. There is moderate drainage and foul odor. Wound #2, left buttock measuring 11.5 x 9 cm. Wound is covered with fibrin and slough. There is a large portion of black eschar. There is minimal drainage and no foul odor. Wound #3 right buttock measuring 4.5 x 3.7 cm. Wound is not open at this time. Neurologic: awake; not confused Psychiatric: A+Ox3, euthymic affect Results & Data Vital Signs (Past 12 Hours) Vital Signs Temp Pulse Pulse Resp BP Pulse Ox 08/10/19 11:38 36.5 C 78 22 127/79 97 08/10/19 10:22 74 08/10/19 07:16 36.6 C 67 17 99/61 L 100 08/10/19 03:27 36.7 C 71 19 95/56 L 97 PG Care Time/CCT Total # of Minutes Spent Total Time Spent with Patient: Total time spent is greater than 50% in coordination of care (as documented) at patient's floor/unit and/or counseling patient:
--- NOTE | 2019-08-10 16:53 | Hospitalist Progress Note ---
Date of Service August 10, 2019 Assessment & Plan (1) Syncope and collapse: 84 y/o M with PMH of esophageal and colon cancer, DVT, HTN, T2DM; presented after recurrent falls for the last week from seated position, additionally has non-healing wound over sacrum. Syncope: - likely 2/2 orthostatic hypotension - pt describes similar to orthostatic episodes as always at transition from seated to standing; patient frequently not eating meals, and having cyclical jessica sea/vomiting, and sporadic diarrhea - fall precautions; continues too improve in strength, and ability to get around with - NSS rate increased to 160mL/h for continued hydration Sacral decubitus ulcer: - family states that ulcer appeared over the last three to four days, and that patient had some form of cyst there his entire life; questionable stage 3 - CT scan demonstrated no spread to sacral spine - wound culture demonstrated gram negative bacilli; without signs of overt infection to wound will hold of on antibiotics as likely can be resolved through continued dressing changes and cleaning with wound vac - wound care consulted: wound vac placed Diarrhea: - 3-4 episodes a day, patient has had previous C. diff; if we start antibiotics for sacral wound, then will add vancomycin for mitigation of recurrence risk Hypotension: - continue home midodrine 5mg TID - has had good improvement in blood pressure in combination with rehydration Dehydration: - started on NSS @ 80mL/hr; given 1L NSS bolus - continue to monitor PO intake for determination of need to further bolus Hypokalemia: - on admission K = 2.4; improved to 3.7 today - will continue to monitor Hypomagnesemia: - initially 1.7, improved to 1.9 today - will recheck in AM Hypophosphatemia: - 1.3 this AM; repleted with 15mmol of potassium phosphate - will check in AM DVT: lovenox 90mg Q12 Code Status: DNI, POLST on chart Diet: Carb consistent T2DM (2) Sacral decubitus ulcer: (3) Diarrhea: (4) Hypotension: (5) Dehydration: (6) Hypokalemia: Supervising Physician Co-Signing Physician Notes I personally examined the patient and verified all green points of history and exam, discussed case, and agree with decision making with Dr Huerta. doing better overall but not eating the best. family just brought in peanut butter milkshake. discussed appetite stimulant Vitals noted, in general he is awake and alert fatigued appearing but otherwise in no distress. HEENT normocephalic atraumatic mucous members are moist. Breathing unlabored no accessory muscle use good effort. No rashes no pallor or icterus. No focal neuro deficits. Persistent orthostasis volume depletion plus autonomic insufficiency, echo without concerning findings on discussion with cardiology. fluids, midodrine Sacral ulcerno sepsis, continue local care. culture growing gram negative rods, but without abscess, purulence, or overt cellulitis will hold on systemic abx (kris given Cdiff risk) unless wound team feels it will be needed. Loose stoolsdoes not fit a pattern of C. difficile, and he does not have abdominal tenderness fever or leukocytosisappears most likely to be chemo related. Hypokalemiaintake and diarrhea related. improving Antineoplastic chemotherapy induced pancytopeniafortunately not neutropenic to the point of requiring isolation. I hope this will rebound shortly. poor oral intake - given weakness/deconditioning - unless his PO intake really improves significantly we'll need to start appetite stimulant. urinary retention - likely BPH mediated. for now straight cath prn since less infection risk than [place] Otherwise as above. Subjective Feels a better after continuing to eat, and being able to keep fluids down last night. Feels like he is doing better with strength every day. Ate most of his plate for breakfast this morning, but did not eat much of his lunch. He would like to avoid appetite stimulants at this point, because he just was not a fan of the food for lunch, but understands that the process of declining meals is not one that he can continue long-term as this gets him back to this point of feeling weaker. Physical Exam Constitutional: WD/WN, vitals as above Eyes: PERRL, conjunctivae normal, anicteric sclerae Respiratory: normal respiratory effort, lungs clear to auscultation Cardiovascular: Rate/Rhythm: regular rate and regular rhythm Heart Sounds: normal S1 and normal S2; no gallop, no murmur and no cardiac rub Gastrointestinal (Abdomen): normal bowel sounds, soft, nontender, no hepatosplenomegaly Musculoskeletal: Extremities: strength 5/5 throughout Skin: + ulcer (sacral decubitus ulcer) Results & Data Vital Signs (Past 12 Hours) Vital Signs Temp Pulse Pulse Resp BP Pulse Ox 08/10/19 15:59 36.4 C L 68 18 128/71 99 08/10/19 15:09 68 08/10/19 11:38 36.5 C 78 22 127/79 97 08/10/19 10:22 74 08/10/19 07:16 36.6 C 67 17 99/61 L 100 Laboratory Results 08/10/19 08/10/19 Range/Units 07:46 07:46 WBC 1.74 L (4.8-10.8) K/uL RBC 3.19 L (4.7-6.1) M/uL Hgb 8.1 L (14.0-18.0) g/dL Hct 25.8 L (42-52) % MCV 80.9 (80-100) fL MCH 25.4 (25-34) pg MCHC 31.4 L (32-36) g/dL RDW Std Deviation 62.5 H (36.4-46.3) fL RDW Coeff of Akshat 21.6 H (11.5-14.5) % Plt Count 105 L (130-400) K/uL MPV 9.5 (7.4-10.4) fL Immature Gran % (Auto) 1.7 % Neut % (Auto) 57.5 % Lymph % (Auto) 22.4 % [place] % (Auto) 17.8 % Eos % (Auto) 0.6 % Baso % (Auto) 0.0 % Immature Gran # (Auto) 0.03 H (0.00-0.02) K/uL Neut # (Auto) 1.00 L (1.4-6.5) K/uL Lymph # (Auto) 0.39 L (1.2-3.4) K/uL [place] # (Auto) 0.31 (0.11-0.59) K/uL Eos # (Auto) 0.01 (0-0.5) K/uL Baso # (Auto) 0.00 (0-0.2) K/uL Anisocytosis Present Echinocytes 1+ Sodium 142 (136-145) mmol/L Potassium 3.7 D (3.5-5.1) mmol/L Chloride 114 H (98-107) mmol/L Carbon Dioxide 22 (21-32) mmol/L Anion Gap 6.0 (3-11) BUN 19 H (7-18) mg/dl Creatinine 0.68 (0.6-1.4) mg/dl Est Cr Clr Drug Dosing 91.4 ml/min Est GFR ( Amer) 101.6 Est GFR (Non-Af Amer) 87.7 BUN/Creatinine Ratio 27.5 H (10-20) Glucose 111 H (70-99) mg/dl Calcium 7.4 L (8.5-10.1) mg/dl Phosphorus 1.3 L* (2.5-4.9) mg/dl Magnesium 1.9 (1.8-2.4) mg/dl Total Bilirubin 0.3 (0.2-1) mg/dl AST 9 L (15-37) U/L ALT 7 L (12-78) U/L Alkaline Phosphatase 80 (45-117) U/L Total Protein 4.7 L (6.4-8.2) gm/dl Albumin 1.7 L (3.4-5.0) gm/dl Globulin 3.0 (2.5-4.0) gm/dl Albumin/Globulin Ratio 0.6 L (0.9-2) Medications Administered Current Inpatient Medications Acetaminophen (Tylenol) 650 mg PO Q4H PRN PRN Reason: pain/fever Stop: 09/07/19 17:26 Al Hydrox/Mg Hydrox/Simethicone (Maalox) 30 ml PO Q6H PRN PRN Reason: Dyspepsia Stop: 09/07/19 17:26 Enoxaparin Sodium (Lovenox) 90 mg SQ Q12H [facility] Stop: 09/07/19 17:59 Last Admin: 08/10/19 09:03 Dose: 90 mg Documented by: Ferrous Sulfate (Feosol) 325 mg PO QAM [facility] Stop: 09/08/19 08:59 Last Admin: 08/10/19 09:04 Dose: 325 mg Documented by: Potassium Chloride/Sodium Chloride (Normal Saline W/20 Meq Kcl) 20 meq in 1,000 mls @ 160 mls/hr IV .Q6H15M [facility] Stop: 09/08/19 08:59 Last Infusion: 08/10/19 10:06 Dose: 0 mls/hr Documented by: Magnesium Hydroxide (Milk Of Magnesia) 30 ml PO Q6H PRN PRN Reason: Constipation Stop: 09/07/19 17:26 Metoclopramide HCl (Reglan) 10 mg PO TIDM [facility] Stop: 09/07/19 18:59 Last Admin: 08/10/19 11:59 Dose: 10 mg Documented by: Midodrine (Proamatine) 5 mg PO TID@0800,1200,1700 [facility] Stop: 09/08/19 11:59 Last Admin: 08/10/19 11:59 Dose: 5 mg Documented by: Ondansetron HCl (Zofran) 4 mg IV Q6H PRN PRN Reason: Nausea Stop: 09/07/19 17:26 Last Admin: 08/10/19 10:54 Dose: 4 mg Documented by: Ondansetron HCl (Zofran Tab) 8 mg PO QID [facility] Stop: 09/07/19 20:59 Last Admin: 08/10/19 11:59 Dose: Not Given Documented by: Polyethylene Glycol (Miralax Powder Packet) 17 gm PO DAILY PRN PRN Reason: Constipation Stop: 09/07/19 17:26 Potassium Chloride (Klor-Con M20) 40 meq PO QAM [facility] Stop: 09/08/19 08:59 Last Admin: 08/10/19 09:04 Dose: 40 meq Documented by: Tamsulosin HCl (Flomax) 0.4 mg PO Q24H PRN PRN Reason: Bladder scan >400 Stop: 09/09/19 10:44 Resident Activity Tracking Resident Involvement: Resident Care Provided Care Provided: Adult Hospital Medicine
[2019-08-10] MEDS ORDERED: DRONABINOL 2.5 MG CAP PO SCH (18:00)
--- NOTE | 2019-08-10 19:00 | Billing Data ---
Coding Level of Care Code 89504 Subseq Hosp Care Lvl 3
[2019-08-10] MEDS: DRONABINOL 2.5 MG CAP PO SCH (21:52)
[2019-08-11] MEDS: NSS + 20MEQ KCL 20 MEQ/1,000 ML BAG IV SCH ×2 (03:25→12:34)
[2019-08-11 05:47] LABS: Eosinophils # (auto) 0.03 K/uL (0-0.5); Eosinophils % (auto) 1.6 %; Hematocrit (blood only) 23.5 % (42-52); Hemoglobin 7.5 g/dL (14.0-18.0); Immature Granulocytes # (auto) 0.04 K/uL (0.00-0.02); Immature Granulocytes % (auto) 2.2 %; Lymphocytes # (auto) 0.43 K/uL (1.2-3.4); Lymphocytes % (auto) 23.4 %; Mean Corpuscular Hemoglobin 25.9 pg (25-34); Mean Corpuscular Hgb Conc 31.9 g/dL (32-36); Mean Platelet Volume 10.2 fL (7.4-10.4); Monocytes # (auto) 0.23 K/uL (0.11-0.59); Monocytes % (auto) 12.5 %; Neutrophils # (auto) 1.11 K/uL (1.4-6.5); Neutrophils % (auto) 60.3 %; Platelet Count 101 K/uL (130-400); RDW Standard Deviation 64.7 fL (36.4-46.3); White Blood Count 1.84 K/uL (4.8-10.8)
[2019-08-11 06:19] LABS: BUN Creatinine Ratio 26.3 (10-20); Calcium 7.1 mg/dl (8.5-10.1); Est GFR (African American) 110.1; Magnesium 1.7 mg/dl (1.8-2.4); Phosphorus 1.7 mg/dl (2.5-4.9); Potassium 4.1 mmol/L (3.5-5.1)
[2019-08-11 06:22] LABS: Anisocytosis Present
[2019-08-11] MEDS ORDERED: POTASSIUM PHOS 3 MMOL/1 ML INFUSION IV STA (07:18)
[2019-08-11] MEDS ORDERED: POTASSIUM PHOSPHATE 9 MMOL in SODIUM CHLORIDE 0.9% 250 ML IV ONE (08:00)
[2019-08-11] MEDS ORDERED: MAGNESIUM SULFATE / D5W 1 GM/100 ML BAG IV ONE (08:00)
[2019-08-11] MEDS: ONDANSETRON 8 MG TABLET PO SCH ×4 (08:27→20:36)
[2019-08-11] MEDS: ENOXAPARIN 100 MG/1ML SYR SQ SCH ×2 (08:27→20:33)
[2019-08-11] MEDS: POTASSIUM CHLORIDE 20 MEQ TABCR PO SCH (08:28)
[2019-08-11] MEDS: METOCLOPRAMIDE HCL 10 MG TABLET PO SCH ×3 (08:28→16:33)
[2019-08-11] MEDS: FERROUS SULFATE 325 MG TAB PO SCH (08:29)
[2019-08-11] MEDS: MIDODRINE HCL 2.5 MG TAB PO SCH ×3 (08:29→16:33)
[2019-08-11] MEDS: DRONABINOL 2.5 MG CAP PO SCH ×2 (08:41→20:42)
[2019-08-11] MEDS ORDERED: BENZONATATE 100 MG CAPSULE PO ONE (10:00)
[2019-08-11] MEDS ORDERED: DRONABINOL 2.5 MG CAP PO SCH (11:00)
--- NOTE | 2019-08-11 14:17 | Hospitalist Progress Note ---
Date of Service August 11, 2019 Assessment & Plan (1) Syncope and collapse: 84 y/o M with PMH of esophageal and colon cancer, DVT, HTN, T2DM; presented after recurrent falls for the last week from seated position, additionally has non-healing wound over sacrum. Syncope: - likely 2/2 orthostatic hypotension - pt describes similar to orthostatic episodes as always at transition from seated to standing; patient frequently not eating meals, and having cyclical jessica sea/vomiting, and sporadic diarrhea - fall precautions; continues too improve in strength, and ability to get around with - NSS rate increased to 160mL/h for continued hydration Sacral decubitus ulcer: - family states that ulcer appeared over the last three to four days, and that patient had some form of cyst there his entire life; questionable stage 3 - CT scan demonstrated no spread to sacral spine - wound culture demonstrated gram negative bacilli; without signs of overt infection to wound will hold of on antibiotics as likely can be resolved through continued dressing changes and cleaning with wound vac - wound care consulted: wound vac placed will be changed after 4 days Diarrhea: - 3-4 episodes a day, patient has had previous C. diff; if we start antibiotics for sacral wound, then will add vancomycin for mitigation of recurrence risk Hypotension: - continue home midodrine 5mg TID - has had good improvement in blood pressure in combination with rehydration Dehydration: - started on NSS @ 80mL/hr; given 1L NSS bolus - continue to monitor PO intake for determination of need to further bolus - increased Marinol to 5mg BID Hypokalemia: - on admission K = 2.4; improved to 4.1 today - will continue to monitor Hypomagnesemia: - initially 1.7, improved to 1.9, today 1.7 - replaced with 1gm of Mag sulfate - will recheck in AM Hypophosphatemia: - 1.7 this AM; repleted with 9mmol of potassium phosphate - will check in AM DVT: lovenox 90mg Q12 Code Status: DNI, POLST on chart Diet: Carb consistent T2DM (2) Sacral decubitus ulcer: (3) Diarrhea: (4) Hypotension: (5) Dehydration: (6) Hypokalemia: Supervising Physician Co-Signing Physician Notes I personally examined the patient and verified all green points of history and exam, discussed case, and agree with decision making with Dr Kitchen. no apparent sedation from marinol, not really eating better yet - therefore dr kitchen increased dosing. updated pt and family. Vitals noted, in general he is awake and alert fatigued appearing but otherwise in no distress. HEENT normocephalic atraumatic mucous members are moist. Breathing unlabored no accessory muscle use good effort, no r/r/w good effort. cardio reg no r/m/g. No rashes no pallor or icterus. No focal neuro deficits. Persistent orthostasis volume depletion plus autonomic insufficiency, echo without concerning findings on discussion with cardiology. slowly reducing fluids (could probably stop if PO intake was adequate), continue to titrate midodrine Sacral ulcerno sepsis, continue local care. culture growing gram negative rods (villalba sensitive E Coli), but without abscess, purulence, or overt cellulitis will hold on systemic abx (kris given Cdiff risk) unless wound team feels it will be needed. for vac change 08/13 Loose stoolsdoes not fit a pattern of C. difficile, and he does not have abdominal tenderness fever or leukocytosisappears most likely to be chemo related. supportive care Hypokalemia/hypomagnesemia/hypophosphatemia - intake and diarrhea related. improving, supplement as needed Antineoplastic chemotherapy induced pancytopeniafortunately not neutropenic to the point of requiring isolation. continue to follow poor oral intake - given weakness/deconditioning -titrate marinol (can also consider remeron if needed) and constnatly encouraging PO intake urinary retention - likely BPH mediated. follow Otherwise as above. Subjective Feels a better after continuing to eat, and being able to keep fluids down last night. Feels like he is doing better with strength every day. Ate most of his plate for breakfast this morning, but did not eat much of his lunch; did better with small dose appetite stimulant but understands that the process of declining meals is not one that he can continue. Physical Exam Constitutional: WD/WN, vitals as above Respiratory: normal respiratory effort, lungs clear to auscultation Cardiovascular: Rate/Rhythm: regular rate and regular rhythm Heart Sounds: normal S1 and normal S2; no gallop, no murmur and no cardiac rub Gastrointestinal (Abdomen): normal bowel sounds, soft, nontender, no hepatosplenomegaly Musculoskeletal: Extremities: strength 5/5 throughout Results & Data Vital Signs (Past 12 Hours) Vital Signs Temp Pulse Resp BP Pulse Ox 08/11/19 11:42 36.6 C 70 18 105/88 97 08/11/19 07:17 36.6 C 68 18 101/54 L 97 08/11/19 04:20 36.7 C 67 18 107/62 98 Laboratory Results 08/11/19 08/11/19 Range/Units 05:26 05:26 WBC 1.84 L (4.8-10.8) K/uL RBC 2.90 L (4.7-6.1) M/uL Hgb 7.5 L (14.0-18.0) g/dL Hct 23.5 L (42-52) % MCV 81.0 (80-100) fL MCH 25.9 (25-34) pg MCHC 31.9 L (32-36) g/dL RDW Std Deviation 64.7 H (36.4-46.3) fL RDW Coeff of Akshat 22.0 H (11.5-14.5) % Plt Count 101 L (130-400) K/uL MPV 10.2 (7.4-10.4) fL Immature Gran % (Auto) 2.2 % Neut % (Auto) 60.3 % Lymph % (Auto) 23.4 % [place] % (Auto) 12.5 % Eos % (Auto) 1.6 % Baso % (Auto) 0.0 % Immature Gran # (Auto) 0.04 H (0.00-0.02) K/uL Neut # (Auto) 1.11 L (1.4-6.5) K/uL Lymph # (Auto) 0.43 L (1.2-3.4) K/uL [place] # (Auto) 0.23 (0.11-0.59) K/uL Eos # (Auto) 0.03 (0-0.5) K/uL Baso # (Auto) 0.00 (0-0.2) K/uL Anisocytosis Present Sodium 140 (136-145) mmol/L Potassium 4.1 (3.5-5.1) mmol/L Chloride 113 H (98-107) mmol/L Carbon Dioxide 22 (21-32) mmol/L Anion Gap 5.0 (3-11) BUN 15 (7-18) mg/dl Creatinine 0.56 L (0.6-1.4) mg/dl Est Cr Clr Drug Dosing 111.0 ml/min Est GFR ( Amer) 110.1 Est GFR (Non-Af Amer) 95.0 BUN/Creatinine Ratio 26.3 H (10-20) Glucose 97 (70-99) mg/dl Calcium 7.1 L (8.5-10.1) mg/dl Phosphorus 1.7 L (2.5-4.9) mg/dl Magnesium 1.7 L (1.8-2.4) mg/dl Medications Administered Current Inpatient Medications Acetaminophen (Tylenol) 650 mg PO Q4H PRN PRN Reason: pain/fever Stop: 09/07/19 17:26 Al Hydrox/Mg Hydrox/Simethicone (Maalox) 30 ml PO Q6H PRN PRN Reason: Dyspepsia Stop: 09/07/19 17:26 Dronabinol (Marinol) 5 mg PO BID [facility] Stop: 09/10/19 20:59 Enoxaparin Sodium (Lovenox) 90 mg SQ Q12H [facility] Stop: 09/07/19 17:59 Last Admin: 08/11/19 08:27 Dose: 90 mg Documented by: Ferrous Sulfate (Feosol) 325 mg PO QAM [facility] Stop: 09/08/19 08:59 Last Admin: 08/11/19 08:29 Dose: 325 mg Documented by: Heparin Sodium (Porcine) (Heparin Sod 100 Unit/Ml Flush) 5 ml FLUSH PRN PRN PRN Reason: Flush Stop: 09/10/19 00:14 Potassium Chloride/Sodium Chloride (Normal Saline W/20 Meq Kcl) 20 meq in 1,000 mls @ 100 mls/hr IV .Q10H [facility] Stop: 09/08/19 08:59 Last Admin: 08/11/19 12:34 Dose: 100 mls/hr Documented by: Magnesium Hydroxide (Milk Of Magnesia) 30 ml PO Q6H PRN PRN Reason: Constipation Stop: 09/07/19 17:26 Metoclopramide HCl (Reglan) 10 mg PO TIDM [facility] Stop: 09/07/19 18:59 Last Admin: 08/11/19 12:34 Dose: 10 mg Documented by: Midodrine (Proamatine) 5 mg PO TID@0800,1200,1700 [facility] Stop: 09/08/19 11:59 Last Admin: 08/11/19 12:35 Dose: 5 mg Documented by: Ondansetron HCl (Zofran) 4 mg IV Q6H PRN PRN Reason: Nausea Stop: 09/07/19 17:26 Last Admin: 08/10/19 10:54 Dose: 4 mg Documented by: Ondansetron HCl (Zofran Tab) 8 mg PO QID [facility] Stop: 09/07/19 20:59 Last Admin: 08/11/19 12:35 Dose: 8 mg Documented by: Polyethylene Glycol (Miralax Powder Packet) 17 gm PO DAILY PRN PRN Reason: Constipation Stop: 09/07/19 17:26 Potassium Chloride (Klor-Con M20) 40 meq PO QAM [facility] Stop: 09/08/19 08:59 Last Admin: 08/11/19 08:28 Dose: 40 meq Documented by: Tamsulosin HCl (Flomax) 0.4 mg PO Q24H PRN PRN Reason: Bladder scan >500 Stop: 09/09/19 10:44 Last Admin: 08/10/19 20:14 Dose: 0.4 mg Documented by: Resident Activity Tracking Resident Involvement: Resident Care Provided Care Provided: Adult Hospital Medicine
[2019-08-11] MEDS ORDERED: BENZONATATE 100 MG CAPSULE PO PRN (18:33)
--- NOTE | 2019-08-11 18:41 | Billing Data ---
Coding Level of Care Code 27359 Subseq Hosp Care Lvl 3
[2019-08-11] MEDS ORDERED: Nursing to Pharmacy Communication ONE (22:50)
[2019-08-12] MEDS: NSS + 20MEQ KCL 20 MEQ/1,000 ML BAG IV SCH ×2 (00:27→17:38)
[2019-08-12 06:30] LABS: Hematocrit (blood only) 24.5 % (42-52); Hemoglobin 7.8 g/dL (14.0-18.0); Mean Corpuscular Hemoglobin 25.8 pg (25-34); Mean Corpuscular Hgb Conc 31.8 g/dL (32-36); Mean Corpuscular Volume 81.1 fL (80-100); Mean Platelet Volume 9.5 fL (7.4-10.4); Platelet Count 112 K/uL (130-400); RDW Standard Deviation 63.8 fL (36.4-46.3); Red Blood Count 3.02 M/uL (4.7-6.1); White Blood Count 1.61 K/uL (4.8-10.8)
[2019-08-12 07:10] LABS: Eosinophils # (auto) 0.04 K/uL (0-0.5); Eosinophils % (auto) 2.5 %; Immature Granulocytes # (auto) 0.02 K/uL (0.00-0.02); Immature Granulocytes % (auto) 1.2 %; Lymphocytes # (auto) 0.38 K/uL (1.2-3.4); Lymphocytes % (auto) 23.6 %; Monocytes # (auto) 0.21 K/uL (0.11-0.59); Neutrophils # (auto) 0.96 K/uL (1.4-6.5); Neutrophils % (auto) 59.7 %
[2019-08-12 07:20] LABS: BUN Creatinine Ratio 16.3 (10-20); Calcium 7.3 mg/dl (8.5-10.1); Creatinine Clr Calc Pharmacy 101.9 ml/min; Est GFR (African American) 106.3; Est GFR (Non-African American) 91.7; Magnesium 1.7 mg/dl (1.8-2.4); Phosphorus 2.2 mg/dl (2.5-4.9); Potassium 4.2 mmol/L (3.5-5.1)
[2019-08-12] MEDS ORDERED: SODIUM PHOSPHATE 3 MMOL/1 ML INFUSION IV STA (07:42)
[2019-08-12] MEDS ORDERED: SODIUM PHOSPHATE 21 MMOL in SODIUM CHLORIDE 0.9% 500 ML IV ONE (08:30)
[2019-08-12] MEDS: MAGNESIUM SULFATE / D5W 1 GM/100 ML BAG IV SCH ×3 (08:42→10:52)
[2019-08-12] MEDS: METOCLOPRAMIDE HCL 10 MG TABLET PO SCH ×3 (08:43→16:49)
[2019-08-12] MEDS: ENOXAPARIN 100 MG/1ML SYR SQ SCH ×2 (08:43→20:13)
[2019-08-12] MEDS: ONDANSETRON 8 MG TABLET PO SCH ×3 (08:43→16:48)
[2019-08-12] MEDS: POTASSIUM CHLORIDE 20 MEQ TABCR PO SCH (08:43)
[2019-08-12] MEDS: MIDODRINE HCL 2.5 MG TAB PO SCH ×3 (08:44→16:47)
[2019-08-12] MEDS: DRONABINOL 2.5 MG CAP PO SCH (09:00)
[2019-08-12] MEDS: FERROUS SULFATE 325 MG TAB PO SCH (09:00)
--- NOTE | 2019-08-12 15:20 | Hospitalist Progress Note ---
Date of Service August 12, 2019 Assessment & Plan (1) Syncope and collapse: 84 y/o M with PMH of esophageal and colon cancer, DVT, HTN, T2DM; presented after recurrent falls for the last week from seated position, additionally has non-healing wound over sacrum. Syncope: - likely 2/2 orthostatic hypotension - pt describes similar to orthostatic episodes as always at transition from seated to standing; patient frequently not eating meals, and having cyclical jessica sea/vomiting, and sporadic diarrhea - fall precautions; continues too improve in strength, and ability to get around with - NSS rate increased to 100mL/h for continued hydration Sacral decubitus ulcer: - family states that ulcer appeared over the last three to four days, and that patient had some form of cyst there his entire life; questionable stage 3 - CT scan demonstrated no spread to sacral spine - wound culture demonstrated gram negative bacilli; without signs of overt infection to wound will hold of on antibiotics as likely can be resolved through continued dressing changes and cleaning with wound vac - wound care consulted: wound vac placed will be changed after 4 days Diarrhea: - 3-4 episodes a day, patient has had previous C. diff; if we start antibiotics for sacral wound, then will add vancomycin for mitigation of recurrence risk Hypotension: - continue home midodrine 5mg TID - has had good improvement in blood pressure in combination with rehydration Dehydration: - started on NSS @ 80mL/hr; given 1L NSS bolus - continue to monitor PO intake for determination of need to further bolus - increased Marinol to 5mg BID Hypokalemia: - on admission K = 2.4; improved to 4.2 today - will continue to monitor Hypomagnesemia: - initially 1.7, improved to 1.9, today 1.7 - replaced with 3gm of Mag sulfate - will recheck in AM Hypophosphatemia: - 2.2 this AM; repleted with 21mmol of sodium phosphate - will check in AM DVT: lovenox 90mg Q12 Code Status: DNI, POLST on chart Diet: Carb consistent T2DM (2) Sacral decubitus ulcer: (3) Diarrhea: (4) Hypotension: (5) Dehydration: (6) Hypokalemia: Supervising Physician Co-Signing Physician Notes I personally examined the patient and verified all green points of history and exam, discussed case, and agree with decision making with Dr Huerta. eating much better. for wound vac change tomorrow Vitals noted, in no distress. HEENT normocephalic atraumatic mucous members are moist. Breathing unlabored no accessory muscle use good effort. No rashes no pallor or icterus. No focal neuro deficits. Persistent orthostasis volume depletion plus autonomic insufficiency, echo without concerning findings on discussion with cardiology. continue to titrate midodrine. better PO intake will help. Sacral ulcerno sepsis, continue local care. culture growing gram negative rods (villalba sensitive E Coli), but without abscess, purulence, or overt cellulitis will hold on systemic abx (kris given Cdiff risk) unless wound team feels it will be needed. for vac change 08/13, then would want him staying with ongoing wound clinic f/u even after discharge. Loose stoolsdoes not fit a pattern of C. difficile appears most likely to be chemo related. supportive care, time Hypokalemia/hypomagnesemia/hypophosphatemia - intake and diarrhea related. improved overall - better PO intake will help. continue to supplement. Antineoplastic chemotherapy induced pancytopeniafortunately not neutropenic to the point of requiring isolation. continue to follow, no s/s opportunistic infection poor oral intake - given weakness/deconditioning -continue marinol - doing better today so rest on current dosing, but can titrate up if needed (can also consider remeron if needed) and constantly encouraging PO intake (also informed family to be vigilant for depression since that could take his appetite) urinary retention - likely BPH mediated. Otherwise as above. anticipate [facility] tomorrow after wound vac change, barring any new findings Subjective Feels a better after continuing to eat. Feels like he is doing better with strength every day. Ate the entirety of his plate this morning, and most of his lunch, feels like the slightly larger dose of appetite stimulant has helped him tremendously Physical Exam Constitutional: WD/WN, vitals as above Eyes: PERRL, conjunctivae normal, anicteric sclerae Respiratory: normal respiratory effort, lungs clear to auscultation Cardiovascular: Rate/Rhythm: regular rate and regular rhythm Heart Sounds: normal S1 and normal S2; no gallop, no murmur and no cardiac rub Results & Data Vital Signs (Past 12 Hours) Vital Signs Temp Pulse Resp BP Pulse Ox 08/12/19 07:07 36.6 C 99 H 18 130/72 96 08/12/19 04:08 36.6 C 61 18 124/56 L 96 Laboratory Results 08/12/19 08/12/19 08/11/19 Range/Units 06:08 06:08 20:23 WBC 1.61 L (4.8-10.8) K/uL RBC 3.02 L (4.7-6.1) M/uL Hgb 7.8 L (14.0-18.0) g/dL Hct 24.5 L (42-52) % MCV 81.1 (80-100) fL MCH 25.8 (25-34) pg MCHC 31.8 L (32-36) g/dL RDW Std Deviation 63.8 H (36.4-46.3) fL RDW Coeff of Akshat 22.0 H (11.5-14.5) % Plt Count 112 L (130-400) K/uL MPV 9.5 (7.4-10.4) fL Immature Gran % (Auto) 1.2 % Neut % (Auto) 59.7 % Lymph % (Auto) 23.6 % Foard % (Auto) 13.0 % Eos % (Auto) 2.5 % Baso % (Auto) 0.0 % Immature Gran # (Auto) 0.02 (0.00-0.02) K/uL Neut # (Auto) 0.96 L* (1.4-6.5) K/uL Lymph # (Auto) 0.38 L (1.2-3.4) K/uL Foard # (Auto) 0.21 (0.11-0.59) K/uL Eos # (Auto) 0.04 (0-0.5) K/uL Baso # (Auto) 0.00 (0-0.2) K/uL Sodium 138 (136-145) mmol/L Potassium 4.2 (3.5-5.1) mmol/L Chloride 111 H (98-107) mmol/L Carbon Dioxide 22 (21-32) mmol/L Anion Gap 5.0 (3-11) BUN 10 D (7-18) mg/dl Creatinine 0.61 (0.6-1.4) mg/dl Est Cr Clr Drug Dosing 101.9 ml/min Est GFR ( Amer) 106.3 Est GFR (Non-Af Amer) 91.7 BUN/Creatinine Ratio 16.3 (10-20) Glucose 97 (70-99) mg/dl POC Glucose 144 H (70-99) Calcium 7.3 L (8.5-10.1) mg/dl Phosphorus 2.2 L (2.5-4.9) mg/dl Magnesium 1.7 L (1.8-2.4) mg/dl Medications Administered Current Inpatient Medications Acetaminophen (Tylenol) 650 mg PO Q4H PRN PRN Reason: pain/fever Stop: 09/07/19 17:26 Al Hydrox/Mg Hydrox/Simethicone (Maalox) 30 ml PO Q6H PRN PRN Reason: Dyspepsia Stop: 09/07/19 17:26 Benzonatate (Tessalon Perle) 100 mg PO Q6H PRN PRN Reason: Cough Stop: 09/10/19 18:32 Dronabinol (Marinol) 5 mg PO BID OMAR Stop: 09/10/19 20:59 Last Admin: 08/12/19 09:00 Dose: 5 mg Documented by: Enoxaparin Sodium (Lovenox) 90 mg SQ Q12H O[facility] Stop: 09/07/19 17:59 Last Admin: 08/12/19 08:43 Dose: 90 mg Documented by: Ferrous Sulfate (Feosol) 325 mg PO QAM O[facility] Stop: 09/08/19 08:59 Last Admin: 08/12/19 09:00 Dose: 325 mg Documented by: Heparin Sodium (Porcine) (Heparin Sod 100 Unit/Ml Flush) 5 ml FLUSH PRN PRN PRN Reason: Flush Stop: 09/10/19 00:14 Potassium Chloride/Sodium Chloride (Normal Saline W/20 Meq Kcl) 20 meq in 1,000 mls @ 100 mls/hr IV .Q10H OMAR Stop: 09/08/19 08:59 Last Admin: 08/12/19 00:27 Dose: 100 mls/hr Documented by: Magnesium Hydroxide (Milk Of Magnesia) 30 ml PO Q6H PRN PRN Reason: Constipation Stop: 09/07/19 17:26 Metoclopramide HCl (Reglan) 10 mg PO TIDM OMAR Stop: 09/07/19 18:59 Last Admin: 08/12/19 11:57 Dose: 10 mg Documented by: Midodrine (Proamatine) 5 mg PO TID@0800,1200,1700 [facility] Stop: 09/08/19 11:59 Last Admin: 08/12/19 11:57 Dose: 5 mg Documented by: Ondansetron HCl (Zofran) 4 mg IV Q6H PRN PRN Reason: Nausea Stop: 09/07/19 17:26 Last Admin: 08/10/19 10:54 Dose: 4 mg Documented by: Ondansetron HCl (Zofran Tab) 8 mg PO QID [facility] Stop: 09/07/19 20:59 Last Admin: 08/12/19 11:57 Dose: 8 mg Documented by: Polyethylene Glycol (Miralax Powder Packet) 17 gm PO DAILY PRN PRN Reason: Constipation Stop: 09/07/19 17:26 Potassium Chloride (Klor-Con M20) 40 meq PO QAM [facility] Stop: 09/08/19 08:59 Last Admin: 08/12/19 08:43 Dose: 40 meq Documented by: Tamsulosin HCl (Flomax) 0.4 mg PO Q24H PRN PRN Reason: Bladder scan >500 Stop: 09/09/19 10:44 Last Admin: 08/10/19 20:14 Dose: 0.4 mg Documented by: Resident Activity Tracking Resident Involvement: Resident Care Provided Care Provided: Adult Hospital Medicine
[2019-08-12] MEDS ORDERED: DRONABINOL 2.5 MG CAP PO SCH (17:00)
--- NOTE | 2019-08-12 18:49 | Billing Data ---
Coding Level of Care Code 71662 Subseq Hosp Care Lvl 2
[2019-08-12] MEDS ORDERED: GUAIFENESIN/DEXTROM SYRUP 200MG/20MG 10ML UDC PO STA (18:52)
[2019-08-12] MEDS ORDERED: GUAIFENESIN/DEXTROM SYRUP 200MG/20MG 10ML UDC PO PRN (18:52)
[2019-08-12] MEDS ORDERED: Nursing to Pharmacy Communication ONE (19:42)
[2019-08-12] MEDS: ONDANSETRON 4 MG TAB PO SCH (20:16)
[2019-08-13] MEDS: NSS + 20MEQ KCL 20 MEQ/1,000 ML BAG IV SCH ×2 (03:11→13:06)
[2019-08-13 06:02] LABS: Eosinophils # (auto) 0.04 K/uL (0-0.5); Hematocrit (blood only) 24.8 % (42-52); Hemoglobin 8.1 g/dL (14.0-18.0); Immature Granulocytes # (auto) 0.01 K/uL (0.00-0.02); Immature Granulocytes % (auto) 0.5 %; Lymphocytes # (auto) 0.52 K/uL (1.2-3.4); Lymphocytes % (auto) 25.7 %; Mean Corpuscular Hemoglobin 26.1 pg (25-34); Mean Corpuscular Hgb Conc 32.7 g/dL (32-36); Mean Platelet Volume 9.6 fL (7.4-10.4); Monocytes # (auto) 0.23 K/uL (0.11-0.59); Monocytes % (auto) 11.4 %; Neutrophils # (auto) 1.22 K/uL (1.4-6.5); Neutrophils % (auto) 60.4 %; Platelet Count 127 K/uL (130-400); RDW Coefficient of Variation 22.2 % (11.5-14.5); RDW Standard Deviation 63.7 fL (36.4-46.3); White Blood Count 2.02 K/uL (4.8-10.8)
[2019-08-13 06:25] LABS: Anisocytosis Present; Echinocytes 1+; Polychromasia 1+
[2019-08-13 06:35] LABS: BUN Creatinine Ratio 11.4 (10-20); Calcium 7.2 mg/dl (8.5-10.1); Creatinine Clr Calc Pharmacy 94.2 ml/min; Est GFR (African American) 102.9; Est GFR (Non-African American) 88.8; Magnesium 1.9 mg/dl (1.8-2.4); Phosphorus 2.6 mg/dl (2.5-4.9)
[2019-08-13] MEDS: DRONABINOL 2.5 MG CAP PO SCH ×2 (08:01→16:17)
[2019-08-13] MEDS: ENOXAPARIN 100 MG/1ML SYR SQ SCH ×2 (08:02→20:55)
[2019-08-13] MEDS: MIDODRINE HCL 2.5 MG TAB PO SCH ×3 (08:02→16:17)
[2019-08-13] MEDS: POTASSIUM CHLORIDE 20 MEQ TABCR PO SCH (08:03)
[2019-08-13] MEDS: METOCLOPRAMIDE HCL 10 MG TABLET PO SCH ×3 (08:03→17:23)
[2019-08-13] MEDS: ONDANSETRON 4 MG TAB PO SCH ×4 (08:03→20:55)
[2019-08-13] MEDS: FERROUS SULFATE 325 MG TAB PO SCH (08:23)
[2019-08-13] MEDS ORDERED: PROCHLORPERAZINE MALEATE 5 MG TAB PO ONE (08:46)
[2019-08-13] MEDS: COLLAGENASE OINT 30 GM TUBE EXT SCH (12:06)
[2019-08-13] MEDS: ONDANSETRON INJ 2 MG/ML 2 ML VIAL IV PRN (13:06)
--- NOTE | 2019-08-13 14:51 | Wound Progress Note ---
Date of Service August 13, 2019 Assessment & Plan (1) Pressure ulcer of coccygeal region, stage 3: Wound VAC will be removed. We will apply Santyl to the wound bed. Would consider wound VAC when wound bed is housekeeping cleaner. [facility]. (2) Stage II pressure ulcer of left buttock: Wound is improving. We will continue just with callus today. Patient will be seen in the office in 1 week. (3) Pressure injury of deep tissue of right buttock: Subjective Patient seen laying in bed. Family is at bedside. Patient is without complaints. He seems to be doing better. Review of Systems Review of Systems: All systems reviewed & are unremarkable except as noted in HPI & below Physical Exam Skin: Wound measurements recorded in nursing documentation. Wound bed appears to be improving. Neurologic: awake; not confused Psychiatric: A+Ox3, euthymic affect Results & Data Vital Signs (Past 12 Hours) Vital Signs Temp Pulse Resp BP BP Pulse Ox 08/13/19 07:35 36.3 C L 76 18 126/69 96 08/13/19 04:23 36.8 C 67 18 116/58 L 95 PG Care Time/CCT Total # of Minutes Spent Total Time Spent with Patient: Total time spent is greater than 50% in coordination of care (as documented) at patient's floor/unit and/or counseling patient:
--- NOTE | 2019-08-13 16:06 | Hospitalist Progress Note ---
Date of Service August 13, 2019 Assessment & Plan (1) Hypotension: 84 y/o M with PMH of esophageal and colon cancer, DVT, HTN, DM2; presented after recurrent falls for the last week from seated position, additionally has stage 3 sacral decubitus ulcer. Syncope: - 2/2 orthostatic hypotension; better with improved PO intake. Reports that he often does not eat well at home due to nausea and abdominal pain. - Also on tamsulosin which may be contributing. - Continue midodrine - Given increased PO intake have d/c'ed fluids. Will reassess fluid status tomorrow AM. Sacral decubitus ulcer: - stage 3, without spread to sacral spine per CT. - wound culture demonstrated gram negative bacilli; without signs of overt infection to wound will hold off on antibiotics as likely can be resolved through continued dressing changes and cleaning with wound vac. - Wound care saw today and removed wound vac, suggested Santyl to area daily and will see in outpatient setting in 1 week. Pt not a good candidate for surgical debridement of the wound. - Pt without signs or symptoms of infection, afebrile, vitals stable. Recent DVT - During last admission 07/28/19 pt was diagnosed with a DVT via venous doppler of axillary vein of right upper extremity AND of his femoral vein of right lower extremity - Follows with Dr. Sanders outpatient; discussed patient with Dr. Perez today who recommended continue Lovenox 90mg BID for at least 3 months following diagnosis of DVT. - Pt without SOB, no pain in extremities. Intractable nausea: - Receiving Reglan, Zofran, Marinol as of this AM. Added Compazine one dose this AM which relieved pt of his nausea, so have placed 5mg PO q6h PRN nausea. - Will reassess nausea in the AM. Diarrhea: - 3-4 episodes a day, patient has had previous C. diff; if we start antibiotics for sacral wound, then will add vancomycin for mitigation of recurrence risk. Hypotension: - continue home midodrine. - has had good improvement in blood pressure with rehydration. - continue to encourage PO intake; pt doing well with this today and given decrease in nausea with compazine have placed PRN order for it overnight. Dehydration: - currently on 100 NSS with K repletion. - continue to monitor PO intake for determination of need to further bolus. - increased Marinol to 10mg BID. Hypokalemia: - 4.0 today. Receiving 40meq PO daily. Hypomagnesemia: - initially 1.7, improved to 1.9. Will replete and recheck AM. Hypophosphatemia: - 2.6 this AM. Antineoplastic chemotherapy induced pancytopenia normal ANC. follow, no s/s opportunistic infection poor oral intake -on metoclopramide and prochlorperazine - given weakness/deconditioning -started marinol. titrate up if needed. consider remeron if needed) - encouraging PO intake urinary retention - likely from BPH. -on tamsulosin CODE STATUS: Conditional Code; only chest compressions and defibrillation but NOT vent or intubation Diet: Carb Consistent DVT ppx: covered with current Lovenox dosing for therapeutic tx of acute DVT (90mg BID) Dispo: med/surg - fall precautions; continues to improve in strength, OT eval suggested SNF. PT to evaluate tomorrow. Hopefully for placement tomorrow to SNF. (2) Syncope and collapse: (3) Acute deep vein thrombosis (DVT) of femoral vein of right lower extremity: (4) Acute deep vein thrombosis (DVT) of axillary vein of right upper extremity: (5) HTN (hypertension): (6) DM type 2 (diabetes mellitus, type 2): (7) Pressure ulcer of coccygeal region, stage 3: Supervising Physician Co-Signing Physician Notes Resident Physician Supervision Note: I independently interviewed and examined the patient and verified the green history and physical, reviewed labs and image studies, discussed the case with the resident Dr. Bustillos and agree with the findings and care plan. Subjective Pt with some nausea overnight; had one episode of emesis yesterday following administration of his Marinol dose. However has been able to eat a hot dog, a grilled cheese and tomato soup, mashed potatoes, jello, juice. No other complaints at this time. No abdominal pain, no CP SOB fevers chills. Review of Systems Constitutional: no fever and no chills Respiratory: no cough, no dyspnea and no wheezing Cardiovascular: no chest pain and no palpitations Gastrointestinal: + nausea and + vomiting; no abdominal pain Physical Exam Constitutional: WD/WN, vitals as above Respiratory: normal respiratory effort, lungs clear to auscultation Cardiovascular: RRR, no murmur, no edema Gastrointestinal (Abdomen): normal bowel sounds, soft, nontender, no hepatosplenomegaly Skin: no rashes, warm and dry sacral decubitus ulcer location with wound vac in place at time of interview. Minimal drainage. Psychiatric: A+Ox3, euthymic affect Results & Data Vital Signs (Past 12 Hours) Vital Signs Temp Pulse Resp BP BP Pulse Ox 08/13/19 15:35 36.5 C 67 20 121/71 95 08/13/19 07:35 36.3 C L 76 18 126/69 96 08/13/19 04:23 36.8 C 67 18 116/58 L 95 Laboratory Results Laboratory Results - last 24 hr 08/13/19 08/13/19 05:39 05:39 WBC 2.02 L RBC 3.10 L Hgb 8.1 L Hct 24.8 L MCV 80.0 MCH 26.1 MCHC 32.7 RDW Std Deviation 63.7 H RDW Coeff of Akshat 22.2 H Plt Count 127 L MPV 9.6 Immature Gran % (Auto) 0.5 Neut % (Auto) 60.4 Lymph % (Auto) 25.7 Jennings % (Auto) 11.4 Eos % (Auto) 2.0 Baso % (Auto) 0.0 Immature Gran # (Auto) 0.01 Neut # (Auto) 1.22 L Lymph # (Auto) 0.52 L Jennings # (Auto) 0.23 Eos # (Auto) 0.04 Baso # (Auto) 0.00 Polychromasia 1+ Anisocytosis Present Echinocytes 1+ Sodium 139 Potassium 4.0 Chloride 109 H Carbon Dioxide 22 Anion Gap 7.0 BUN 8 Creatinine 0.66 Est Cr Clr Drug Dosing 94.2 Est GFR ( Amer) 102.9 Est GFR (Non-Af Amer) 88.8 BUN/Creatinine Ratio 11.4 Glucose 101 H Calcium 7.2 L Phosphorus 2.6 Magnesium 1.9 Medications Administered Current Medications Acetaminophen (Tylenol) 650 mg PO Q4H PRN PRN Reason: pain/fever Stop: 09/07/19 17:26 Al Hydrox/Mg Hydrox/Simethicone (Maalox) 30 ml PO Q6H PRN PRN Reason: Dyspepsia Stop: 09/07/19 17:26 Benzonatate (Tessalon Perle) 100 mg PO Q6H PRN PRN Reason: Cough Stop: 09/10/19 18:32 Last Admin: 08/12/19 16:49 Dose: 100 mg Documented by: Collagenase (Santyl) 1 appln EXT DAILY [facility] Stop: 09/12/19 11:14 Last Admin: 08/13/19 12:06 Dose: 1 appln Documented by: Dronabinol (Marinol) 10 mg PO BID@0700,1630 [facility] Stop: 09/12/19 06:59 Last Admin: 08/13/19 16:17 Dose: 10 mg Documented by: Enoxaparin Sodium (Lovenox) 90 mg SQ Q12H [facility] Stop: 09/07/19 17:59 Last Admin: 08/13/19 08:02 Dose: 90 mg Documented by: Ferrous Sulfate (Feosol) 325 mg PO QAM [facility] Stop: 09/08/19 08:59 Last Admin: 08/13/19 08:23 Dose: 325 mg Documented by: Guaifenesin/Dextromethorphan (Robitussin Cough-Chest Dm) 10 ml PO Q6H PRN PRN Reason: Cough Stop: 09/11/19 18:51 Heparin Sodium (Porcine) (Heparin Sod 100 Unit/Ml Flush) 5 ml FLUSH PRN PRN PRN Reason: Flush Stop: 09/10/19 00:14 Potassium Chloride/Sodium Chloride (Normal Saline W/20 Meq Kcl) 20 meq in 1,000 mls @ 100 mls/hr IV .Q10H [facility] Stop: 09/08/19 08:59 Last Admin: 08/13/19 13:06 Dose: 100 mls/hr Documented by: Magnesium Hydroxide (Milk Of Magnesia) 30 ml PO Q6H PRN PRN Reason: Constipation Stop: 09/07/19 17:26 Metoclopramide HCl (Reglan) 10 mg PO TIDM [facility] Stop: 09/07/19 18:59 Last Admin: 08/13/19 12:07 Dose: 10 mg Documented by: Midodrine (Proamatine) 5 mg PO TID@0800,1200,1700 [facility] Stop: 09/08/19 11:59 Last Admin: 08/13/19 16:17 Dose: 5 mg Documented by: Ondansetron HCl (Zofran) 4 mg IV Q6H PRN PRN Reason: Nausea Stop: 09/07/19 17:26 Last Admin: 08/13/19 13:06 Dose: 4 mg Documented by: Ondansetron HCl (Zofran Tab) 4 mg PO QID [facility] Stop: 09/11/19 20:59 Last Admin: 08/13/19 13:03 Dose: Not Given Documented by: Polyethylene Glycol (Miralax Powder Packet) 17 gm PO DAILY PRN PRN Reason: Constipation Stop: 09/07/19 17:26 Potassium Chloride (Klor-Con M20) 40 meq PO QAM [facility] Stop: 09/08/19 08:59 Last Admin: 08/13/19 08:03 Dose: Not Given Documented by: Tamsulosin HCl (Flomax) 0.4 mg PO Q24H PRN PRN Reason: Bladder scan >500 Stop: 09/09/19 10:44 Last Admin: 08/10/19 20:14 Dose: 0.4 mg Documented by: Resident Activity Tracking Resident Involvement: Resident Care Provided Care Provided: Adult Hospital Medicine
[2019-08-13] MEDS ORDERED: PROCHLORPERAZINE MALEATE 5 MG TAB PO PRN (17:31)
[2019-08-13] MEDS ORDERED: MAGNESIUM SULFATE / D5W 1 GM/100 ML BAG IV ONE (18:30)
[2019-08-13] MEDS: HEPARIN 100 UNIT/ML 5ML FLUSH FLUSH PRN (20:56)
[2019-08-14] MEDS: ENOXAPARIN 100 MG/1ML SYR SQ SCH ×2 (08:22→20:19)
[2019-08-14] MEDS: DRONABINOL 2.5 MG CAP PO SCH ×2 (08:22→16:59)
[2019-08-14 08:23] LABS: Basophils # (auto) 0.01 K/uL (0-0.2); Basophils % (auto) 0.5 %; Eosinophils # (auto) 0.04 K/uL (0-0.5); Eosinophils % (auto) 2.1 %; Hematocrit (blood only) 25.5 % (42-52); Hemoglobin 8.2 g/dL (14.0-18.0); Immature Granulocytes # (auto) 0.01 K/uL (0.00-0.02); Immature Granulocytes % (auto) 0.5 %; Lymphocytes # (auto) 0.46 K/uL (1.2-3.4); Lymphocytes % (auto) 23.6 %; Mean Corpuscular Hemoglobin 25.6 pg (25-34); Mean Corpuscular Hgb Conc 32.2 g/dL (32-36); Mean Corpuscular Volume 79.7 fL (80-100); Mean Platelet Volume 8.8 fL (7.4-10.4); Monocytes # (auto) 0.19 K/uL (0.11-0.59); Monocytes % (auto) 9.7 %; Neutrophils # (auto) 1.24 K/uL (1.4-6.5); Neutrophils % (auto) 63.6 %; Platelet Count 112 K/uL (130-400); RDW Coefficient of Variation 22.1 % (11.5-14.5); RDW Standard Deviation 64.2 fL (36.4-46.3); White Blood Count 1.95 K/uL (4.8-10.8)
[2019-08-14] MEDS: MIDODRINE HCL 2.5 MG TAB PO SCH ×3 (08:23→16:59)
[2019-08-14] MEDS: METOCLOPRAMIDE HCL 10 MG TABLET PO SCH ×3 (08:23→17:17)
[2019-08-14] MEDS: POTASSIUM CHLORIDE 20 MEQ TABCR PO SCH (08:24)
[2019-08-14] MEDS: FERROUS SULFATE 325 MG TAB PO SCH (08:24)
[2019-08-14] MEDS: ONDANSETRON 4 MG TAB PO SCH ×4 (08:24→20:18)
[2019-08-14 08:41] LABS: Anisocytosis Present
[2019-08-14 09:00] LABS: BUN Creatinine Ratio 11.9 (10-20); Calcium 7.4 mg/dl (8.5-10.1); Creatinine Clr Calc Pharmacy 100.2 ml/min; Est GFR (African American) 105.6; Est GFR (Non-African American) 91.1; Potassium 3.9 mmol/L (3.5-5.1)
[2019-08-14] MEDS ORDERED: POTASSIUM CHLORIDE 20 MEQ TABCR PO SCH (09:00)
[2019-08-14] MEDS: COLLAGENASE OINT 30 GM TUBE EXT SCH (09:56)
--- NOTE | 2019-08-14 16:00 | Hospitalist Progress Note ---
Date of Service August 14, 2019 Assessment & Plan (1) Syncope and collapse: 84 y/o M with PMH of esophageal and colon cancer, DVT, HTN, DM2; presented after recurrent falls for the last week from seated position, additionally has stage 3 sacral decubitus ulcer. Will liquid BMs x2 today. Syncope: - 2/2 orthostatic hypotension; better with improved PO intake. Reports that he often does not eat well at home due to nausea and abdominal pain. - Also on tamsulosin which may be contributing. - Continue midodrine. - Given increased PO intake d/c'ed fluids yesterday. Will reassess fluid status tomorrow AM. Sacral decubitus ulcer: - stage 3, without spread to sacral spine per CT. - Wound care saw yesterday and removed wound vac, suggested Santyl to area daily and will see in outpatient setting in 1 week. Pt not a good candidate for surg ical debridement of the wound. - Pt without signs or symptoms of infection, afebrile, vitals stable. Diarrhea: - 3-4 episodes a day, patient has had previous C. diff. Have ordered C. diff testing and if positive will treat. Recent DVT: - During last admission 07/28/19 pt was diagnosed with a DVT via venous doppler of axillary vein of right upper extremity AND of his femoral vein of right lower extremity - Follows with Dr. Sanders outpatient; discussed patient with Dr. Perez and will continue Lovenox 90mg BID for at least 3 months following diagnosis of DVT. - Pt without SOB, no pain in extremities. Intractable nausea: - Pt without nausea overnight. Did not use PRN Compazine. - Receiving Reglan, Zofran, Marinol as of this AM. - Given need for increased PO intake and difficulty etaing due to intractable nausea, it is important that we control this nausea and it appears that his current regimen is working for him. Will continue. Hypotension: - continue home midodrine. - has had good improvement in blood pressure with rehydration. - continue to encourage PO intake; pt doing well with this today and without nausea overnight. Dehydration: - continue to monitor PO intake for determination of need to further bolus. - No need for fluids at this time due to increased PO intake. Hypokalemia: - K 3.9 today. Receiving 40meq PO daily. Hypomagnesemia: - initially 1.7, improved to 1.9. Repleted. Antineoplastic chemotherapy induced pancytopenia: normal ANC. follow, no s/s opportunistic infection Poor oral intake: - on metoclopramide and prochlorperazine - given weakness/deconditioning -started marinol. titrate up if needed. consider remeron if needed - encouraging PO intake urinary retention - likely from BPH. - on tamsulosin. - Per PT and OT would benefit from SNF; pending placement. (2) Pressure injury of deep tissue of right buttock: (3) Pressure ulcer of coccygeal region, stage 3: (4) Hypotension: (5) Diarrhea: (6) Hypokalemia: (7) Acute deep vein thrombosis (DVT) of femoral vein of right lower extremity: (8) Pancytopenia: (9) HTN (hypertension): (10) DM type 2 (diabetes mellitus, type 2): Supervising Physician Co-Signing Physician Notes Resident Physician Supervision Note: I independently interviewed and examined the patient and verified the green history and physical, reviewed labs and image studies, discussed the case with the resident Dr. Bustillos and agree with the findings and care plan. Subjective Pt without acute events overnight. No nausea and did not require any of his PRN nausea medications. Continues to have diarrhea and reports history of C. diff. No fevers or chills, no SOB CP abdominal pain. No dizziness with lying to sitting or sitting to standing. Review of Systems Constitutional: no fever and no chills Respiratory: no cough, no dyspnea and no wheezing Cardiovascular: no chest pain and no palpitations Gastrointestinal: + diarrhea/loose stools; no abdominal pain, no nausea, no vomiting and no constipation Genitourinary: no dysuria Physical Exam Constitutional: WD/WN, vitals as above Respiratory: normal respiratory effort, lungs clear to auscultation Cardiovascular: RRR, no murmur, no edema Gastrointestinal (Abdomen): normal bowel sounds, soft, nontender, no hepatosplenomegaly Psychiatric: A+Ox3, euthymic affect Results & Data Vital Signs (Past 12 Hours) Vital Signs Temp Pulse Resp BP BP Pulse Ox 08/14/19 15:14 37.1 C 64 18 113/64 97 08/14/19 08:20 65 117/62 94 Laboratory Results Laboratory Results - last 24 hr 08/14/19 08/14/19 08:15 08:15 WBC 1.95 L RBC 3.20 L Hgb 8.2 L Hct 25.5 L MCV 79.7 L MCH 25.6 MCHC 32.2 RDW Std Deviation 64.2 H RDW Coeff of Akshat 22.1 H Plt Count 112 L MPV 8.8 Immature Gran % (Auto) 0.5 Neut % (Auto) 63.6 Lymph % (Auto) 23.6 [place] % (Auto) 9.7 Eos % (Auto) 2.1 Baso % (Auto) 0.5 Immature Gran # (Auto) 0.01 Neut # (Auto) 1.24 L Lymph # (Auto) 0.46 L [place] # (Auto) 0.19 Eos # (Auto) 0.04 Baso # (Auto) 0.01 Anisocytosis Present Sodium 136 Potassium 3.9 Chloride 108 H Carbon Dioxide 22 Anion Gap 7.0 BUN 7 Creatinine 0.62 Est Cr Clr Drug Dosing 100.2 Est GFR ( Amer) 105.6 Est GFR (Non-Af Amer) 91.1 BUN/Creatinine Ratio 11.9 Glucose 89 Calcium 7.4 L Medications Administered Current Medications Acetaminophen (Tylenol) 650 mg PO Q4H PRN PRN Reason: pain/fever Stop: 09/07/19 17:26 Al Hydrox/Mg Hydrox/Simethicone (Maalox) 30 ml PO Q6H PRN PRN Reason: Dyspepsia Stop: 09/07/19 17:26 Benzonatate (Tessalon Perle) 100 mg PO Q6H PRN PRN Reason: Cough Stop: 09/10/19 18:32 Last Admin: 08/12/19 16:49 Dose: 100 mg Documented by: Collagenase (Santyl) 1 appln EXT DAILY [facility] Stop: 09/12/19 11:14 Last Admin: 08/14/19 09:56 Dose: 1 appln Documented by: Dronabinol (Marinol) 10 mg PO BID@0700,1630 [facility] Stop: 09/12/19 06:59 Last Admin: 08/14/19 08:22 Dose: 10 mg Documented by: Enoxaparin Sodium (Lovenox) 90 mg SQ Q12H [facility] Stop: 09/07/19 17:59 Last Admin: 08/14/19 08:22 Dose: 90 mg Documented by: Ferrous Sulfate (Feosol) 325 mg PO QAM [facility] Stop: 09/08/19 08:59 Last Admin: 08/14/19 08:24 Dose: 325 mg Documented by: Guaifenesin/Dextromethorphan (Robitussin Cough-Chest Dm) 10 ml PO Q6H PRN PRN Reason: Cough Stop: 09/11/19 18:51 Heparin Sodium (Porcine) (Heparin Sod 100 Unit/Ml Flush) 5 ml FLUSH PRN PRN PRN Reason: Flush Stop: 09/10/19 00:14 Last Admin: 08/13/19 20:56 Dose: 5 ml Documented by: Magnesium Hydroxide (Milk Of Magnesia) 30 ml PO Q6H PRN PRN Reason: Constipation Stop: 09/07/19 17:26 Metoclopramide HCl (Reglan) 10 mg PO TIDM [facility] Stop: 09/07/19 18:59 Last Admin: 08/14/19 12:12 Dose: 10 mg Documented by: Midodrine (Proamatine) 5 mg PO TID@0800,1200,1700 [facility] Stop: 09/08/19 11:59 Last Admin: 08/14/19 12:12 Dose: 5 mg Documented by: Ondansetron HCl (Zofran) 4 mg IV Q6H PRN PRN Reason: Nausea Stop: 09/07/19 17:26 Last Admin: 08/13/19 13:06 Dose: 4 mg Documented by: Ondansetron HCl (Zofran Tab) 4 mg PO QID [facility] Stop: 09/11/19 20:59 Last Admin: 08/14/19 13:01 Dose: 4 mg Documented by: Polyethylene Glycol (Miralax Powder Packet) 17 gm PO DAILY PRN PRN Reason: Constipation Stop: 09/07/19 17:26 Potassium Chloride (Klor-Con M20) 40 meq PO QAM [facility] Stop: 09/08/19 08:59 Last Admin: 08/14/19 08:24 Dose: Not Given Documented by: Prochlorperazine (Compazine) 5 mg PO Q6H PRN PRN Reason: nausea Stop: 09/12/19 17:44 Tamsulosin HCl (Flomax) 0.4 mg PO Q24H PRN PRN Reason: Bladder scan >500 Stop: 09/09/19 10:44 Last Admin: 08/10/19 20:14 Dose: 0.4 mg Documented by: Resident Activity Tracking Resident Involvement: Resident Care Provided Care Provided: Adult Hospital Medicine
[2019-08-15] MEDS: HEPARIN 100 UNIT/ML 5ML FLUSH FLUSH PRN (05:43)
[2019-08-15 06:14] LABS: Hematocrit (blood only) 26.5 % (42-52); Hemoglobin 8.5 g/dL (14.0-18.0); Mean Corpuscular Hemoglobin 25.9 pg (25-34); Mean Corpuscular Hgb Conc 32.1 g/dL (32-36); Mean Corpuscular Volume 80.8 fL (80-100); Mean Platelet Volume 9.7 fL (7.4-10.4); Platelet Count 128 K/uL (130-400); RDW Coefficient of Variation 22.1 % (11.5-14.5); Red Blood Count 3.28 M/uL (4.7-6.1)
[2019-08-15] MEDS: DRONABINOL 2.5 MG CAP PO SCH (06:49)
[2019-08-15] MEDS: MIDODRINE HCL 2.5 MG TAB PO SCH ×2 (08:32→11:39)
[2019-08-15] MEDS: ENOXAPARIN 100 MG/1ML SYR SQ SCH (08:32)
[2019-08-15] MEDS: FERROUS SULFATE 325 MG TAB PO SCH (08:33)
[2019-08-15] MEDS: METOCLOPRAMIDE HCL 10 MG TABLET PO SCH ×2 (08:33→11:40)
[2019-08-15] MEDS: POTASSIUM CHLORIDE 20 MEQ TABCR PO SCH (08:33)
[2019-08-15] MEDS: ONDANSETRON 4 MG TAB PO SCH ×2 (08:34→13:08)
[2019-08-15] MEDS: COLLAGENASE OINT 30 GM TUBE EXT SCH (08:34)
--- NOTE | 2019-08-15 12:22 | Discharge Summary ---
Date of Service August 15, 2019 Admission HPI Per Admitting Provider 84 y/o male with PMH of esophageal and colon cancer undergoing chemotherapy and radiation was admitted for increasing episodes of daily lightheadedness, and passing out when standing from a seated position or moving quickly from laying down to standing. Family has noticed that this has increased over the last two weeks; over this time he has had 3-4 episodes of loose stools a day. Noticed that these symptoms increased most over the last two weeks since completing his second and final round of chemotherapy. Describes bowel movements as loose with chunks and then watery at the end of the bowel movement, has 5-6 bowel movements total a day. Since finishing his chemotherapy has had intense nausea and vomiting with meals, and has been taking Zofran and Reglan in order to mitigate the nausea but had for up to a week had been trying to avoid eating most meals in order to limit these symptoms. However, has noticed that over this time he has had increasing weakness and feels like he just can't do as much as he used to on a daily basis without being worn out. Admission Exam Per Admitting Provider Constitutional: WD/WN, vitals as above Eyes: PERRL, conjunctivae normal, anicteric sclerae Respiratory: normal respiratory effort, lungs clear to auscultation Cardiovascular: Rate/Rhythm: regular rate and regular rhythm Heart Sounds: normal S1 and normal S2; no gallop, no murmur and no cardiac rub Gastrointestinal (Abdomen): normal bowel sounds, soft, nontender, no hepatosplenomegaly Musculoskeletal: Extremities: strength 5/5 throughout Skin: + ulcer (sacral decubitus ulcer stage 3/4?) Neurologic: CN's II-XI intact bilaterally, deep tendon reflexes 2+ bilaterally and moves all extremities; no focal motor deficits Principal Diagnosis malnutrition, deconditioning, dehydration, syncope Discharge Exam Constitutional WD/WN, vitals as above Respiratory normal respiratory effort, lungs clear to auscultation Cardiovascular Rate/Rhythm: regular rate and regular rhythm Heart Sounds: no murmur 1+ edema bilateral LE Gastrointestinal (Abdomen) normal bowel sounds, soft, nontender, no hepatosplenomegaly Psychiatric A+Ox3, euthymic affect Discharge Data Allergies Allergy/AdvReac Type Severity Reaction Status Date / Time metformin AdvReac Intermediate MUSCLE Verified 07/27/19 19:22 ACHES red yeast rice AdvReac Intermediate Muscle Pain Verified 08/09/19 13:00 Xnjrjzy-Xna-Sry Reductase AdvReac Intermediate MUSCLE Verified 07/27/19 19:22 Inhibitor ACHES Consultations 08/08/19 17:33 Consult Cardiology Routine 08/09/19 13:41 Consult Wound Care Provider Routine Ordered Studies 08/08/19 18:14 CT bony pelvis wo con Routine Hospital Course (1) Syncope and collapse: 84 y/o M with PMH of esophageal and colon cancer, DVT, HTN, DM2; presented after recurrent falls for the last week from seated position, additionally has stage 3 sacral decubitus ulcer. Syncope/?fall: - likely 2/2 orthostatic hypotension; - On home midodrine. - Received IV hydration. - PT/OT eval - rehab placement. Sacral decubitus ulcer: - stage 3, without spread to sacral spine per CT. - wound care consulted: wound vac removed and plans for daily Santyl and outpatient wound care with follow up in one week. Diarrhea: - Pt has been diagnosed with C. diff in the past and yesterday had 3 diarrhea BMs. - Ordered C. diff testing but patient has not had a BM today to test; this suggests he does not have C. diff. Hypotension: - continue home midodrine. - has had good improvement in blood pressure with rehydration. - continue to encourage PO intake of water. Dehydration: - critical that this patient has adequate PO hydration to prevent future orthostatic events like this one and to prevent dehydration. Nausea - PRN Compazine, Reglan for nausea. Scheduled Zofran 4mg QID. - fall precautions; continues to improve in strength, OT and PT evaluation suggest patient is unsafe to go home and would benefit from SNF. (2) Diarrhea: (3) Pressure ulcer of coccygeal region, stage 3: (4) Hypotension: (5) Acute deep vein thrombosis (DVT) of femoral vein of right lower extremity: (6) Acute deep vein thrombosis (DVT) of axillary vein of right upper extremity: (7) Stage II pressure ulcer of left buttock: (8) Hypokalemia: (9) HTN (hypertension): (10) DM type 2 (diabetes mellitus, type 2): Total Time Total Time Spent Total Time Spent (In Minutes): see attending attestation. Discharge Plan Discharge Items Patient Disposition: Transfer [facility] Reason For Visit: RECURRENT FALLS Discharge Diagnosis: syncope, sacral decubitus ulcer, deconditioning Condition on Discharge: Good Activity: Resume your previous activity Non-emergency contact: Primary Care Provider and Hospitalist Call non-emergency contact if: your symptoms worsen, your temperature is above 101 and your wound has increased drainage Follow-up/Referrals: Darryn Varela MD [Primary Care Provider] - Diet: Regular Addtl Attending Provider Instructions: 84 y/o M with PMH of esophageal and colon cancer, DVT, HTN, DM2; presented after recurrent falls for the last week from seated position, additionally has stage 3 sacral decubitus ulcer. Syncope: - likely 2/2 orthostatic hypotension; pt has improved with increased PO intake. Reports that he often does not eat well at home due to nausea and abdominal pain. - fall precautions; continues to improve in strength, OT and PT evaluation suggest patient is unsafe to go home and would benefit from SNF. - Currently on PO hydration and food. Doing fairly well however nausea and vomiting must be controlled in order to help with his eating. - On home midodrine. - PRN Compazine, Reglan for nausea. Scheduled Zofran 4mg QID. Sacral decubitus ulcer: - stage 3, without spread to sacral spine per CT. - wound care consulted: wound vac removed and plans for daily Santyl and outpatient wound care with follow up in one week. Diarrhea: - 3-4 episodes a day, patient has had previous C. diff. - pt has not had diarrhea for >24 hours before discharge Hypotension: - continue home midodrine. - has had good improvement in blood pressure with rehydration. - continue to encourage PO intake of water. Dehydration: - critical that this patient has adequate PO hydration to prevent future orthostatic events like this one and to prevent dehydration. DVT - During last admission 07/28/19, pt was diagnosed with a DVT of the axillary vein of right upper extremity AND of his femoral vein of right lower extremity - Follows with Dr. Sanders outpatient - continue Lovenox 90mg BID for at least 3 months following diagnosis Pending Studies at Discharge: No Stand-Alone Forms: My Touch[employer] Skilled Items Patient informed of condition?: Yes DNR: Yes (POLST per chart) Discharge Level of Care: Skilled Communicable Disease: No Discharge Prognosis: Stable Lines: None Urinary Catheter: No Medications and DC Order Prescriptions: New prochlorperazine maleate 5 mg Tablet 5 mg PO Q6H PRN (Reason: nausea and vomiting) Qty: 30 RF: 0 dronabinol 2.5 mg Capsule 10 mg PO BID@0700,1630 Qty: 30 RF: 0 Santyl 250 unit/gram Ointment 1 applic EXT DAILY Qty: 30 RF: 0 Continued ondansetron HCl [Zofran] 8 mg tablet 8 mg PO QID RF: 0 cyanocobalamin (vitamin B-12) [Vitamin B-12] 1,000 mcg Tablet 1,000 mcg PO QAM RF: 0 ferrous sulfate 325 mg (65 mg iron) Tablet 325 mg PO QAM RF: 0 midodrine 2.5 mg tablet 2.5 - 5 mg PO BID RF: 0 enoxaparin 100 mg/mL Syringe 90 mg subcut Q12H 30 Days Qty: 60 RF: 2 pantoprazole 40 mg Tablet,Delayed Release (Dr/Ec) 40 mg PO DAILY RF: 0 metoclopramide HCl 10 mg Tablet 10 mg PO Q6H PRN (Reason: Vomiting) RF: 0 Discharge Orders: Discharge Order (Routine); Ordered 08/15/19 Ordered By: Luzmaria Evans Admission Data Admit Date/Time: 08/08/19 14:58 Attending Provider: Liyah Enamorado Admit Provider: Jared Huerta Primary Care Provider: Darryn Varela Other Providers: [facility] ; Akil Sanchez ; Akil Sun ; Luis Victoria Other Interventions: Discharge Summary Assessment (RN) Last Done: 08/15/19 14:59 DC Date/Time DO NOT enter until pt leaves facility: 08/15/19 16:16 Supervising Physician Co-Signing Physician Notes Resident Physician Supervision Note: I independently interviewed and examined the patient and verified the green history and physical, reviewed labs and image studies, discussed the case with the resident Dr. Bustillos and agree with the findings and care plan. Time spent in discharge 35 min Resident Activity Tracking Resident Involvement: Resident Care Provided Care Provided: Adult Hospital Medicine
== END 2019-08-15 16:16 | DRG 312 ==
LOC: SUATTDRO 14:58 → 2S 14:58 → 4W 08-10 20:36